=== PATIENT | female | born 1940 | race Caucasian/White ===

== ENCOUNTER → 2016-06-04 | Outpatient (CLI) | payer MEDICARE, BC ==
[2016-06-04 15:37] LABS: Basophils # (A) 0.1 k/uL (0-0.2); Basophils % (A) 1 %; CH 30.1; CHCM 33.5; Eosinophils # (A) 0.3 k/uL (0-0.7); Eosinophils % (A) 3 %; HDW 3.24; HGB 11.3 gm/dL (11.4-16.0); Luc # (Auto) 0.12; Luc % (Auto) 1; Lymphocytes # (A) 1.7 k/uL (1.0-4.8); Lymphocytes % (A) 18 %; MCH 29.1 pg (25.0-35.0); MCHC 32.3 g/dL (31.0-37.0); MCV 90.3 fL (80.0-100.0); Mean Platelet Volume 7.9; Monocytes # (A) 0.5 k/uL (0-1.0); Monocytes % (A) 5 %; Neutrophils % (A) 73 %; RBC 3.88 m/uL (3.80-5.40); RDW 15.6 % (11.5-15.5); WBC 9.6 k/uL (3.8-10.6); WBC (Perox) 10.18
[2016-06-04 15:57] LABS: Potassium 3.5 mmol/L (3.5-5.1)
[2016-06-04 16:07] LABS: Partial Thromboplastin Time 21.9 sec (22.0-30.0)
== END | disposition home or self-care (01) ==
LOC: LABPAT 14:54
PROVIDERS: ATTEND Orthopaedic Surgery
DX: Z01.812 Encounter for preprocedural laboratory examination (principal); M17.12 Unilateral primary osteoarthritis, left knee; Z51.81 Encounter for therapeutic drug level monitoring; Z79.01 Long term (current) use of anticoagulants
CPT/HCPCS: 80051; 85025; 85610; 85730; 87070

== ENCOUNTER 2016-06-10 08:38 | Inpatient (IN) | payer MEDICARE, BC ==
[2016-06-05 14:48] VITALS: BMI 23.3
--- NOTE | 2016-06-09 13:46 | HP ---
DATE OF ADMISSION: 06/10/2016 Lolita Blood is a 75-year-old patient seen with symptomatic left knee osteoarthritis, failing conservative treatment measures. After having options regarding treatment discussed, she elected to proceed with left total knee arthroplasty. Consent was obtained. Medical clearance was provided by Dr. Roman. Patient had been cardiac cleared by Dr. Gr. Past medical history is hypertension, hyperlipidemia, hypothyroidism, gastroesophageal reflux disease. Past surgical history is hysterectomy, bladder suspension surgery. DAILY MEDICATIONS: 1. Lisinopril. 2. Simvastatin. 3. Allopurinol. 4. Amlodipine. 5. Levothyroxine. 6. Shiloh. 7. Omeprazole. Allergies are IODINE, DARVOCET, DARVON, CODEINE. SOCIAL HISTORY: Patient denies tobacco use. Physical evaluation of the left knee: Range of motion is -3 to 115 degrees. There is a moderate to severe effusion present. Tenderness along the lateral joint line with a positive lateral Ambrosio's. There is crepitus along the lateral and patellofemoral compartments with range of motion, pain on patellofemoral compression. Ligaments stable. Hip rotation without pain. Distal neurovascular exam intact. Radiographs of the left knee revealed moderate to severe lateral compartment osteoarthritis and moderate patellofemoral compartment osteoarthritis. IMPRESSION: Left knee osteoarthritis. PLAN: Left total knee arthroplasty.
[~2016-06-10 08:38] MED LIST: ACETAMINOPHEN TAB 500 MG TAB PO ONE; LIDOCAINE 1% 20 ML VIAL (10MG/ML) FOR IV START INTRADERMA PRN; MELOXICAM 7.5 MG TAB PO ONE; TRANEXAMIC ACID 1,000 MG in SODIUM CHLORIDE 0.9% 100 ML IVPB ONE; ceFAZolin 2 GM in SODIUM CHLORIDE 0.9% 100 ML IVPB ONE
[2016-06-10] MEDS: LACTATED RINGERS 1,000 ML IV SCH ×2 (09:03→09:08)
[2016-06-10] MEDS ORDERED: DEXAMETHASONE SOD PHOSPHATE 10 MG/ML 1 ML VIAL IV ONE (09:12)
[2016-06-10] MEDS: ONDANSETRON 4 MG/2 ML VIAL IVP ONE ×2 (09:14→14:20)
[2016-06-10] MEDS ORDERED: fentaNYL (PF) 50 MCG/ML 2 ML AMP IV ONE (09:17)
[2016-06-10] MEDS: MIDAZOLAM 2 MG/2 ML VIAL IV PRN ×2 (09:17→14:33)
[2016-06-10 09:29] LABS: Potassium 3.2 mmol/L (3.5-5.1)
[2016-06-10] MEDS ORDERED: ROPIVACAINE 1,100 MG, SODIUM CHLORIDE 0.9% 330 ML MISCELLANE PRN ×2 (09:40)
--- NOTE | 2016-06-10 09:42 | P.ONQ ---
Anesthesiology Proc Note - PNB - Peripheral Nerve Block Performed Left Adductor Canal Infusion Time Out Performed: Yes Indication: Acute Post-Operative Pain, Analgesia Specifically requested for management of pain by DrSarah: Gaurav Alves Sedation Type: Sedate with meaningful contact maintained Preparation: Sterile Prep Position: Supine Catheter Depth at Skin (cm): 6 Catheter: Indwelling Needle Types: On-Q Needle Size: 100mm (4") Needle Gauge: 20 Technique: Ultrasound Injectate: 0.5% Ropivacaine (see comment for volume) (20 cc) Blood Aspirated: No Pain Paresthesia on Injection Noted: No Resistance on Injection: Normal Events: Uneventful and Well Tolerated
[2016-06-10] MEDS ORDERED: LIDOCAINE 1% INJ 10MG/ML (20 ML MDV) ONE (11:35)
[2016-06-10] MEDS ORDERED: SUCCINYLCHOLINE CHLORIDE 100 MG/5 ML SYR IV ONE (11:35)
[2016-06-10] MEDS ORDERED: GLYCOPYRROLATE 0.2 MG/ML 2 ML VIAL ONE (11:35)
[2016-06-10] MEDS ORDERED: PROPOFOL 10 MG/ML 20 ML VIAL IV ONE (11:35)
[2016-06-10] MEDS ORDERED: MIDAZOLAM 2 MG/2 ML VIAL ONE (11:35)
[2016-06-10] MEDS ORDERED: ROCURONIUM BROMIDE 10 MG/ML 10 ML VIAL IV ONE (11:35)
[2016-06-10] MEDS ORDERED: fentaNYL (PF) 50 MCG/ML 2 ML AMP ONE (11:35)
[2016-06-10] MEDS ORDERED: TRANEXAMIC ACID 1,000 MG/10 ML VIAL ONE (11:35)
[2016-06-10] MEDS ORDERED: NEOSTIGMINE 1 MG/ML 10 ML VIAL ONE (11:35)
[2016-06-10] MEDS ORDERED: SODIUM CHLORIDE 0.9% 100 ML BAG ONE (11:35)
[2016-06-10] MEDS ORDERED: PHENYLEPHRINE-0.9% NACL SYG 1 MG/10 ML SYRINGE ONE (11:35)
[2016-06-10] MEDS ORDERED: LACTATED RINGERS 1,000 ML IV ONE (12:10)
[2016-06-10] MEDS ORDERED: ceFAZolin 3,000 MG in SODIUM CHLORIDE 0.9% IRRIGATIO 3,000 ML IRRIGATION ONE (12:22)
[2016-06-10] MEDS: ROPIVACAINE 246.25 MG, EPINEPHrine 0.5 MG, KETOROLAC 30 MG, cloNIDine HCL/PF 80 MCG, WA... MISCELLANE ONE ×10 (12:24→12:57)
[2016-06-10] MEDS ORDERED: NALOXONE 0.4 MG/ML 1 ML VIAL IV PRN (13:37)
[2016-06-10] MEDS ORDERED: HYDROmorphone 1 MG/ML 1 ML SYRINGE IVP PRN ×2 (13:37)
--- NOTE | 2016-06-10 13:37 | P.OP ---
Date of Procedure: 06/10/16 Preoperative Diagnosis: Left knee osteoarthritis Postoperative Diagnosis: Left knee osteoarthritis Procedure(s) Performed: Left total knee arthroplasty Implants: 1. Jose Manuel persona size 5 left narrow cemented cruciate retaining femur 2. Jose Manuel persona size C left cemented tibial component 3. Jose Manuel persona 10 mm medial congruent polyethylene tibial insert 4. Jose Manuel persona 32 mm all polyethylene cemented patella 5 Anesthesia: GETA, regional (Adductor canal block) Surgeon: Gaurav Alves Retirement Specialist #1: Faisal Steele Estimated Blood Loss (ml): 75 Pathology: other (Bone) Condition: stable Disposition: PACU Indications for Procedure: 75-year-old patient seen with symptomatic left knee osteoarthritis. After treatment options were discussed, she elected to proceed with left total knee arthroplasty. Operative Findings: See description of procedure Description of Procedure: Patient was taken to the operative suite after having an adductor canal block performed by the department of anesthesia. Patient underwent a general anesthetic by the department of anesthesia. Patient was given preoperative IV intake antibiotics and TXA. A well-padded tourniquet was placed about the left lower extremity. The lower extremity was then prepped and draped in the normal sterile orthopedic fashion. A standard anterior incision was made sharply through skin. Dissection was taken down through the subcutaneous soft tissues down to the extensor mechanism. A medial arthrotomy was performed, patella was everted and knee was flexed. There was advanced osteoarthritis noted. A proximal tibial cutting guide was positioned. Proximal tibial cut was made. A distal intramedullary femoral cutting guide was positioned, distal femoral cut made. We placed the appropriate sizing guide and selected the appropriate size. A distal 4-in-1 femoral cutting block was positioned, distal femoral cuts were made. We now placed a trial femoral component into position, along with an appropriate size tibial tray and insert. We now took the knee through range of motion and had full extension good flexion and good overall soft tissue balance noted. The patella was everted and a flush cut made with patellar quad tendon. We templated the patella, appropriate drill holes were made. An appropriate trial patella was positioned, knee was taken through full range of motion with the patella tracking very nicely. The trial patella was removed. Drill holes were made through the femoral component. All trial components were removed after marking off the appropriate rotation of the tibia. Retractors were now positioned along the proximal tibia. An appropriate keel punch was made with the appropriate size tibial guide. At this point appropriate size implants were chosen and opened. The tourniquet was insufflated to 350. The joint was irrigated copiously with pulse lavage mechanical irrigation. We mixed antibiotic methylmethacrylate. The deep soft tissues were infiltrated local analgesic. Once the methyl methacrylate was ready, the tibial component was cemented into place removing any excess methylmethacrylate. The femoral component was cemented into place removing the removing any excess methylmethacrylate. We then inserted the appropriate size polyethylene tibial insert. We made sure that it was locked into position. We took the knee into full extension, and then back in a flexion making sure we had removed any excess methylmethacrylate. The patellar component was then cemented down and secured with clamp. Excess methylmethacrylate removed. We kept the knee in full extension, patellar clamp in position until methylmethacrylate had hardened. Once it had hardened the patellar clamp was removed. The knee was taken through full range of motion. The patella tracked nicely. There was good soft tissue balancing. The tourniquet was now released. Additional hemostasis was achieved via electrocautery. A second gram of TXA was given. The wound was irrigated with pulse lavage mechanical irrigation. The extensor mechanism was repaired with Vicryl. We checked the repair with range of motion and it was stable. The subcutaneous soft tissues were repaired with Vicryl in layers. The skin was approximated with pernio/ Dermabond. Sterile dressings were applied followed by loose web roll and Souleymane bandage. The patient was transferred to a bed, and taken to recovery in stable and satisfactory condition. Faisal BENITEZ assisted with the procedure.
[2016-06-10] MEDS: HYDROmorphone 1 MG/ML 1 ML SYRINGE IVP ONE ×2 (14:25→14:31)
--- NOTE | 2016-06-10 14:53 | XR ---
EXAMINATION TYPE: XR knee limited LT DATE OF EXAM: 06/10/2016 2:34 PM CLINICAL HISTORY: Postoperative evaluation Two views of the left knee are submitted. Identified are changes of total knee arthroplasty with fem oral and tibial components appearing well seated. Postsurgical soft tissue changes are noted. Align ment is anatomic.
[2016-06-10] MEDS ORDERED: Potassium Replacement Protocol 1 EACH MISC MISCELLANE PRN (15:48)
[2016-06-10] MEDS: POTASSIUM CHLORIDE ER 20 MEQ TAB.ER PO SCH ×2 (19:19→20:36)
[2016-06-10] MEDS: traMADol 50 MG TAB PO SCH ×2 (19:20→20:57)
[2016-06-10] MEDS: SODIUM CHLORIDE 0.9% 1,000 ML IV SCH (19:20)
[2016-06-10] MEDS: CALCIUM ACETATE 667 MG CAP PO SCH (20:35)
[2016-06-10] MEDS: ENOXAPARIN 30 MG/0.3 ML SYRINGE SQ SCH (20:36)
[2016-06-10] MEDS: ATORVASTATIN 20 MG TAB PO SCH (20:36)
[2016-06-10] MEDS: ceFAZolin 2 GM in SODIUM CHLORIDE 0.9% 100 ML IVPB SCH (20:39)
[2016-06-10] MEDS: SENNOSIDES-DOCUSATE SODIUM 1 EACH TAB PO SCH (20:40)
[2016-06-11] MEDS: HYDROcodone/APAP 7.5-325MG 1 EACH TAB PO PRN ×6 (00:25→23:29)
[2016-06-11] MEDS: traMADol 50 MG TAB PO SCH ×5 (01:37→20:22)
[2016-06-11] MEDS: LACTATED RINGERS 1,000 ML IV SCH (02:37)
[2016-06-11] MEDS: LEVOTHYROXINE 50 MCG TAB PO SCH (05:04)
[2016-06-11] MEDS: ceFAZolin 2 GM in SODIUM CHLORIDE 0.9% 100 ML IVPB SCH (05:04)
[2016-06-11] MEDS: hydrOXYzine PAMOATE 25 MG CAP PO PRN ×4 (05:27→23:29)
[2016-06-11] MEDS: PANTOPRAZOLE 40 MG TABLET PO SCH (07:28)
[2016-06-11] MEDS: CALCIUM ACETATE 667 MG CAP PO SCH ×2 (07:28→18:08)
[2016-06-11] MEDS: ENOXAPARIN 30 MG/0.3 ML SYRINGE SQ SCH ×2 (07:29→20:21)
[2016-06-11] MEDS: amLODIPine 10 MG TAB PO SCH (07:29)
[2016-06-11 08:59] LABS: Basophils % (A) 0 %; CH 30.3; CHCM 33.4; Eosinophils % (A) 0 %; HCT 27.3 % (34.0-46.0); HDW 3.14; Luc # (Auto) 0.07; Luc % (Auto) 1; Lymphocytes # (A) 1.2 k/uL (1.0-4.8); Lymphocytes % (A) 13 %; MCH 29.4 pg (25.0-35.0); MCHC 32.1 g/dL (31.0-37.0); MCV 91.5 fL (80.0-100.0); Monocytes # (A) 0.5 k/uL (0-1.0); Monocytes % (A) 5 %; Neutrophils # (A) 7.1 k/uL (1.3-7.7); Neutrophils % (A) 80 %; RBC 2.98 m/uL (3.80-5.40); RDW 15.6 % (11.5-15.5); WBC 8.9 k/uL (3.8-10.6); WBC (Perox) 9.32
[2016-06-11] MEDS ORDERED: FAMOTIDINE 20 MG TAB PO SCH (09:00)
[2016-06-11 09:02] LABS: HGB 8.8 gm/dL (11.4-16.0)
[2016-06-11 09:05] LABS: Calcium 9.1 mg/dL (8.4-10.2); Potassium 3.8 mmol/L (3.5-5.1)
[2016-06-11] MEDS: HYDROmorphone 1 MG/ML 1 ML SYRINGE IVP PRN ×3 (10:01→20:28)
--- NOTE | 2016-06-11 10:15 | P.PN ---
Progress Note - Text 0845. Anesthesia POD 1. Patient is status post left TKR under generall anesthesia with an adductor canal catheter placed on the left for postoperative pain relief. Catheter site is clean dry and intact. Patient reports a the a VAS of 3, 5 with 0.2% ropivacaine running at 10 mL per hour. Most of the discomfort she is having is in the posterior aspect of the operative knee.
[2016-06-11] MEDS: CHOLECALCIFEROL 1,000 UNIT TAB PO SCH (12:06)
[2016-06-11] MEDS: FERROUS SULFATE 325 MG TAB PO SCH (12:06)
[2016-06-11] MEDS: MULTIVITAMINS, THERA 1 EACH TAB PO SCH (12:06)
[2016-06-11] MEDS: SODIUM CHLORIDE 0.9% 1,000 ML IV SCH (12:26)
--- NOTE | 2016-06-11 12:54 | P.CONS ---
History of Present Illness - Reason for Consult Consult date: 06/10/16 Medical management Requesting physician: Gaurav Alves - Chief Complaint Left knee pain - History of Present Illness Patient is a 75-year-old female with past medical history detailed below significant for left knee osteoarthritis that did not respond to conservative treatment. Patient was admitted for elective total left knee arthroplasty. Patient tolerated procedure well. Patient is evaluated on the surgical floor where she is postop day #1. Patient is sitting up in the chair. Denies chills, fevers, nausea, vomiting, shortness of breath, chest pain, abdominal pain, numbness or tingling. Incisional pain controlled with current pain regimen. Patient is urinating without difficulty. Patient reports good appetite. Labs reviewed: Hemoglobin 8.8, creatinine 2. Afebrile. Hemodynamically stable. Past Medical History Past Medical History: Blood Disorder, GERD/Reflux, Hyperlipidemia, Hypertension , Renal Disease Additional Past Medical History / Comment(s): HX ANEMIA AND DIVERTICULOSIS. HAS LOW KIDNEY FUNCTION, 21% - HAD CLEARANCE FOR TRANSPLANT LIST. History of Any Multi-Drug Resistant Organisms: None Reported Past Surgical History: Bladder Surgery, Hysterectomy, Joint Replacement Additional Past Surgical History / Comment(s): TOTAL RT KNEE sinus surgery Past Anesthesia/Blood Transfusion Reactions: Postoperative Nausea & Vomiting ( PONV) Past Psychological History: No Psychological Hx Reported Smoking Status: Never smoker Past Alcohol Use History: Occasional Past Drug Use History: None Reported - Past Family History Mother Family Medical History: No Reported History Medications and Allergies Home Medications Medication Instructions Recorded Confirmed Type Calcium Acetate [Phoslo] 667 mg PO BID 01/19/16 06/10/16 History Cholecalciferol [Vitamin D3] 2,000 unit PO DAILY 01/19/16 06/10/16 History Ferrous Sulfate [Feosol] 325 mg PO DAILY 01/19/16 06/10/16 History HYDROcodone/APAP 5-325MG [[place] 2 tab PO Q8HR PRN 01/19/16 06/10/16 History 5-325] Levothyroxine Sodium [Synthroid] 50 mcg PO DAILY 01/19/16 06/10/16 History Ranulfo Red Krill Oil 1 tab PO DAILY 01/19/16 06/10/16 History Omeprazole 20 mg PO DAILY 01/19/16 06/10/16 History Simvastatin [Zocor] 40 mg PO HS 01/19/16 06/10/16 History amLODIPine [Norvasc] 10 mg PO DAILY 01/19/16 06/10/16 History diphenhydrAMINE [Benadryl] 25 mg PO HS PRN 01/19/16 06/10/16 History Allopurinol [Zyloprim] 100 mg PO DAILY 06/05/16 06/10/16 History Allergies Allergy/AdvReac Type Severity Reaction Status Date / Time iodine Allergy MAKES CUTS Verified 06/10/16 09:00 WORSE Sulfa (Sulfonamide Allergy Rash/Hives Verified 06/10/16 09:00 Antibiotics) codeine AdvReac CONSTIPATIO Verified 06/10/16 09:00 N NSAIDS (Non-Steroidal AdvReac Unknown Verified 06/10/16 11:17 Anti-Inflamma Physical Exam Vitals: Vital Signs Temp Pulse Pulse Resp BP Pulse Ox 06/11/16 07:00 98.4 F 84 16 113/66 94 L 06/11/16 00:15 98.3 F 89 16 113/67 92 L 06/10/16 19:30 97.7 F 84 16 123/66 95 06/10/16 17:45 117/66 06/10/16 17:30 110/59 06/10/16 17:15 109/80 06/10/16 17:00 113/64 06/10/16 16:30 108/63 06/10/16 16:15 106/62 06/10/16 16:00 97.3 F L 85 16 120/69 99 06/10/16 15:30 81 18 111/59 97 06/10/16 15:00 82 16 104/57 99 06/10/16 14:45 78 18 108/55 97 06/10/16 14:32 83 18 118/60 100 06/10/16 14:05 97.6 F 95 16 123/64 94 L Intake and Output 06/10/16 06/11/16 06/11/16 22:59 06:59 14:59 Intake Total 750 400 360 Output Total 450 700 Balance 300 400 -340 Intake: IV 750 400 Sodium Chloride 0.9% 1, 200 400 000 ml @ 50 mls/hr IV . Q20H [facility] Rx#:[id number] Oral 360 Output: Urine 450 700 Uretheral (Nguyen) 450 400 Other: Voiding Method Indwelling Catheter GENERAL: Pt awake and alert, well-appearing, well-nourished, and in no acute distress. HEAD: Atraumatic, normocephalic. EYES: Pupils equal and round. Sclera anicteric, conjunctiva are normal. ENT: Moist mucous membranes. NECK:Supple without lymphadenopathy or JVD. LUNGS: Breath sounds clear to auscultation bilaterally. No wheezes, rales, or rhonchi. HEART: Heart S1, S2, no S3 or S4. Regular rate and rhythm. No murmurs, rubs or gallops. ABDOMEN: Soft, nontender, nondistended, normoactive bowel sounds. EXTREMITIES: 2+ peripheral pulses. Mild bilateral peripheral edema. No calf tenderness. Dressing to left knee dressing intact. NEUROLOGICAL: Pt oriented x 3. No focal deficits. Strength and sensation grossly intact. PSYCH: Normal mood, normal affect. SKIN: Warm, dry, intact. Normal turgor. No rashes or lesions. Results CBC & Chem 7: 06/11/16 08:20 06/11/16 08:13 Labs: Abnormal Lab Results - Last 24 Hours (Table) 06/11/16 06/11/16 Range/Units 08:13 08:20 RBC 2.98 L (3.80-5.40) m/uL Hgb 8.8 L D (11.4-16.0) gm/dL Hct 27.3 L (34.0-46.0) % RDW 15.6 H (11.5-15.5) % BUN 28 H (7-17) mg/dL Creatinine 2.00 H (0.52-1.04) mg/dL Assessment and Plan Plan: Impression: 1. Left knee osteoarthritis status post left total knee arthroplasty on 2016. 2. Anemia, postop suspect secondary to acute blood loss and possible hemodilution. 3. Chronic kidney disease, stage IV. 4. GERD. 5. Hyperlipidemia. 6. Hypertension. 7. History of diverticulosis. Plan: Continue to monitor patient. Continue surgical management by orthopedic service. Home medications have been reviewed and resumed as appropriate. Continue GI and DVT prophylaxis. Continue supportive treatment and pain management. Repeat CBC and BMP in a.m. The above impression and plan have been discussed and directed by Dr. Roman. Velia CHAVIRA acting as scribe for Dr. Roman.
--- NOTE | 2016-06-11 13:53 | P.PN ---
Subjective Principal diagnosis: Status post left total knee arthroplasty Patient is seen today resting in her hospital bed, she appears to be in no acute distress. She has noticed some increase in pain when ambulating. She denies any headaches, lightheadedness, chest pain, shortness of breath. Objective - Vital Signs Vital signs: Vital Signs Temp 98.4 F 06/11/16 07:00 Pulse 84 06/11/16 07:00 Resp 16 06/11/16 07:00 BP 113/66 06/11/16 07:00 Pulse Ox 94 L 06/11/16 07:00 Intake & Output 06/10/16 06/11/16 06/11/16 18:59 06:59 18:59 Intake Total 5300 600 600 Output Total 325 450 700 Balance 4975 150 -100 Intake: IV 5300 600 Sodium Chloride 0.9% 1, 600 000 ml @ 50 mls/hr IV . Q20H [facility] Rx#:[id number] Oral 600 Output: Urine 250 450 700 Uretheral (Nguyen) 450 400 Estimated Blood Loss 75 Other: Voiding Method Indwelling Catheter Indwelling Catheter - Exam Left lower extremity: Incision is clean, dry, and intact. Minimal ecchymosis present on the medial and lateral aspects of the incision. Calf is soft, no tenderness with palpation. Plantar flexion, dorsiflexion, EHL, FHL are intact. Sensory exam light touch is intact, cap refills less than 2 seconds - Labs CBC & Chem 7: 06/11/16 08:20 06/11/16 08:13 Labs: Abnormal Lab Results - Last 24 Hours (Table) 06/11/16 06/11/16 Range/Units 08:13 08:20 RBC 2.98 L (3.80-5.40) m/uL Hgb 8.8 L D (11.4-16.0) gm/dL Hct 27.3 L (34.0-46.0) % RDW 15.6 H (11.5-15.5) % BUN 28 H (7-17) mg/dL Creatinine 2.00 H (0.52-1.04) mg/dL Assessment and Plan Plan: Assessment: 1. Postop day #1 status post left total knee arthroplasty Plan: 1. Pain control, continue supportive oral medications 2. Daily dressing changes/ice and elevate 3. Continue with therapy and CPM 4. Encourage incentive spirometer 5. GI and DVT prophylaxis, continue Lovenox 6. Medical recommendations 7. Discharge planning: Patient will be likely discharged home tomorrow Time with Patient: Less than 30
--- NOTE | 2016-06-11 13:54 | P.DS ---
Providers Date of admission: 06/10/16 08:38 Expected date of discharge: 06/13/16 Attending physician: Gaurav Alves Consults: 06/10/16 13:37 Consult Physician Routine Consulting Provider: Balbir Roman Reason/Comments: Medical management Do you want consulting provider notified?: Yes Primary care physician: Balbir Roman [place] Hospital Course: Date of admission: 06/10/2016 Date of discharge: 06/13/2016 Admission diagnosis: Status post left total knee arthroplasty Discharge diagnosis: Same Attending physician: Dr. Alves Surgical procedures: Left total knee arthroplasty Brief history: Patient is a 75-year-old female with a history of progressive primary left knee osteoarthritis. At this point patient has failed conservative treatment measures and has opted to proceed with a elective left total knee arthroplasty. Hospital course: Details of patient's surgery can be found in operative report. Patient tolerated the procedure well and was subsequently transported to orthopedic floor. Patient's orthopeidc and medical care was provided daily. Patient had daily laboratory tests performed for evaluation of overall blood counts. Patient had daily physical therapy to include strengthening range of motion as well as education with walker ambulation. Patient had daily CPM usage as part of their physical therapy program. Patient was treated with Lovenox for their postoperative DVT prophylaxis during their inpatient stay. Patient was noted to have a relatively uneventful postoperative course. Patient reported satisfactory pain control with oral pain medications by postoperative day 0. Patient showed satisfactory progress with physical therapy. Patient moved steadily through the program and had no difficulty meeting the goals by postoperative day 3. Given patient's otherwise satisfactory course and having met physical therapy goals, plan is to discharge patient home on postoperative day 3. Discharge condition/disposition: Patient will be discharged home in stable condition. Discharge medications: Instructions are given on resumption of patient's normal daily medications per primary care recommendation, in addition patient will be prescribed [place] 7.5 mg/325 mg, tramadol 50 mg, Colace 100 mg, Pepcid 20 mg, aspirin 25 mg. Discharge instructions: 1. Wound care and infection precautions, keep incision dry and covered while showering, no lotions, creams, moisturizers. No soaking, tubs, pools, hottubs. Do not scrub over the incision. 2. Weight-bear as tolerated with walker / cane until follow-up. 3. Ice and elevate when necessary. Do not exceed 20 minutes per hour with ice pack. 4. Utilize compression sleeve until seen at first follow up appointment. 5. Visiting nursing care. 6. Home physical therapy including home CPM. 7. Pain meds and anticoagulants per prescription. 8. Pain medication has potential to cause constipation. Increase oral fluid and fiber intake. Contact primary care provider if you have not had a bowel movement within 48 hours after discharge 9. No anti-inflammatory medication until discussed at first post operative visit, this including Motrin, Aleve, Mobic, Diclofenac. 10. Follow up in office at 2 weeks postop with Esteban Steele PA-C 11. Follow up with your primary care doctor 7-10 days after discharge. 12. Contact [facility] with any questions, . Procedures: Left total knee arthroplasty Patient Condition at Discharge: Good Plan - Discharge Summary New Discharge Prescriptions: Aspirin 325 mg PO DAILY #3 tab Docusate [Colace] 100 mg PO DAILY #30 capsule Enoxaparin Sodium [Lovenox] 30 mg SQ Q12HR #14 syringe Famotidine [Pepcid] 20 mg PO DAILY #30 tablet HYDROcodone/APAP 7.5-325MG [[place] 7.5] 1 - 2 each PO Q6HR PRN #60 tab PRN Reason: Pain Warfarin [Coumadin] 2.5 mg PO DAILY #40 tab traMADol HCl [Ultram] 50 mg PO Q6H PRN #40 tab PRN Reason: Pain Discharge Medication List Calcium Acetate [Phoslo] 667 mg PO BID 01/19/16 [History] Cholecalciferol [Vitamin D3] 2,000 unit PO DAILY 01/19/16 [History] Ferrous Sulfate [Feosol] 325 mg PO DAILY 01/19/16 [History] Levothyroxine Sodium [Synthroid] 50 mcg PO DAILY 01/19/16 [History] Ranulfo Red Krill Oil 1 tab PO DAILY 01/19/16 [History] Omeprazole 20 mg PO DAILY 01/19/16 [History] Simvastatin [Zocor] 40 mg PO HS 01/19/16 [History] amLODIPine [Norvasc] 10 mg PO DAILY 01/19/16 [History] diphenhydrAMINE [Benadryl] 25 mg PO HS PRN 01/19/16 [History] Allopurinol [Zyloprim] 100 mg PO DAILY 06/05/16 [History] Docusate [Colace] 100 mg PO DAILY #30 capsule 06/12/16 [Rx] Famotidine [Pepcid] 20 mg PO DAILY #30 tablet 06/12/16 [Rx] HYDROcodone/APAP 7.5-325MG [[place] 7.5] 1 - 2 each PO Q6HR PRN #60 tab 06/12/16 [ Rx] traMADol HCl [Ultram] 50 mg PO Q6H PRN #40 tab 06/12/16 [Rx] Aspirin 325 mg PO DAILY #3 tab 06/13/16 [Rx] Enoxaparin Sodium [Lovenox] 30 mg SQ Q12HR #14 syringe 06/13/16 [Rx] Warfarin [Coumadin] 2.5 mg PO DAILY #40 tab 06/13/16 [Rx] Follow up Appointment(s)/Referral(s): Balbir Roman DO [Primary Care Provider] - 06/19/16 11:20 am [facility], [NON-STAFF] - 1 Week Faisal Steele PAC [PHYSICIAN PROPERTY PRESERVATION SPECIALIST] - 06/28/16 1:50 pm Ambulatory/Diagnostic Orders: Prothrombin Time INR [LAB.AMB] Location: Determined By Patient Patient Instructions/Handouts: Knee Replacement (DC) Activity/Diet/Wound Care/Special Instructions: call [facility] when discharged to get your CPM delivered. Orthopedic Discharge Instructions: 1. Wound care and infection precautions, keep incision dry and covered while showering, no lotions, creams, moisturizers. No soaking, pools, hot tubs. Do not scrub over incision. 2. Weight-bear as tolerated with walker / cane until follow-up. 3. Ice and elevate when necessary. Do not exceed 20 minutes per hour with ice pack. 4. Utilize compression sleeve until seen at first follow up appointment. 5. Visiting nursing care. 6. Home physical therapy including home CPM. 7. Pain meds and anticoagulants per prescription. 8. Pain medication has potential to cause constipation. Increase oral fluid and fiber intake. Contact primary care provider if you have not had a bowel movement within 48 hours after discharge. 9. No anti-inflammatory medication until discussed at first post operative visit, this including Motrin, Aleve, Mobic, Diclofenac. 10. Follow up in office at 2 weeks postop with Esteban Steele PA-C 11. Follow up with your primary care doctor 7-10 days after discharge. 12. Contact [facility] with any questions, . Aspirin 325 mg oral for [address] Roman. Discharge Disposition: HOME WITH HOME HEALTH SERVICES
[2016-06-11] MEDS: ATORVASTATIN 20 MG TAB PO SCH (20:21)
[2016-06-11] MEDS: SENNOSIDES-DOCUSATE SODIUM 1 EACH TAB PO SCH (20:21)
[2016-06-12] MEDS: LEVOTHYROXINE 50 MCG TAB PO SCH (05:10)
[2016-06-12] MEDS: hydrOXYzine PAMOATE 25 MG CAP PO PRN ×2 (05:10→10:24)
[2016-06-12] MEDS: HYDROcodone/APAP 7.5-325MG 1 EACH TAB PO PRN ×3 (05:10→16:35)
[2016-06-12 07:59] LABS: Basophils % (A) 0 %; CH 29.8; CHCM 32.6; Eosinophils # (A) 0.1 k/uL (0-0.7); Eosinophils % (A) 1 %; HCT 27.3 % (34.0-46.0); HDW 3.07; HGB 8.9 gm/dL (11.4-16.0); Luc # (Auto) 0.12; Luc % (Auto) 2; Lymphocytes # (A) 1.3 k/uL (1.0-4.8); Lymphocytes % (A) 17 %; MCH 29.8 pg (25.0-35.0); MCHC 32.6 g/dL (31.0-37.0); MCV 91.6 fL (80.0-100.0); Mean Platelet Volume 7.1; Monocytes # (A) 0.5 k/uL (0-1.0); Monocytes % (A) 7 %; Neutrophils # (A) 5.5 k/uL (1.3-7.7); Neutrophils % (A) 73 %; RBC 2.98 m/uL (3.80-5.40); RDW 15.5 % (11.5-15.5); WBC 7.4 k/uL (3.8-10.6); WBC (Perox) 8.14
[2016-06-12 08:15] LABS: Calcium 9.3 mg/dL (8.4-10.2); Potassium 3.6 mmol/L (3.5-5.1)
[2016-06-12] MEDS ORDERED: Potassium Replacement Protocol 1 EACH MISC MISCELLANE PRN (08:29)
[2016-06-12] MEDS ORDERED: POTASSIUM CHLORIDE ER 20 MEQ TAB.ER PO SCH (09:00)
[2016-06-12] MEDS: CALCIUM ACETATE 667 MG CAP PO SCH ×2 (09:08→21:12)
[2016-06-12] MEDS: PANTOPRAZOLE 40 MG TABLET PO SCH (09:08)
[2016-06-12] MEDS: amLODIPine 10 MG TAB PO SCH (09:08)
[2016-06-12] MEDS: ENOXAPARIN 30 MG/0.3 ML SYRINGE SQ SCH ×2 (09:08→21:12)
[2016-06-12] MEDS: traMADol 50 MG TAB PO SCH ×4 (09:15→21:12)
--- NOTE | 2016-06-12 09:32 | P.PN ---
Subjective Principal diagnosis: Status post left total knee arthroplasty Patient is seen today resting in her hospital bed, she appears to be in no acute distress. Pain is better controlled today. She denies any headaches, lightheadedness, chest pain, shortness of breath. Objective - Vital Signs Vital signs: Vital Signs Temp 97.8 F 06/12/16 07:00 Pulse 90 06/12/16 07:00 Resp 16 06/12/16 07:00 BP 130/70 06/12/16 07:00 Pulse Ox 92 L 06/12/16 07:00 Intake & Output 06/11/16 06/12/16 06/12/16 18:59 06:59 18:59 Intake Total 650 120 Output Total 700 Balance -50 120 Intake: IV 50 Sodium Chloride 0.9% 1, 50 000 ml @ 50 mls/hr IV . Q20H [facility] Rx#:[id number] Oral 600 120 Output: Urine 700 Uretheral (Nguyen) 400 Other: Voiding Method Toilet # Voids 1 - Exam Left lower extremity: Incision is clean, dry, and intact. Minimal ecchymosis present on the medial and lateral aspects of the incision. Calf is soft, no tenderness with palpation. Plantar flexion, dorsiflexion, EHL, FHL are intact. Sensory exam light touch is intact, cap refills less than 2 seconds - Labs CBC & Chem 7: 06/12/16 07:26 06/12/16 07:26 Labs: Abnormal Lab Results - Last 24 Hours (Table) 06/12/16 06/12/16 Range/Units 07:26 07:26 RBC 2.98 L (3.80-5.40) m/uL Hgb 8.9 L (11.4-16.0) gm/dL Hct 27.3 L (34.0-46.0) % BUN 24 H (7-17) mg/dL Creatinine 2.03 H (0.52-1.04) mg/dL Assessment and Plan Plan: Assessment: 1. Postop day #2 status post left total knee arthroplasty Plan: 1. Pain control, continue use of oral medication we'll discharge home on [place] 2. Daily dressing changes/ice and elevate 3. Continue with therapy and CPM 4. Encourage incentive spirometer 5. GI and DVT prophylaxis, discharged on aspirin 325 mg twice a day 6. Medical recommendations 7. Discharge planning: Will likely be discharged home today Time with Patient: Less than 30
[2016-06-12] MEDS: CHOLECALCIFEROL 1,000 UNIT TAB PO SCH (11:51)
[2016-06-12] MEDS: MULTIVITAMINS, THERA 1 EACH TAB PO SCH (11:51)
[2016-06-12] MEDS: FERROUS SULFATE 325 MG TAB PO SCH (11:52)
[2016-06-12] MEDS ORDERED: POTASSIUM CHLORIDE ER 20 MEQ TAB.ER PO STA (12:18)
--- NOTE | 2016-06-12 16:32 | P.PN ---
Subjective Principal diagnosis: Left knee osteoarthritis Patient is a 75-year-old female with past medical history detailed below significant for left knee osteoarthritis that did not respond to conservative treatment. Patient was admitted for elective total left knee arthroplasty. Patient tolerated procedure well. Patient is evaluated on the surgical floor where she is postop day #2. Patient is doing well. Denies chills, fevers, nausea, vomiting, shortness of breath, chest pain, abdominal pain, numbness or tingling. Incisional pain controlled with current pain regimen. Patient is urinating without difficulty. Patient reports good appetite. Labs reviewed: Hemoglobin stable at 8.9, creatinine stable at 2.03. Potassium 3.6. Magnesium 1.9. Afebrile. Hemodynamically stable. Objective - Vital Signs Vital signs: Vital Signs Temp 97.7 F 06/12/16 15:00 Pulse 88 06/12/16 15:00 Resp 16 06/12/16 15:00 BP 126/67 06/12/16 15:00 Pulse Ox 94 L 06/12/16 15:00 Intake & Output 06/11/16 06/12/16 06/12/16 18:59 06:59 18:59 Intake Total 650 120 120 Output Total 700 300 Balance -50 120 -180 Weight 63.503 kg Intake: IV 50 Sodium Chloride 0.9% 1, 50 000 ml @ 50 mls/hr IV . Q20H [facility] Rx#:[id number] Oral 600 120 120 Output: Urine 700 300 Uretheral (Nguyen) 400 Other: Voiding Method Toilet Toilet # Voids 1 2 - Exam GENERAL: Pt awake and alert, well-appearing, well-nourished, and in no acute distress. HEAD: Atraumatic, normocephalic. EYES: Pupils equal and round. Sclera anicteric, conjunctiva are normal. ENT: Moist mucous membranes. NECK:Supple without lymphadenopathy or JVD. LUNGS: Breath sounds clear to auscultation bilaterally. No wheezes, rales, or rhonchi. HEART: Heart S1, S2, no S3 or S4. Regular rate and rhythm. No murmurs, rubs or gallops. ABDOMEN: Soft, nontender, nondistended, normoactive bowel sounds. EXTREMITIES: 2+ peripheral pulses. Mild bilateral peripheral edema. No calf tenderness. Dressing to left knee dressing intact. NEUROLOGICAL: Pt oriented x 3. No focal deficits. Strength and sensation grossly intact. PSYCH: Normal mood, normal affect. SKIN: Warm, dry, intact. Normal turgor. No rashes or lesions. - Labs CBC & Chem 7: 06/12/16 07:26 06/12/16 07:26 Labs: Abnormal Lab Results - Last 24 Hours (Table) 06/12/16 06/12/16 Range/Units 07:26 07:26 RBC 2.98 L (3.80-5.40) m/uL Hgb 8.9 L (11.4-16.0) gm/dL Hct 27.3 L (34.0-46.0) % BUN 24 H (7-17) mg/dL Creatinine 2.03 H (0.52-1.04) mg/dL Assessment and Plan Plan: Impression: 1. Left knee osteoarthritis status post left total knee arthroplasty on 2016. 2. Anemia, postop suspect secondary to acute blood loss and possible hemodilution. 3. Chronic kidney disease, stage IV. 4. GERD. 5. Hyperlipidemia. 6. Hypertension. 7. History of diverticulosis. Plan: Continue to monitor patient. Continue surgical management by orthopedic service. Home medications have been reviewed and resumed as appropriate. Continue GI and DVT prophylaxis. Continue supportive treatment and pain management. Repeat CBC and BMP in a.m. The above impression and plan have been discussed and directed by Dr. Roman. Velia VELASCO-C acting as scribe for Dr. Roman.
[2016-06-12] MEDS: SENNOSIDES-DOCUSATE SODIUM 1 EACH TAB PO SCH (21:11)
[2016-06-12] MEDS: ATORVASTATIN 20 MG TAB PO SCH (21:30)
[2016-06-13] MEDS: HYDROcodone/APAP 7.5-325MG 1 EACH TAB PO PRN ×2 (03:08→10:55)
[2016-06-13] MEDS: hydrOXYzine PAMOATE 25 MG CAP PO PRN (03:08)
[2016-06-13] MEDS: LEVOTHYROXINE 50 MCG TAB PO SCH (05:42)
[2016-06-13 07:25] VITALS: BP 144/79; RESP 16; TEMP 97.7
[2016-06-13] MEDS: traMADol 50 MG TAB PO SCH (08:04)
[2016-06-13] MEDS: PANTOPRAZOLE 40 MG TABLET PO SCH (08:04)
[2016-06-13] MEDS: amLODIPine 10 MG TAB PO SCH (08:04)
[2016-06-13] MEDS: ENOXAPARIN 30 MG/0.3 ML SYRINGE SQ SCH (08:05)
[2016-06-13] MEDS: CALCIUM ACETATE 667 MG CAP PO SCH (08:05)
[2016-06-13 08:27] LABS: Basophils % (A) 0 %; CH 29.7; CHCM 32.6; Eosinophils # (A) 0.2 k/uL (0-0.7); Eosinophils % (A) 2 %; HCT 29.9 % (34.0-46.0); HGB 9.6 gm/dL (11.4-16.0); Luc % (Auto) 2; Lymphocytes % (A) 20 %; MCH 29.4 pg (25.0-35.0); MCHC 32.1 g/dL (31.0-37.0); MCV 91.5 fL (80.0-100.0); Mean Platelet Volume 7.2; Monocytes # (A) 0.5 k/uL (0-1.0); Monocytes % (A) 5 %; Neutrophils # (A) 7.3 k/uL (1.3-7.7); Neutrophils % (A) 71 %; RBC 3.26 m/uL (3.80-5.40); RDW 15.6 % (11.5-15.5); WBC 10.3 k/uL (3.8-10.6); WBC (Perox) 11.27
--- NOTE | 2016-06-13 08:31 | P.PN ---
Subjective Principal diagnosis: Status post left total knee arthroplasty Patient is seen today resting in her hospital bed, she appears to be in no acute distress. Pain is better controlled today. She denies any headaches, lightheadedness, chest pain, shortness of breath. Objective - Vital Signs Vital signs: Vital Signs Temp 97.7 F 06/13/16 07:00 Pulse 88 06/13/16 07:00 Resp 16 06/13/16 07:00 BP 144/79 06/13/16 07:00 Pulse Ox 95 06/13/16 07:00 Intake & Output 06/12/16 06/13/16 06/13/16 18:59 06:59 18:59 Intake Total 240 180 Output Total 600 Balance -360 180 Weight 63.503 kg Intake: Oral 240 180 Output: Urine 600 Other: Voiding Method Toilet Toilet # Voids 2 2 - Exam Left lower extremity: Incision is clean, dry, and intact. Minimal ecchymosis present on the medial and lateral aspects of the incision. Calf is soft, no tenderness with palpation. Plantar flexion, dorsiflexion, EHL, FHL are intact. Sensory exam light touch is intact, cap refills less than 2 seconds - Labs CBC & Chem 7: 06/12/16 07:26 06/12/16 07:26 Assessment and Plan Plan: Assessment: 1. Postop day #3 status post left total knee arthroplasty Plan: 1. Pain control, continue use of oral medication we'll discharge home on [place] 2. Daily dressing changes/ice and elevate 3. Continue with therapy and CPM 4. Encourage incentive spirometer 5. GI and DVT prophylaxis, discharged on aspirin 325 mg twice a day 6. Medical recommendations 7. Discharge planning: Will be discharged home today Time with Patient: Less than 30
[2016-06-13 08:38] LABS: Calcium 9.3 mg/dL (8.4-10.2); Potassium 3.9 mmol/L (3.5-5.1)
[2016-06-13 09:48] VITALS: PULSE 93
[2016-06-13] MEDS: MULTIVITAMINS, THERA 1 EACH TAB PO SCH (10:58)
[2016-06-13] MEDS: FERROUS SULFATE 325 MG TAB PO SCH (10:58)
[2016-06-13] MEDS: CHOLECALCIFEROL 1,000 UNIT TAB PO SCH (10:58)
== END 2016-06-13 14:16 | disposition home health service (06) | DRG 470 ==
LOC: 2ORMAIN 08:38 → 3SUR 14:07
PROVIDERS: ADMIT Orthopaedic Surgery; ATTEND Orthopaedic Surgery
PROC: 0SRD0J9 Replacement of Left Knee Joint with Synthetic Substitute, Cemented, Open Approach (ICD-10-PCS; principal; 2016-06-10 10:00)
DX: M17.12 Unilateral primary osteoarthritis, left knee (principal); N18.4 Chronic kidney disease, stage 4 (severe); D62 Acute posthemorrhagic anemia; I12.9 Hypertensive chronic kidney disease with stage 1 through stage 4 chronic kidney disease, or unspecified chronic kidney disease; E03.9 Hypothyroidism, unspecified; E78.5 Hyperlipidemia, unspecified; K21.9 Gastro-esophageal reflux disease without esophagitis; Z79.899 Other long term (current) drug therapy; Z88.3 Allergy status to other anti-infective agents; Z88.5 Allergy status to narcotic agent; Z88.2 Allergy status to sulfonamides
CPT/HCPCS: 80048; 83735; 84132; 85025; 85610; 88300

== ENCOUNTER → 2017-07-10 | Outpatient (CLI) | payer MEDICARE, BC ==
--- NOTE | 2017-07-10 14:25 | US ---
EXAMINATION TYPE: US kidneys/renal and bladder DATE OF EXAM: 07/10/2017 COMPARISON: US CLINICAL HISTORY: N18.4 chronic kidney stage 4; bladder suspension 2010 per patient EXAM MEASUREMENTS: Right Kidney: 12.3 x 5.5 x 4.9 cm Left Kidney: 11.5 x 5.3 x 4.4 cm Post Void Residual Volume: 1.8 mL Right Kidney: poor corticomedullary differentiation; multiple simple renal cysts seen throughout with largest at superior pole = 2.6 x 2.5 x 2.3cm; lower pole cortical cyst appears clustered. Left Kidney: poor corticomedullary differentiation; multiple microcalcifications noted throughout; mu ltiple simple renal cysts also noted with largest at superolateral cortex = 2.5 x 2.3 x 1.7cm. Renal cortices are hyperechoic bilaterally. Bladder: wnl; thin, linear, hyperechoic focus is noted anteriorly on image #8 and may be related to b ladder suspension surgery Bilateral Jets seen: Yes Normal Post Void Residual: Yes Incidental finding of shadowing gallstone seen on image # 28, and tortuous distal aorta with wall omi cifications also noted while scanning left kidney IMPRESSION: Findings compatible with medical renal disease.
== END | disposition home or self-care (01) ==
LOC: RADUSWWP 12:48
PROVIDERS: ATTEND Nurse Practitioner Family
DX: N18.4 Chronic kidney disease, stage 4 (severe) (principal)
CPT/HCPCS: 76770

== ENCOUNTER → 2017-10-22 | Outpatient (CLI) | payer MEDICARE, BC ==
[2017-10-22 09:36] LABS: HCT 36.2 % (34.0-46.0); MCH 28.9 pg (25.0-35.0); MCHC 33.1 g/dL (31.0-37.0); MCV 87.4 fL (80.0-100.0); Mean Platelet Volume 7.4; Platelet Count 235 k/uL (150-450); RBC 4.15 m/uL (3.80-5.40); RDW 15.6 % (11.5-15.5); WBC 8.4 k/uL (3.8-10.6)
[2017-10-22 09:45] LABS: Appearance,Urine Clear (Clear); Bilirubin,Urine Negative (Negative); Blood,Urine Trace (Negative); Color,Urine Light Yellow; Glucose,Urine (UA) Negative (Negative); Ketones,Urine Negative (Negative); Leukocyte Esterase,Urine Small (Negative); Mucus,Urine Rare /hpf; Nitrite,Urine Negative (Negative); Protein,Urine 2+ (Negative); RBC,Urine 1 /hpf (0-5); Specific Gravity,Urine 1.012 (1.001-1.035); Squamous Epithelial Cell,Urine 2 /hpf (0-4); Urobilinogen,Urine <2.0 mg/dL (<2.0); WBC,Urine 3 /hpf (0-5)
[2017-10-22 09:50] LABS: Albumin 4.2 g/dL (3.5-5.0); Calcium 9.7 mg/dL (8.4-10.2); Magnesium 2.1 mg/dL (1.6-2.3); Phosphorus 4.4 mg/dL (2.5-4.5); Potassium 3.8 mmol/L (3.5-5.1); Total Bilirubin 0.6 mg/dL (0.2-1.3); Total Protein 6.9 g/dL (6.3-8.2); Uric Acid 5.6 mg/dL (3.7-7.4)
[2017-10-22 10:02] LABS: T4, Free (Free Thyroxine) 0.94 ng/dL (0.78-2.19)
[2017-10-22 10:39] LABS: Creatinine,Urine Random 72.2 mg/dL
[2017-10-22 16:43] LABS: Iron Saturation 26.45 (12.00-45.00)
[2017-10-22 17:39] LABS: Parathyroid Hormone Intact 69.1 pg/mL (14.0-72.0)
== END | disposition home or self-care (01) ==
LOC: LABWHC1 08:55
PROVIDERS: ATTEND Internal Medicine
DX: N18.4 Chronic kidney disease, stage 4 (severe) (principal); D63.1 Anemia in chronic kidney disease; N39.0 Urinary tract infection, site not specified; R80.9 Proteinuria, unspecified; E21.3 Hyperparathyroidism, unspecified; E55.9 Vitamin D deficiency, unspecified; M10.9 Gout, unspecified
CPT/HCPCS: 36415; 80053; 80061; 81001; 82570; 82652; 82728; 83540; 83550; 83735; 83883; 83970; 84100; 84156; 84439; 84443; 84550; 85027; 86334

== ENCOUNTER → 2018-02-12 | Outpatient (CLI) | payer MEDICARE, BC ==
[2018-02-12 10:19] LABS: HCT 35.2 % (34.0-46.0); HGB 11.2 gm/dL (11.4-16.0); MCH 28.4 pg (25.0-35.0); MCHC 31.9 g/dL (31.0-37.0); Mean Platelet Volume 7.5; Platelet Count 238 k/uL (150-450); RBC 3.95 m/uL (3.80-5.40); RDW 15.5 % (11.5-15.5); WBC 8.2 k/uL (3.8-10.6)
[2018-02-12 10:26] LABS: Appearance,Urine Cloudy (Clear); Bilirubin,Urine Negative (Negative); Blood,Urine Small (Negative); Color,Urine Light Yellow; Glucose,Urine (UA) Negative (Negative); Ketones,Urine Negative (Negative); Leukocyte Esterase,Urine Negative (Negative); Mucus,Urine Rare /hpf; Nitrite,Urine Negative (Negative); Protein,Urine 2+ (Negative); RBC,Urine 2 /hpf (0-5); Squamous Epithelial Cell,Urine 2 /hpf (0-4); Urobilinogen,Urine <2.0 mg/dL (<2.0); WBC,Urine 2 /hpf (0-5)
[2018-02-12 10:28] LABS: Albumin 4.2 g/dL (3.5-5.0); Calcium 9.9 mg/dL (8.4-10.2); Magnesium 1.9 mg/dL (1.6-2.3); Phosphorus 4.5 mg/dL (2.5-4.5); Potassium 3.6 mmol/L (3.5-5.1); Total Bilirubin 0.8 mg/dL (0.2-1.3); Total Protein 7.4 g/dL (6.3-8.2); Uric Acid 5.3 mg/dL (3.7-7.4)
[2018-02-12 10:42] LABS: T4, Free (Free Thyroxine) 0.97 ng/dL (0.78-2.19)
[2018-02-12 10:51] LABS: Creatinine,Urine Random 77.3 mg/dL
[2018-02-12 18:53] LABS: Parathyroid Hormone Intact 53.9 pg/mL (14.0-72.0)
== END ==
LOC: LABWHC1 09:32
PROVIDERS: ATTEND Internal Medicine
DX: E55.9 Vitamin D deficiency, unspecified (principal); M10.9 Gout, unspecified; N18.4 Chronic kidney disease, stage 4 (severe); D63.1 Anemia in chronic kidney disease; E78.5 Hyperlipidemia, unspecified
CPT/HCPCS: 36415; 80053; 80061; 81001; 82570; 82728; 83540; 83550; 83735; 83970; 84100; 84156; 84439; 84443; 84550; 85027; 86038

== ENCOUNTER → 2019-03-08 | Outpatient (CLI) | payer MEDICARE, BC ==
--- NOTE | 2019-03-08 18:19 | XR ---
EXAMINATION TYPE: XR chest 2V DATE OF EXAM: 03/08/2019 COMPARISON: 01/11/2016 TECHNIQUE: PA and lateral views submitted. HISTORY: Shortness of breath and fever FINDINGS: A large hiatal hernia noted with left lower lobe infiltrate and small effusion. Stimulator device ove rlying the vertebral column. Arthropathy shoulders. No overt failure or pneumothorax. Hypertrophic an d degenerative change of the spine. IMPRESSION: 1. Large left hiatal hernia with left lower lobe infiltrate and small effusion correlate clinically.
== END | disposition home or self-care (01) ==
LOC: RADXRMAIN 17:45
PROVIDERS: ATTEND Family Medicine
DX: J90 Pleural effusion, not elsewhere classified (principal); R91.8 Other nonspecific abnormal finding of lung field; K44.9 Diaphragmatic hernia without obstruction or gangrene
CPT/HCPCS: 71046

== ENCOUNTER 2019-04-03 14:15 | Emergency (ER) | payer MEDICARE, BC ==
[2019-04-03 14:22] VITALS: TEMP 97.6
[2019-04-03] MEDS ORDERED: SODIUM CHLORIDE 0.9% 1,000 ML IV STA (14:27)
[2019-04-03] MEDS ORDERED: MECLIZINE 12.5 MG TAB PO STA (14:27)
--- NOTE | 2019-04-03 14:37 | ED ---
Dizziness HPI - General Chief Complaint: Dizziness Stated Complaint: Dizziness Time Seen by Provider: 04/03/19 14:15 Source: patient, EMS, RN notes reviewed Mode of arrival: EMS Limitations: no limitations - History of Present Illness Initial Comments: This is a 78-year-old female with no prior history of CVA of vertigo heart disease or known lung disease who states she was at the [facility] today getting her hair washed when she started developing severe dizziness. She states her head was in a contact position for about 2 minutes when it started. She states she still feels little bit dizzy especially with head turning. She has no focal weakness no blurry vision difficulty with speech trouble with movement of her upper or lower extremities. No recent illnesses. No palpitations no other modifying factors MD Complaint: dizziness - Related Data Home Medications Medication Instructions Recorded Confirmed Calcium Acetate [Phoslo] 667 mg PO BID 01/19/16 06/10/16 Cholecalciferol [Vitamin D3] 2,000 unit PO DAILY 01/19/16 06/10/16 Ferrous Sulfate [Feosol] 325 mg PO DAILY 01/19/16 06/10/16 Levothyroxine Sodium [Synthroid] 50 mcg PO DAILY 01/19/16 06/10/16 Ranulfo Red Krill Oil 1 tab PO DAILY 01/19/16 06/10/16 Omeprazole 20 mg PO DAILY 01/19/16 06/10/16 Simvastatin [Zocor] 40 mg PO HS 01/19/16 06/10/16 amLODIPine [Norvasc] 10 mg PO DAILY 01/19/16 06/10/16 diphenhydrAMINE [Benadryl] 25 mg PO HS PRN 01/19/16 06/10/16 Allopurinol [Zyloprim] 100 mg PO DAILY 06/05/16 06/10/16 Previous Rx's Medication Instructions Recorded Docusate [Colace] 100 mg PO DAILY #30 capsule 06/12/16 Famotidine [Pepcid] 20 mg PO DAILY #30 tablet 06/12/16 HYDROcodone/APAP 7.5-325MG [[place] 1 - 2 each PO Q6HR PRN #60 tab 06/12/16 7.5] traMADol HCl [Ultram] 50 mg PO Q6H PRN #40 tab 06/12/16 Aspirin 325 mg PO DAILY #3 tab 06/13/16 Enoxaparin Sodium [Lovenox] 30 mg SQ Q12HR #14 syringe 06/13/16 Warfarin [Coumadin] 2.5 mg PO DAILY #40 tab 06/13/16 Meclizine [Antivert] 25 mg PO TID #20 tab 04/03/19 Allergies Allergy/AdvReac Type Severity Reaction Status Date / Time iodine Allergy MAKES CUTS Verified 06/10/16 09:00 WORSE Sulfa (Sulfonamide Allergy Rash/Hives Verified 06/10/16 09:00 Antibiotics) codeine AdvReac CONSTIPATIO Verified 06/10/16 09:00 N NSAIDS (Non-Steroidal AdvReac Unknown Verified 06/10/16 11:17 Anti-Inflamma Review of Systems ROS Statement: Those systems with pertinent positive or pertinent negative responses have been documented in the HPI. ROS Other: All systems not noted in ROS Statement are negative. Past Medical History Past Medical History: Blood Disorder, GERD/Reflux, Hyperlipidemia, Hypertension, Renal Disease Additional Past Medical History / Comment(s): HX ANEMIA AND DIVERTICULOSIS. HAS LOW KIDNEY FUNCTION, 21% - HAD CLEARANCE FOR TRANSPLANT LIST. History of Any Multi-Drug Resistant Organisms: None Reported Past Surgical History: Bladder Surgery, Hysterectomy, Joint Replacement Additional Past Surgical History / Comment(s): TOTAL RT KNEE sinus surgery Past Anesthesia/Blood Transfusion Reactions: Postoperative Nausea & Vomiting (PONV) Past Psychological History: No Psychological Hx Reported Smoking Status: Never smoker Past Alcohol Use History: Occasional Past Drug Use History: None Reported - Past Family History Mother Family Medical History: No Reported History General Exam - General Exam Comments Initial Comments: This is a well-developed well-nourished awake alert oriented 3 female Limitations: no limitations General appearance: alert, anxious Head exam: Present: atraumatic, normocephalic, normal inspection Eye exam: Present: normal appearance, PERRL, EOMI. Absent: scleral icterus, conjunctival injection, periorbital swelling ENT exam: Present: normal exam, mucous membranes moist Neck exam: Present: normal inspection, full ROM, other (No stridor JVD or bruits there is some mild tenderness palpation over left posterior lateral neck musculature and trapezius muscles no spinous process tenderness.). Absent: tenderness, meningismus, lymphadenopathy Respiratory exam: Present: normal lung sounds bilaterally. Absent: respiratory distress, wheezes, rales, rhonchi, stridor Cardiovascular Exam: Present: regular rate, normal rhythm, normal heart sounds. Absent: systolic murmur, diastolic murmur, rubs, gallop, clicks GI/Abdominal exam: Present: soft, normal bowel sounds. Absent: distended, tenderness, guarding, rebound, rigid Extremities exam: Present: normal inspection, full ROM, normal capillary refill. Absent: tenderness, pedal edema, joint swelling, calf tenderness Back exam: Present: normal inspection Neurological exam: Present: alert, oriented X3, CN II-XII intact Psychiatric exam: Present: normal affect, normal mood Skin exam: Present: warm, dry, intact, normal color. Absent: rash Course Vital Signs 04/03/19 04/03/19 04/03/19 14:18 14:22 15:30 Temperature 97.6 F Pulse Rate 80 79 Respiratory 18 23 Rate Blood Pressure 170/102 170/102 O2 Sat by Pulse 98 99 99 Oximetry 04/03/19 04/03/19 04/03/19 16:00 16:27 16:30 Temperature Pulse Rate 80 85 82 Respiratory 16 20 10 L Rate Blood Pressure 165/92 160/78 160/92 O2 Sat by Pulse 98 98 97 Oximetry 04/03/19 04/03/19 04/03/19 17:00 17:30 18:00 Temperature Pulse Rate 80 78 80 Respiratory 20 14 24 Rate Blood Pressure 155/93 160/92 155/90 O2 Sat by Pulse 97 Oximetry - Reevaluation(s) Reevaluation #1: 04/03/19 19:01 I did review the outpatient on multiple occasions she initially got some relief from the meclizine and later got complete relief she was able ambulate as she felt normally. The patient's daughter felt that she was not ambulated quite as normal. I did have multiple discussions with the patient family regarding the findings the patient's clinical evaluation and presentation is consistent with benign positional vertigo patient also has some reproducible tenderness palpation over the left trapezius at the posterior lateral aspect. No spinous process tenderness no tenderness over the scalp. After multiple discussions the patient does not want to stay in hospital she was offered admission but refuses at this time. There was potential for transfer also due to no neurology coverage this weekend. The family is aware this and the patient does not want to stay she is welcome back at any time she'll be discharged on appropriate medication he does have follow-up with orthopedics in 2 days. EKG Findings - EKG Results: EKG: interpreted by ERMD (Normal sinus rhythm a 76 appear interval 194 QRS duration 72 QT since QTC 414/[address]-T wave changes.) Medical Decision Making - Lab Data Result diagrams: 04/03/19 14:33 04/03/19 14:33 Lab Results 04/03/19 04/03/19 04/03/19 Range/Units 14:33 14:33 14:33 WBC 8.2 (3.8-10.6) k/uL RBC 3.62 L (3.80-5.40) m/uL Hgb 11.2 L (11.4-16.0) gm/dL Hct 34.0 (34.0-46.0) % MCV 94.1 (80.0-100.0) fL MCH 30.9 (25.0-35.0) pg MCHC 32.9 (31.0-37.0) g/dL RDW 16.4 H (11.5-15.5) % Plt Count 205 (150-450) k/uL Neutrophils % 76 % Lymphocytes % 16 % Monocytes % 4 % Eosinophils % 2 % Basophils % 1 % Neutrophils # 6.2 (1.3-7.7) k/uL Lymphocytes # 1.3 (1.0-4.8) k/uL Monocytes # 0.3 (0-1.0) k/uL Eosinophils # 0.2 (0-0.7) k/uL Basophils # 0.0 (0-0.2) k/uL Anisocytosis Slight PT 9.9 (9.0-12.0) sec INR 0.9 (<1.2) Sodium 140 (137-145) mmol/L Potassium 4.1 (3.5-5.1) mmol/L Chloride 105 (98-107) mmol/L Carbon Dioxide 23 (22-30) mmol/L Anion Gap 12 mmol/L BUN 38 H (7-17) mg/dL Creatinine 2.40 H (0.52-1.04) mg/dL Est GFR (CKD-EPI)AfAm 22 (>60 ml/min/1.73 sqM) Est GFR (CKD-EPI)NonAf 19 (>60 ml/min/1.73 sqM) Glucose 110 H (74-99) mg/dL Calcium 9.8 (8.4-10.2) mg/dL Total Bilirubin 0.7 (0.2-1.3) mg/dL AST 20 (14-36) U/L ALT 17 (9-52) U/L Alkaline Phosphatase 89 (38-126) U/L Troponin I (0.000-0.034) ng/mL Total Protein 7.3 (6.3-8.2) g/dL Albumin 4.3 (3.5-5.0) g/dL 04/03/19 Range/Units 14:33 WBC (3.8-10.6) k/uL RBC (3.80-5.40) m/uL Hgb (11.4-16.0) gm/dL Hct (34.0-46.0) % MCV (80.0-100.0) fL MCH (25.0-35.0) pg MCHC (31.0-37.0) g/dL RDW (11.5-15.5) % Plt Count (150-450) k/uL Neutrophils % % Lymphocytes % % Monocytes % % Eosinophils % % Basophils % % Neutrophils # (1.3-7.7) k/uL Lymphocytes # (1.0-4.8) k/uL Monocytes # (0-1.0) k/uL Eosinophils # (0-0.7) k/uL Basophils # (0-0.2) k/uL Anisocytosis PT (9.0-12.0) sec INR (<1.2) Sodium (137-145) mmol/L Potassium (3.5-5.1) mmol/L Chloride (98-107) mmol/L Carbon Dioxide (22-30) mmol/L Anion Gap mmol/L BUN (7-17) mg/dL Creatinine (0.52-1.04) mg/dL Est GFR (CKD-EPI)AfAm (>60 ml/min/1.73 sqM) Est GFR (CKD-EPI)NonAf (>60 ml/min/1.73 sqM) Glucose (74-99) mg/dL Calcium (8.4-10.2) mg/dL Total Bilirubin (0.2-1.3) mg/dL AST (14-36) U/L ALT (9-52) U/L Alkaline Phosphatase (38-126) U/L Troponin I <0.012 (0.000-0.034) ng/mL Total Protein (6.3-8.2) g/dL Albumin (3.5-5.0) g/dL Disposition Clinical Impression: Benign paroxysmal positional vertigo, Trapezius muscle spasm Disposition: HOME SELF-CARE Condition: Good Instructions (If sedation given, give patient instructions): Dizziness (ED), Benign Paroxysmal Positional Vertigo (ED), Muscle Spasm (ED) Prescriptions: Meclizine [Antivert] 25 mg PO TID #20 tab Is patient prescribed a controlled substance at d/c from ED?: No Referrals: Balbir Roman DO [Primary Care Provider] - 1-2 days
[2019-04-03 14:45] LABS: Anisocytosis Slight; Basophils % (A) 1 %; Eosinophils # (A) 0.2 k/uL (0-0.7); Eosinophils % (A) 2 %; HGB 11.2 gm/dL (11.4-16.0); Lymphocytes # (A) 1.3 k/uL (1.0-4.8); Lymphocytes % (A) 16 %; MCH 30.9 pg (25.0-35.0); MCHC 32.9 g/dL (31.0-37.0); MCV 94.1 fL (80.0-100.0); Mean Platelet Volume 6.6; Monocytes # (A) 0.3 k/uL (0-1.0); Monocytes % (A) 4 %; Neutrophils # (A) 6.2 k/uL (1.3-7.7); Neutrophils % (A) 76 %; Platelet Count 205 k/uL (150-450); RBC 3.62 m/uL (3.80-5.40); RDW 16.4 % (11.5-15.5); WBC 8.2 k/uL (3.8-10.6)
[2019-04-03 14:54] LABS: INR 0.9 (<1.2); Prothrombin Time 9.9 sec (9.0-12.0)
[2019-04-03 15:00] LABS: Albumin 4.3 g/dL (3.5-5.0); Calcium 9.8 mg/dL (8.4-10.2); Potassium 4.1 mmol/L (3.5-5.1); Total Bilirubin 0.7 mg/dL (0.2-1.3); Total Protein 7.3 g/dL (6.3-8.2)
--- NOTE | 2019-04-03 15:17 | CT ---
EXAMINATION TYPE: CT brain wo con DATE OF EXAM: 04/03/2019 HISTORY: Onset of dizziness. Pt c/o neck pain CT DLP: 1082.4 mGycm. Automated Exposure Control for Dose Reduction was Utilized. TECHNIQUE: CT scan of the head is performed without contrast. COMPARISON: None. FINDINGS: There is no acute intracranial hemorrhage or midline shift identified. There is diffuse v entricular and sulcal prominence consistent with diffuse age-related cerebral atrophy. There is low- attenuation in the periventricular white matter consistent with chronic small vessel ischemic change. The globes are intact and the visualized sinuses are clear. IMPRESSION: No acute intracranial hemorrhage or midline shift. There is mild diffuse age-related ce rebral atrophy and mild to moderate chronic small vessel ischemic change noted.
--- NOTE | 2019-04-03 15:24 | XR ---
EXAMINATION TYPE: XR chest 2V DATE OF EXAM: 04/03/2019 COMPARISON: Chest x-ray March 08, 2019 HISTORY: Dizziness today and weakness. TECHNIQUE: Frontal and lateral views of the chest are obtained. FINDINGS: Retrocardiac opacity consistent with large hiatal hernia or fixed intrathoracic stomach re demonstrated. There is chronic parenchymal change redemonstrated. Right lung remains clear. Difficul t to exclude some new left basilar acute atelectasis and/or infiltrate. The cardiac silhouette size i s mildly enlarged with atherosclerotic aorta. Thoracic spinal stimulator redemonstrated.. IMPRESSION: Chronic changes and mild cardiomegaly with large hiatal hernia or intrathoracic stomach redemonstrated. Difficult to exclude new adjacent left basilar acute atelectasis and/or infiltrate.
[2019-04-03] MEDS ORDERED: ACETAMINOPHEN TAB 325 MG TAB PO STA (16:22)
[2019-04-03] MEDS ORDERED: SODIUM CHLORIDE 0.9% 500 ML 500 ML IV STA (17:03)
[2019-04-03 19:26] VITALS: BP 148/88; PULSE 84; RESP 18
== END 2019-04-03 19:28 | disposition home or self-care (01) ==
LOC: EC 14:15
DX: H81.10 Benign paroxysmal vertigo, unspecified ear (principal); M62.838 Other muscle spasm; K21.9 Gastro-esophageal reflux disease without esophagitis; E78.5 Hyperlipidemia, unspecified; I10 Essential (primary) hypertension; D64.9 Anemia, unspecified; Z88.2 Allergy status to sulfonamides; Z88.5 Allergy status to narcotic agent; Z88.6 Allergy status to analgesic agent; Z91.048 Other nonmedicinal substance allergy status; Z79.890 Hormone replacement therapy; Z79.899 Other long term (current) drug therapy
CPT/HCPCS: 36415; 70450; 71046; 80053; 84484; 85025; 85610; 93005; 96360; 96361; 99285

== ENCOUNTER → 2019-04-13 | Outpatient (CLI) | payer MEDICARE, BC ==
--- NOTE | 2019-04-13 13:54 | CT ---
EXAMINATION TYPE: CT cervical spine wo con DATE OF EXAM: 04/13/2019 COMPARISON: NONE HISTORY: Neck pain CT DLP: 282.2 mGycm. Automated Exposure Control for Dose Reduction was Utilized. TECHNIQUE: CT scan of the cervical spine is obtained without contrast, axial images are obtained, sa gittal and coronal reformatted images are also reviewed. FINDINGS: There is grade 1 anterolisthesis of C7 on T1 likely due to hypertrophic facet change. Posterior disc osteophyte complexes are seen at T4, C4-C5, C5-C6 and C6-C7. Multilevel uncovertebral hypertrophy and facet arthropathy. No vertebral body height loss of the cervical spine. No malalignment. C2-C3: There is a possible small left paracentral disc herniation. No spinal canal stenosis or neural foraminal narrowing. C3-C4: Facet arthropathy and uncovertebral hypertrophy moderately narrow the right neural foramen. Pr obable small central disc herniation. No distinct spinal canal stenosis or left neural foraminal narr owing. C4-C5: Uncovertebral hypertrophy and facet arthropathy severely narrow the left neural foramen and mo derately narrow the right neural foramen as well as grade mild spinal canal stenosis and comminution with a posterior disc osteophyte complex. C5-C6: Severe bilateral neural foraminal narrowing, right greater than left, is created by uncoverteb ral hypertrophy and facet arthropathy. Posterior disc osteophyte complex creates mild spinal canal st enosis. C6-C7: Severe bilateral neural foraminal narrowing and mild spinal canal stenosis are created by unco vertebral hypertrophy, facet arthropathy and a posterior disc osteophyte complex. C7-T1: Grade 1 anterolisthesis with disc uncovering. No significant spinal canal stenosis or neurofor aminal narrowing are seen. Lung apices demonstrate scattered areas of atelectasis. IMPRESSION: 1. Severe multilevel degenerative disc disease of the cervical spine resulting in severe bilateral ne ural foraminal narrowing at C5-C6 and C6-C7 as well as mild spinal canal stenosis at C4-C7. 2. Possible left paracentral disc herniation at C2-C3 and central disc herniation at C3-C4 that would be better evaluated with MRI. 3. Grade 1 anterolisthesis of C7 on T1 is likely due to hypertrophic facet change.
== END | disposition home or self-care (01) ==
LOC: RADCTMAIN 13:18
PROVIDERS: ATTEND Physical Medicine & Rehabilitation
DX: M48.02 Spinal stenosis, cervical region (principal); M50.321 Other cervical disc degeneration at C4-C5 level; M43.12 Spondylolisthesis, cervical region
CPT/HCPCS: 72125

== ENCOUNTER → 2019-04-20 | Outpatient (CLI) | payer MEDICARE, BC ==
[2019-04-20 15:12] LABS: Anisocytosis Slight; HCT 33.2 % (34.0-46.0); Hypochromasia Slight; MCH 31.7 pg (25.0-35.0); MCHC 33.2 g/dL (31.0-37.0); MCV 95.6 fL (80.0-100.0); Mean Platelet Volume 9.2; Platelet Count 221 k/uL (150-450); RBC 3.48 m/uL (3.80-5.40); RDW 16.3 % (11.5-15.5); WBC 7.6 k/uL (3.8-10.6)
[2019-04-20 15:23] LABS: Appearance,Urine Clear (Clear); Bacteria,Urine Rare /hpf; Bilirubin,Urine Negative (Negative); Blood,Urine Negative (Negative); Color,Urine Yellow; Glucose,Urine (UA) Negative (Negative); Ketones,Urine Negative (Negative); Leukocyte Esterase,Urine Small (Negative); Mucus,Urine Rare /hpf; Nitrite,Urine Negative (Negative); PH, Urine 5.5 (5.0-8.0); Protein,Urine 1+ (Negative); Specific Gravity,Urine 1.016 (1.001-1.035); Squamous Epithelial Cell,Urine <1 /hpf (0-4); Urobilinogen,Urine <2.0 mg/dL (<2.0); WBC,Urine 5 /hpf (0-5)
[2019-04-20 19:04] LABS: % Iron Saturation 25.78 (12.00-45.00); African American GFR (CKD) 20.5 (60.0-200.0); Albumin 4.4 g/dL (3.80-4.90); Albumin/Globulin Ratio 2.32 (1.60-3.17); Anion Gap 8.5 mmol/L (4.00-12.00); Calcium 9.7 mg/dL (8.7-10.3); Carbon Dioxide 26.5 mmol/L (21.6-31.8); Globulin 1.9 g/dL (1.6-3.3); Non-African American GFR(CKD) 17.7 (60.0-200.0); Phosphorus 3.7 mg/dL (2.4-5.1); Potassium 4.3 mmol/L (3.5-5.5); Total Bilirubin 0.5 mg/dL (0.3-1.2); Total Protein 6.3 g/dL (6.2-8.2); Uric Acid 5.4 mg/dL (2.9-7.7)
[2019-04-20 19:14] LABS: Ferritin 125.2 ng/mL (10.0-291.0)
== END | disposition home or self-care (01) ==
LOC: LABWHC1 14:24
PROVIDERS: ATTEND Internal Medicine
DX: N18.4 Chronic kidney disease, stage 4 (severe) (principal); D63.1 Anemia in chronic kidney disease; N39.0 Urinary tract infection, site not specified; N25.81 Secondary hyperparathyroidism of renal origin; M10.9 Gout, unspecified; E55.9 Vitamin D deficiency, unspecified
CPT/HCPCS: 36415; 80053; 81001; 82306; 82728; 83540; 83550; 83735; 83970; 84100; 84550; 85027

== ENCOUNTER → 2019-11-17 | Outpatient (CLI) | payer MEDICARE, BC ==
--- NOTE | 2019-11-17 15:21 | CT ---
EXAMINATION TYPE: CT thoracic spine wo con DATE OF EXAM: 11/17/2019 COMPARISON: Chest x-ray 04/03/2019 HISTORY: Back pain, history of scoliosis CT DLP: 494.2 mGycm Automated exposure control for dose reduction was used. Helical imaging through the thoracic spine. C oronal and sagittal reconstructions. FINDINGS: There is a spinal curvature present. Thoracic cord stimulator leads are present within the most cepha lad extent at T7-8 is multilevel spondylosis present. Small posterior disc herniation noted at T5-6, some mild foraminal encroachment present at T10-11 on the left. There is a bony density present withi n the spinal canal at the T8 level measuring approximately 5 to 6 mm. Thoracic vertebral bodies show preserved height and bone mineralization. Vacuum phenomenon present at T9-10, T12-L1, L1 to, some los s of disc height present at intervertebral levels the midthoracic spine, degenerative disc change not ed in the lumbar spine and thoracic spine. There are interstitial changes within the lungs. Mild emphysematous change also present. There is a s izable diaphragmatic hernia containing bowel, stomach within the left hemithorax. Diverticular change s associated with the colon. Left kidney is malrotated. Cortical cysts are associated with the visual ized portions of the left kidney and right kidney, largest cyst on the left measures 3.3 cm and is no t simple cystic. At the level of the head of the pancreas there is dilation of the common bile duct. There is a focal hypodense area present which is incompletely evaluated. Possible duodenal diverticul um also present locally. Question some mild prominence of the pancreatic duct. Proximal descending ao rta measures 3 cm. Proximal ascending aorta 3.7 cm. IMPRESSION: DILATED COMMON BILE DUCT, HYPODENSE FOCUS WITHIN THE HEAD OF PANCREAS, DEDICATED PANCREATIC IMAGING R ECOMMENDED FOR POSSIBLE BILIARY OBSTRUCTION, PANCREATIC HEAD MASS. DEGENERATIVE DISC DISEASE AND IS I NDETERMINATE BONY DENSITY WITHIN THE SPINAL CANAL DESCRIBED WHICH MAY CAUSE SOME MASS EFFECT ON TH E THORACIC CORD. Additional findings above. Results relayed telephonically to the office of Dr. Lulu najera at the time of interpretation at exam.
== END | disposition home or self-care (01) ==
LOC: RADCTMAIN 13:31
PROVIDERS: ATTEND Physical Medicine & Rehabilitation
DX: M51.34 Other intervertebral disc degeneration, thoracic region (principal)
CPT/HCPCS: 72128

== ENCOUNTER → 2019-11-22 | Outpatient (CLI) | payer MEDICARE, BC ==
--- NOTE | 2019-11-22 18:24 | CT ---
EXAMINATION TYPE: CT abdomen pelvis wo con DATE OF EXAM: 11/22/2019 COMPARISON: Thoracic spine CT 11/17/2019 HISTORY: 78-year-old female K86.9, unspecified disease of pancreas. Abnormal CT per patient CT DLP: 436.9 mGycm. Automated exposure control for dose reduction was used. TECHNIQUE: Contiguous axial scanning of the abdomen and pelvis without IV contrast. Coronal and sagit aida reconstructions performed. FINDINGS: Heart is enlarged with trace basilar pericardial fluid. Volume loss at the left base secondary to a very large hiatal hernia. This contains the entire stomac h in an organoaxial position as well as the splenic flexure of the colon. No obstructive or inflammat ory changes are seen. Trace left pleural effusion is noted. Some reticular changes in the lower lungs could relate to chron ic fibrosis. 1.9 cm cyst at the inferior right liver lobe. No abnormal gallbladder distention. Gallstones measure up to 1.0 cm. In addition, there appears to be dilatation of the bile duct is 1.4 cm and a 1.2 cm round mildly hype r dense filling defect in the distal bile duct, refer to axial image 41 and coronal image 41. 3.4 cm diverticulum of the third portion of the duodenum projecting superiorly into the pancreatic he ad region. Adrenal glands, pancreas, and spleen show no gross abnormal body by noncontrast CT. There is renal cortical thinning suggesting chronic medical renal disease. No hydronephrosis. Bilateral indeterminate renal lesions showing variable low density to soft tissue attenuation, larges t on he decide measuring up to 3.2 cm. Further contrast-enhanced evaluation is recommended to exclude solid masses. No dilated small bowel, free fluid, or free air. No mesenteric or retroperitoneal lymphadenopathy. Moderate atherosclerotic calcifications of the infrarenal abdominal aorta and iliac arteries with tor tuosity. Generalized colonic diverticulosis, most extensive within the redundant sigmoid colon. No pericolonic inflammatory change seen. Bladder is urine distended. Uterus surgically absent. Neither ovary clearly visualized. Pelvic phlebo lith. Pelvic floor relaxation. No abnormal fluid collection in the pelvis or pelvic lymphadenopathy. Generator device along the posterior right buttock region. Degenerative changes of the hips. Degenera karen levoconvex scoliosis. IMPRESSION: 1. Dilated bile duct measuring up to 1.4 cm in caliber with a 1.2 cm round filling defect in the dis aida bile duct. Findings highly suggestive of choledocholithiasis. Correlate with alkaline phosphatase and bilirubin levels and ERCP as clinically indicated. 2. Incomplete biliary obstruction is suggested given lack of gallbladder hydrops. Additional gallsto jazmine are present measuring up to 1.0 cm. 3. Large hiatal hernia containing the entire stomach in an organoaxial position as well as the splen ic flexure of the colon. No obstructive or inflammatory changes. Associated volume loss at the left b ase and trace left effusion. 4. Contrast-enhanced renal mass protocol CT or MRI is recommended for further evaluation of the mult iple indeterminate renal lesions, solid masses versus complicated cysts measuring up to 3.2 cm. 5. Generalized colonic diverticulosis, most extensive in the sigmoid colon.
== END | disposition home or self-care (01) ==
LOC: RADCTMAIN 14:12
PROVIDERS: ATTEND Family Medicine
DX: K83.8 Other specified diseases of biliary tract (principal); K80.20 Calculus of gallbladder without cholecystitis without obstruction; K44.9 Diaphragmatic hernia without obstruction or gangrene; K57.30 Diverticulosis of large intestine without perforation or abscess without bleeding
CPT/HCPCS: 36415; 74176; 82565; 84520

== ENCOUNTER → 2020-01-11 | Day surgery (SDC) | payer MEDICARE, BC ==
[2020-01-07 09:57] VITALS: BMI 23.6
[~2020-01-11] MED LIST changes: -ACETAMINOPHEN TAB 500 MG TAB PO ONE; +AMPICILLIN-SULBACTAM 3 GM in SODIUM CHLORIDE 0.9% 100 ML IVPB STA; +GLYCOPYRROLATE 0.2 MG/ML 2 ML VIAL ONE; +IOPAMIDOL-300 50ML BTL MISCELLANE ONE; +LACTATED RINGERS 1,000 ML IV ONE; +LIDOCAINE 1% (10MG/ML) FOR IV START INTRADERMA PRN; -LIDOCAINE 1% 20 ML VIAL (10MG/ML) FOR IV START INTRADERMA PRN; +LIDOCAINE 1% INJ 10MG/ML (20 ML MDV) ONE; -MELOXICAM 7.5 MG TAB PO ONE; +NEOSTIGMINE 1 MG/ML 10 ML VIAL ONE; +ONDANSETRON 4 MG/2 ML VIAL ONE; +PHENYLEPHRINE-0.9% NACL SYG 1 MG/10 ML SYRINGE ONE; +PROPOFOL 10 MG/ML 20 ML VIAL IV ONE; +ROCURONIUM BROMIDE 10 MG/ML 5 ML VIAL IV ONE; +SUCCINYLCHOLINE CHLORIDE 100 MG/5 ML SYR IV ONE; -TRANEXAMIC ACID 1,000 MG in SODIUM CHLORIDE 0.9% 100 ML IVPB ONE; -ceFAZolin 2 GM in SODIUM CHLORIDE 0.9% 100 ML IVPB ONE; +diphenhydrAMINE 50 MG/ML 1 ML VIAL ONE; +fentaNYL (PF) 50 MCG/ML 2 ML AMP ONE
[2020-01-11] MEDS: LACTATED RINGERS 1,000 ML IV SCH ×2 (13:54→15:40)
[2020-01-11 17:20] VITALS: TEMP 96.9
--- NOTE | 2020-01-11 17:24 | P.PCN ---
Date of Procedure: 01/11/20 Description of Procedure: Brief history: Patient is a 79-year-old female presenting for outpatient ERCP for treatment of a calculus of the bile duct. The patient had been seen in the outpatient setting after computed tomography scan of the abdomen was performed in evaluation of the possibility of the pancreatic mass seen on computed tomography scan of the back. The repeat computed tomography scan of the abdomen did not show any pancreatic lesions or masses however the imaging study performed on 11/22/2019 was significant for a 1.4 cm dilated common bile duct with a 1.2 cm filling defect in the distal CBD consistent with choledocholithiasis as well as a large hiatal hernia and diverticulosis. Patient originally had been having some abdominal pain however reports that this is subsided. Laboratory evaluation not significant for obstruction. Procedure performed: ERCP with cholangiogram, sphincterotomy, balloon sweep of the bile duct and placement of a straight plastic stent Preoperative diagnoses: Choledocholithiasis IV sedation per anesthesia: Estimated blood loss: Minimal. Procedure: After informed consent was obtained from the patient and after the risks benefits and complications including bleeding perforation and pancreatitis explained in detail the patient was brought into the endoscopy unit. The patient was placed in prone position and IV conscious sedation was administered by anesthesia under continuous monitoring. The Olympus side-viewing duodenoscope was then inserted into the mouth and esophagus intubated without any difficulty. The scope was gradually advanced into the stomach and duodenum. The major papilla was identified without any difficulty.The ampulla was cannulated with a sphincterotome and a wire was passed into the common bile duct. Contrast dye was injected into the common bile duct and significant for a diffusely dilated CBD with evidence of a distal CBD filling defects consistent with choledocholithiasis. The intrahepatics were visualized. An 11 mm sphincterotomy was then performed using the sphincterotome which was then exchanged over the wire for a balloon extractor. Multiple attempts were made to sweep the bile duct with the balloon extractor dilated to 8.5 and 11.5 mm with no success. At this time the balloon extractor was exchanged over the wire for a double flanged straight 7-Senegalese by 7 cm plastic stent which was placed into the bile duct. Good bile flow was noted. The patient tolerated procedure well. The pancreatic duct was not injected or cannulated. Impression: Choledocholithiasis, unable to remove distal CBD stone from the bile duct. ERCP with cholangiogram significant for diffuse CBD dilation and CBD stone, sphincterotomy, and placement of a 7-Senegalese by 7 cm double flanged plastic stent. Recommendations: The findings of this examination were discussed with the patient as well as a family. Okay to resume diet. Okay to resume medications. Whatch for any signs or symptoms of pancreatitis. Patient will be seen in the clinic with plan for follow-up with advanced endoscopy for further treatment.
[2020-01-11 18:26] VITALS: RESP 18
[2020-01-11 18:47] VITALS: BP 157/77; PULSE 74
--- NOTE | 2020-01-12 07:59 | FL ---
EXAMINATION TYPE: FL ERCP DATE OF EXAM: 01/11/2020 FLUOROSCOPY Fluoroscopy time of 49 seconds was used during GI intervention for a CBD stone with ERCP. 2 image/s document/s the procedure.
== END ==
LOC: ORWHC2ENDO 13:26
PROVIDERS: ATTEND Internal Medicine
DX: K80.50 Calculus of bile duct without cholangitis or cholecystitis without obstruction (principal); K44.9 Diaphragmatic hernia without obstruction or gangrene; K57.90 Diverticulosis of intestine, part unspecified, without perforation or abscess without bleeding; I10 Essential (primary) hypertension; E78.5 Hyperlipidemia, unspecified; M10.9 Gout, unspecified; E07.9 Disorder of thyroid, unspecified; N28.9 Disorder of kidney and ureter, unspecified; K21.9 Gastro-esophageal reflux disease without esophagitis; Z91.048 Other nonmedicinal substance allergy status; Z88.2 Allergy status to sulfonamides; Z88.5 Allergy status to narcotic agent; Z88.6 Allergy status to analgesic agent; Z79.899 Other long term (current) drug therapy; Z79.890 Hormone replacement therapy; Z79.891 Long term (current) use of opiate analgesic; Z90.710 Acquired absence of both cervix and uterus; Z98.890 Other specified postprocedural states; Z96.643 Presence of artificial hip joint, bilateral; Z91.89 Other specified personal risk factors, not elsewhere classified
CPT/HCPCS: 74330; 43274; J1200; J2710; J2405; J2001; J3010; J0295; J2370; J0330; J2704; Q9967; C2625; 43262

== ENCOUNTER 2020-04-21 14:12 | Emergency (ER) | payer MEDICARE, BC ==
[2020-04-21 14:17] VITALS: TEMP 98.4
[2020-04-21] MEDS ORDERED: ALBUTEROL HFA INHALER INHALATION STA (14:36)
[2020-04-21] MEDS ORDERED: SODIUM CHLORIDE 0.9% 500 ML 500 ML IV STA (14:39)
[2020-04-21 14:57] LABS: Anisocytosis Slight; Basophils # (A) 0.1 k/uL (0-0.2); Basophils % (A) 1 %; Eosinophils # (A) 0.1 k/uL (0-0.7); Eosinophils % (A) 1 %; HCT 32.8 % (34.0-46.0); HGB 11.1 gm/dL (11.4-16.0); Lymphocytes # (A) 1.6 k/uL (1.0-4.8); Lymphocytes % (A) 15 %; MCH 30.2 pg (25.0-35.0); MCHC 33.7 g/dL (31.0-37.0); Mean Platelet Volume 7.6; Monocytes # (A) 0.5 k/uL (0-1.0); Monocytes % (A) 5 %; Neutrophils % (A) 77 %; Platelet Count 276 k/uL (150-450); RBC 3.66 m/uL (3.80-5.40); WBC 10.4 k/uL (3.8-10.6)
[2020-04-21 15:11] LABS: Albumin 3.6 g/dL (3.5-5.0); C Reactive Protein 29.3 mg/L (<10.0); Calcium 8.8 mg/dL (8.4-10.2); Magnesium 1.9 mg/dL (1.6-2.3); Potassium 3.7 mmol/L (3.5-5.1); Total Bilirubin 0.9 mg/dL (0.2-1.3); Total Protein 6.7 g/dL (6.3-8.2)
[2020-04-21 15:17] LABS: INR 0.9 (<1.2); MCV 89.6 fL (80.0-100.0); Partial Thromboplastin Time 23.6 sec (22.0-30.0); Prothrombin Time 9.6 sec (9.0-12.0)
[2020-04-21 15:20] LABS: D-Dimer 1.46 mg/L FEU (<0.60)
--- NOTE | 2020-04-21 15:26 | XR ---
EXAMINATION TYPE: XR chest 2V DATE OF EXAM: 04/21/2020 COMPARISON: 04/03/2019 INDICATION: Cough x2 weeks TECHNIQUE: Frontal and lateral views of the chest are obtained. FINDINGS: The heart size is enlarged. The pulmonary vasculature is normal. Mild scattered infiltrates are within the right lung. There is a left lower lobe consolidation.. IMPRESSION: 1. Left lower lobe infiltrate with mild scattered infiltrates within the right lung. Follow-up for pn eumonia.
--- NOTE | 2020-04-21 15:35 | ED ---
URI HPI - General Chief Complaint: Upper Respiratory Infection Stated Complaint: Cough Time Seen by Provider: 04/21/20 14:26 Source: patient Mode of arrival: wheelchair Limitations: no limitations - History of Present Illness Initial Comments: Patient is an 79-year-old female, history hypertension, kidney disease, presenting to the emergency department for a worsening cough. Patient states a week and a half ago she her symptoms started with sinus congestion, sinus pressure and a small cough. Patient states she did go see her PCP a week ago and was prescribed steroids as well as a Z-Arian. Patient has finished both these medications and does not feel any better. She states she feels like her shortness of breath is getting slightly worse. She denies any chest pains, no abdominal pain some mild nausea present no vomiting. She does admit to few episodes of diarrhea but nothing that has been constant. She states her appetite has been low but she's been trying to drink water. Patient denies history of asthma or COPD, a nonsmoker. Patient denies any fever, chills. She has no further complaints at this time. Upon arrival to the ER, patient was tachycardia at 109, 94% on room air, rest of vitals normal. - Related Data Home Medications Medication Instructions Recorded Confirmed Levothyroxine Sodium [Synthroid] 50 mcg PO DAILY 01/19/16 04/21/20 Omeprazole 20 mg PO DAILY 01/19/16 04/21/20 Simvastatin [Zocor] 40 mg PO HS 01/19/16 04/21/20 allopurinoL [Zyloprim] 100 mg PO DAILY 06/05/16 04/21/20 amLODIPine [Norvasc] 2.5 mg PO DAILY 01/07/20 04/21/20 Benzonatate [Tessalon Perles] 100 mg PO TID PRN 04/21/20 04/21/20 Cholecalciferol [Vitamin D3 (25 2,000 unit PO DAILY 04/21/20 04/21/20 Mcg = 1000 Iu)] Docusate [Colace] 100 mg PO DAILY PRN 04/21/20 04/21/20 HYDROcodone/APAP 7.5-325MG [Trent 1 tab PO Q8H PRN 04/21/20 04/21/20 7.5] calcitrioL [Rocaltrol] 0.25 mcg PO TU 04/21/20 04/21/20 guaiFENesin [Mucinex] 600 mg PO Q12H PRN 04/21/20 04/21/20 lisinopriL [Zestril] 5 mg PO DAILY 04/21/20 04/21/20 Previous Rx's Medication Instructions Recorded Albuterol Inhaler [Ventolin Hfa 1 puff INHALATION RT-QID PRN #1 04/21/20 Inhaler] puff Allergies Allergy/AdvReac Type Severity Reaction Status Date / Time iodine Allergy MAKES CUTS Verified 04/21/20 15:49 WORSE Sulfa (Sulfonamide Allergy Rash/Hives Verified 04/21/20 15:49 Antibiotics) codeine AdvReac CONSTIPATIO Verified 04/21/20 15:49 N NSAIDS (Non-Steroidal AdvReac Unknown Verified 04/21/20 15:49 Anti-Inflamma Review of Systems ROS Statement: Those systems with pertinent positive or pertinent negative responses have been documented in the HPI. ROS Other: All systems not noted in ROS Statement are negative. Past Medical History Past Medical History: Blood Disorder, Cancer, GERD/Reflux, Hyperlipidemia, Hypertension, Renal Disease Additional Past Medical History / Comment(s): HX ANEMIA AND DIVERTICULOSIS. HAS LOW KIDNEY FUNCTION, 21%. SKIN CANCER History of Any Multi-Drug Resistant Organisms: None Reported Past Surgical History: Bladder Surgery, Hysterectomy, Joint Replacement Additional Past Surgical History / Comment(s): sinus surgery. BILAT TKA. STIMULATOR IN BACK. BASAL CELL CARCINOMA REMOVED FROM LT EYELID Past Anesthesia/Blood Transfusion Reactions: Postoperative Nausea & Vomiting (PONV) Past Psychological History: No Psychological Hx Reported Smoking Status: Never smoker - Past Family History Mother Family Medical History: No Reported History General Exam - General Exam Comments Initial Comments: GENERAL: Patient is well-developed and well-nourished. Patient is nontoxic and in no acute distress. HEAD: Atraumatic, normocephalic. EYES: Pupils equal round and reactive to light, extraocular movements intact, sclera anicteric, conjunctiva are normal. Eyelids were unremarkable. ENT: TMs normal, nares patent, oropharynx clear without exudates. Moist mucous membranes. NECK: Normal range of motion, supple without lymphadenopathy or JVD. LUNGS: Unlabored respirations. Breath sounds clear to auscultation bilaterally and equal. No wheezes rales or rhonchi. HEART: Slightly tachy rate and rhythm without murmurs, rubs or gallops. ABDOMEN: Soft, nontender, normoactive bowel sounds. No guarding, no rebound. No masses appreciated. : Deferred MUSCULOSKELETAL: Normal extremities with adequate strength and normal range of motion, no pitting or edema. No clubbing or cyanosis. NEUROLOGICAL: Patient is alert and oriented x 3. Motor and sensory are also intact. Cranial nerves II through XII grossly intact. Symmetrical smile. Normal speech, normal gait. PSYCH: Normal mood, normal affect. SKIN: Warm, Dry, normal turgor, no rashes or lesions noted. Limitations: no limitations Course Vital Signs 04/21/20 04/21/20 04/21/20 14:14 15:12 16:34 Temperature 98.4 F Pulse Rate 109 H 91 Respiratory 20 22 16 Rate Blood Pressure 102/65 133/71 O2 Sat by Pulse 94 L 97 Oximetry Procedures - [facility] Protocol (Time Out) Nurse: Deepika Briscoe Medical Decision Making - Medical Decision Making Patient is an 79-year-old female here for a cough 2 weeks. She finished a course of Z-Arian and steroids with little improvement in her symptoms. I slightly tachycardia, 94% on room air. Her exam is unremarkable, except for notable dry cough. He is afebrile. Labs show a normal white count, stable hemoglobin, I did order a d-dimer for prognosis purposes, this is elevated at 1.46. She is kidney function is slightly elevated from her baseline with creatinine at 3.90, BUN is 56, lactic acid is normal 0.9, patient's CRP is at 29, LDH is normal at 550. Her rapid Covid did come back positive. Chest x-ray reveals a left lower lobe infiltrate with mild scattered infiltrates in the right lung. Her EKG revealed no acute process. I did give patient some fluids, inhaler as well as a dose of Decadron. Vital signs remained stable in the ER, she is satting at 97-98% on room air. Patient is adamant that she does not want to stay in the hospital. She states she has an appointment with her PCP, Dr. Roman on Friday. I did speak with Dr. Roman who is also in agreement with this plan of care. She is able to be discharged home. She will follow-up with Dr. Roman office on Jaspreet morning. Strict return parameters were dis cussed with the patient and she verbalized understanding. Case discussed with Dr. Myrick. - Lab Data Result diagrams: 04/21/20 14:52 04/21/20 14:52 Lab Results 04/21/20 04/21/20 04/21/20 Range/Units 14:52 14:52 14:52 WBC 10.4 (3.8-10.6) k/uL RBC 3.66 L (3.80-5.40) m/uL Hgb 11.1 L (11.4-16.0) gm/dL Hct 32.8 L (34.0-46.0) % MCV 89.6 D (80.0-100.0) fL MCH 30.2 (25.0-35.0) pg MCHC 33.7 (31.0-37.0) g/dL RDW 16.0 H (11.5-15.5) % Plt Count 276 (150-450) k/uL MPV 7.6 Neutrophils % 77 % Lymphocytes % 15 % Monocytes % 5 % Eosinophils % 1 % Basophils % 1 % Neutrophils # 8.0 H (1.3-7.7) k/uL Lymphocytes # 1.6 (1.0-4.8) k/uL Monocytes # 0.5 (0-1.0) k/uL Eosinophils # 0.1 (0-0.7) k/uL Basophils # 0.1 (0-0.2) k/uL Anisocytosis Slight PT 9.6 (9.0-12.0) sec INR 0.9 (<1.2) APTT 23.6 (22.0-30.0) sec D-Dimer 1.46 H (<0.60) mg/L FEU Sodium 134 L (137-145) mmol/L Potassium 3.7 (3.5-5.1) mmol/L Chloride 106 (98-107) mmol/L Carbon Dioxide 19 L (22-30) mmol/L Anion Gap 9 mmol/L BUN 56 H (7-17) mg/dL Creatinine 3.90 H (0.52-1.04) mg/dL Est GFR (CKD-EPI)AfAm 12 (>60 ml/min/1.73 sqM) Est GFR (CKD-EPI)NonAf 10 (>60 ml/min/1.73 sqM) Glucose 109 H (74-99) mg/dL Plasma Lactic Acid Josh (0.7-2.0) mmol/L Calcium 8.8 (8.4-10.2) mg/dL Magnesium 1.9 (1.6-2.3) mg/dL Total Bilirubin 0.9 (0.2-1.3) mg/dL AST 26 (14-36) U/L ALT 13 (4-34) U/L Alkaline Phosphatase 74 (38-126) U/L Lactate Dehydrogenase 590 (313-618) U/L C-Reactive Protein 29.3 H (<10.0) mg/L Total Protein 6.7 (6.3-8.2) g/dL Albumin 3.6 (3.5-5.0) g/dL Coronavirus (PCR) (Not Detectd) 04/21/20 04/21/20 Range/Units 14:52 14:52 WBC (3.8-10.6) k/uL RBC (3.80-5.40) m/uL Hgb (11.4-16.0) gm/dL Hct (34.0-46.0) % MCV (80.0-100.0) fL MCH (25.0-35.0) pg MCHC (31.0-37.0) g/dL RDW (11.5-15.5) % Plt Count (150-450) k/uL MPV Neutrophils % % Lymphocytes % % Monocytes % % Eosinophils % % Basophils % % Neutrophils # (1.3-7.7) k/uL Lymphocytes # (1.0-4.8) k/uL Monocytes # (0-1.0) k/uL Eosinophils # (0-0.7) k/uL Basophils # (0-0.2) k/uL Anisocytosis PT (9.0-12.0) sec INR (<1.2) APTT (22.0-30.0) sec D-Dimer (<0.60) mg/L FEU Sodium (137-145) mmol/L Potassium (3.5-5.1) mmol/L Chloride (98-107) mmol/L Carbon Dioxide (22-30) mmol/L Anion Gap mmol/L BUN (7-17) mg/dL Creatinine (0.52-1.04) mg/dL Est GFR (CKD-EPI)AfAm (>60 ml/min/1.73 sqM) Est GFR (CKD-EPI)NonAf (>60 ml/min/1.73 sqM) Glucose (74-99) mg/dL Plasma Lactic Acid Josh 0.9 (0.7-2.0) mmol/L Calcium (8.4-10.2) mg/dL Magnesium (1.6-2.3) mg/dL Total Bilirubin (0.2-1.3) mg/dL AST (14-36) U/L ALT (4-34) U/L Alkaline Phosphatase (38-126) U/L Lactate Dehydrogenase (313-618) U/L C-Reactive Protein (<10.0) mg/L Total Protein (6.3-8.2) g/dL Albumin (3.5-5.0) g/dL Coronavirus (PCR) Detected A (Not Detectd) - EKG Data EKG Comments: Normal sinus rhythm, normal ECG, no signs of acute process. Ventricular rate 91, TX interval 176, QT 356. Disposition Clinical Impression: COVID-19, Cough Disposition: HOME SELF-CARE Condition: Stable Instructions (If sedation given, give patient instructions): Upper Respiratory Infection (ED) Additional Instructions: Please return to the Emergency Department if symptoms worsen or any other concerns. Continue with inhaler as discussed. Follow-up with Dr. Roman on Friday morning as discussed. Prescriptions: Albuterol Inhaler [Ventolin Hfa Inhaler] 1 puff INHALATION RT-QID PRN #1 puff PRN Reason: Shortness Of Breath Is patient prescribed a controlled substance at d/c from ED?: No Referrals: Balbir Roman DO [Primary Care Provider] - 1-2 days
[2020-04-21 16:35] VITALS: BP 133/71; PULSE 91; RESP 16
[2020-04-21] MEDS ORDERED: DEXAMETHASONE SOD PHOSPHATE 10 MG/ML 1 ML VIAL IV STA (16:35)
[2020-04-21] MEDS ORDERED: dexAMETHasone 2 MG TAB PO STA (16:42)
[2020-04-22 01:01] LABS: Ferritin 449.5 ng/mL (10.0-291.0)
== END 2020-04-21 16:46 | disposition home or self-care (01) ==
LOC: EC 14:12
DX: U07.1 COVID-19 (principal); K21.9 Gastro-esophageal reflux disease without esophagitis; I10 Essential (primary) hypertension; Z79.899 Other long term (current) drug therapy; Z79.890 Hormone replacement therapy; Z88.2 Allergy status to sulfonamides; Z88.5 Allergy status to narcotic agent; Z88.6 Allergy status to analgesic agent; Z91.048 Other nonmedicinal substance allergy status; Z85.828 Personal history of other malignant neoplasm of skin
CPT/HCPCS: 36415; 94640; 93005; 85379; 80053; 82728; 83605; 83615; 83735; 85025; 85610; 85730; 86140; 84145; 87635; 71046; 99284; J8540

== ENCOUNTER → 2020-05-02 | Outpatient (CLI) | payer MEDICARE, BC ==
--- NOTE | 2020-05-02 16:48 | XR ---
EXAMINATION TYPE: XR chest 2V DATE OF EXAM: 05/02/2020 COMPARISON: 04/21/2020 INDICATION: Cough TECHNIQUE: Single frontal view of the chest is obtained. FINDINGS: The heart size is normal. The pulmonary vasculature is normal. There is a consolidation in left lower lobe. This is worsening over the interval. Mild nonspecific in filtrate may be at the right base slightly improved IMPRESSION: 1. Worsening left lower lobe infiltrate. Correlate for pneumonia. Consider atypical pneumonia
== END | disposition home or self-care (01) ==
LOC: RADXRMAIN 15:28
PROVIDERS: ATTEND Family Medicine
DX: R91.8 Other nonspecific abnormal finding of lung field (principal); U07.1 COVID-19
CPT/HCPCS: 71046

== ENCOUNTER → 2020-05-16 | Outpatient (CLI) | payer MEDICARE, BC ==
--- NOTE | 2020-05-16 16:12 | XR ---
EXAMINATION TYPE: XR chest 2V DATE OF EXAM: 05/16/2020 COMPARISON: Correlation CT abdomen 11/22/2019 and radiograph 05/02/2020 HISTORY: 79-year-old female COVID pneumonia TECHNIQUE: Frontal and lateral views FINDINGS: Right paratracheal soft tissue prominence. Possible [id number]-[id number] left effusion. Prominent left m id and lower lung opacity. Some soft tissue prominence along the right paratracheal/right suprahilar region. Large retrocardiac lucency compatible with known large hiatal hernia. IMPRESSION: 1. Known large hiatal hernia. 2. Residual patchy left mid and lower lung opacity could represent pneumonia. Stable to slightly impr shelli from 05/02/2020. 3. Some right suprahilar soft tissue prominence may be secondary to vascular ectasia. Contrast-enhanc ed CT of chest can exclude underlying mass or lymphadenopathy.
== END | disposition home or self-care (01) ==
LOC: RADXRMAIN 12:12
PROVIDERS: ATTEND Family Medicine
DX: K44.9 Diaphragmatic hernia without obstruction or gangrene (principal); J98.4 Other disorders of lung
CPT/HCPCS: 71046

== ENCOUNTER → 2020-06-02 | Outpatient (CLI) | payer MEDICARE, BC ==
--- NOTE | 2020-06-02 15:44 | CT ---
EXAMINATION TYPE: CT chest wo con DATE OF EXAM: 06/02/2020 COMPARISON: Chest x-ray May 16, 2020 and older studies through March 08, 2019 HISTORY: Pt diagnosed w/Covid 19 pneumonia beginning of April. Still has occasional SOB. CT DLP: 121.40 mGycm. Automated Exposure Control for Dose Reduction was Utilized. TECHNIQUE: CT scan of the thorax is performed without IV contrast. FINDINGS: LUNGS: Redemonstration of large left-sided diaphragmatic hernia containing large portion stomach sam g with portion of small and large bowel loops and mesenteric fat in the left mid to lower thorax. Lef t mid to lower lung shows reticulation and fibrotic change. There is additional peripheral reticulati on and fibrosis in the right lung. No pleural effusion or pneumothorax. Patent tracheobronchial tree. No suspicious focal consolidation. There is 3 mm calcified left upper lobe nodule or granuloma axial image 16. MEDIASTINUM: Lack of IV contrast is noted to limit evaluation for mediastinal and especially hilar ad enopathy. There are no definitive greater than 1 cm hilar or mediastinal lymph nodes. Mild Cardiomega ly. Tiny Pericardial effusion is seen. OTHER: Partial visualization of right kidney has cortical thinning. Suspected exophytic cyst from the left kidney upper pole level is partially imaged. IMPRESSION: Large diaphragmatic hernia on the left. There is [id number]-hp-rcezwunl pulmonary fibrotic hewitt ge bilaterally could reflect product of covid-19 infection. No acute pulmonary process currently.
== END | disposition home or self-care (01) ==
LOC: RADCTMAIN 14:27
PROVIDERS: ATTEND Family Medicine
DX: U07.1 COVID-19 (principal); K44.9 Diaphragmatic hernia without obstruction or gangrene; J12.82 Pneumonia due to coronavirus disease 2019; J84.10 Pulmonary fibrosis, unspecified; Z88.2 Allergy status to sulfonamides; Z88.5 Allergy status to narcotic agent; Z88.8 Allergy status to other drugs, medicaments and biological substances
CPT/HCPCS: 71250

== ENCOUNTER → 2020-10-12 | Outpatient (CLI) | payer MEDICARE, BC ==
[2020-10-12 11:17] LABS: Appearance,Urine Clear (Clear); Bilirubin,Urine Negative (Negative); Blood,Urine Negative (Negative); Color,Urine Light Yellow; Glucose,Urine (UA) Negative (Negative); Ketones,Urine Negative (Negative); Leukocyte Esterase,Urine Negative (Negative); Nitrite,Urine Negative (Negative); PH, Urine 5.5 (5.0-8.0); Protein,Urine Trace (Negative); Specific Gravity,Urine 1.011 (1.001-1.035); Urobilinogen,Urine <2.0 mg/dL (<2.0)
[2020-10-12 11:38] LABS: Creatinine,Urine Random 57.6 mg/dL; Protein/Creatinine Ratio,Urine 0.434
[2020-10-12 15:50] LABS: HCT 28.9 % (37.2-46.3); HGB 8.8 g/dL (12.0-15.0); MCH 29.7 pg (27.0-32.0); MCHC 30.4 g/dL (32.0-37.0); MCV 97.6 fL (80.0-97.0); Mean Platelet Volume 10.7 fL (9.5-12.2); Platelet Count 287 X 10*3/uL (140-440); RBC 2.96 X 10*6/uL (4.10-5.20); RDW 17.7 % (11.5-14.5); WBC 12.87 X 10*3/uL (4.50-10.00)
[2020-10-12 18:39] LABS: Ferritin 193.2 ng/mL (10.0-291.0)
[2020-10-12 18:52] LABS: % Iron Saturation 23.08 (12.00-45.00); African American GFR (CKD) 16.3 (60.0-200.0); Albumin 3.9 g/dL (3.80-4.90); Albumin/Globulin Ratio 1.56 (1.60-3.17); BUN/Creat Ratio 12.67 Ratio (12.00-20.00); Calcium 9.6 mg/dL (8.7-10.3); Globulin 2.5 g/dL (1.6-3.3); Magnesium 1.6 mg/dL (1.5-2.4); Non-African American GFR(CKD) 14.1 (60.0-200.0); Potassium 4.2 mmol/L (3.5-5.5); Total Bilirubin 0.5 mg/dL (0.2-1.2); Total Protein 6.4 g/dL (6.2-8.2); Uric Acid 5.6 mg/dL (2.9-7.7)
== END | disposition home or self-care (01) ==
LOC: LABWHC1 10:02
PROVIDERS: ATTEND Internal Medicine
DX: N18.4 Chronic kidney disease, stage 4 (severe) (principal); M10.9 Gout, unspecified; E55.9 Vitamin D deficiency, unspecified; N25.81 Secondary hyperparathyroidism of renal origin; N39.0 Urinary tract infection, site not specified; D64.9 Anemia, unspecified; R80.9 Proteinuria, unspecified
CPT/HCPCS: 36415; 80053; 81003; 82306; 82570; 82728; 83540; 83550; 83735; 83970; 84100; 84156; 84550; 85027

== ENCOUNTER → 2020-11-09 | Outpatient (CLI) | payer MEDICARE, BC | END | disposition home or self-care (01) | LOC: LABWHC1 09:24 | PROVIDERS: ATTEND Internal Medicine Gastroenterology | DX: K52.9 Noninfective gastroenteritis and colitis, unspecified (principal); R19.5 Other fecal abnormalities | CPT/HCPCS: 87045; 87046; 87324; 87329 ==

== ENCOUNTER → 2020-11-24 | Outpatient (CLI) | payer MEDICARE, BC ==
[2020-11-24 15:05] LABS: Appearance,Urine Clear (Clear); Bilirubin,Urine Negative (Negative); Blood,Urine Negative (Negative); Color,Urine Light Yellow; Glucose,Urine (UA) Negative (Negative); Ketones,Urine Negative (Negative); Leukocyte Esterase,Urine Small (Negative); Mucus,Urine Rare /hpf; Nitrite,Urine Negative (Negative); PH, Urine 5.5 (5.0-8.0); Protein,Urine Trace (Negative); RBC,Urine 1 /hpf (0-5); Specific Gravity,Urine 1.011 (1.001-1.035); Squamous Epithelial Cell,Urine <1 /hpf (0-4); Urobilinogen,Urine <2.0 mg/dL (<2.0); WBC,Urine 6 /hpf (0-5)
[2020-11-24 15:18] LABS: Creatinine,Urine Random 48.7 mg/dL; Protein/Creatinine Ratio,Urine 0.78
[2020-11-24 22:54] LABS: HCT 31.4 % (37.2-46.3); HGB 9.6 g/dL (12.0-15.0); MCH 30.2 pg (27.0-32.0); MCHC 30.6 g/dL (32.0-37.0); MCV 98.7 fL (80.0-97.0); Mean Platelet Volume 10.5 fL (9.5-12.2); Platelet Count 353 X 10*3/uL (140-440); RBC 3.18 X 10*6/uL (4.10-5.20); RDW 16.9 % (11.5-14.5); WBC 12.96 X 10*3/uL (4.50-10.00)
[2020-11-25 03:43] LABS: Ferritin 147.2 ng/mL (10.0-291.0)
[2020-11-25 03:51] LABS: % Iron Saturation 12.16 (12.00-45.00); ALT <8 U/L (8-44); AST 15 U/L (13-35); African American GFR (CKD) 19.4 (60.0-200.0); Albumin/Globulin Ratio 1.48 (1.60-3.17); Alkaline Phosphatase 96 U/L (41-126); BUN/Creat Ratio 15.38 Ratio (12.00-20.00); Calcium 8.9 mg/dL (8.7-10.3); Chloride 102 mmol/L (96-109); Globulin 2.7 g/dL (1.6-3.3); Glucose 102 mg/dL (70-110); Iron 31 ug/dL (50-170); Magnesium 1.6 mg/dL (1.5-2.4); Non-African American GFR(CKD) 16.7 (60.0-200.0); Phosphorus 4.3 mg/dL (2.4-5.1); Potassium 3.9 mmol/L (3.5-5.5); Sodium 139 mmol/L (135-145); Total Bilirubin 0.3 mg/dL (0.3-1.2); Total Iron Binding Capacity 255 ug/dL (228-460); Total Protein 6.7 g/dL (6.2-8.2); Uric Acid 5.1 mg/dL (2.9-7.7)
== END | disposition home or self-care (01) ==
LOC: LABWHC1 14:24
PROVIDERS: ATTEND Internal Medicine
DX: N18.4 Chronic kidney disease, stage 4 (severe) (principal); M10.9 Gout, unspecified; E55.9 Vitamin D deficiency, unspecified; N25.81 Secondary hyperparathyroidism of renal origin; N39.0 Urinary tract infection, site not specified; D64.9 Anemia, unspecified; R80.9 Proteinuria, unspecified
CPT/HCPCS: 36415; 80053; 81001; 82306; 82570; 82728; 83540; 83550; 83735; 83970; 84100; 84156; 84550; 85027

== ENCOUNTER → 2021-01-09 | Outpatient (CLI) | payer MEDICARE, BC ==
[2021-01-09 12:05] LABS: Creatinine,Urine Random 63.5 mg/dL; Protein/Creatinine Ratio,Urine 0.787
[2021-01-09 12:12] LABS: Appearance,Urine Clear (Clear); Bilirubin,Urine Negative (Negative); Blood,Urine Negative (Negative); Color,Urine Light Yellow; Glucose,Urine (UA) Negative (Negative); Ketones,Urine Negative (Negative); Leukocyte Esterase,Urine Trace (Negative); Mucus,Urine Rare /hpf; Nitrite,Urine Negative (Negative); Protein,Urine 1+ (Negative); RBC,Urine 1 /hpf (0-5); Specific Gravity,Urine 1.013 (1.001-1.035); Squamous Epithelial Cell,Urine <1 /hpf (0-4); Urobilinogen,Urine <2.0 mg/dL (<2.0); WBC,Urine 3 /hpf (0-5)
[2021-01-09 16:46] LABS: HCT 35.2 % (37.2-46.3); HGB 10.5 g/dL (12.0-15.0); MCH 29.2 pg (27.0-32.0); MCHC 29.8 g/dL (32.0-37.0); MCV 98.1 fL (80.0-97.0); Mean Platelet Volume 10.2 fL (9.5-12.2); Platelet Count 293 X 10*3/uL (140-440); RBC 3.59 X 10*6/uL (4.10-5.20); RDW 16.6 % (11.5-14.5); WBC 10.33 X 10*3/uL (4.50-10.00)
[2021-01-09 21:49] LABS: % Iron Saturation 19.09 (12.00-45.00); ALT <8 U/L (8-44); AST 16 U/L (13-35); African American GFR (CKD) 20.2 (60.0-200.0); Albumin/Globulin Ratio 1.46 (1.60-3.17); Alkaline Phosphatase 84 U/L (41-126); Calcium 8.9 mg/dL (8.7-10.3); Carbon Dioxide 23.7 mmol/L (21.6-31.8); Chloride 104 mmol/L (96-109); Ferritin 721.9 ng/mL (10.0-291.0); Globulin 2.6 g/dL (1.6-3.3); Glucose 94 mg/dL (70-110); Iron 42 ug/dL (50-170); Magnesium 1.7 mg/dL (1.5-2.4); Non-African American GFR(CKD) 17.4 (60.0-200.0); Potassium 4.1 mmol/L (3.5-5.5); Sodium 139 mmol/L (135-145); Total Bilirubin 0.3 mg/dL (0.2-1.2); Total Iron Binding Capacity 220 ug/dL (228-460); Total Protein 6.4 g/dL (6.2-8.2); Uric Acid 4.7 mg/dL (2.9-7.7)
== END | disposition home or self-care (01) ==
LOC: LABWHC1 10:34
PROVIDERS: ATTEND Nurse Practitioner Family
DX: N18.4 Chronic kidney disease, stage 4 (severe) (principal); M10.9 Gout, unspecified; E55.9 Vitamin D deficiency, unspecified; N25.81 Secondary hyperparathyroidism of renal origin; N39.0 Urinary tract infection, site not specified; D64.9 Anemia, unspecified; R80.9 Proteinuria, unspecified
CPT/HCPCS: 36415; 80053; 81001; 82306; 82570; 82728; 83540; 83550; 83735; 83970; 84100; 84156; 84550; 85027

== ENCOUNTER → 2021-04-03 | Outpatient (CLI) | payer MEDICARE, BC ==
--- NOTE | 2021-04-03 16:12 | XR ---
EXAMINATION TYPE: XR chest 2V DATE OF EXAM: 04/03/2021 COMPARISON: 05/16/2020 INDICATION: Cough TECHNIQUE: Frontal and lateral views of the chest are obtained. FINDINGS: The heart size is normal. The pulmonary vasculature is normal. Left lower lobe infiltrate appears to be present.. Large hiatal hernia is present. Note is made of stimulator leads within the spinal canal. IMPRESSION: 1. Left lower lobe infiltrate. Correlate for pneumonia. Follow-up is recommended. 2. Large hiatal hernia
== END | disposition home or self-care (01) ==
LOC: RADXRMAIN 12:47
PROVIDERS: ATTEND Family Medicine
DX: R91.8 Other nonspecific abnormal finding of lung field (principal); K44.9 Diaphragmatic hernia without obstruction or gangrene
CPT/HCPCS: 71046

== ENCOUNTER → 2021-04-17 | Outpatient (CLI) | payer MEDICARE, BC ==
--- NOTE | 2021-04-17 13:01 | XR ---
EXAMINATION TYPE: XR chest 2V DATE OF EXAM: 04/17/2021 COMPARISON: 04/03/2021 HISTORY: 80-year-old female J12.82 TECHNIQUE: Frontal and lateral views FINDINGS: Heart normal size. Large rounded retrocardiac lucency persists. There is continued patchy opacity at the left base. Spinal stimulator array centered along the mid to lower thoracic spinal canal. IMPRESSION: Left basilar opacity remains. This could represent underlying pneumonia or atelectasis. Known large hiatal hernia filling the retrocardiac region and left base.
== END | disposition home or self-care (01) ==
LOC: RADXRMAIN 12:12
PROVIDERS: ATTEND Family Medicine
DX: R91.8 Other nonspecific abnormal finding of lung field (principal); K44.9 Diaphragmatic hernia without obstruction or gangrene
CPT/HCPCS: 71046

== ENCOUNTER → 2021-05-07 | Outpatient (CLI) | payer MEDICARE, BC ==
--- NOTE | 2021-05-07 12:10 | CT ---
EXAMINATION TYPE: CT chest wo con DATE OF EXAM: 05/07/2021 COMPARISON: 06/02/2020. Also, radiograph 04/17/2021 HISTORY: 80-year-old female follow up covid pneumonia TECHNIQUE: Contiguous axial scanning of the chest without IV contrast. Coronal and sagittal reconstru ctions performed. CT DLP: 125.8 mGycm Automated exposure control for dose reduction was used. FINDINGS: Heart is mildly enlarged. Trace basilar right-sided pericardial fluid. Borderline ectatic ascending aorta 3.5 cm. Mild atherosclerotic arch calcifications within the chart. Branching anatomy. Scattered nonenlarged mediastinal lymph nodes. No thoracic lymphadenopathy identified by CT size crit eria allowing for noncontrast technique. Peripheral interstitial changes and mild emphysema. Subpleural microcystic changes at the periphery o f the lung bases. Overall appearance is unchanged from 06/02/2020. There is patchy opacity and volume loss at the left lower lobe suggesting atelectasis. No consolidation or pleural effusion otherwise se en. This is secondary to a large hiatal hernia involving the entire stomach which shows organoaxial posit ioning in the splenic flexure of the colon. Colonic diverticulosis. Cholecystectomy clips. Partially visualized cystic change left kidney. Bones spinal stimulator array centered along the mid to lower thoracic spinal canal. Slightly accentu ated midthoracic kyphosis. Degenerative grade 1 anterolisthesis C7-T1. IMPRESSION: 1. VERY LARGE HIATAL HERNIA INVOLVING THE ENTIRE STOMACH AND THE SPLENIC FLEXURE OF THE COLON. THIS R ESULTS IN VOLUME LOSS AND ATELECTASIS AT THE LEFT BASE. 2. COPD WITH MILD EMPHYSEMA AND SIMILAR SUBPLEURAL RETICULAR CHANGES SUGGESTING CHRONIC INTERSTITIAL SCARRING POSSIBLY A SEQUELA OF PREVIOUS COVID PNEUMONIA. GIVEN SOME SUBPLEURAL MICROCYSTIC CHANGE AT THE LUNG BASES, CONSIDER CONCURRENT FIBROTIC NSIP. 3. INCIDENTAL: COLONIC DIVERTICULOSIS.
== END | disposition home or self-care (01) ==
LOC: RADCTMAIN 10:45
PROVIDERS: ATTEND Family Medicine
DX: U07.1 COVID-19 (principal); J12.82 Pneumonia due to coronavirus disease 2019; K44.9 Diaphragmatic hernia without obstruction or gangrene
CPT/HCPCS: 71250

== ENCOUNTER → 2021-06-26 | Outpatient (CLI) | payer MEDICARE, BC ==
[2021-06-26 13:38] LABS: Anisocytosis Slight; Basophils % (A) 0 %; Eosinophils # (A) 0.2 k/uL (0-0.7); Eosinophils % (A) 2 %; Hypochromasia Moderate; Lymphocytes # (A) 2.1 k/uL (1.0-4.8); Lymphocytes % (A) 16 %; MCH 31.9 pg (25.0-35.0); MCV 99.8 fL (80.0-100.0); Macrocytosis Slight; Monocytes # (A) 0.5 k/uL (0-1.0); Monocytes % (A) 4 %; Neutrophils # (A) 10.5 k/uL (1.3-7.7); Neutrophils % (A) 77 %; Platelet Count 302 k/uL (150-450); RBC 2.51 m/uL (3.80-5.40); RDW 16.5 % (11.5-15.5); WBC 13.5 k/uL (3.8-10.6)
[2021-06-26 13:51] LABS: Appearance,Urine Clear (Clear); Bilirubin,Urine Negative (Negative); Blood,Urine Small (Negative); Color,Urine Light Yellow; Glucose,Urine (UA) Negative (Negative); Ketones,Urine Negative (Negative); Leukocyte Esterase,Urine Negative (Negative); Mucus,Urine Rare /hpf; Nitrite,Urine Negative (Negative); PH, Urine 5.5 (5.0-8.0); Protein,Urine 1+ (Negative); RBC,Urine 1 /hpf (0-5); Specific Gravity,Urine 1.015 (1.001-1.035); Urobilinogen,Urine <2.0 mg/dL (<2.0); WBC,Urine 1 /hpf (0-5)
[2021-06-26 21:33] LABS: % Iron Saturation 21.15 (12.00-45.00); African American GFR (CKD) 14.2 (60.0-200.0); Albumin 3.5 g/dL (3.8-4.9); Albumin/Globulin Ratio 1.22 (1.60-3.17); Anion Gap 17.5 mmol/L (10.00-18.00); BUN/Creat Ratio 17.94 Ratio (12.00-20.00); Blood Urea Nitrogen 60.1 mg/dL (9.0-27.0); Calcium 8.9 mg/dL (8.7-10.3); Carbon Dioxide 18.1 mmol/L (20.0-27.5); Globulin 2.9 g/dL (1.6-3.3); Magnesium 1.9 mg/dL (1.5-2.4); Non-African American GFR(CKD) 12.2 (60.0-200.0); Phosphorus 3.8 mg/dL (2.4-5.1); Potassium 4.2 mmol/L (3.5-5.5); Total Bilirubin 0.2 mg/dL (0.30-1.20); Total Protein 6.4 g/dL (6.2-8.2); Uric Acid 4.8 mg/dL (2.9-7.7)
== END | disposition home or self-care (01) ==
LOC: LABWHC1 13:00
PROVIDERS: ATTEND Internal Medicine
DX: E83.39 Other disorders of phosphorus metabolism (principal); D64.9 Anemia, unspecified; N39.0 Urinary tract infection, site not specified; M10.9 Gout, unspecified; N18.4 Chronic kidney disease, stage 4 (severe)
CPT/HCPCS: 36415; 80053; 81001; 82306; 82728; 83540; 83550; 83735; 83970; 84100; 84550; 85025

== ENCOUNTER 2021-06-28 14:43 | Inpatient (IN) | payer MEDICARE, BC ==
[2021-06-28] MEDS ORDERED: PANTOPRAZOLE 40 MG/10 ML VIAL IVP STA (15:31)
--- NOTE | 2021-06-28 15:33 | ED ---
General Adult HPI - General Chief complaint: Recheck/Abnormal Lab/Rx Stated complaint: Anemia Time Seen by Provider: 06/28/21 15:15 Source: patient, family, RN notes reviewed Mode of arrival: wheelchair Limitations: no limitations - History of Present Illness Initial comments: Patient is a pleasant 80-year-old female presenting to the emergency department with concerns with anemia. Patient has had hemoglobin dropped from 11 down to 8 over the past few weeks. Patient has been more fatigued recently. No chest pain or dyspnea. Patient does have dark stools however this is chronic as she does take iron supplements. No definitive areas of bleeding otherwise. No abdominal pain. - Related Data Home Medications Medication Instructions Recorded Confirmed Levothyroxine Sodium [Synthroid] 50 mcg PO DAILY 01/19/16 06/26/21 Omeprazole 20 mg PO DAILY 01/19/16 06/26/21 Simvastatin [Zocor] 40 mg PO HS 01/19/16 06/26/21 allopurinoL [Zyloprim] 100 mg PO DAILY 06/05/16 06/26/21 amLODIPine [Norvasc] 2.5 mg PO DAILY 01/07/20 06/26/21 Benzonatate [Tessalon Perles] 100 mg PO TID PRN 04/21/20 06/26/21 Cholecalciferol [Vitamin D3 (25 2,000 unit PO DAILY 04/21/20 06/26/21 Mcg = 1000 Iu)] Docusate [Colace] 100 mg PO DAILY PRN 04/21/20 06/26/21 HYDROcodone/APAP 7.5-325MG [[place] 1 tab PO Q8H PRN 04/21/20 06/26/21 7.5] calcitrioL [Rocaltrol] 0.25 mcg PO TU 04/21/20 06/26/21 guaiFENesin [Mucinex] 600 mg PO Q12H PRN 04/21/20 06/26/21 lisinopriL [Zestril] 5 mg PO DAILY 04/21/20 06/26/21 Sodium Bicarbonate Tab 650 mg PO BID 10/27/20 06/26/21 Previous Rx's Medication Instructions Recorded Albuterol Inhaler [Ventolin Hfa 1 puff INHALATION RT-QID PRN #1 04/21/20 Inhaler] puff Allergies Allergy/AdvReac Type Severity Reaction Status Date / Time iodine Allergy MAKES CUTS Verified 06/28/21 14:58 WORSE Sulfa (Sulfonamide Allergy Rash/Hives Verified 06/28/21 14:58 Antibiotics) codeine AdvReac CONSTIPATIO Verified 06/28/21 14:58 N NSAIDS (Non-Steroidal AdvReac Unknown Verified 06/28/21 14:58 Anti-Inflamma Review of Systems ROS Statement: Those systems with pertinent positive or pertinent negative responses have been documented in the HPI. ROS Other: All systems not noted in ROS Statement are negative. Constitutional: Denies: fever Eyes: Denies: eye pain ENT: Denies: ear pain Respiratory: Denies: cough Cardiovascular: Denies: chest pain Endocrine: Reports: fatigue Gastrointestinal: Reports: as per HPI. Denies: abdominal pain Genitourinary: Denies: dysuria Musculoskeletal: Denies: back pain Skin: Denies: rash Neurological: Denies: weakness Past Medical History Past Medical History: Blood Disorder, Cancer, GERD/Reflux, Hyperlipidemia, Hypertension, Renal Disease Additional Past Medical History / Comment(s): HX ANEMIA AND DIVERTICULOSIS. HAS LOW KIDNEY FUNCTION, 21%. SKIN CANCER History of Any Multi-Drug Resistant Organisms: None Reported Past Surgical History: Bladder Surgery, Hysterectomy, Joint Replacement Additional Past Surgical History / Comment(s): sinus surgery. BILAT TKA. STIMULATOR IN BACK. BASAL CELL CARCINOMA REMOVED FROM LT EYELID Past Anesthesia/Blood Transfusion Reactions: Postoperative Nausea & Vomiting (PONV) Past Psychological History: No Psychological Hx Reported Smoking Status: Never smoker - Past Family History Mother Family Medical History: No Reported History General Exam Limitations: no limitations General appearance: alert, in no apparent distress Head exam: Present: normocephalic Eye exam: Present: normal appearance Neck exam: Present: normal inspection Respiratory exam: Present: normal lung sounds bilaterally Cardiovascular Exam: Present: regular rate, normal rhythm GI/Abdominal exam: Present: soft. Absent: tenderness Extremities exam: Present: normal inspection Neurological exam: Present: alert Psychiatric exam: Present: normal affect, normal mood Skin exam: Present: normal color Course Vital Signs 06/28/21 14:55 Temperature 98.3 F Pulse Rate 97 Respiratory 18 Rate Blood Pressure 140/77 O2 Sat by Pulse 99 Oximetry Medical Decision Making - Medical Decision Making Patient reevaluated and resting comfortably in bed. Patient and family updated on results and plan. Case discussed with Dr. Roman, who will admit his patient. GI will be consulted. - Lab Data Result diagrams: 06/28/21 15:42 06/28/21 15:42 Lab Results 06/28/21 06/28/21 06/28/21 Range/Units 15:42 15:42 15:42 WBC 11.2 H (3.8-10.6) k/uL RBC 2.34 L (3.80-5.40) m/uL Hgb 7.3 L (11.4-16.0) gm/dL Hct 22.8 L (34.0-46.0) % MCV 97.5 (80.0-100.0) fL MCH 31.0 (25.0-35.0) pg MCHC 31.8 (31.0-37.0) g/dL RDW 17.3 H (11.5-15.5) % Plt Count 280 (150-450) k/uL MPV 7.9 Neutrophils % 81 % Lymphocytes % 13 % Monocytes % 3 % Eosinophils % 1 % Basophils % 0 % Neutrophils # 9.0 H (1.3-7.7) k/uL Lymphocytes # 1.5 (1.0-4.8) k/uL Monocytes # 0.4 (0-1.0) k/uL Eosinophils # 0.1 (0-0.7) k/uL Basophils # 0.0 (0-0.2) k/uL Hypochromasia Slight Anisocytosis Slight Macrocytosis Slight APTT 22.2 (22.0-30.0) sec Sodium 137 (137-145) mmol/L Potassium 3.8 (3.5-5.1) mmol/L Chloride 107 (98-107) mmol/L Carbon Dioxide 20 L (22-30) mmol/L Anion Gap 10 mmol/L BUN 68 H (7-17) mg/dL Creatinine 3.42 H (0.52-1.04) mg/dL Est GFR (CKD-EPI)AfAm 14 (>60 ml/min/1.73 sqM) Est GFR (CKD-EPI)NonAf 12 (>60 ml/min/1.73 sqM) Glucose 110 H (74-99) mg/dL Calcium 8.9 (8.4-10.2) mg/dL Total Bilirubin 0.6 (0.2-1.3) mg/dL AST 17 (14-36) U/L ALT 6 (4-34) U/L Alkaline Phosphatase 90 (38-126) U/L Troponin I (0.000-0.034) ng/mL Total Protein 6.3 (6.3-8.2) g/dL Albumin 3.4 L (3.5-5.0) g/dL 06/28/21 Range/Units 15:42 WBC (3.8-10.6) k/uL RBC (3.80-5.40) m/uL Hgb (11.4-16.0) gm/dL Hct (34.0-46.0) % MCV (80.0-100.0) fL MCH (25.0-35.0) pg MCHC (31.0-37.0) g/dL RDW (11.5-15.5) % Plt Count (150-450) k/uL MPV Neutrophils % % Lymphocytes % % Monocytes % % Eosinophils % % Basophils % % Neutrophils # (1.3-7.7) k/uL Lymphocytes # (1.0-4.8) k/uL Monocytes # (0-1.0) k/uL Eosinophils # (0-0.7) k/uL Basophils # (0-0.2) k/uL Hypochromasia Anisocytosis Macrocytosis APTT (22.0-30.0) sec Sodium (137-145) mmol/L Potassium (3.5-5.1) mmol/L Chloride (98-107) mmol/L Carbon Dioxide (22-30) mmol/L Anion Gap mmol/L BUN (7-17) mg/dL Creatinine (0.52-1.04) mg/dL Est GFR (CKD-EPI)AfAm (>60 ml/min/1.73 sqM) Est GFR (CKD-EPI)NonAf (>60 ml/min/1.73 sqM) Glucose (74-99) mg/dL Calcium (8.4-10.2) mg/dL Total Bilirubin (0.2-1.3) mg/dL AST (14-36) U/L ALT (4-34) U/L Alkaline Phosphatase (38-126) U/L Troponin I 0.017 (0.000-0.034) ng/mL Total Protein (6.3-8.2) g/dL Albumin (3.5-5.0) g/dL Disposition Clinical Impression: Anemia Disposition: ADMITTED IP TO THIS HOSP Is patient prescribed a controlled substance at d/c from ED?: No Referrals: Balbir Roman DO [Primary Care Provider] - 1-2 days Decision Time: 17:17
[2021-06-28 15:50] LABS: Anisocytosis Slight; Basophils % (A) 0 %; Eosinophils # (A) 0.1 k/uL (0-0.7); Eosinophils % (A) 1 %; HCT 22.8 % (34.0-46.0); HGB 7.3 gm/dL (11.4-16.0); Hypochromasia Slight; Lymphocytes # (A) 1.5 k/uL (1.0-4.8); Lymphocytes % (A) 13 %; MCHC 31.8 g/dL (31.0-37.0); MCV 97.5 fL (80.0-100.0); Macrocytosis Slight; Mean Platelet Volume 7.9; Monocytes # (A) 0.4 k/uL (0-1.0); Monocytes % (A) 3 %; Neutrophils % (A) 81 %; Platelet Count 280 k/uL (150-450); RBC 2.34 m/uL (3.80-5.40); RDW 17.3 % (11.5-15.5); WBC 11.2 k/uL (3.8-10.6)
[2021-06-28 15:59] LABS: Potassium 3.8 mmol/L (3.5-5.1)
[2021-06-28 16:00] LABS: Albumin 3.4 g/dL (3.5-5.0); Calcium 8.9 mg/dL (8.4-10.2); Total Bilirubin 0.6 mg/dL (0.2-1.3); Total Protein 6.3 g/dL (6.3-8.2)
[2021-06-28] MEDS ORDERED: NALOXONE 0.4 MG/ML 1 ML VIAL IV PRN (17:17)
[2021-06-28] MEDS: SODIUM CHLORIDE 0.9% 1,000 ML IV SCH (20:01)
[2021-06-29] MEDS: SODIUM CHLORIDE 0.9% 1,000 ML IV SCH ×3 (03:52→21:32)
[2021-06-29] MEDS: PANTOPRAZOLE 40 MG/10 ML VIAL IV SCH (09:39)
[2021-06-29 10:08] LABS: African American GFR (CKD) 15.8 (60.0-200.0); BUN/Creat Ratio 17.46 Ratio (12.00-20.00); Blood Urea Nitrogen 53.6 mg/dL (9.0-27.0); Calcium 8.4 mg/dL (8.7-10.3); Non-African American GFR(CKD) 13.6 (60.0-200.0); Potassium 3.7 mmol/L (3.5-5.5)
[2021-06-29] MEDS ORDERED: HYDROcodone/APAP 7.5-325MG 1 EACH TAB PO PRN (10:27)
[2021-06-29 10:57] LABS: HCT 20.9 % (37.2-46.3); HGB 6.1 g/dL (12.0-15.0); MCH 29.8 pg (27.0-32.0); MCHC 29.2 g/dL (32.0-37.0); Mean Platelet Volume 10.5 fL (9.5-12.2); NRBC Per 100 WBC 0 /100 WBCS (0.0-0.0); Platelet Count 247 X 10*3/uL (140-440); RBC 2.05 X 10*6/uL (4.10-5.20); RDW 16.9 % (11.5-14.5); WBC 7.28 X 10*3/uL (4.50-10.00)
[2021-06-29 11:12] LABS: Basophils # (A) 0.03 X 10*3/uL (0.00-0.10); Basophils % (A) 0.4 %; Eosinophils % (A) 2.7 %; Immature Grans, Automated 0.7 %; Lymphocytes # (A) 1.23 X 10*3/uL (0.90-5.00); Lymphocytes % (A) 16.9 %; Monocytes # (A) 0.62 X 10*3/uL (0.20-1.00); Monocytes % (A) 8.5 %; Neutrophils # (A) 5.15 X 10*3/uL (1.80-7.70); Neutrophils % (A) 70.8 %
[2021-06-29 11:13] LABS: Rouleaux PRESENT
[2021-06-29] MEDS ORDERED: FUROSEMIDE 10 MG/ML 2 ML VIAL IV ONE (12:00)
[2021-06-29] MEDS ORDERED: LEVOTHYROXINE 50 MCG TAB PO SCH (12:00)
[2021-06-29 12:35] LABS: Reticulocyte % 5.3 % (0.5-2.0)
[2021-06-29] MEDS: SODIUM BICARBONATE TAB 650 MG TAB PO SCH ×2 (12:46→21:31)
--- NOTE | 2021-06-29 13:51 | P.CONS ---
History of Present Illness - Reason for Consult Consult date: 06/29/21 Anemia, possible GI bleed Requesting physician: Balbir Roman - Chief Complaint Low hemoglobin, fatigue - History of Present Illness This 80-year-old female who presented to emergency department per recommendation from her supervisor [employer] workers. Patient has outpatient weekly labs due to chronic kidney failure and had been noticing a trend in her hemoglobin decreasing. Approximate ly 2-3 weeks ago she was in the 10-11 range and yesterday she was 7.3 today's hemoglobin came back at 6.1 hematocrit 20 platelet count 247,000 liver enzymes are unremarkable. She states she does have black stools however she is on iron. She denies any bright red blood in her stool, denies any abdominal pain, nausea or vomiting. She does state that she has some acid reflux and takes omeprazole. She denies any anticoagulation or NSAID use. She does have a history of previous ERCP done in January [address] Melgar for choledocholithiasis with stent placement. In 2015 she underwent a colonoscopy with Dr. Cantu with findings of severe diverticulosis and a tortuous bowel and colonoscopy could not be completed. Patient also states she's had a couple colonoscopies with Dr. Shetty approximately 2 years ago which she states he was unable to complete due to her tortuous colon. He said she has a history of Giardia last year and she has had abdominal issues since then. Does have some loose stools at times. Review of Systems REVIEW OF SYSTEMS: CARDIOPULMONARY: No chest pain, increased shortness of breath. Gastrointestinal: No abdominal pain. No nausea or vomiting. No hematemesis, coffee-ground emesis. No rectal bleeding, black stool. GENITOURINARY: No dysuria or hematuria. MUSCULOSKELETAL: Reports normal range of motion., Joint pain. SKIN: No rashes. No jaundice. ENDOCRINE: No chills, fevers. No excessive weight gain or loss. No polydipsia or polyuria. PSYCHIATRIC: Unremarkable. NEUROLOGY: No change in mental status. Denies dizziness, headache. ENT: Vision unremarkable. CONSTITUTIONAL: No recent weight loss. No fever, chills, night sweats. Increased fatigue Past Medical History Past Medical History: Blood Disorder, Cancer, GERD/Reflux, Hyperlipidemia, Hypertension, Renal Disease Additional Past Medical History / Comment(s): HX ANEMIA AND DIVERTICULOSIS. HAS LOW KIDNEY FUNCTION, 21%. SKIN CANCER History of Any Multi-Drug Resistant Organisms: None Reported Past Surgical History: Bladder Surgery, Hysterectomy, Joint Replacement Additional Past Surgical History / Comment(s): sinus surgery. BILAT TKA. STIMULATOR IN BACK. BASAL CELL CARCINOMA REMOVED FROM LT EYELID Past Anesthesia/Blood Transfusion Reactions: Postoperative Nausea & Vomiting (PONV) Past Psychological History: No Psychological Hx Reported Smoking Status: Never smoker Past Alcohol Use History: Occasional Past Drug Use History: None Reported - Past Family History Mother Family Medical History: No Reported History Medications and Allergies Home Medications Medication Instructions Recorded Confirmed Type Levothyroxine Sodium [Synthroid] 50 mcg PO DAILY@1200 01/19/16 06/28/21 History Omeprazole 20 mg PO DAILY 01/19/16 06/28/21 History Simvastatin [Zocor] 40 mg PO HS 01/19/16 06/28/21 History allopurinoL [Zyloprim] 100 mg PO DAILY 06/05/16 06/28/21 History amLODIPine [Norvasc] 2.5 mg PO DAILY 01/07/20 06/28/21 History Cholecalciferol [Vitamin D3 (25 50 unit PO DAILY 04/21/20 06/28/21 History Mcg = 1000 Iu)] HYDROcodone/APAP 7.5-325MG [[place] 1 tab PO BID PRN 04/21/20 06/28/21 History 7.5] calcitrioL [Rocaltrol] 0.25 mcg PO DAILY 04/21/20 06/28/21 History Sodium Bicarbonate Tab 650 mg PO BID 10/27/20 06/28/21 History Ferrous Sulfate [Feosol] 325 mg PO DAILY 06/28/21 06/28/21 History Allergies Allergy/AdvReac Type Severity Reaction Status Date / Time iodine Allergy MAKES CUTS Verified 06/28/21 18:23 WORSE Sulfa (Sulfonamide Allergy Rash/Hives Verified 06/28/21 18:23 Antibiotics) codeine AdvReac CONSTIPATIO Verified 06/28/21 18:23 N NSAIDS (Non-Steroidal AdvReac Kidney Verified 06/28/21 18:23 Anti-Inflamma Function Physical Exam Vitals: Vital Signs Temp Pulse Pulse Resp BP BP Pulse Ox 06/29/21 08:50 91 16 06/29/21 07:53 98.6 F 91 16 126/73 97 06/29/21 04:14 97.6 F 101 H 16 154/77 96 06/28/21 21:14 98.2 F 90 16 134/77 99 06/28/21 19:00 97 16 122/71 99 06/28/21 14:55 98.3 F 97 18 140/77 99 Intake and Output 06/28/21 06/29/21 06/29/21 22:59 06:59 14:59 Intake Total 1200 Balance 1200 Intake: Intake, IV Titration 1200 Amount Sodium Chloride 0.9% 1, 1200 000 ml @ 110 mls/hr IV . Q9H6M [facility] Rx#:[id number] Oral 0 Other: # Voids 2 # Bowel Movements 0 Weight 58.06 kg General appearance: The patient is alert, oriented, appears in no acute distres s. HET: Head is normocephalic and atraumatic. Conjunctiva pink. Sclera anicteric. Neck: Supple without lymphadenopathy. Trachea midline. Heart: S1 S2. Regular rate and rhythm. Lungs: Clear to auscultation. Abdomen: Soft, nontender, nondistended with bowel sounds. No guarding or rigidity. Skin: No rashes. No jaundice. Extremities: Normal skin color and turgor. No pedal edema. Neurological: No focal deficits. Alert and oriented x3. Results CBC & Chem 7: 06/29/21 06:13 06/29/21 06:13 Labs: Abnormal Lab Results - Last 24 Hours (Table) 06/28/21 06/28/21 06/29/21 Range/Units 15:42 15:42 06:13 WBC 11.2 H (3.8-10.6) k/uL RBC 2.34 L 2.05 L (3.80-5.40) m/uL Hgb 7.3 L 6.1 L* (11.4-16.0) gm/dL Hct 22.8 L 20.9 L (34.0-46.0) % MCV 102.0 H (80.0-97.0) fL MCHC 29.2 L (32.0-37.0) g/dL RDW 17.3 H 16.9 H (11.5-15.5) % Neutrophils # 9.0 H (1.3-7.7) k/uL Chloride (96-109) mmol/L Carbon Dioxide 20 L (22-30) mmol/L BUN 68 H (7-17) mg/dL Creatinine 3.42 H (0.52-1.04) mg/dL Est GFR (CKD-EPI)AfAm (60.0-200.0) Est GFR (CKD-EPI)NonAf (60.0-200.0) Glucose 110 H (74-99) mg/dL Calcium (8.7-10.3) mg/dL Albumin 3.4 L (3.5-5.0) g/dL 06/29/21 Range/Units 06:13 WBC (3.8-10.6) k/uL RBC (3.80-5.40) m/uL Hgb (11.4-16.0) gm/dL Hct (34.0-46.0) % MCV (80.0-97.0) fL MCHC (32.0-37.0) g/dL RDW (11.5-15.5) % Neutrophils # (1.3-7.7) k/uL Chloride 110 H (96-109) mmol/L Carbon Dioxide 19.0 L (22-30) mmol/L BUN 53.6 H (7-17) mg/dL Creatinine 3.1 H (0.52-1.04) mg/dL Est GFR (CKD-EPI)AfAm 15.8 L (60.0-200.0) Est GFR (CKD-EPI)NonAf 13.6 L (60.0-200.0) Glucose (74-99) mg/dL Calcium 8.4 L (8.7-10.3) mg/dL Albumin (3.5-5.0) g/dL Assessment and Plan (1) Anemia Narrative/Plan: 80-year-old female who was sent in by her supervisor [employer] workers for low hemoglobin. Patient gets weekly labs done for her renal disease and had been noticing a trend of her hemoglobin progressively getting lower. She does state that she has also had increased fatigue and some shortness of breath. She states that she has black stool and has had it for several months but also states that she is on iron. She has not noticed any blood in her stool. She denies any abdominal pain nausea or vomiting. She does have a history of acid reflux and takes omeprazole. She's had no previous EGDs but has had several colonoscopies in the past for which have not been completed due to a tortuous colon. On admission she had a hemoglobin of 8.3 which dropped to 6.1 today. 1 unit of PRBC transfusion ordered. Anemia panel ordered. Current Visit: Yes Status: Acute Code(s): D64.9 - ANEMIA, UNSPECIFIED SNOMED Code(s): 661504408 (2) Chronic renal disease Current Visit: Yes Status: Acute Code(s): N18.9 - CHRONIC KIDNEY DISEASE, UNSPECIFIED SNOMED Code(s): 929404028 Plan: 1. Continue symptomatic and supportive care 2. Protonix 40 mg daily 3. Patient may have regular diet, nothing by mouth after midnight 4. EGD scheduled tomorrow morning 5. Anemia panel ordered 6. 1 unit of PRBC transfusion 7. Daily CBC, transfuse per protocol Thank you for allowing us to participate in the care of the patient, the GI service will sign off, gastroenterology will not be available at the hospital this weekend.. If further evaluation by gastroenterology is required the patient will need transfer as per the primary team's discretion. Dr. Rigo Carty I agree with the dictator's note, documented as a scribe by Jazz Rangel.
[2021-06-29 14:04] LABS: % Iron Saturation 15.08 (12.00-45.00); Iron 29 ug/dL (50-170); Total Iron Binding Capacity 189 ug/dL (228-460)
[2021-06-29 15:52] LABS: Folate, Serum >20.00 ng/mL (4.40-31.00)
--- NOTE | 2021-06-29 16:39 | P.HPIM ---
History of Present Illness H&P Date: 06/29/21 Chief Complaint: Low hemoglobin, increased weakness, shortness of breath This is an 80-year-old female with history of gastroesophageal reflux disease, hyperlipidemia, hypertension, chronic kidney disease stage V with chronic anemia, prior ERCP in 2019 for choledocholithiasis with stent placement, diverticulosis, torturous bowel, Giardia last year, cholecystectomy last year and multiple other medical issues presented to the ER with significantly decreased hemoglobin-symptomatic with increased fatigue and shortness of breath. Hemoglobin 11, 3 weeks ago, receives Aranesp and is on iron. Friday while at her her nephrology visit with Dr. Goldstein,hemoglobin level further decreased to 7.3. Reported black diarrhea -the patient is on iron, and Dr. Goldstein recommended she proceed to the ER. Reports two loosely formed stools last night and one this morning-black in color. Denies nausea vomiting or diarrhea. Denies abdominal pain. Denies chest pain, palpitations. On admission, afebrile, WBC 11.2, hemoglobin 7.3, platelets 280, sodium 137, potassium 3.8, carb 20, BUN 60, creatinine 3.42, LFTs unremarkable, gomez virus PCR not detected. Review of Systems ROS Statement: Those systems with pertinent positive or pertinent negative responses have been documented in the HPI. ROS Other: All systems not noted in ROS Statement are negative. Past Medical History Past Medical History: Blood Disorder, Cancer, GERD/Reflux, Hyperlipidemia, Hypertension, Renal Disease Additional Past Medical History / Comment(s): HX ANEMIA AND DIVERTICULOSIS. HAS LOW KIDNEY FUNCTION, 21%. SKIN CANCER History of Any Multi-Drug Resistant Organisms: None Reported Past Surgical History: Bladder Surgery, Hysterectomy, Joint Replacement Additional Past Surgical History / Comment(s): sinus surgery. BILAT TKA. STIMULATOR IN BACK. BASAL CELL CARCINOMA REMOVED FROM LT EYELID Past Anesthesia/Blood Transfusion Reactions: Postoperative Nausea & Vomiting (PONV) Past Psychological History: No Psychological Hx Reported Smoking Status: Never smoker Past Alcohol Use History: Occasional Past Drug Use History: None Reported - Past Family History Mother Family Medical History: No Reported History Medications and Allergies Home Medications Medication Instructions Recorded Confirmed Type Levothyroxine Sodium [Synthroid] 50 mcg PO DAILY@1200 01/19/16 06/28/21 History Omeprazole 20 mg PO DAILY 01/19/16 06/28/21 History Simvastatin [Zocor] 40 mg PO HS 01/19/16 06/28/21 History allopurinoL [Zyloprim] 100 mg PO DAILY 06/05/16 06/28/21 History amLODIPine [Norvasc] 2.5 mg PO DAILY 01/07/20 06/28/21 History Cholecalciferol [Vitamin D3 (25 50 unit PO DAILY 04/21/20 06/28/21 History Mcg = 1000 Iu)] HYDROcodone/APAP 7.5-325MG [[place] 1 tab PO BID PRN 04/21/20 06/28/21 History 7.5] calcitrioL [Rocaltrol] 0.25 mcg PO DAILY 04/21/20 06/28/21 History Sodium Bicarbonate Tab 650 mg PO BID 10/27/20 06/28/21 History Ferrous Sulfate [Feosol] 325 mg PO DAILY 06/28/21 06/28/21 History Allergies Allergy/AdvReac Type Severity Reaction Status Date / Time iodine Allergy MAKES CUTS Verified 06/28/21 18:23 WORSE Sulfa (Sulfonamide Allergy Rash/Hives Verified 06/28/21 18:23 Antibiotics) codeine AdvReac CONSTIPATIO Verified 06/28/21 18:23 N NSAIDS (Non-Steroidal AdvReac Kidney Verified 06/28/21 18:23 Anti-Inflamma Function Physical Exam Vitals: Vital Signs Temp Pulse Pulse Resp BP BP Pulse Ox 06/29/21 14:59 97.8 F 98 128/75 99 06/29/21 14:29 97.5 F L 91 133/74 99 06/29/21 14:19 98.6 F 95 130/74 99 06/29/21 12:15 98.3 F 84 17 147/71 99 06/29/21 08:50 91 16 06/29/21 07:53 98.6 F 91 16 126/73 97 06/29/21 04:14 97.6 F 101 H 16 154/77 96 06/28/21 21:14 98.2 F 90 16 134/77 99 06/28/21 19:00 97 16 122/71 99 Intake and Output 06/29/21 06/29/21 06/29/21 06:59 14:59 22:59 Intake Total 1200 0 Balance 1200 0 Intake: Intake, IV Titration 1200 Amount Sodium Chloride 0.9% 1, 1200 000 ml @ 110 mls/hr IV . Q9H6M [facility] Rx#:[id number] Oral 0 Blood Product 0 Rc As-1 Unit 0 [id number] Other: # Voids 2 # Bowel Movements 0 PHYSICAL EXAM: VITAL SIGNS: [As above] GENERAL: Sitting up in bed, no acute distress, conversing without dyspnea HEENT: Conjunctivae normal. eyes normal. Oral mucosa NECK: No JVD. No thyroid enlargement. No LNs CARDIOVASCULAR: S1, S2 regular.. No murmur RESPIRATION: Breath sounds diminished in the bases. No rhonchi or crackles. No bronchial breathing. ABDOMEN: Soft, nontender . No guarding. no masses palpable. No ascites, No hepatosplenomegaly.Bowel sounds heard. LEGS: No edema. no swelling PSYCHIATRY: Alert and oriented X3, mood and affect normal. NERVOUS SYSTEM: Cranial N 2-12 grossly normal. Moves all 4 limbs. No focal deficits. Strength and sensation grossly intact.. Skin: Warm and dry, no rash Results CBC & Chem 7: 06/29/21 06:13 06/29/21 06:13 Labs: Abnormal Lab Results - Last 24 Hours (Table) 06/28/21 06/29/21 06/29/21 Range/Units 15:42 06:13 06:13 RBC 2.05 L (4.10-5.20) X 10*6/uL Hgb 6.1 L* (12.0-15.0) g/dL Hct 20.9 L (37.2-46.3) % MCV 102.0 H (80.0-97.0) fL MCHC 29.2 L (32.0-37.0) g/dL RDW 16.9 H (11.5-14.5) % Immature Gran # 0.05 H (0.00-0.04) X 10*3/uL Retic Count (0.5-2.0) % Chloride 110 H (96-109) mmol/L Carbon Dioxide 20 L 19.0 L (22-30) mmol/L BUN 68 H 53.6 H (7-17) mg/dL Creatinine 3.42 H 3.1 H (0.52-1.04) mg/dL Est GFR (CKD-EPI)AfAm 15.8 L (60.0-200.0) Est GFR (CKD-EPI)NonAf 13.6 L (60.0-200.0) Glucose 110 H (74-99) mg/dL Calcium 8.4 L (8.7-10.3) mg/dL Iron (50-170) ug/dL TIBC (228-460) ug/dL Transferrin (204.0-354.0) mg/dL Ferritin (10.0-291.0) ng/mL Albumin 3.4 L (3.5-5.0) g/dL Crossmatch 06/29/21 06/29/21 06/29/21 Range/Units 06:13 11:44 11:44 RBC (4.10-5.20) X 10*6/uL Hgb (12.0-15.0) g/dL Hct (37.2-46.3) % MCV (80.0-97.0) fL MCHC (32.0-37.0) g/dL RDW (11.5-14.5) % Immature Gran # (0.00-0.04) X 10*3/uL Retic Count 5.3 H (0.5-2.0) % Chloride (96-109) mmol/L Carbon Dioxide (22-30) mmol/L BUN (7-17) mg/dL Creatinine (0.52-1.04) mg/dL Est GFR (CKD-EPI)AfAm (60.0-200.0) Est GFR (CKD-EPI)NonAf (60.0-200.0) Glucose (74-99) mg/dL Calcium (8.7-10.3) mg/dL Iron 29 L (50-170) ug/dL TIBC 189 L (228-460) ug/dL Transferrin 135.0 L (204.0-354.0) mg/dL Ferritin 335.0 H (10.0-291.0) ng/mL Albumin (3.5-5.0) g/dL Crossmatch See Detail Thrombosis Risk Factor Assmnt - Choose All That Apply Each Risk Factor Represents 3 Points: Age 75 years or older Thrombosis Risk Factor Assessment Total Risk Factor Score: 3 Thrombosis Risk Factor Assessment Level: Moderate Risk Assessment and Plan Assessment: Acute on chronic anemia, symptomatic-reports black stools but is on iron. 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 Plan: Continue current medication regime ,monitoring and symptomatic treatment. Maintain IV fluid hydration PPI, labs pending- hemoglobin recently returned at 6.1, packed RBC transfusion ordered. Evaluated by GI, scheduled for EGD tomorrow morning. Close monitoring of coags, renal function with repeat labs ordered for a.m. The impression and plan of care has been dictated as directed. : I performed a history and examination of this patient, discussed the same with the dictator. I agree with the dictator's note ,documented as a scribe. Any additional findings or plans will be noted.
[2021-06-30] MEDS: SODIUM CHLORIDE 0.9% 1,000 ML IV SCH ×2 (07:16→08:16)
[2021-06-30] MEDS ORDERED: PROPOFOL 10 MG/ML 20 ML VIAL IV ONE (07:20)
[2021-06-30] MEDS ORDERED: IV FLUID CONTINUATION 1,000 ML IV ONE (07:24)
--- NOTE | 2021-06-30 07:36 | P.PCN ---
Date of Procedure: 06/30/21 Procedure(s) Performed: BRIEF HISTORY: Patient is a 80 year-old, pleasant, white female admitted hospital with symptomatic anemia and hemoglobin of 6.5 g/dL and intermittent black stools for the last few weeks duration. No prior history of peptic ulcer disease or recent NSAID use. Her last colonoscopy by Dr. Shetty was 3 years ago and wasn't complete because of sigmoid angulation. PROCEDURE PERFORMED: Esophagogastroduodenoscopy with biopsy . PREOPERATIVE DIAGNOSIS: Symptomatic anemia and black tarry stools IV sedation per anesthesia. PROCEDURE: After informed consent was obtained, the patient was brought into the endoscopy unit. IV sedation was administered by Anesthesia under continuous monitoring. Initially the Olympus GIF-140 video endoscope was inserted into the mouth. Esophagus intubated without any difficulty. It was gradually advanced into the stomach and duodenum and carefully examined. The bulb and the second part of the duodenum appeared normal. biopsies were done from the duodenum to rule out celiac disease. The scope at this time was withdrawn to the stomach, adequately insufflated with air, and upon careful examination, mucosa of the antrum, appeared normal. There was diffuse gastritis involving the body, cardia and the fundand biopsies were done from this area. Moderate size hiatal hernia noted. The scope was then withdrawn into the esophagus. The GE junction was located at 34 cm from the incisors. The esophagus appeared normal. There were no erosions or ulcerations seen and the patient tolerated the procedure well. IMPRESSION: 1. Moderate size hiatal hernia 2. Diffuse moderate to severe gastritis with mucosal erythema noted in the proximal body cardia and fundus of the stomach and biopsies were done from this area 3. No evidence of peptic ulcer disease. RECOMMENDATIONS: The findings of this examination were discussed with the patient. At this time she'll be continued on Protonix 40 mg daily. Await biopsy results. Diet will be advanced as tolerated. His hemoglobin is stable she can be discharged to
[2021-06-30] MEDS: SODIUM BICARBONATE TAB 650 MG TAB PO SCH (08:10)
[2021-06-30] MEDS: PANTOPRAZOLE 40 MG/10 ML VIAL IV SCH (08:11)
[2021-06-30 12:02] VITALS: BP 157/83; PULSE 85; RESP 18; TEMP 98.3
[2021-06-30 12:18] LABS: Anisocytosis Slight; Basophils % (A) 0 %; Eosinophils # (A) 0.2 k/uL (0-0.7); Eosinophils % (A) 2 %; HCT 25.7 % (34.0-46.0); HGB 8.4 gm/dL (11.4-16.0); Hypochromasia Slight; Lymphocytes # (A) 1.2 k/uL (1.0-4.8); Lymphocytes % (A) 15 %; MCH 31.7 pg (25.0-35.0); MCHC 32.6 g/dL (31.0-37.0); MCV 97.3 fL (80.0-100.0); Macrocytosis Slight; Mean Platelet Volume 7.9; Monocytes # (A) 0.4 k/uL (0-1.0); Monocytes % (A) 5 %; Neutrophils % (A) 76 %; Platelet Count 284 k/uL (150-450); Poikilocytosis Slight; RBC 2.64 m/uL (3.80-5.40); RDW 17.5 % (11.5-15.5); WBC 7.9 k/uL (3.8-10.6)
[2021-06-30 12:30] LABS: African American GFR (CKD) 18 (>60 ml/min/1.73 sqM); Anion Gap 4 mmol/L; Blood Urea Nitrogen 43 mg/dL (7-17); Carbon Dioxide 23 mmol/L (22-30); Chloride 110 mmol/L (98-107); Glucose 103 mg/dL (74-99); Non-African American GFR(CKD) 16 (>60 ml/min/1.73 sqM); Potassium 3.3 mmol/L (3.5-5.1); Sodium 137 mmol/L (137-145)
[2021-06-30] MEDS ORDERED: POTASSIUM CHLORIDE ER 20 MEQ TAB.ER PO STA (13:00)
[2021-06-30] MEDS ORDERED: LEVOTHYROXINE 50 MCG TAB PO SCH (21:00)
--- NOTE | 2021-07-01 15:32 | P.DS ---
Providers Date of admission: 06/28/21 17:17 Attending physician: Balbir Roman Consults: 06/28/21 17:18 Consult Physician Urgent Consulting Provider: Caitlin Carty Consult Reason/Comments: Anemia, presumptive GI bleed, probable scope Do you want consulting provider notified?: Yes Primary care physician: Balbir Roman Hospital Course: Final Diagnosis Acute on chronic anemia symptomatic Moderate size hiatal hernia Moderate to severe gastritis with mucosal erythema Chronic kidney disease stage 4 to 5 Gastroesophageal reflux disease Hypertension Hyperlipidemia History of UTI which Giardia History of COVID-2019 History of tortuous colon diagnosed with attempt at colonoscopy by Dr. Shetty Discharge disposition Patient stable for discharge from a GI standpoint as well as medical. She received 1 unit of PRBCs as admission with a hemoglobin of 8.4 on June 30. There are no signs of current bleeding patient states no further evidence of dark stools. Hospital course This is a pleasant 80-year-old female presents at that with complaints of anemia as well as dark stools that are chronic as she does take iron supplements. Otherwise no other areas of bleeding, no nausea no vomiting. Hemoglobin had dropped from 11 down to 80 over the past few weeks and she is felt more fatigued. On admission labs show white count 11.2, hemoglobin 7.3, sodium 137, potassium 3.8, BUN 68, creatinine 3.42, glucose 110, troponin negative. Liver enzymes are negative vitamin B12 436, folate greater than 20 and Covid is not detected. Patient has a past medical history significant for skin cancer, GERD, hypertension, hyperlipidemia, stage 4-5 kidney disease, bilateral total knee amputation, also Dr. Roman in the office. She was admitted to the hospital with consults placed to GI services and certain IV fluids and IV Protonix. Patient's hemoglobin did drop to 6.1 and she received 1 unit of PRBCs with a subsequent hemoglobin of 8.4. Patient underwent EGD with Dr. Carty which showed a moderate-sized hiatal hernia as well as moderate to severe gastritis with mucosal erythema. Patient was taking omeprazole home and Dr. Carty recommended for patient to switch to Protonix. Patient wanted a two-week prescription sent for Protonix as she does mail order medications which are cheaper and she can follow up in the office with PCP and GI if she is to continue Protonix beyond on 2 weeks. 06/30/2021 Patient evaluated today status post EGD. Overall no acute complaints no acute events overnight. She denies any episodes of acute bleeding. There is no abdominal pain, no nausea or vomiting. She denies any chest pain, chest pressure, cough or shortness of breath. She is tolerating diet. Labs are stable today, hemoglobin 8.4, white count 7.9, potassium is 3.3, she did receive 40 meqs of potassium and has a prescription for 3 more days of 20 meqs potassium with a repeat check in 2-3 days. 43, creatinine 2.71 which is baseline from previous labs. Vital stable she is afebrile blood pressure 157/83. Resume all home medications on discharge in addition to changes described. Lungs are clear to auscultation, S1-S2 auscultated, positive bowel sounds. Abdomen is soft nontender. Focal neurological exam is negative. Please see medication reconciliation for list of current medications. Thank you for allowing us to participate in the care of this patient. Patient Condition at Discharge: Stable Plan - Discharge Summary New Discharge Prescriptions: New Pantoprazole [Protonix] 40 mg PO DAILY 14 Days #14 tab Potassium Chloride [Klor-Con 20] 20 meq PO DAILY 3 Days #3 tab Continue Simvastatin [Zocor] 40 mg PO HS Levothyroxine Sodium [Synthroid] 50 mcg PO DAILY@1200 allopurinoL [Zyloprim] 100 mg PO DAILY amLODIPine [Norvasc] 2.5 mg PO DAILY calcitrioL [Rocaltrol] 0.25 mcg PO DAILY HYDROcodone/APAP 7.5-325MG [[place] 7.5-325] 1 tab PO BID PRN PRN Reason: Pain Cholecalciferol [Vitamin D3 (25 Mcg = 1000 Iu)] 50 unit PO DAILY Sodium Bicarbonate Tab 650 mg PO BID Ferrous Sulfate [Iron (65 MG Elemental)] 325 mg PO DAILY Discontinued Omeprazole 20 mg PO DAILY Discharge Medication List Levothyroxine Sodium [Synthroid] 50 mcg PO DAILY@1200 01/19/16 [History] Simvastatin [Zocor] 40 mg PO HS 01/19/16 [History] allopurinoL [Zyloprim] 100 mg PO DAILY 06/05/16 [History] amLODIPine [Norvasc] 2.5 mg PO DAILY 01/07/20 [History] Cholecalciferol [Vitamin D3 (25 Mcg = 1000 Iu)] 50 unit PO DAILY 04/21/20 [Histo ry] HYDROcodone/APAP 7.5-325MG [[place] 7.5-325] 1 tab PO BID PRN 04/21/20 [History] calcitrioL [Rocaltrol] 0.25 mcg PO DAILY 04/21/20 [History] Sodium Bicarbonate Tab 650 mg PO BID 10/27/20 [History] Ferrous Sulfate [Iron (65 MG Elemental)] 325 mg PO DAILY 06/28/21 [History] Pantoprazole [Protonix] 40 mg PO DAILY 14 Days #14 tab 06/30/21 [Rx] Potassium Chloride [Klor-Con 20] 20 meq PO DAILY 3 Days #3 tab 06/30/21 [Rx] Follow up Appointment(s)/Referral(s): Balbir Roman DO [Primary Care Provider] - 1-2 days (Patient to make own follow-up appt. Office closed at time of discharge. ) Caitlin Carty MD [STAFF PHYSICIAN] - 2 Weeks (Patient to make own follow-up appt. Office closed at time of discharge. ) Uche Goldstein DO [STAFF PHYSICIAN] - 6 Weeks (Patient to make own follow-up appt. Office closed at time of discharge.) Ambulatory/Diagnostic Orders: Basic Metabolic Panel [LAB.AMB] Time Frame: 2 Days, Location: None Selected Complete Blood Count w/diff [LAB.AMB] Time Frame: 2 Days, Location: None Selected Patient Instructions/Handouts: Pantoprazole (By mouth), Gastritis (DC), Diet for Stomach Ulcers and Gastritis (GEN) Activity/Diet/Wound Care/Special Instructions: Soft, bland diet. Activity as tolerated. Discharge Disposition: HOME SELF-CARE
== END 2021-06-30 14:20 | disposition home or self-care (01) | DRG 683 ==
LOC: EC 14:43 → 5NMEDONC 17:17
PROVIDERS: ADMIT Family Medicine; ATTEND Family Medicine
PROC: 30233N1 Transfusion of Nonautologous Red Blood Cells into Peripheral Vein, Percutaneous Approach (ICD-10-PCS; principal; 2021-06-29)
PROC: 0DB98ZX Excision of Duodenum, Via Natural or Artificial Opening Endoscopic, Diagnostic (ICD-10-PCS; 2021-06-30)
PROC: 0DB78ZX Excision of Stomach, Pylorus, Via Natural or Artificial Opening Endoscopic, Diagnostic (ICD-10-PCS; 2021-06-30)
DX: I12.0 Hypertensive chronic kidney disease with stage 5 chronic kidney disease or end stage renal disease (principal); N18.5 Chronic kidney disease, stage 5; D63.1 Anemia in chronic kidney disease; E78.5 Hyperlipidemia, unspecified; Z20.822 Contact with and (suspected) exposure to COVID-19; K29.70 Gastritis, unspecified, without bleeding; R19.5 Other fecal abnormalities; K21.9 Gastro-esophageal reflux disease without esophagitis; K44.9 Diaphragmatic hernia without obstruction or gangrene; K57.90 Diverticulosis of intestine, part unspecified, without perforation or abscess without bleeding; Z79.890 Hormone replacement therapy; Z79.899 Other long term (current) drug therapy; Z96.653 Presence of artificial knee joint, bilateral; Z85.828 Personal history of other malignant neoplasm of skin; Z96.82 Presence of neurostimulator; Z90.710 Acquired absence of both cervix and uterus; Z87.448 Personal history of other diseases of urinary system; Z87.42 Personal history of other diseases of the female genital tract; Z87.19 Personal history of other diseases of the digestive system; Z86.16 Personal history of COVID-19; Z87.440 Personal history of urinary (tract) infections; Z98.890 Other specified postprocedural states; Z88.6 Allergy status to analgesic agent; Z88.5 Allergy status to narcotic agent; Z88.2 Allergy status to sulfonamides; Z88.8 Allergy status to other drugs, medicaments and biological substances
CPT/HCPCS: 36415; 43239; 80048; 80053; 81001; 82306; 82607; 82728; 82746; 83540; 83550; 83735; 83970; 84100; 84484; 84550; 85025; 85045; 85730; 86850; 86900; 86901; 86920; 87635; 88305; 96374; 99284

== ENCOUNTER → 2022-10-24 | Outpatient (CLI) | payer MEDICARE ==
--- NOTE | 2022-10-24 16:22 | US ---
EXAMINATION TYPE: US abdomen complete DATE OF EXAM: 10/24/2022 COMPARISON: CT 11/22/2019 CLINICAL INDICATION: Female, 81 years old with history of R10.9 UNSPECIFIED ABDOMINAL PAIN; abdominal pain. History of parasite August 2022, treated with antibiotics. Cholecystectomy TECHNIQUE: Multiple sonographic images of the abdomen are obtained. FINDINGS: EXAM MEASUREMENTS: Liver Length: 16.7 cm Gallbladder: Surgically absent CBD: 1.5 cm Spleen: 9.1 cm Right Kidney: 9.3 x 4.4 x 4.2 cm Left Kidney: 7.7 x 3.8 x 3.4 cm MANAGER SIX SIGMA NOTES: Technical limitations due to large amount of overlying bowel content Pancreas: Obscured by bowel gas Liver: A cyst along the inferior liver lobe measuring = 2.6 x 3.0 x 2.4cm. Thin internal septation i s noted. This measured up to 1.9 cm back on 11/22/2019. Gallbladder: Surgically absent Evidence for sonographic Colon's sign: no CBD: only short segment visualized, dilated Spleen: wnl Right Kidney: echogenic cortex. Multiple cystic areas noted, largest = 2.2 x 2.1 x 2.0cm Left Kidney: atrophic, echogenic cortex. Multiple cystic areas noted, largest = 3.1 x 2.9 x 2.6cm No hydronephrosis on either side. Upper IVC: wnl Abd Aorta: calcifications noted, proximal obscured IMPRESSION: 1. A cyst within the inferior right liver lobe measures 3.0 cm versus 1.9 cm back on 11/22/2019. Consi geri a 6-12 month follow-up ultrasound surveillance given the mild internal complexity. 2. Dilated bile duct at 1.5 cm. Correlate with alkaline phosphatase and bilirubin levels to exclude b iliary obstruction. Findings may be chronic for the patient. 3. Bilateral chronic medical renal disease.
== END | disposition home or self-care (01) ==
LOC: RADUSWWP 10:24
PROVIDERS: ATTEND Internal Medicine Gastroenterology
DX: K76.89 Other specified diseases of liver (principal); K83.8 Other specified diseases of biliary tract; N28.89 Other specified disorders of kidney and ureter
CPT/HCPCS: 76700

== ENCOUNTER 2022-11-12 06:52 | Day surgery (SDC) | payer MEDICARE ==
[2022-11-07 11:56] VITALS: BMI 19.1
[~2022-11-12 06:52] MED LIST changes: -AMPICILLIN-SULBACTAM 3 GM in SODIUM CHLORIDE 0.9% 100 ML IVPB STA; -GLYCOPYRROLATE 0.2 MG/ML 2 ML VIAL ONE; -IOPAMIDOL-300 50ML BTL MISCELLANE ONE; -LACTATED RINGERS 1,000 ML IV ONE; -LIDOCAINE 1% INJ 10MG/ML (20 ML MDV) ONE; -NEOSTIGMINE 1 MG/ML 10 ML VIAL ONE; -ONDANSETRON 4 MG/2 ML VIAL ONE; -PHENYLEPHRINE-0.9% NACL SYG 1 MG/10 ML SYRINGE ONE; -PROPOFOL 10 MG/ML 20 ML VIAL IV ONE; -ROCURONIUM BROMIDE 10 MG/ML 5 ML VIAL IV ONE; -SUCCINYLCHOLINE CHLORIDE 100 MG/5 ML SYR IV ONE; -diphenhydrAMINE 50 MG/ML 1 ML VIAL ONE; -fentaNYL (PF) 50 MCG/ML 2 ML AMP ONE
[2022-11-12 07:28] VITALS: TEMP 98
[2022-11-12] MEDS: LACTATED RINGERS 1,000 ML IV SCH ×2 (07:46→07:47)
[2022-11-12] MEDS ORDERED: PHENYLEPHRINE-0.9% NACL SYG 1,000 MCG/10 ML SYRINGE ONE (07:50)
[2022-11-12] MEDS ORDERED: PROPOFOL 10 MG/ML 20 ML VIAL IV ONE (07:50)
[2022-11-12] MEDS ORDERED: ONDANSETRON 4 MG/2 ML VIAL ONE (07:50)
[2022-11-12] MEDS ORDERED: LIDOCAINE 2% INJ 20 MG/ML (2 ML VIAL) ONE (07:50)
--- NOTE | 2022-11-12 08:28 | P.PCN ---
Date of Procedure: 11/12/22 Procedure(s) Performed: Brief history: Patient is a pleasant 79-year-old pleasant white female scheduled for an elective upper endoscopy as well as colonoscopy as a part of evaluation of chronic abdominal pain and diarrhea since August of this year. She is been having 4-5 loose watery bowel movements daily. No blood or mucus in the stool. Stool studies revealed cryptosporidiosis which was treated and despite which remains symptomatic. She had an attempted colonoscopy in 5 years ago and wasn't successful. Because of the persistent symptoms she is scheduled for EGD and colonoscopy to evaluate further Procedure performed: Esophagogastroduodenoscopy with biopsy Colonoscopy random biopsies Preoperative diagnosis: Abdominal pain/GERD Chronic diarrhea Anesthesia: MAC Procedure: After informed consent was obtained from the patient was brought into the endoscopy unit and IV sedation was administered by anesthesia under continuous monitoring. Initially upper endoscopy was done. The Olympus GF 160 video endoscope was inserted inserted into the mouth and esophagus intubated without any difficulty and was gradually advanced into the stomach and duodenum and carefully examined. The bulb and second part of the duodenum appeared normal. Abscesses were done from the duodenum to rule out celiac disease. The scope was then withdrawn into the stomach adequately insufflated with air and upon careful examination the antrum and body, cardia and fundus appeared normal. Under direct size hiatal hernia noted. The scope was then withdrawn into the esophagus. The GE junction was located at 33 cm to the incisors. It appeared regular with no erythema erosions or ulcerations. Rest of the esophagus appeared normal. Patient tolerated the procedure well. At this time the patient continued to remain sedation. Initial digital rectal examination was normal. Olympus CF 160 video colonoscope was then inserted into the rectum and gradually advanced into the sigmoid colon and could not advance any further because of some narrowing in this area. The scope was removed and a portion endoscopy was used and with gentle medication is able to advance the scope gradually into the hepatic flexure. Further advancement was not possible because of some redundant colon.. Careful examination was performed as the scope was gradually being withdrawn. The prep was fair. Mucosa of the transverse colon, descending colon, appeared normal. There was mild patchy areas of erythema noted in the sigmoid colon multiple biopsies were done from this area. There was narrowing of the sigmoid colon noted possibly diverticular in nature. Mucosa of the rectum appeared normal. diffuse diverticula cyst more prominent in the left colon. Retroflexion was performed in the rectum and no lesions were noted. Patient tolerated the procedure well. Impression: 1. Upper endoscopy revealed moderate to large hiatal hernia and mild antral gastritis 2. Colonoscopy revealed sigmoid diverticula stricture and diffuse diverticulosis as scope was advanced up to the hepatic flexure Recommendations: Findings of this examination were discussed with the patient as well her family. She was advised to follow with the biopsy results. She'll be seen in office next week.
[2022-11-12 08:37] VITALS: PULSE 79; RESP 16
[2022-11-12 10:05] VITALS: BP 139/64
[2022-11-12] MEDS ORDERED: KETOROLAC 15 MG/ML 1 ML VIAL ONE (10:37)
[2022-11-12] MEDS ORDERED: KETOROLAC 15 MG/ML 1 ML VIAL IVP ONE (10:40)
== END 2022-11-12 11:40 | disposition home or self-care (01) ==
LOC: ORWHC2ENDO 06:52
PROVIDERS: ATTEND Internal Medicine Gastroenterology
DX: K29.50 Unspecified chronic gastritis without bleeding (principal); K52.9 Noninfective gastroenteritis and colitis, unspecified; K21.9 Gastro-esophageal reflux disease without esophagitis; I10 Essential (primary) hypertension; E78.5 Hyperlipidemia, unspecified; E03.9 Hypothyroidism, unspecified; K44.9 Diaphragmatic hernia without obstruction or gangrene; K57.30 Diverticulosis of large intestine without perforation or abscess without bleeding; Z79.899 Other long term (current) drug therapy; Z88.2 Allergy status to sulfonamides; Z88.5 Allergy status to narcotic agent; Z79.890 Hormone replacement therapy
CPT/HCPCS: 88305; 45380; 43239; J2405; J1885; J2370; J2704; J2001

== ENCOUNTER 2022-11-14 17:04 | Inpatient (IN) | payer MEDICARE ==
[2022-11-14] MEDS ORDERED: ONDANSETRON 4 MG/2 ML VIAL IVP STA (18:46)
[2022-11-14] MEDS ORDERED: SODIUM CHLORIDE 0.9% 1,000 ML IV STA ×2 (18:46)
[2022-11-14 19:32] LABS: Anisocytosis Slight; Basophils % (A) 0 %; Eosinophils # (A) 0.1 k/uL (0-0.7); Eosinophils % (A) 1 %; HCT 36.3 % (34.0-46.0); HGB 11.2 gm/dL (11.4-16.0); Hypochromasia Slight; Lymphocytes % (A) 7 %; MCH 31.4 pg (25.0-35.0); MCHC 30.9 g/dL (31.0-37.0); MCV 101.6 fL (80.0-100.0); Macrocytosis Slight; Mean Platelet Volume 7.8; Monocytes # (A) 0.5 k/uL (0-1.0); Monocytes % (A) 4 %; Neutrophils # (A) 12.5 k/uL (1.3-7.7); Neutrophils % (A) 88 %; Platelet Count 317 k/uL (150-450); RBC 3.57 m/uL (3.80-5.40); RDW 16.5 % (11.5-15.5); WBC 14.2 k/uL (3.8-10.6)
[2022-11-14 20:01] LABS: ALT 15 U/L (4-34); AST 20 U/L (14-36); African American GFR (CKD) 11 (>60 ml/min/1.73 sqM); Alkaline Phosphatase 152 U/L (38-126); Anion Gap 7 mmol/L; Blood Urea Nitrogen 48 mg/dL (7-17); Calcium 7.1 mg/dL (8.4-10.2); Carbon Dioxide 23 mmol/L (22-30); Chloride 104 mmol/L (98-107); Glucose 89 mg/dL (74-99); Lipase 14 U/L (23-300); Non-African American GFR(CKD) 10 (>60 ml/min/1.73 sqM); Potassium 3.6 mmol/L (3.5-5.1); Sodium 134 mmol/L (137-145); Total Bilirubin 0.9 mg/dL (0.2-1.3); Total Protein 4.7 g/dL (6.3-8.2)
--- NOTE | 2022-11-14 21:11 | ED ---
General Adult HPI - General Chief complaint: Abdominal Pain Stated complaint: vomiting, abd pain Time Seen by Provider: 11/14/22 18:34 Source: patient Mode of arrival: ambulatory Limitations: no limitations - History of Present Illness Initial comments: This 81-year-old female presents with daughter with a complaint of nausea, vomiting, and diarrhea. She apparently has had this for approximately 6 months. It seems worse recently. She came complains of some abdominal cramping diffusely. She states that as soon as she eats something then she gets nauseated and will have diarrhea about 1 hour afterwards. This is her third time in the emergency department in the last week. She was seen here initially and then was in [facility] 3 days ago and then saw her reactor service operator 2 days ago and had an EGD as well as a colonoscopy. The EGD showed gastritis as well as a hiatal hernia. The colonoscopy showed diverticulosis but no diverticulitis. She apparently had a CT at the other hospital 3 days ago which was purportedly negative. She denies any fevers or chills. She states that she feels dehydrated. She is unsure the cause of her symptomatology. No other complaints or modifying factors. - Related Data Home Medications Medication Instructions Recorded Confirmed Levothyroxine Sodium [Synthroid] 50 mcg PO DAILY@1200 01/19/16 11/12/22 Simvastatin [Zocor] 40 mg PO HS 01/19/16 11/12/22 allopurinoL [Zyloprim] 100 mg PO DAILY 06/05/16 11/12/22 Cholecalciferol [Vitamin D3 (25 50 unit PO DAILY 04/21/20 11/12/22 Mcg = 1000 Iu)] calcitrioL [Rocaltrol] 0.25 mcg PO TUFR 04/21/20 11/12/22 Sodium Bicarbonate Tab 650 mg PO TID 10/27/20 11/12/22 Ferrous Sulfate [Iron (65 MG 325 mg PO DAILY 06/28/21 11/12/22 Elemental)] Diphenox-Atrop 2.5-0.025 mg 1 tab PO 5XD PRN 10/29/22 11/12/22 [Lomotil] HYDROcodone/APAP 10-325MG [[place] 1 tab PO Q6HR PRN 10/29/22 11/12/22 10-325] Lansoprazole [Prevacid] 30 mg PO DAILY 10/29/22 11/12/22 Allergies Allergy/AdvReac Type Severity Reaction Status Date / Time iodine Allergy MAKES CUTS Verified 11/14/22 17:33 WORSE Sulfa (Sulfonamide Allergy Rash/Hives Verified 11/14/22 17:33 Antibiotics) codeine AdvReac CONSTIPATIO Verified 11/14/22 17:33 N NSAIDS (Non-Steroidal AdvReac Kidney Verified 11/14/22 17:33 Anti-Inflamma Function Review of Systems ROS Statement: Those systems with pertinent positive or pertinent negative responses have been documented in the HPI. ROS Other: All systems not noted in ROS Statement are negative. Past Medical History Past Medical History: Blood Disorder, Cancer, GERD/Reflux, Hyperlipidemia, Hypertension, Renal Disease, Thyroid Disorder Additional Past Medical History / Comment(s): HX ANEMIA AND DIVERTICULOSIS. HAS LOW KIDNEY FUNCTION, 21%. SKIN CANCER, can't eat much, feels full quickly, has lost 10 lbs since August, gas, bloating, loose stools History of Any Multi-Drug Resistant Organisms: None Reported Past Surgical History: Bladder Surgery, Cholecystectomy, Hysterectomy, Joint Replacement Additional Past Surgical History / Comment(s): sinus surgery. BILAT TKA. PAIN STIMULATOR IN BACK. BASAL CELL CARCINOMA REMOVED FROM LT EYELID Past Anesthesia/Blood Transfusion Reactions: Postoperative Nausea & Vomiting (PONV) Additional Past Anesthesia/Blood Transfusion Reaction / Comment(s): severe PONV Past Psychological History: No Psychological Hx Reported Smoking Status: Never smoker Past Alcohol Use History: Rare Past Drug Use History: None Reported - Past Family History Mother Family Medical History: No Reported History General Exam - General Exam Comments Initial Comments: GENERAL: The patient is well nourished and dehydrated. VITAL SIGNS: Heart rate, blood pressure, respiratory rate reviewed as recorded in nurse's notes. EYES: Pupils are round and reactive. Extraocular movements are intact. No conjunctival / lid redness or swelling. ENT: No external evidence of injury, swelling, or ecchymosis. Airway is patent. Throat is clear. Dry mucous membranes. NECK: Nontender. No swelling or evidence of injury. No subcutaneous emphysema. Trachea is midline. No thyroid mass. HEART: Regular rate and rhythm. Good peripheral pulses. LUNGS/CHEST: Breath sounds clear and equal bilaterally. No rales, rhonchi, or wheezes. No ecchymosis, subcutaneous emphysema, or tenderness. ABDOMEN: Abdomen soft with minimal diffuse tenderness. No palpable masses or organomegaly. No peritoneal signs. No abdominal wall swelling or ecchymosis. EXTREMITIES: No extremity tenderness. Normal muscle tone and function. No thoracolumbar tenderness. NEUROLOGIC: Sensation is grossly intact. Cranial nerve exam reveals face is symmetrical, tongue is midline, speech is clear. SKIN: No abrasions or ecchymosis is noted. No induration or masses noted. PSYCHIATRIC: Alert and oriented. Appropriate behavior and judgment. Limitations: no limitations Course Vital Signs 11/14/22 11/14/22 17:30 19:33 Temperature 99 F Pulse Rate 105 H 98 Respiratory 18 16 Rate Blood Pressure 121/78 118/70 O2 Sat by Pulse 98 98 Oximetry Medical Decision Making - Medical Decision Making The patient was seen and examined. All diagnostics are reviewed. The IV is established patient is hydrated. The creatinine is elevated at 4 but she states that she was just 4.23 days ago. The white blood cell count is slightly elevated. Urinalysis is pending. She is mildly anemic as well. The exact cause of her symptomatology is not definitively determined. She does see a reactor service operator and has had extensive workup thus far. The patient has been to the ER 3 times this week and it is felt as though she would require admission to the hospital for further evaluation, treatment, and hydration. The case is discussed with internal medicine physician psych assistant and they're agreeable with admission. Carafate also is added to her current regimen. She normally takes Prevacid and this is changed to IV Protonix while in the hospital. Was pt. sent in by a medical professional or institution (, PA, IRONWORKER MACHINE OPERATOR, urgent care, hospital, or custodial...) When possible be specific @ -[No] Did you speak to anyone other than the patient for history (EMS, parent, family, police, friend...)? What history was obtained from this source @ -Daughter is present and also gives much of history. Did you review nursing and triage notes (agree or disagree)? Why? @ -[I reviewed and agree with nursing and triage notes] Were old charts reviewed (outside hosp., previous admission, EMS record, old EKG, old radiological studies, urgent care reports/EKG's, custodial records)? Report findings @ -Old charts are reviewed in detail. The EKG and colonoscopy results are reviewed. Differential Diagnosis (chest pain, altered mental status, abdominal pain women, abdominal pain men, vaginal bleeding, weakness, fever, dyspnea, syncope, headache, dizziness, GI bleed, back pain, seizure, CVA, palpatations, mental health, musculoskeletal)? @ -Diarrhea, abdominal pain, nausea and vomiting, dehydration, colitis, gastritis, hiatal hernia EKG interpreted by me (3pts min.). @ -EKG is completed X-rays interpreted by me (1pt min.). @ -[None done] CT interpreted by me (1pt min.). @ -[None done] U/S interpreted by me (1pt. min.). @ -[None done] What testing was considered but not performed or refused? (CT, X-rays, U/S, labs)? Why? @ -[None] What meds were considered but not given or refused? Why? @ -[None] Did you discuss the management of the patient with other professionals (ike dodson i.e. , PA, IRONWORKER MACHINE OPERATOR, lab, RT, psych nurse, drug abuse social worker, director corporate compliance, teacher, transportation security officer, rifle case repairer)? Give summary @ -Case is discussed with admitting physician psych assistant. Was smoking cessation discussed for >3mins.? @ -[No] Was critical care preformed (if so, how long)? @ -[No] Were there social determinants of health that impacted care today? How? (Homelessness, low income, unemployed, alcoholism, drug addiction, transportation, low edu. Level, literacy, decrease access to med. care, long term, rehab)? @ -[No] Was there de-escalation of care discussed even if they declined (Discuss DNR or withdrawal of care, Hospice)? DNR status @ -[No] What co-morbidities impacted this encounter? (DM, HTN, Smoking, COPD, CAD, Cancer, CVA, ARF, Chemo, Hep., AIDS, mental health diagnosis, sleep apnea, morbid obesity)? @ -Chronic renal disease Was patient admitted / discharged? Hospital course, mention meds given and route, prescriptions, significant lab abnormalities, going to OR and other pertinent info. @ -Admitted, please see above Undiagnosed new problem with uncertain prognosis? @ -[No] Drug Therapy requiring intensive monitoring for toxicity (Heparin, Nitro, Insulin, Cardizem)? @ -[No] Were any procedures done? @ -[No] Diagnosis/symptom? @ -Diarrhea, constipation, abdominal pain, dehydration Acute, or Chronic, or Acute on Chronic? @ -Acute and chronic Uncomplicated (without systemic symptoms) or Complicated (systemic symptoms)? @ -Uncomplicated Side effects of treatment? @ -[No] Exacerbation, Progression, or Severe Exacerbation? @ -Exacerbation Poses a threat to life or bodily function? How? (Chest pain, [place], CA, pneumonia, PE, COPD, DKA, ARF, appy, cholecystitis, CVA, Diverticulitis, Homicidal, Suicidal, threat to staff... and all critical care pts) @ -[No] - Lab Data Result diagrams: 11/14/22 19:12 11/14/22 19:12 Lab Results 11/14/22 11/14/22 Range/Units 19:12 19:12 WBC 14.2 H (3.8-10.6) k/uL RBC 3.57 L (3.80-5.40) m/uL Hgb 11.2 L (11.4-16.0) gm/dL Hct 36.3 (34.0-46.0) % MCV 101.6 H (80.0-100.0) fL MCH 31.4 (25.0-35.0) pg MCHC 30.9 L (31.0-37.0) g/dL RDW 16.5 H (11.5-15.5) % Plt Count 317 (150-450) k/uL MPV 7.8 Neutrophils % 88 % Lymphocytes % 7 % Monocytes % 4 % Eosinophils % 1 % Basophils % 0 % Neutrophils # 12.5 H (1.3-7.7) k/uL Lymphocytes # 1.0 (1.0-4.8) k/uL Monocytes # 0.5 (0-1.0) k/uL Eosinophils # 0.1 (0-0.7) k/uL Basophils # 0.0 (0-0.2) k/uL Hypochromasia Slight Anisocytosis Slight Macrocytosis Slight Sodium 134 L (137-145) mmol/L Potassium 3.6 (3.5-5.1) mmol/L Chloride 104 (98-107) mmol/L Carbon Dioxide 23 (22-30) mmol/L Anion Gap 7 mmol/L BUN 48 H (7-17) mg/dL Creatinine 4.04 H (0.52-1.04) mg/dL Est GFR (CKD-EPI)AfAm 11 (>60 ml/min/1.73 sqM) Est GFR (CKD-EPI)NonAf 10 (>60 ml/min/1.73 sqM) Glucose 89 (74-99) mg/dL Calcium 7.1 L (8.4-10.2) mg/dL Total Bilirubin 0.9 (0.2-1.3) mg/dL AST 20 (14-36) U/L ALT 15 (4-34) U/L Alkaline Phosphatase 152 H (38-126) U/L Total Protein 4.7 L (6.3-8.2) g/dL Albumin 2.0 L (3.5-5.0) g/dL Lipase 14 L (23-300) U/L Disposition Clinical Impression: Dehydration, Nausea and vomiting, Diarrhea, Abdominal pain, Chronic kidney disease, Gastritis, Hiatal hernia, Anemia, Leukocytosis Disposition: ADMITTED IP TO THIS [facility] Condition: Fair Is patient prescribed a controlled substance at d/c from ED?: No Time of Disposition: 21:10 Decision Date: 11/14/22 Decision Time: 21:10
[2022-11-14] MEDS ORDERED: ACETAMINOPHEN TAB 325 MG TAB PO PRN ×2 (21:22→22:21)
[2022-11-14] MEDS ORDERED: NALOXONE 0.4 MG/ML 1 ML VIAL IV PRN (21:22)
[2022-11-14] MEDS: PANTOPRAZOLE 40 MG/10 ML VIAL IV SCH (22:01)
[2022-11-14] MEDS: SUCRALFATE 1 GM TAB PO SCH (22:03)
[2022-11-15] MEDS: LEVOTHYROXINE 50 MCG TAB PO SCH (05:35)
[2022-11-15 06:21] LABS: Appearance,Urine Clear (Clear); Bilirubin,Urine Negative (Negative); Blood,Urine Negative (Negative); Color,Urine Yellow; Glucose,Urine (UA) Negative (Negative); Ketones,Urine Negative (Negative); Leukocyte Esterase,Urine Large (Negative); Mucus,Urine Rare /hpf; Nitrite,Urine Negative (Negative); PH, Urine 5.5 (5.0-8.0); Protein,Urine Trace (Negative); RBC,Urine 2 /hpf (0-5); Squamous Epithelial Cell,Urine <1 /hpf (0-4); Urobilinogen,Urine <2.0 mg/dL (<2.0); WBC,Urine 13 /hpf (0-5)
[2022-11-15 07:32] LABS: African American GFR (CKD) 12 (>60 ml/min/1.73 sqM); Anion Gap 5 mmol/L; Blood Urea Nitrogen 45 mg/dL (7-17); Calcium 6.7 mg/dL (8.4-10.2); Carbon Dioxide 22 mmol/L (22-30); Chloride 109 mmol/L (98-107); Glucose 76 mg/dL (74-99); Magnesium 1.4 mg/dL (1.6-2.3); Non-African American GFR(CKD) 11 (>60 ml/min/1.73 sqM); Potassium 3.4 mmol/L (3.5-5.1); Sodium 136 mmol/L (137-145)
[2022-11-15 08:29] LABS: Anisocytosis Slight; Basophils % (A) 0 %; Eosinophils # (A) 0.1 k/uL (0-0.7); Eosinophils % (A) 1 %; HCT 32.8 % (34.0-46.0); HGB 9.8 gm/dL (11.4-16.0); Hypochromasia Marked; Lymphocytes # (A) 1.2 k/uL (1.0-4.8); Lymphocytes % (A) 13 %; MCH 31.5 pg (25.0-35.0); MCHC 29.9 g/dL (31.0-37.0); MCV 105.5 fL (80.0-100.0); Macrocytosis Moderate; Mean Platelet Volume 7.9; Monocytes # (A) 0.5 k/uL (0-1.0); Monocytes % (A) 6 %; Neutrophils # (A) 7.5 k/uL (1.3-7.7); Neutrophils % (A) 79 %; Platelet Count 252 k/uL (150-450); RBC 3.11 m/uL (3.80-5.40); RDW 16.5 % (11.5-15.5); WBC 9.5 k/uL (3.8-10.6)
[2022-11-15] MEDS: PANTOPRAZOLE 40 MG/10 ML VIAL IV SCH (09:27)
[2022-11-15] MEDS: SODIUM BICARBONATE TAB 650 MG TAB PO SCH ×3 (09:27→21:04)
[2022-11-15] MEDS: allopurinoL 100 MG TAB PO SCH (09:28)
[2022-11-15] MEDS: CHOLECALCIFEROL 25 MCG (1000 IU) TABLET PO SCH (09:28)
[2022-11-15] MEDS: SUCRALFATE 1 GM TAB PO SCH ×4 (09:28→21:04)
[2022-11-15] MEDS: FERROUS SULFATE 325 MG TAB PO SCH (09:28)
[2022-11-15] MEDS ORDERED: Potassium Replacement Protocol 1 EACH MISC MISCELLANE PRN (09:32)
[2022-11-15] MEDS ORDERED: Magnesium Replacement Protocol 1 EACH MISC MISCELLANE PRN (09:32)
[2022-11-15] MEDS: POTASSIUM CHLORIDE ER 20 MEQ TAB.ER PO SCH ×3 (09:59→12:24)
[2022-11-15] MEDS: MAGNESIUM SULFATE-D5W PMX 1 GM in DEXTROSE/WATER 1 100ML.BAG IVPB SCH ×2 (09:59→11:04)
[2022-11-15] MEDS: ENOXAPARIN 30 MG/0.3 ML SYRINGE SQ SCH (09:59)
--- NOTE | 2022-11-15 12:58 | P.NPCON ---
History of Present Illness - Reason for Consult chronic renal failure - History of Present Illness Reason for consultation: Acute kidney injury on chronic kidney disease History of present illness: Patient is a 81-year-old female seen in renal consultation for acute kidney injury on chronic kidney disease. Patient has chronic kidney disease stage V secondary to nephrosclerosis and chronic interstitial nephritis from nonsteroidal use. Patient's baseline creatinine has been in the range of 3-3.7. Patient has been very hesitant to do hemodialysis and refused AV fistula creation. Since August patient has been struggling with diarrhea. She was diagnosed with Cryptosporidium and was treated by GI. Patient also states that she recently had EGD and colonoscopy and multiple biopsies were taken. Patient came to the hospital due to generalized weakness and continuous diarrhea. Patient states she is having diarrhea every 2 hours even if she is not eating. She also admits to vomiting the last couple of days. Creatinine was 4.04 on admission and is 3.73 today. She denies chest pain or shortness of breath. Urine output was low but now improved with IV fluids. She does admit to edema in her lower extremities. Denies recent use of nonsteroidals. Vital signs are stable. General: No acute distress. HEENT: Head exam is unremarkable. LUNGS: No audible rhonchi or wheezes. HEART: Rate and Rhythm are regular. ABDOMEN: Nontender. EXTREMITITES: 1+ edema. Past Medical History Past Medical History: Blood Disorder, Cancer, GERD/Reflux, Hyperlipidemia, Hyp ertension, Renal Disease, Thyroid Disorder Additional Past Medical History / Comment(s): HX ANEMIA AND DIVERTICULOSIS. HAS LOW KIDNEY FUNCTION, 21%. SKIN CANCER, can't eat much, feels full quickly, has lost 10 lbs since August, gas, bloating, loose stools History of Any Multi-Drug Resistant Organisms: None Reported Past Surgical History: Bladder Surgery, Cholecystectomy, Hysterectomy, Joint Replacement Additional Past Surgical History / Comment(s): sinus surgery. BILAT TKA. PAIN STIMULATOR IN BACK. BASAL CELL CARCINOMA REMOVED FROM LT EYELID Past Anesthesia/Blood Transfusion Reactions: Postoperative Nausea & Vomiting (PONV) Additional Past Anesthesia/Blood Transfusion Reaction / Comment(s): severe PONV Past Psychological History: No Psychological Hx Reported Smoking Status: Never smoker Past Alcohol Use History: Rare Past Drug Use History: None Reported - Past Family History Mother Family Medical History: No Reported History Medications and Allergies Home Medications Medication Instructions Recorded Confirmed Type Levothyroxine Sodium [Synthroid] 50 mcg PO DAILY 01/19/16 11/14/22 History allopurinoL [Zyloprim] 100 mg PO DAILY 06/05/16 11/14/22 History Sodium Bicarbonate Tab 650 mg PO TID 10/27/20 11/14/22 History Ferrous Sulfate [Iron (65 MG 325 mg PO DAILY 06/28/21 11/14/22 History Elemental)] Diphenox-Atrop 2.5-0.025 mg 2 tab PO TID PRN 10/29/22 11/14/22 History [Lomotil] HYDROcodone/APAP 10-325MG [[place] 1 tab PO Q6HR PRN 10/29/22 11/14/22 History 10-325] Lansoprazole [Prevacid] 30 mg PO DAILY 10/29/22 11/14/22 History Acetaminophen [Tylenol Arthritis] 650 mg PO Q6H PRN 11/14/22 11/14/22 History Cholecalciferol [Vitamin D3 (25 50 mcg PO DAILY 11/14/22 11/14/22 History Mcg = 1000 Iu)] Ondansetron Odt [Zofran Odt] 4 mg PO Q8HR PRN 11/14/22 11/14/22 History Rosuvastatin [Crestor] 10 mg PO HS 11/14/22 11/14/22 History diphenhydrAMINE HCL [Benadryl] 25 mg PO HS 11/14/22 11/14/22 History Allergies Allergy/AdvReac Type Severity Reaction Status Date / Time iodine Allergy MAKES CUTS Verified 11/14/22 21:29 WORSE Sulfa (Sulfonamide Allergy Rash/Hives Verified 11/14/22 21:29 Antibiotics) codeine AdvReac CONSTIPATIO Verified 11/14/22 21:29 N NSAIDS (Non-Steroidal AdvReac Kidney Verified 11/14/22 21:29 Anti-Inflamma Function Physical Exam Vitals: Vital Signs Temp Pulse Pulse Resp BP BP Pulse Ox 11/15/22 07:00 98.0 F 98 18 151/91 96 11/15/22 02:34 97.8 F 75 15 139/79 94 L 11/14/22 23:14 97.6 F 83 16 157/81 95 11/14/22 22:00 97 18 138/97 96 11/14/22 19:33 98 16 118/70 98 11/14/22 17:30 99 F 105 H 18 121/78 98 Intake and Output 11/14/22 11/15/22 11/15/22 22:59 06:59 14:59 Output Total 200 Balance -200 Output: Urine 200 Other: # Voids 2 Weight 53.524 kg Results - Lab Results Most recent lab results Calcium 6.7 mg/dL (8.4-10.2) L 11/15/22 06:58 Magnesium 1.4 mg/dL (1.6-2.3) L 11/15/22 06:58 11/15/22 06:58 11/15/22 06:58 Assessment and Plan Plan: Assessment: 1. Acute kidney injury mostly prerenal secondary to hypovolemia from vomiting and diarrhea. Creatinine 4.04 on admission and is 3.73 today. 2. Chronic kidney disease stage V secondary to nephrosclerosis and chronic interstitial nephritis from NSAID use. Recent creatinine 3-3.7. 3. Hypomagnesemia from GI losses. 4. Hypokalemia from poor intake. 5. Anemia of chronic kidney disease. Rule out deficiency. 6. Intractable nausea vomiting and diarrhea. Patient had cryptosporidium infection in August 2022 and was treated by GI. Also had EGD and colonoscopy done 11/12/2022 which showed large hiatal hernia, mild antral gastritis, sigmoid diverticular stricture and diverticulosis. Abdominal ultrasound in October 2022 showed dilated bile duct at 1.5 cm. 7. Hypertension with chronic kidney disease. Stable. 8. Lower extremity edema with albumin of 2.0 concerning for third spacing. Plan: Maintain IV fluids. 25 g IV albumin 2 doses today. Replace potassium and magnesium. Check iron studies. Avoid nephrotoxins. Continue to monitor renal function and urine output. Check stool culture and C. diff. Thank you for the consultation. I will continue to follow patient with you during her hospital stay.
[2022-11-15] MEDS ORDERED: BARIUM SULFATE 450 ML ORAL.SUSP BOTTLE PO PRN (13:21)
[2022-11-15] MEDS: ALBUMIN HUMAN 25% 50 ML in EMPTY BAG 1 BAG IVPB SCH ×2 (13:46→21:02)
[2022-11-15] MEDS ORDERED: FAMOTIDINE 20 MG TAB PO SCH ×3 (16:31→21:00)
[2022-11-15] MEDS: FAMOTIDINE 20 MG TAB PO SCH (16:59)
[2022-11-15 20:14] LABS: % Iron Saturation 64.71 (12.00-45.00)
[2022-11-15] MEDS: diphenhydrAMINE 25 MG CAP PO SCH (21:04)
[2022-11-15] MEDS: ATORVASTATIN 20 MG TAB PO SCH (21:04)
--- NOTE | 2022-11-15 21:54 | HP ---
HISTORY AND PHYSICAL CHIEF COMPLAINT: Vomiting, diarrhea and as well as renal failure. HISTORY OF PRESENT ILLNESS: This is an 81-year-old woman with a past medical history of multiple medical problems, who is complaining of diarrhea and some abdomen distention for the last 6 months. The diarrhea is getting worse. The patient apparently had EGD and colonoscopy recently showed some gastritis, hiatal hernia, and diverticulosis. The patient came to [facility]. The creatinine was found to be 4.04. The baseline was around 3.5 to 4. The creatinine is slightly gradually worsening. The patient was admitted for further evaluation. There is no history of any fever, rigor, or chills. PAST MEDICAL HISTORY: Reviewed including hypertension and hyperlipidemia. Rest of the history and rest of the chart are also reviewed. HOME MEDICATIONS: Reviewed include Benadryl. Doses and rest of the medications are reviewed. ALLERGIES: Iodine. Rest of the allergies are noted. FAMILY HISTORY: No history of heart disease or strokes in the family. SOCIAL HISTORY: No history of smoking or alcohol. REVIEW OF SYSTEMS: Fourteen-point review is negative except as mentioned earlier. PHYSICAL EXAMINATION: VITAL SIGNS: Pulse is 83, blood pressure 157/81, respirations 16. HEENT: Conjunctivae are normal. Mucosa is dry. NECK: No jugular venous distention. CARDIOVASCULAR: S1 and S2 muffled. RESPIRATORY: Breath sounds diminished at the bases. ABDOMEN: Soft and nontender. No masses palpable. LEGS: No edema. NERVOUS SYSTEM: Nonfocal. SKIN: No ulcers or rashes. JOINTS: No active deforming arthropathy. LABORATORY DATA: Reviewed. ASSESSMENT: 1. [id number]-[id number] kidney failure with prerenal acute renal failure with acute tubular necrosis. 2. Incessant diarrhea for the last 6 months. Eycac-dl-bdjwmxo diarrhea of undetermined etiology. Rule out Clostridium difficile colitis. 3. Hyponatremia. 4. Hypokalemia. 5. Rule out urinary tract infection. 6. Hypothyroidism. 7. History of anxiety. 8. Multiple medical issues. RECOMMENDATIONS AND DISCUSSION: In this 81-year-old woman presented with multiple complex medical issues, we will monitor the patient closely, cautious hydration, Nephrology consultation. The patient as mentioned earlier has recent EGD and colonoscopy. I recommend CT scan of the abdomen and pelvis with p.o. contrast if not done recently. Avoid nephrotoxic medications. Symptomatic treatment provided. I would also recommend stool ova and parasite evaluation. We will try to obtain the colonoscopy reports and biopsy reports from the other hospital. Further recommendations to follow. Prognosis is guarded. See orders for the details. The patient will require more than 2 nights hospital stay for evaluation and treatment of above-mentioned multiple complex life-threatening issues. ERMA / APRILN: [id number] /
[2022-11-16] MEDS: DIPHENOX-ATROP 2.5-0.025 MG 1 EACH TAB PO PRN ×3 (04:49→18:00)
[2022-11-16] MEDS: ONDANSETRON 4 MG/2 ML VIAL IVP PRN (05:54)
[2022-11-16] MEDS: LEVOTHYROXINE 50 MCG TAB PO SCH (06:31)
[2022-11-16 06:44] LABS: African American GFR (CKD) 13 (>60 ml/min/1.73 sqM); Anion Gap 8 mmol/L; Blood Urea Nitrogen 41 mg/dL (7-17); Calcium 7.4 mg/dL (8.4-10.2); Carbon Dioxide 21 mmol/L (22-30); Chloride 109 mmol/L (98-107); Glucose 62 mg/dL (74-99); Non-African American GFR(CKD) 12 (>60 ml/min/1.73 sqM); Potassium 3.9 mmol/L (3.5-5.1); Sodium 138 mmol/L (137-145)
[2022-11-16] MEDS: FERROUS SULFATE 325 MG TAB PO SCH (09:38)
[2022-11-16] MEDS: SUCRALFATE 1 GM TAB PO SCH ×4 (09:38→20:44)
[2022-11-16] MEDS: allopurinoL 100 MG TAB PO SCH (09:39)
[2022-11-16] MEDS: ENOXAPARIN 30 MG/0.3 ML SYRINGE SQ SCH (09:39)
[2022-11-16] MEDS: PANTOPRAZOLE 40 MG/10 ML VIAL IV SCH (09:39)
[2022-11-16] MEDS: CHOLECALCIFEROL 25 MCG (1000 IU) TABLET PO SCH (09:39)
[2022-11-16] MEDS: SODIUM BICARBONATE TAB 650 MG TAB PO SCH ×4 (09:40→20:45)
[2022-11-16] MEDS: ALBUMIN HUMAN 25% 50 ML in EMPTY BAG 1 BAG IVPB SCH (10:26)
[2022-11-16] MEDS ORDERED: FUROSEMIDE 10 MG/ML 10 ML VIAL IV STA (10:40)
--- NOTE | 2022-11-16 10:42 | P.PN ---
Subjective Patient is seen in follow-up for acute kidney injury on chronic kidney disease. Renal function stable. Had diarrhea up until last night. Currently trying to eat Jell-O. Status post IV albumin this admission. Vital signs are stable. General: No acute distress. HEENT: Head exam is unremarkable. LUNGS: No audible rhonchi or wheezes. HEART: Rate and Rhythm are regular. ABDOMEN: Mild generalized tenderness. EXTREMITITES: 1+ edema. Objective - Vital Signs Vital signs: Vital Signs Temp 97.8 F 11/16/22 07:00 Pulse 88 11/16/22 07:00 Resp 14 11/16/22 07:00 BP 155/88 11/16/22 07:00 Pulse Ox 99 11/16/22 07:00 FiO2 Intake & Output 11/15/22 11/16/22 11/16/22 18:59 06:59 18:59 Intake Total 103 Output Total 275 895 50 Balance -275 -895 53 Intake: Oral 103 Output: Urine 275 895 50 Other: Voiding Method Bedside Commode Diaper # Voids 1 1 # Bowel Movements 1 1 - Labs CBC & Chem 7: 11/15/22 06:58 11/16/22 06:02 Labs: Abnormal Lab Results - Last 24 Hours (Table) 11/15/22 11/16/22 Range/Units 06:58 06:02 Chloride 109 H (98-107) mmol/L Carbon Dioxide 21 L (22-30) mmol/L BUN 41 H (7-17) mg/dL Creatinine 3.51 H (0.52-1.04) mg/dL Glucose 62 L (74-99) mg/dL Calcium 7.4 L (8.4-10.2) mg/dL Iron 33 L (50-170) UG/DL TIBC 51 L (228-460) UG/DL % Saturation 64.71 H (12.00-45.00) Transferrin 36.2 L (204.0-354.0) mg/dL Ferritin 992.0 H (10.0-291.0) ng/mL Assessment and Plan Plan: Assessment: 1. Acute kidney injury mostly prerenal secondary to hypovolemia from vomiting and diarrhea. Creatinine 4.04 on admission and is 3.51 today. 2. Chronic kidney disease stage V secondary to nephrosclerosis and chronic interstitial nephritis from NSAID use. Recent creatinine 3-3.7. 3. Hypomagnesemia from GI losses. Replaced. Improved. 4. Hypokalemia from poor intake. Replaced. Better. 5. Anemia of chronic kidney disease. Iron replete. 6. Intractable nausea vomiting and diarrhea. Patient had cryptosporidium infection in August 2022 and was treated by GI. Also had EGD and colonoscopy done 11/12/2022 which showed large hiatal hernia, mild antral gastritis, sigmoid diverticular stricture and diverticulosis. Abdominal ultrasound in October 2022 showed dilated bile duct at 1.5 cm. 7. Hypertension with chronic kidney disease. Stable. 8. Lower extremity edema with albumin of 2.0 concerning for third spacing. Status post IV albumin this admission. Plan: Hep-Lock IV fluids. Lasix 80 mg IV once today. Add Aranesp. Avoid nephrotoxins. Continue to monitor renal function and urine output. Follow-up cultures. No urgent need for renal replacement therapy at this time. Patient states she i s not ready to start at this time.
--- NOTE | 2022-11-16 15:12 | P.GSCN ---
History of Present Illness Consult date: 11/16/22 History of present illness: CHIEF COMPLAINT: Hiatal hernia HISTORY OF PRESENT ILLNESS: The patient is a 81-year-old female who recently underwent EGD with gastritis and hiatal hernia. Patient reports known history of her hiatal hernia over several years but chose not to do anything about it. Now she reports increased short of breath, early satiety, decreased appetite, epigastric pain. She reports increased gas bloat. General surgery is consulted for hiatal hernia PAST MEDICAL HISTORY: Please see list. PAST SURGICAL HISTORY: Please see list. MEDICATIONS: Please see list. ALLERGIES: Please see list. SOCIAL HISTORY: No illicit drug use FAMILY HISTORY: No reports of Crohn disease or ulcerative colitis. REVIEW OF ORGAN SYSTEMS: CONSTITUTIONAL: No reports of fevers or chills. PHYSICAL EXAM: VITAL SIGNS: Stable GENERAL: Well-developed pleasant and in no acute distress. HEENT: No scleral icterus. Extraocular movements grossly intact. Moist buccal mucosa. NECK: Supple without lymphadenopathy. CHEST: Unlabored respirations. Equal bilateral excursions. CARDIOVASCULAR: Regular rate and rhythm. Distal 2+ pulses. ABDOMEN: No peritonitis. MUSCULOSKELETAL: No clubbing, cyanosis, or edema. STUDIES: CT of the chest reviewed from May 2021 demonstrates large intrathoracic hiatal hernia, grade IV with involvement of the transverse colon. This is my independent interpretation. EGD REPORT: Reviewed COLON REPORT: Reviewed. PATHOLOGY: Reviewed. Colitis due to diverticulitis. ASSESSMENT: 1. Large intra-thoracic hiatal hernia, grade IV 2. Dyspnea PLAN: 1. Recommend no straws or carbonated beverages for her symptomatic hiatal lynette ia. 2. Due to the size of her hiatal hernia, thoracic surgery consultation advised for repair. 3. Outpatient management of her hiatal hernia may be performed with the exception of gastric volvulus which would warrant urgent repair and transfer to tertiary care facility. 4. Adjust diet to dyshagia chopped 5. Recommend esophagram and CT chest for assessment of gastric volvulus/hiatal hernia 6. Additional stool studies for Cryptosporidium, occult blood ordered. Past Medical History Past Medical History: Blood Disorder, Cancer, GERD/Reflux, Hyperlipidemia, Hypertension, Renal Disease, Thyroid Disorder Additional Past Medical History / Comment(s): HX ANEMIA AND DIVERTICULOSIS. HAS LOW KIDNEY FUNCTION, 21%. SKIN CANCER, can't eat much, feels full quickly, has lost 10 lbs since [place], gas, bloating, loose stools History of Any Multi-Drug Resistant Organisms: None Reported Past Surgical History: Bladder Surgery, Cholecystectomy, Hysterectomy, Joint Replacement Additional Past Surgical History / Comment(s): sinus surgery. BILAT TKA. PAIN STIMULATOR IN BACK. BASAL CELL CARCINOMA REMOVED FROM LT EYELID Past Anesthesia/Blood Transfusion Reactions: Postoperative Nausea & Vomiting (PONV) Additional Past Anesthesia/Blood Transfusion Reaction / Comm: severe PONV Past Psychological History: No Psychological Hx Reported Smoking Status: Never smoker Past Alcohol Use History: Rare Past Drug Use History: None Reported - Past Family History Mother Family Medical History: No Reported History Medications and Allergies Home Medications Medication Instructions Recorded Confirmed Type Levothyroxine Sodium [Synthroid] 50 mcg PO DAILY 01/19/16 11/14/22 History allopurinoL [Zyloprim] 100 mg PO DAILY 06/05/16 11/14/22 History Sodium Bicarbonate Tab 650 mg PO TID 10/27/20 11/14/22 History Ferrous Sulfate [Iron (65 MG 325 mg PO DAILY 06/28/21 11/14/22 History Elemental)] Diphenox-Atrop 2.5-0.025 mg 2 tab PO TID PRN 10/29/22 11/14/22 History [Lomotil] HYDROcodone/APAP 10-325MG [[place] 1 tab PO Q6HR PRN 10/29/22 11/14/22 History 10-325] Lansoprazole [Prevacid] 30 mg PO DAILY 10/29/22 11/14/22 History Acetaminophen [Tylenol Arthritis] 650 mg PO Q6H PRN 11/14/22 11/14/22 History Cholecalciferol [Vitamin D3 (25 50 mcg PO DAILY 11/14/22 11/14/22 History Mcg = 1000 Iu)] Ondansetron Odt [Zofran Odt] 4 mg PO Q8HR PRN 11/14/22 11/14/22 History Rosuvastatin [Crestor] 10 mg PO HS 11/14/22 11/14/22 History diphenhydrAMINE HCL [Benadryl] 25 mg PO HS 11/14/22 11/14/22 History Allergies Allergy/AdvReac Type Severity Reaction Status Date / Time iodine Allergy MAKES CUTS Verified 11/14/22 21:29 WORSE Sulfa (Sulfonamide Allergy Rash/Hives Verified 11/14/22 21:29 Antibiotics) codeine AdvReac CONSTIPATIO Verified 11/14/22 21:29 N NSAIDS (Non-Steroidal AdvReac Kidney Verified 11/14/22 21:29 Anti-Inflamma Function Surgical - Exam Vital Signs Temp Pulse Resp BP Pulse Ox 99 F 105 H 18 121/78 98 11/14/22 17:30 11/14/22 17:30 11/14/22 17:30 11/14/22 17:30 11/14/22 17:30 Results - Labs 11/15/22 06:58 11/16/22 06:02 Abnormal Lab Results - Last 24 Hours (Table) 11/15/22 11/15/22 11/16/22 Range/Units 06:58 18:08 06:02 Chloride 109 H (98-107) mmol/L Carbon Dioxide 21 L (22-30) mmol/L BUN 41 H (7-17) mg/dL Creatinine 3.51 H (0.52-1.04) mg/dL Glucose 62 L (74-99) mg/dL Calcium 7.4 L (8.4-10.2) mg/dL Iron 33 L (50-170) UG/DL TIBC 51 L (228-460) UG/DL % Saturation 64.71 H (12.00-45.00) Transferrin 36.2 L (204.0-354.0) mg/dL Ferritin 992.0 H (10.0-291.0) ng/mL Stool Lactoferrin Positive A (Negative) Diabetes panel 11/16/22 Range/Units 06:02 Sodium 138 (137-145) mmol/L Potassium 3.9 (3.5-5.1) mmol/L Chloride 109 H (98-107) mmol/L Carbon Dioxide 21 L (22-30) mmol/L BUN 41 H (7-17) mg/dL Creatinine 3.51 H (0.52-1.04) mg/dL Glucose 62 L (74-99) mg/dL Calcium 7.4 L (8.4-10.2) mg/dL Calcium panel 11/16/22 Range/Units 06:02 Calcium 7.4 L (8.4-10.2) mg/dL Pituitary panel 11/16/22 Range/Units 06:02 Sodium 138 (137-145) mmol/L Potassium 3.9 (3.5-5.1) mmol/L Chloride 109 H (98-107) mmol/L Carbon Dioxide 21 L (22-30) mmol/L BUN 41 H (7-17) mg/dL Creatinine 3.51 H (0.52-1.04) mg/dL Glucose 62 L (74-99) mg/dL Calcium 7.4 L (8.4-10.2) mg/dL Adrenal panel 11/16/22 Range/Units 06:02 Sodium 138 (137-145) mmol/L Potassium 3.9 (3.5-5.1) mmol/L Chloride 109 H (98-107) mmol/L Carbon Dioxide 21 L (22-30) mmol/L BUN 41 H (7-17) mg/dL Creatinine 3.51 H (0.52-1.04) mg/dL Glucose 62 L (74-99) mg/dL Calcium 7.4 L (8.4-10.2) mg/dL
[2022-11-16] MEDS: ATORVASTATIN 20 MG TAB PO SCH (20:45)
[2022-11-16] MEDS: diphenhydrAMINE 25 MG CAP PO SCH (20:45)
[2022-11-16] MEDS: FAMOTIDINE 20 MG TAB PO SCH (20:45)
--- NOTE | 2022-11-16 22:50 | PN ---
PROGRESS NOTE DATE OF SERVICE: 11/16/2022 SUBJECTIVE: This is an 81-year-old woman, who was admitted with acute on chronic kidney failure with prerenal failure, also had incessant diarrhea for the last several months. The patient had a CT scan of the stomach, which showed multiple abnormalities. The patient also had recent scope also. The patient has had continued diarrhea. Multiple consultants are following the patient closely. Today the creatinine was found to be 3.51, showing a slight improvement. PAST MEDICAL HISTORY: Reviewed. REVIEW OF SYSTEMS: A 14-point review is negative except as mentioned earlier. C difficile is negative CURRENT MEDICATIONS: Reviewed include zyloprim. Doses and rest of medications reviewed. PHYSICAL EXAMINATION: VITAL SIGNS: Pulse is 117, blood pressure 153/90, respirations 16. HEENT: Conjunctivae normal. NECK: No JVD. CARDIOVASCULAR: S1, S2. RESPIRATIONS: Breath sounds diminished at the bases. ABDOMEN: Soft, nontender. LEGS: No edema. LABORATORY DATA: Reviewed. ASSESSMENT: 1. Acute on chronic kidney failure with prerenal acute tubular necrosis. 2. Incessant diarrhea for the last 6 months. Acute on chronic diet. Undetermined etiology. C difficile ruled out. 3. Hyponatremia. 4. Hypokalemia. 5. Rule out urinary tract infection. 6. Hypothyroidism. 7. History of anxiety. 8. Multiple medical issues. RECOMMENDATIONS: Recommend to continue current medications, continue symptomatic treatment. Continue with empiric antibiotics. Otherwise, closely follow. I would recommend Imodium p.r.n. See orders for further details. Further recommendations to follow. MMODL / IJN: [id number] /
[2022-11-17] MEDS: LEVOTHYROXINE 50 MCG TAB PO SCH (05:25)
[2022-11-17] MEDS: SUCRALFATE 1 GM TAB PO SCH ×4 (09:17→21:28)
[2022-11-17] MEDS: PANTOPRAZOLE 40 MG/10 ML VIAL IV SCH (09:17)
[2022-11-17] MEDS: CHOLECALCIFEROL 25 MCG (1000 IU) TABLET PO SCH (09:17)
[2022-11-17] MEDS: allopurinoL 100 MG TAB PO SCH (09:17)
[2022-11-17] MEDS: FERROUS SULFATE 325 MG TAB PO SCH (09:17)
[2022-11-17] MEDS: ENOXAPARIN 30 MG/0.3 ML SYRINGE SQ SCH (09:18)
[2022-11-17] MEDS: SODIUM BICARBONATE TAB 650 MG TAB PO SCH ×3 (09:18→21:28)
[2022-11-17 09:55] LABS: Basophils # (A) 0.02 X 10*3/uL (0.00-0.10); Basophils % (A) 0.2 %; Eosinophils # (A) 0.16 X 10*3/uL (0.04-0.35); HCT 31.3 % (37.2-46.3); HGB 9.6 d/dL (12.0-15.0); Lymphocytes % (A) 14.9 %; MCH 31.1 pg (27.0-32.0); MCHC 30.7 d/dL (32.0-37.0); MCV 101.3 FL (80.0-97.0); Mean Platelet Volume 10.3 FL (9.5-12.2); Monocytes # (A) 0.96 X 10*3/uL (0.20-1.00); Monocytes % (A) 11.9 %; NRBC Per 100 WBC 0.02 X 10*3/uL (0.00-0.01); Neutrophils # (A) 5.68 X 10*3/uL (1.80-7.70); Neutrophils % (A) 70.4 %; Platelet Count 254 X 10*3/uL (140-440); RBC 3.09 X 10*6/uL (4.10-5.20); RDW 17.2 % (11.5-14.5); WBC 8.07 X 10*3/uL (4.50-10.00)
[2022-11-17 10:29] LABS: Calcium 7.9 mg/dL (8.7-10.3); Carbon Dioxide 22.4 mmol/L (21.6-31.8); Chloride 106 mmol/L (96-109); Glucose 82 mg/dL (70-110); Magnesium 1.9 mg/dL (1.5-2.4); Potassium 3.6 mmol/L (3.5-5.5); Sodium 140 mmol/L (135-145)
[2022-11-17] MEDS ORDERED: POTASSIUM CHLORIDE ER 20 MEQ TAB.ER PO STA (11:59)
--- NOTE | 2022-11-17 11:59 | P.PN ---
Subjective Patient is seen in follow-up for acute kidney injury on chronic kidney disease. Renal function a little worse. Creatinine 4.0. Continues to have diarrhea. Oral intake here. Status post IV albumin this admission. Also received IV Lasix yesterday. Vital signs are stable. General: No acute distress. HEENT: Head exam is unremarkable. LUNGS: No audible rhonchi or wheezes. HEART: Rate and Rhythm are regular. ABDOMEN: Mild generalized tenderness. EXTREMITITES: 1+ edema. Objective - Vital Signs Vital signs: Vital Signs Temp 98.3 F 11/17/22 07:00 Pulse 87 11/17/22 07:00 Resp 14 11/17/22 07:00 BP 146/93 11/17/22 07:00 Pulse Ox 97 11/17/22 07:00 FiO2 Intake & Output 11/16/22 11/17/22 11/17/22 18:59 06:59 18:59 Intake Total 103 118 Output Total 50 Balance 53 118 Intake: Oral 103 118 Output: Urine 50 Other: Voiding Method Bedside Commode Diaper # Voids 1 - Labs CBC & Chem 7: 11/17/22 05:42 11/17/22 05:42 Labs: Abnormal Lab Results - Last 24 Hours (Table) 11/16/22 11/17/22 11/17/22 Range/Units 17:08 05:42 05:42 RBC 3.09 L (4.10-5.20) X 10*6/uL Hgb 9.6 L (12.0-15.0) d/dL Hct 31.3 L (37.2-46.3) % MCV 101.3 H (80.0-97.0) FL MCHC 30.7 L (32.0-37.0) d/dL RDW 17.2 H (11.5-14.5) % NRBC/100 WBC Diff 0.02 H (0.00-0.01) X 10*3/uL BUN 40.0 H (9.0-27.0) mg/dL Creatinine 4.0 H (0.6-1.5) mg/dL Est GFR (CKD-EPI) 11 L (>=60) BUN/Creatinine Ratio 10.00 L (12.00-20.00) Ratio Calcium 7.9 L (8.7-10.3) mg/dL Stool Occult Blood Positive H (Negative) Microbiology - Last 24 Hours (Table) 11/15/22 14:03 Blood Culture - Preliminary Blood Assessment and Plan Plan: Assessment: 1. Acute kidney injury mostly prerenal secondary to hypovolemia from vomiting and diarrhea. Creatinine 4.04 on admission and is stable at 4 today. 2. Chronic kidney disease stage V secondary to nephrosclerosis and chronic interstitial nephritis from NSAID use. Recent creatinine 3-3.7. 3. Hypomagnesemia from GI losses. Replaced. Improved. Magnesium 1.9 today. 4. Hypokalemia from poor intake and diuretic. Potassium 3.6 today. 5. Anemia of chronic kidney disease. Iron replete. On Aranesp. 6. Intractable nausea vomiting and diarrhea. Patient had cryptosporidium infection in August 2022 and was treated by GI. Also had EGD and colonoscopy done 11/12/2022 which showed large hiatal hernia, mild antral gastritis, sigmoid diverticular stricture and diverticulosis. Abdominal ultrasound in October 2022 showed dilated bile duct at 1.5 cm. 7. Hypertension with chronic kidney disease. Stable. 8. Lower extremity edema with albumin of 2.0 concerning for third spacing. Status post IV albumin and Lasix this admission. Plan: Encourage oral intake. Replace potassium. Avoid nephrotoxins. Continue to monitor renal function and urine output. Follow-up cultures. No urgent need for renal replacement therapy at this time. Patient states she is not ready to start at this time.
[2022-11-17 13:54] LABS: Cryptosporidium Antigen Negative (Negative)
--- NOTE | 2022-11-17 16:40 | P.PN ---
Subjective Progress Note Date: 11/17/22 CHIEF COMPLAINT: Hiatal hernia HISTORY OF PRESENT ILLNESS: The patient is a 81-year-old female who recently underwent EGD with gastritis and hiatal hernia. Her son is at bedside. Her main complaint includes diarrhea. She is requesting lomotil. She reports recent CT chest at outside institution. REVIEW OF ORGAN SYSTEMS: CONSTITUTIONAL: No reports of fevers or chills. PHYSICAL EXAM: VITAL SIGNS: Stable GENERAL: Well-developed pleasant and in no acute distress. HEENT: No scleral icterus. Extraocular movements grossly intact. Moist buccal mucosa. NECK: Supple without lymphadenopathy. CHEST: Unlabored respirations. Equal bilateral excursions. CARDIOVASCULAR: Regular rate and rhythm. Distal 2+ pulses. ABDOMEN: No peritonitis. MUSCULOSKELETAL: No clubbing, cyanosis, or edema. LABS: Stool antigen negative for cryptosporidium ASSESSMENT: 1. Large intra-thoracic hiatal hernia, grade IV 2. Dyspnea 3. Diarrhea PLAN: 1. Consultation to GI for chronic diarrhea and recent colonoscopy 2. Consultation thoracic for intra-thoracic hiatal hernia 3. Consultation to pulmonary for dyspnea. Objective - Vital Signs Vital signs: Vital Signs Temp 97.5 F L 11/17/22 14:46 Pulse 98 11/17/22 14:46 Resp 15 11/17/22 14:46 BP 119/64 11/17/22 14:46 Pulse Ox 100 11/17/22 14:46 FiO2 Intake & Output 11/16/22 11/17/22 11/17/22 18:59 06:59 18:59 Intake Total 103 118 Output Total 50 Balance 53 118 Intake: Oral 103 118 Output: Urine 50 Other: Voiding Method Bedside Commode Diaper # Voids 1 - Labs CBC & Chem 7: 11/17/22 05:42 11/17/22 05:42 Labs: Abnormal Lab Results - Last 24 Hours (Table) 11/16/22 11/17/22 11/17/22 Range/Units 17:08 05:42 05:42 RBC 3.09 L (4.10-5.20) X 10*6/uL Hgb 9.6 L (12.0-15.0) d/dL Hct 31.3 L (37.2-46.3) % MCV 101.3 H (80.0-97.0) FL MCHC 30.7 L (32.0-37.0) d/dL RDW 17.2 H (11.5-14.5) % NRBC/100 WBC Diff 0.02 H (0.00-0.01) X 10*3/uL BUN 40.0 H (9.0-27.0) mg/dL Creatinine 4.0 H (0.6-1.5) mg/dL Est GFR (CKD-EPI) 11 L (>=60) BUN/Creatinine Ratio 10.00 L (12.00-20.00) Ratio Calcium 7.9 L (8.7-10.3) mg/dL Stool Occult Blood Positive H (Negative) Microbiology - Last 24 Hours (Table) 11/15/22 05:30 Urine Culture - Preliminary Urine,Voided Gram Neg Bacilli 11/15/22 14:03 Blood Culture - Preliminary Blood
[2022-11-17] MEDS: ATORVASTATIN 20 MG TAB PO SCH (21:28)
[2022-11-17] MEDS: diphenhydrAMINE 25 MG CAP PO SCH (21:28)
[2022-11-17] MEDS: FAMOTIDINE 20 MG TAB PO SCH (21:28)
--- NOTE | 2022-11-17 22:48 | PN ---
PROGRESS NOTE DATE OF SERVICE: 11/17/2022 SUBJECTIVE: This is an 81-year-old woman, who was admitted with acute on chronic kidney injury, also had gastroenteritis symptoms. The patient continues to have diarrhea and is better. OBJECTIVE: VITAL SIGNS: Pulse is 87, blood pressure 143/90, respirations 14. CHEST: Clear to auscultation. CARDIOVASCULAR: S1, S2 normal. ABDOMEN: Soft, nontender. LABORATORY DATA: Reviewed. Creatinine is 4 today, slightly worsening. ASSESSMENT: 1. Acute on chronic kidney failure with prerenal acute tubular necrosis. 2. Increased diarrhea for the last 6 months. Acute on chronic diarrhea of undetermined etiology. C difficile ruled out. 3. Hyponatremia. 4. Hypokalemia. 5. Hypothyroidism. 6. History of anxiety. 7. Rule out urinary tract infection. 8. Multiple medical issues. RECOMMENDATIONS: Recommend to continue current management. Continue symptomatic treatment. Repeat labs in the morning. Closely follow with Nephrology and the patient did have colonic biopsies recently. MMODL / IJN: [id number] /
--- NOTE | 2022-11-18 01:56 | XR ---
EXAM: XR Chest, 1 View CLINICAL HISTORY: ITS.REASON XR Reason: exertional dyspnea TECHNIQUE: Frontal view of the chest. COMPARISON: 05/07/2021 IMPRESSION: Cardiomegaly. Mild vascular congestion. Elevated left hemidiaphragm. Large hiatal hernia. Bibasal atelectasis.
--- NOTE | 2022-11-18 04:33 | P.CNPUL ---
History of Present Illness Consult date: 11/18/22 Requesting physician: Trudy Gerardo Reason for consult: dyspnea Chief complaint: Chronic abdominal pain, nausea and vomiting, and dyspnea History of present illness: I am seeing this patient in new consultation today 11/18/2022 for chronic dyspnea, likely related to the patient's large hiatal hernia. Patient is an 81-year-old white female with past medical history significant for a large hiatal hernia, GERD, hyperlipidemia, hypertension, chronic kidney disease, anemia, hypothyroidism, and is a never smoker. Patient denies any history of lung disease including COPD or asthma. Her primary care provider is Dr. Balbir Roman. Patient recently had an EGD and colonoscopy with Dr. Carty to investigate her chronic abdominal pain, nausea and vomiting, and diarrhea that started back in August of this year. She was found to have a moderate to large size hiatal hernia with mild antral gastritis. There was also diffuse diverticulosis within the sigmoid colon without diverticulitis. Patient did present to the emergency room for similar complaints of persistent nausea, vomiting, and diarrhea on November 14. Patient's symptoms have reportedly worsened. There is associated nausea and diarrhea about one hour after eating. We were consulted for chronic ongoing dyspnea that started over one year ago. Patient states that her shortness of breath is mostly on exertion and specific positions. This is likely related to the patient's hiatal hernia. COPD is felt to be less likely. She denies any fever, chills, cough, hemoptysis, chest pain. Patient is currently lying in bed, on room air, in no acute distress. Chest x- ray from earlier this morning shows some mild pulmonary vascular congestion. There is an elevated left hemidiaphragm with a large hiatal hernia and bibasilar atelectasis. A surgical consultation with CT services has been ordered. Patient also has a positive urine culture for gram-negative bacilli. Currently receiving coverage with Rocephin. There is a component of acute on chronic kidney disease. Most recent BMP from yesterday shows sodium 140, potassium 3.6, chloride 106, serum bicarb 22, BUN 40, creatinine 4, glucose 82. Most recent CBC shows a WBC count of 8, hemoglobin 9.6, hematocrit 31.3, platelets 254. Patient does have anemia of chronic disease, however, her fecal occult was positive. Patient has had ongoing diarrhea, no obvious acute blood loss or melena reported. C. diff was negative. Stool lactoferrin was positive. Vital signs are stable. Review of Systems REVIEW OF SYSTEMS: CONSTITUTIONAL: Denies any recent significant weight loss or weight gain. EYES: Denies change in vision. EARS, NOSE, MOUTH, THROAT: Denies headaches, denies sore throat. CARDIOVASCULAR: Denies chest pain, palpitations or syncopal episodes. RESPIRATORY: See HPI GASTROINTESTINAL: See HPI. Does report some mild generalized abdominal pain on palpation GENITOURINARY: Denies hematuria or dysuria MUSKULOSKELETAL: Denies pain, denies swelling. INTEGUMENTARY: Denies rash, denies eczema. NEUROLOGICAL: Denies recent memory loss, no recent seizure activity. PSYCHIATRIC: Denies anxiety, denies depression. HEMATOLOGIC/LYMPHATIC: Admits chronic anemia, denies enlarged lymph node Past Medical History Past Medical History: Blood Disorder, Cancer, GERD/Reflux, Hyperlipidemia, Hypertension, Renal Disease, Thyroid Disorder Additional Past Medical History / Comment(s): HX ANEMIA AND DIVERTICULOSIS. HAS LOW KIDNEY FUNCTION, 21%. SKIN CANCER, can't eat much, feels full quickly, has lost 10 lbs since August, gas, bloating, loose stools History of Any Multi-Drug Resistant Organisms: None Reported Past Surgical History: Bladder Surgery, Cholecystectomy, Hysterectomy, Joint Replacement Additional Past Surgical History / Comment(s): sinus surgery. BILAT TKA. PAIN STIMULATOR IN BACK. BASAL CELL CARCINOMA REMOVED FROM LT EYELID Past Anesthesia/Blood Transfusion Reactions: Postoperative Nausea & Vomiting (PONV) Additional Past Anesthesia/Blood Transfusion Reaction / Comment(s): severe PONV Past Psychological History: No Psychological Hx Reported Smoking Status: Never smoker Past Alcohol Use History: Rare Past Drug Use History: None Reported - Past Family History Mother Family Medical History: No Reported History Medications and Allergies Home Medications Medication Instructions Recorded Confirmed Type Levothyroxine Sodium [Synthroid] 50 mcg PO DAILY 01/19/16 11/14/22 History allopurinoL [Zyloprim] 100 mg PO DAILY 06/05/16 11/14/22 History Sodium Bicarbonate Tab 650 mg PO TID 10/27/20 11/14/22 History Ferrous Sulfate [Iron (65 MG 325 mg PO DAILY 06/28/21 11/14/22 History Elemental)] Diphenox-Atrop 2.5-0.025 mg 2 tab PO TID PRN 10/29/22 11/14/22 History [Lomotil] HYDROcodone/APAP 10-325MG [[place] 1 tab PO Q6HR PRN 10/29/22 11/14/22 History 10-325] Lansoprazole [Prevacid] 30 mg PO DAILY 10/29/22 11/14/22 History Acetaminophen [Tylenol Arthritis] 650 mg PO Q6H PRN 11/14/22 11/14/22 History Cholecalciferol [Vitamin D3 (25 50 mcg PO DAILY 11/14/22 11/14/22 History Mcg = 1000 Iu)] Ondansetron Odt [Zofran Odt] 4 mg PO Q8HR PRN 11/14/22 11/14/22 History Rosuvastatin [Crestor] 10 mg PO HS 11/14/22 11/14/22 History diphenhydrAMINE HCL [Benadryl] 25 mg PO HS 11/14/22 11/14/22 History Allergies Allergy/AdvReac Type Severity Reaction Status Date / Time iodine Allergy MAKES CUTS Verified 11/14/22 21:29 WORSE Sulfa (Sulfonamide Allergy Rash/Hives Verified 11/14/22 21:29 Antibiotics) codeine AdvReac CONSTIPATIO Verified 11/14/22 21:29 N NSAIDS (Non-Steroidal AdvReac Kidney Verified 11/14/22 21:29 Anti-Inflamma Function Physical Exam Vitals: Vital Signs Temp Pulse Resp BP Pulse Ox 11/18/22 02:24 98.3 F 97 18 125/79 94 L 11/17/22 20:00 98 11/17/22 19:42 98.1 F 100 16 120/77 100 11/17/22 14:46 97.5 F L 98 15 119/64 100 11/17/22 07:00 98.3 F 87 14 146/93 97 Intake and Output 11/17/22 11/17/22 11/18/22 14:59 22:59 06:59 Intake Total 118 118 Balance 118 118 Intake: Oral 118 118 Other: Voiding Method Bedside Commode Diaper GENERAL EXAM: Alert, 81-year-old white female appearing stated age, comfortable in no apparent distress. HEAD: Normocephalic and atraumatic EYES: Normal reaction of pupils, equal size. NOSE: Clear with pink turbinates. THROAT: No erythema or exudates. NECK: No masses, no JVD. CHEST: No chest wall deformity. LUNGS: Equal air entry with no crackles, wheeze, rhonchi or dullness. On room air. No conversational dyspnea or accessory muscle use.. CVS: S1 and S2 normal with no audible murmur, regular rhythm. No extra heart sounds ABDOMEN: No hepatosplenomegaly, active bowel sounds, no guarding or rigidity. SPINE: No scoliosis or deformity SKIN: No rashes CENTRAL NERVOUS SYSTEM: No focal deficits, tone is normal in all 4 extremities. EXTREMITIES: There is no peripheral edema, clubbing, or cyanosis. Peripheral pulses are intact. Results - Laboratory Findings CBC and BMP: 11/17/22 05:42 11/17/22 05:42 Abnormal lab findings: Abnormal Labs 11/14/22 11/14/22 11/15/22 19:12 19:12 05:38 WBC 14.2 H RBC 3.57 L Hgb 11.2 L Hct MCV 101.6 H MCHC 30.9 L RDW 16.5 H Neutrophils # 12.5 H NRBC/100 WBC Diff Sodium 134 L Potassium Chloride Carbon Dioxide BUN 48 H Creatinine 4.04 H Est GFR (CKD-EPI) BUN/Creatinine Ratio Glucose Calcium 7.1 L Magnesium Iron TIBC % Saturation Transferrin Ferritin Alkaline Phosphatase 152 H Total Protein 4.7 L Albumin 2.0 L Lipase 14 L Urine Protein Trace H Ur Leukocyte Esterase Large H Urine WBC 13 H Urine Mucus Rare H Stool Occult Blood Stool Lactoferrin 11/15/22 11/15/22 11/15/22 06:58 06:58 06:58 WBC RBC 3.11 L Hgb 9.8 L Hct 32.8 L MCV 105.5 H MCHC 29.9 L RDW 16.5 H Neutrophils # NRBC/100 WBC Diff Sodium 136 L Potassium 3.4 L Chloride 109 H Carbon Dioxide BUN 45 H Creatinine 3.73 H Est GFR (CKD-EPI) BUN/Creatinine Ratio Glucose Calcium 6.7 L Magnesium 1.4 L Iron 33 L TIBC 51 L % Saturation 64.71 H Transferrin 36.2 L Ferritin 992.0 H Alkaline Phosphatase Total Protein Albumin Lipase Urine Protein Ur Leukocyte Esterase Urine WBC Urine Mucus Stool Occult Blood Stool Lactoferrin 11/15/22 11/16/22 11/16/22 18:08 06:02 17:08 WBC RBC Hgb Hct MCV MCHC RDW Neutrophils # NRBC/100 WBC Diff Sodium Potassium Chloride 109 H Carbon Dioxide 21 L BUN 41 H Creatinine 3.51 H Est GFR (CKD-EPI) BUN/Creatinine Ratio Glucose 62 L Calcium 7.4 L Magnesium Iron TIBC % Saturation Transferrin Ferritin Alkaline Phosphatase Total Protein Albumin Lipase Urine Protein Ur Leukocyte Esterase Urine WBC Urine Mucus Stool Occult Blood Positive H Stool Lactoferrin Positive A 11/17/22 11/17/22 05:42 05:42 WBC RBC 3.09 L Hgb 9.6 L Hct 31.3 L MCV 101.3 H MCHC 30.7 L RDW 17.2 H Neutrophils # NRBC/100 WBC Diff 0.02 H Sodium Potassium Chloride Carbon Dioxide BUN 40.0 H Creatinine 4.0 H Est GFR (CKD-EPI) 11 L BUN/Creatinine Ratio 10.00 L Glucose Calcium 7.9 L Magnesium Iron TIBC % Saturation Transferrin Ferritin Alkaline Phosphatase Total Protein Albumin Lipase Urine Protein Ur Leukocyte Esterase Urine WBC Urine Mucus Stool Occult Blood Stool Lactoferrin - Diagnostic Findings Chest x-ray: image reviewed Assessment and Plan Assessment: Chronic dyspnea, likely related to large hiatal hernia. Chest x-ray from earlier this morning shows an elevated left hemidiaphragm with a large hiatal hernia and bibasilar atelectasis. There is also some mild pulmonary vascular congestion. History of large hiatal hernia GERD without esophagitis Gastritis Diverticulosis without diverticulitis Chronic diarrhea, under investigation Acute on chronic kidney disease Suspected urinary tract infection Benign essential hypertension Hyperlipidemia Anemia of chronic disease Positive fecal occult; no reports of overt acute blood loss. Hypothyroidism Never smoker Plan: Patient's medications, labs, chest x-ray reviewed On room air CT services were consulted for large hiatal hernia Encourage incentive spirometer Continue combination of Protonix and Carafate Continue Rocephin We will continue to follow I have personally seen and examined the patient, performed the documentation and the assessment and plan as written. Number of minutes spent on the visit:20 Time with Patient: Greater than 30
[2022-11-18] MEDS: LEVOTHYROXINE 50 MCG TAB PO SCH (05:54)
--- NOTE | 2022-11-18 09:33 | P.GSCN ---
History of Present Illness Consult date: 11/18/22 Reason for Consult: Intra-thoracic hiatal hernia Requesting physician: Trudy Gerardo History of present illness: This is an 81 year old female who follows outpatient with Dr. Roman for primary care. She has a previous medical history of intra-thoracic hiatal hernia noted on CT as far back as May 2021, chronic dyspnea, chronic kidney disease, GERD without esophagitis, gastritis, diverticulosis, hypertension, hyperlipidemia, anemia, hypothyroidism, skin cancer, and never smoker. She presented to [facility] with complaints of nausea, vomiting, and diarrhea which has been ongoing for about 6 months but has been getting progressively worse recently. She describes symptoms of gas and bloating and early satiety. States she tolerates liquids okay and that cold foods are better than warm. Notes diarrhea approximately 1 hour after eating. She describes abdominal soreness in her lower abdomen when going to the bathroom although not while eating. States she has lost 10-14 pounds since August. She also describes shortness of breath with any activity as well as lower extremity edema for the last couple of weeks. She has undergone recent EGD/colonoscopy and CT scan (at an outside hospital), both of which confirmed hiatal hernia. She was admitted with consultation placed to general surgery who has seen the patient and recommended thoracic surgery consult for surgical repair of intra-thoracic hiatal hernia. Review of Systems Review of systems was completed and was negative except as noted. - Constitutional Reports weight loss - Gastrointestinal Reports bloating, Reports diarrhea, Reports early satiety, Reports nausea, Reports vomiting Past Medical History Past Medical History: Blood Disorder, Cancer, GERD/Reflux, Hyperlipidemia, Hypertension, Renal Disease, Thyroid Disorder Additional Past Medical History / Comment(s): HX ANEMIA AND DIVERTICULOSIS. HAS LOW KIDNEY FUNCTION, 21%. SKIN CANCER, can't eat much, feels full quickly, has lost 10 lbs since August, gas, bloating, loose stools;hiatal hernia, diverticulosis History of Any Multi-Drug Resistant Organisms: None Reported Past Surgical History: Bladder Surgery, Cholecystectomy, Hysterectomy, Joint Replacement Additional Past Surgical History / Comment(s): sinus surgery. BILAT TKA. PAIN STIMULATOR IN BACK. BASAL CELL CARCINOMA REMOVED FROM LT EYELID. EGD/colonoscopy 11/12/22 Past Anesthesia/Blood Transfusion Reactions: Postoperative Nausea & Vomiting (PONV) Additional Past Anesthesia/Blood Transfusion Reaction / Comm: severe PONV Past Psychological History: No Psychological Hx Reported Smoking Status: Never smoker Past Alcohol Use History: Rare Past Drug Use History: None Reported - Past Family History Mother Family Medical History: No Reported History Additional Family Medical History / Comment(s): of old age at 89 years old Father Family Medical History: Unable to Obtain Additional Family Medical History / Comment(s): Unable to obtain history as far left when she was a young child Medications and Allergies Home Medications Medication Instructions Recorded Confirmed Type Levothyroxine Sodium [Synthroid] 50 mcg PO DAILY 01/19/16 11/14/22 History allopurinoL [Zyloprim] 100 mg PO DAILY 06/05/16 11/14/22 History Sodium Bicarbonate Tab 650 mg PO TID 10/27/20 11/14/22 History Ferrous Sulfate [Iron (65 MG 325 mg PO DAILY 06/28/21 11/14/22 History Elemental)] Diphenox-Atrop 2.5-0.025 mg 2 tab PO TID PRN 10/29/22 11/14/22 History [Lomotil] HYDROcodone/APAP 10-325MG [[place] 1 tab PO Q6HR PRN 10/29/22 11/14/22 History 10-325] Lansoprazole [Prevacid] 30 mg PO DAILY 10/29/22 11/14/22 History Acetaminophen [Tylenol Arthritis] 650 mg PO Q6H PRN 11/14/22 11/14/22 History Cholecalciferol [Vitamin D3 (25 50 mcg PO DAILY 11/14/22 11/14/22 History Mcg = 1000 Iu)] Ondansetron Odt [Zofran Odt] 4 mg PO Q8HR PRN 11/14/22 11/14/22 History Rosuvastatin [Crestor] 10 mg PO HS 11/14/22 11/14/22 History diphenhydrAMINE HCL [Benadryl] 25 mg PO HS 11/14/22 11/14/22 History Allergies Allergy/AdvReac Type Severity Reaction Status Date / Time iodine Allergy MAKES CUTS Verified 11/14/22 21:29 WORSE Sulfa (Sulfonamide Allergy Rash/Hives Verified 11/14/22 21:29 Antibiotics) codeine AdvReac CONSTIPATIO Verified 11/14/22 21:29 N NSAIDS (Non-Steroidal AdvReac Kidney Verified 11/14/22 21:29 Anti-Inflamma Function Surgical - Exam Vital Signs Temp Pulse Resp BP Pulse Ox 99 F 105 H 18 121/78 98 11/14/22 17:30 11/14/22 17:30 11/14/22 17:30 11/14/22 17:30 11/14/22 17:30 CONSTITUTIONAL: Awake and alert, appears comfortable, cooperative, no acute distress EYES: Pupils equal, round, reactive to light, normal ocular movement ENT: Moist mucous membranes without oral lesions present NECK: No masses, no bruits, trachea midline RESPIRATORY: Lungs sounds clear to auscultation bilaterally. Respirations even, nonlabored. Currently on room air with oxygen saturation 98% CARDIOVASCULAR: S1, S2 present. Regular rate and rhythm. Palpable peripheral pulses bilaterally. Bilateral lower extremity edema present. No calf pain or tenderness noted GASTROINTESTINAL: Abdomen soft, tender to palpation, nondistended without masses or organomegaly noted. There is no rebound or guarding present. Active bowel sounds present 4 quadrants. GENITOURINARY: Deferred INTEGUMENTARY: Skin is warm and dry NEUROLOGIC: Cranial nerves II through XII intact, normal coordination, no obvious motor or sensory deficits, speech is normal MUSKULOSKELETAL: Able to move all extremities, strength equal bilaterally, normal posture PSYCHIATRIC: Alert and oriented to person place and time, appropriate affect, intact judgment and insight Results - Labs 11/17/22 05:42 11/17/22 05:42 Abnormal Lab Results - Last 24 Hours (Table) 11/17/22 11/17/22 Range/Units 05:42 05:42 RBC 3.09 L (4.10-5.20) X 10*6/uL Hgb 9.6 L (12.0-15.0) d/dL Hct 31.3 L (37.2-46.3) % MCV 101.3 H (80.0-97.0) FL MCHC 30.7 L (32.0-37.0) d/dL RDW 17.2 H (11.5-14.5) % NRBC/100 WBC Diff 0.02 H (0.00-0.01) X 10*3/uL BUN 40.0 H (9.0-27.0) mg/dL Creatinine 4.0 H (0.6-1.5) mg/dL Est GFR (CKD-EPI) 11 L (>=60) BUN/Creatinine Ratio 10.00 L (12.00-20.00) Ratio Calcium 7.9 L (8.7-10.3) mg/dL Microbiology - Last 24 Hours (Table) 11/15/22 14:03 Blood Culture - Preliminary Blood 11/15/22 05:30 Urine Culture - Preliminary Urine,Voided Gram Neg Bacilli Diabetes panel 11/17/22 Range/Units 05:42 Sodium 140 (135-145) mmol/L Potassium 3.6 (3.5-5.5) mmol/L Chloride 106 (96-109) mmol/L Carbon Dioxide 22.4 (21.6-31.8) mmol/L BUN 40.0 H (9.0-27.0) mg/dL Creatinine 4.0 H (0.6-1.5) mg/dL Glucose 82 (70-110) mg/dL Calcium 7.9 L (8.7-10.3) mg/dL Calcium panel 11/17/22 Range/Units 05:42 Calcium 7.9 L (8.7-10.3) mg/dL Pituitary panel 11/17/22 Range/Units 05:42 Sodium 140 (135-145) mmol/L Potassium 3.6 (3.5-5.5) mmol/L Chloride 106 (96-109) mmol/L Carbon Dioxide 22.4 (21.6-31.8) mmol/L BUN 40.0 H (9.0-27.0) mg/dL Creatinine 4.0 H (0.6-1.5) mg/dL Glucose 82 (70-110) mg/dL Calcium 7.9 L (8.7-10.3) mg/dL Adrenal panel 11/17/22 Range/Units 05:42 Sodium 140 (135-145) mmol/L Potassium 3.6 (3.5-5.5) mmol/L Chloride 106 (96-109) mmol/L Carbon Dioxide 22.4 (21.6-31.8) mmol/L BUN 40.0 H (9.0-27.0) mg/dL Creatinine 4.0 H (0.6-1.5) mg/dL Glucose 82 (70-110) mg/dL Calcium 7.9 L (8.7-10.3) mg/dL - Imaging Chest x-ray: report reviewed, image reviewed CT scan - chest: report reviewed, image reviewed Assessment and Plan Assessment: Large intra-thoracic hiatal hernia, grade IV Chronic dyspnea, likely related to large hiatal hernia Acute on chronic kidney disease Abdominal discomfort Nausea, vomiting, diarrhea 10-14 pound weight loss since August History of GERD without esophagitis Gastritis Diverticulosis without diverticulitis History of hypertension History of hyperlipidemia Anemia of chronic disease Hypothyroidism Never smoker Plan: The patient was seen and examined sitting up in bed in no acute distress. Chart/diagnostics reviewed. The case was discussed with Dr. Belcher. Will discuss the case tomorrow with Dr. Rivers when he is here. The patient relates she has known about her hiatal hernia for quite a while, states she keeps being told that she's just being watched and has not been referred to a surgeon for intervention in the past. Currently becoming more symptomatic with shortness of breath, early satiety leading to weight loss, abdominal pain with nausea/vomiting/diarrhea. Surgical management to be determined. In the meantime continue medical management per internal medicine, GI, pulmonology, nephrology. Increase activity as tolerated. Encourage oral consumption as t olerated, patient should sit straight up for at least 1 hour after eating. More recommendations to follow. I have personally seen and examined the patient, performed the documentation and the assessment and plan as written. Number of minutes spent on the visit: 30. Joanna Tejeda, KRISTA-C
[2022-11-18 09:51] LABS: Basophils # (A) 0.02 X 10*3/uL (0.00-0.10); Basophils % (A) 0.3 %; Eosinophils # (A) 0.18 X 10*3/uL (0.04-0.35); Eosinophils % (A) 2.4 %; HCT 29.6 % (37.2-46.3); HGB 8.8 d/dL (12.0-15.0); Lymphocytes # (A) 1.45 X 10*3/uL (0.90-5.00); Lymphocytes % (A) 19.5 %; MCH 30.3 pg (27.0-32.0); MCHC 29.7 d/dL (32.0-37.0); MCV 102.1 FL (80.0-97.0); Mean Platelet Volume 10.7 FL (9.5-12.2); Monocytes % (A) 12.1 %; NRBC Per 100 WBC 0 X 10*3/uL (0.00-0.01); Neutrophils # (A) 4.86 X 10*3/uL (1.80-7.70); Neutrophils % (A) 65.2 %; Platelet Count 219 X 10*3/uL (140-440); RDW 17.1 % (11.5-14.5); WBC 7.45 X 10*3/uL (4.50-10.00)
[2022-11-18] MEDS: SODIUM BICARBONATE TAB 650 MG TAB PO SCH ×3 (10:00→20:22)
[2022-11-18] MEDS: allopurinoL 100 MG TAB PO SCH (10:00)
[2022-11-18] MEDS: SUCRALFATE 1 GM TAB PO SCH ×4 (10:00→20:22)
[2022-11-18] MEDS: CHOLECALCIFEROL 25 MCG (1000 IU) TABLET PO SCH (10:00)
[2022-11-18] MEDS: PANTOPRAZOLE 40 MG/10 ML VIAL IV SCH (10:01)
[2022-11-18] MEDS: FERROUS SULFATE 325 MG TAB PO SCH (10:01)
[2022-11-18 10:03] LABS: BUN/Creat Ratio 9.85 Ratio (12.00-20.00); Blood Urea Nitrogen 40.4 mg/dL (9.0-27.0); Calcium 7.6 mg/dL (8.7-10.3); Carbon Dioxide 21.2 mmol/L (21.6-31.8); Chloride 107 mmol/L (96-109); Glucose 82 mg/dL (70-110); Potassium 3.8 mmol/L (3.5-5.5); Sodium 140 mmol/L (135-145)
--- NOTE | 2022-11-18 11:43 | P.PN ---
Subjective Progress Note Date: 11/18/22 CHIEF COMPLAINT: Large hiatal hernia HISTORY OF PRESENT ILLNESS: Patient sitting at the edge of her bed eating breakfast. She reports early satiety. Currently no nausea or vomiting. Some mild abdominal discomfort epigastric area. She has been seen by cardiothoracic service regarding the large hilar hernia and awaiting their further recommendations regarding surgery. Also evaluated by pulmonary service and cleared to proceed with surgical intervention but would be considered high risk. Patient also complains of chronic diarrhea and is scheduled to be evaluated by GI service today. Afebrile. WBC is 7.45 Hgb 8.8 platelets 219 PHYSICAL EXAM: VITAL SIGNS: Reviewed GENERAL: Well-developed in no acute distress. HEENT: No sclera icterus. Extraocular movements grossly intact. Moist buccal m ucosa. Head is atraumatic, normocephalic. Hears conversational speech. No nasal drainage. NECK: Supple without lymphadenopathy. CHEST: Non-labored respirations and equal bilateral excursions. CARDIOVASCULAR: Palpable 2+ radial pulses. ABDOMEN: Soft. Nondistended. Nontender. MUSCULOSKELETAL: No clubbing or cyanosis. NEUROLOGIC: No focal or lateralizing signs. Cranial nerves II through XII grossly intact. PSYCH: Appropriate affect. Alert and oriented to person, place and time. SKIN: Well perfused. Good skin turgor. ASSESSMENT: 1. Large intra-thoracic hiatal hernia, grade IV 2. Dyspnea 3. Diarrhea PLAN: -Awaiting further recommendations from cardiothoracic service regarding repair of large hiatal hernia -Patient to be seen by GI service regarding chronic diarrhea and recent colonoscopy -Continue supportive care -Continue chopped diet with no straws or carbonated beverages -Encouraged patient to remain sitting upright after eating for about 30 minutes to 1 hour Physician Paddle Dyeing Machine Operator note has been reviewed by physician. Signing provider agrees with the documented findings, assessment, and plan of care. Objective - Vital Signs Vital signs: Vital Signs Temp 97.7 F 11/18/22 07:00 Pulse 82 11/18/22 07:00 Resp 16 11/18/22 07:00 BP 130/80 11/18/22 07:00 Pulse Ox 98 11/18/22 07:00 FiO2 Intake & Output 11/17/22 11/18/22 11/18/22 18:59 06:59 18:59 Intake Total 236 Balance 236 Intake: Oral 236 Other: Voiding Method Bedside Commode Diaper # Voids 1 # Bowel Movements 1 - Labs CBC & Chem 7: 11/18/22 05:44 11/18/22 05:44 Labs: Abnormal Lab Results - Last 24 Hours (Table) 11/18/22 11/18/22 Range/Units 05:44 05:44 RBC 2.90 L (4.10-5.20) X 10*6/uL Hgb 8.8 L (12.0-15.0) d/dL Hct 29.6 L (37.2-46.3) % MCV 102.1 H (80.0-97.0) FL MCHC 29.7 L (32.0-37.0) d/dL RDW 17.1 H (11.5-14.5) % Carbon Dioxide 21.2 L (21.6-31.8) mmol/L BUN 40.4 H (9.0-27.0) mg/dL Creatinine 4.1 H (0.6-1.5) mg/dL Est GFR (CKD-EPI) 10 L (>=60) BUN/Creatinine Ratio 9.85 L (12.00-20.00) Ratio Calcium 7.6 L (8.7-10.3) mg/dL Microbiology - Last 24 Hours (Table) 11/15/22 14:03 Blood Culture - Preliminary Blood 11/15/22 05:30 Urine Culture - Preliminary Urine,Voided Gram Neg Bacilli
--- NOTE | 2022-11-18 13:25 | P.PN ---
Subjective Patient is seen for follow-up for acute kidney injury and top of chronic kidney disease. Renal function is stable with serum creatinine staying at about 4.0 mg/dL. Baseline creatinine around 3 No significant complaints today. Objective - Vital Signs Vital signs: Vital Signs Temp 97.7 F 11/18/22 07:00 Pulse 82 11/18/22 07:00 Resp 16 11/18/22 07:00 BP 130/80 11/18/22 07:00 Pulse Ox 98 11/18/22 07:00 FiO2 Intake & Output 11/17/22 11/18/22 11/18/22 18:59 06:59 18:59 Intake Total 236 Balance 236 Intake: Oral 236 Other: Voiding Method Bedside Commode Diaper # Voids 1 # Bowel Movements 1 - Exam Awake, comfortable, no acute distress Examination of the heart S1 and S2 Examination of the lungs bilateral breath sounds are heard Abdomen is soft nontender Examination of lower extremities shows edema 1+ PAPER SUPERVISOR exam grossly intact - Labs CBC & Chem 7: 11/18/22 05:44 11/18/22 05:44 Labs: Abnormal Lab Results - Last 24 Hours (Table) 11/18/22 11/18/22 Range/Units 05:44 05:44 RBC 2.90 L (4.10-5.20) X 10*6/uL Hgb 8.8 L (12.0-15.0) d/dL Hct 29.6 L (37.2-46.3) % MCV 102.1 H (80.0-97.0) FL MCHC 29.7 L (32.0-37.0) d/dL RDW 17.1 H (11.5-14.5) % Carbon Dioxide 21.2 L (21.6-31.8) mmol/L BUN 40.4 H (9.0-27.0) mg/dL Creatinine 4.1 H (0.6-1.5) mg/dL Est GFR (CKD-EPI) 10 L (>=60) BUN/Creatinine Ratio 9.85 L (12.00-20.00) Ratio Calcium 7.6 L (8.7-10.3) mg/dL Microbiology - Last 24 Hours (Table) 11/15/22 05:30 Urine Culture - Preliminary Urine,Voided Gram Neg Bacilli 11/15/22 14:03 Blood Culture - Preliminary Blood Assessment and Plan Assessment: 1. Acute kidney injury mostly prerenal secondary to hypovolemia from vomiting and diarrhea. Creatinine 4.04 on admission and is stable at 4 today. 2. Chronic kidney disease stage V secondary to nephrosclerosis and chronic interstitial nephritis from NSAID use. Recent creatinine 3-3.7. 3. Hypomagnesemia from GI losses. Replaced. Improved. Magnesium 1.9 today. 4. Hypokalemia from poor intake and diuretic. Potassium 3.6 today. 5. Anemia of chronic kidney disease. Iron replete. On Aranesp. 6. Intractable nausea vomiting and diarrhea. Patient had cryptosporidium in fection in August 2022 and was treated by GI. Also had EGD and colonoscopy done 11/12/2022 which showed large hiatal hernia, mild antral gastritis, sigmoid diverticular stricture and diverticulosis. Abdominal ultrasound in October 2022 showed dilated bile duct at 1.5 cm. 7. Hypertension with chronic kidney disease. Stable. 8. Lower extremity edema with albumin of 2.0 concerning for third spacing. Status post IV albumin and Lasix this admission. Plan: Encouraged increased oral intake No urgent need for renal replacement therapy at this time Need to monitor renal function closely as outpatient. Continue with oral sodium bicarb.
[2022-11-18] MEDS: FAMOTIDINE 20 MG TAB PO SCH (20:22)
[2022-11-18] MEDS: diphenhydrAMINE 25 MG CAP PO SCH (20:22)
[2022-11-18] MEDS: ATORVASTATIN 20 MG TAB PO SCH (20:22)
[2022-11-19] MEDS: LEVOTHYROXINE 50 MCG TAB PO SCH (05:57)
[2022-11-19 08:54] LABS: Basophils # (A) 0.02 X 10*3/uL (0.00-0.10); Basophils % (A) 0.2 %; Eosinophils # (A) 0.19 X 10*3/uL (0.04-0.35); Eosinophils % (A) 2.4 %; HCT 30.9 % (37.2-46.3); HGB 9.3 d/dL (12.0-15.0); Lymphocytes # (A) 1.95 X 10*3/uL (0.90-5.00); Lymphocytes % (A) 24.2 %; MCHC 30.1 d/dL (32.0-37.0); Mean Platelet Volume 11.2 FL (9.5-12.2); Monocytes # (A) 0.97 X 10*3/uL (0.20-1.00); NRBC Per 100 WBC 0 X 10*3/uL (0.00-0.01); Neutrophils % (A) 60.8 %; Platelet Count 211 X 10*3/uL (140-440); WBC 8.06 X 10*3/uL (4.50-10.00)
[2022-11-19] MEDS: PANTOPRAZOLE 40 MG/10 ML VIAL IV SCH (08:57)
[2022-11-19 09:36] LABS: BUN/Creat Ratio 9.76 Ratio (12.00-20.00); Calcium 7.5 mg/dL (8.7-10.3); Carbon Dioxide 19.2 mmol/L (21.6-31.8); Chloride 103 mmol/L (96-109); Glucose 81 mg/dL (70-110); Potassium 3.6 mmol/L (3.5-5.5); Sodium 135 mmol/L (135-145)
--- NOTE | 2022-11-19 09:41 | P.PN ---
Subjective Progress Note Date: 11/19/22 Principal diagnosis: Large intra-thoracic hiatal hernia, acute on chronic kidney disease, abdominal discomfort, nausea, vomiting, diarrhea. History of chronic dyspnea, 10-14 pound weight loss since August, GERD without esophagitis, gastritis, diverticulosis without diverticulitis, hypertension, hyperlipidemia, anemia of chronic disease, hypothyroidism, never smoker The patient was seen and examined sitting up in bed on the medical surgical unit in no acute distress. Continues to have minimal oral intake, shortness of breath with exertion and diarrhea. Denies pain although abdomen is tender to palpation. No other new concerns. Objective - Vital Signs Vital signs: Vital Signs Temp 98.0 F 11/19/22 07:40 Pulse 69 11/19/22 07:40 Resp 18 11/19/22 07:40 BP 133/84 11/19/22 07:40 Pulse Ox 93 L 11/19/22 07:40 FiO2 Intake & Output 11/18/22 11/19/22 11/19/22 18:59 06:59 18:59 Intake Total 240 Balance 240 Intake: Oral 240 Other: Voiding Method Bedside Commode Bedside Commode Diaper Diaper # Voids 1 # Bowel Movements 1 1 - Exam CONSTITUTIONAL: Appears comfortable, cooperative, no acute distress RESPIRATORY: Lungs sounds clear bilaterally. Respirations even, nonlabored. Currently on room air with oxygen saturation 93%. Able to achieve 1000 mL on incentive spirometry CARDIOVASCULAR: S1, S2 present. Regular rate and rhythm. Palpable peripheral pulses bilaterally. Bilateral lower extremity edema present. No calf pain or tenderness noted GASTROINTESTINAL: Abdomen soft, tender to palpation, nondistended. Active bowel sounds present 4 quadrants. Tolerating minimal diet GENITOURINARY: Continues to void INTEGUMENTARY: Skin is warm and dry NEUROLOGIC: Cranial nerves II through XII intact MUSKULOSKELETAL: Able to move all extremities, strength equal bilaterally PSYCHIATRIC: Alert and oriented to person place and time, appropriate affect, intact judgment and insight - Allied health notes Allied health notes reviewed: nursing - Labs CBC & Chem 7: 11/19/22 06:02 11/19/22 06:02 Labs: Abnormal Lab Results - Last 24 Hours (Table) 11/18/22 11/18/22 Range/Units 05:44 05:44 RBC 2.90 L (4.10-5.20) X 10*6/uL Hgb 8.8 L (12.0-15.0) d/dL Hct 29.6 L (37.2-46.3) % MCV 102.1 H (80.0-97.0) FL MCHC 29.7 L (32.0-37.0) d/dL RDW 17.1 H (11.5-14.5) % Carbon Dioxide 21.2 L (21.6-31.8) mmol/L BUN 40.4 H (9.0-27.0) mg/dL Creatinine 4.1 H (0.6-1.5) mg/dL Est GFR (CKD-EPI) 10 L (>=60) BUN/Creatinine Ratio 9.85 L (12.00-20.00) Ratio Calcium 7.6 L (8.7-10.3) mg/dL Microbiology - Last 24 Hours (Table) 11/17/22 00:00 Stool Culture - Preliminary Stool 11/15/22 14:03 Blood Culture - Preliminary Blood 11/15/22 05:30 Urine Culture - Preliminary Urine,Voided Gram Neg Bacilli Assessment and Plan Assessment: Large intra-thoracic hiatal hernia, grade IV Chronic dyspnea, likely related to large hiatal hernia Acute on chronic kidney disease Abdominal discomfort Nausea, vomiting, diarrhea 10-14 pound weight loss since August History of GERD without esophagitis Gastritis Diverticulosis without diverticulitis History of hypertension History of hyperlipidemia Anemia of chronic disease Hypothyroidism Never smoker Plan: Surgical management to be determined, Dr. Rivers to see patient today Continue medical management per internal medicine, GI, pulmonology, nephrology Increase activity as tolerated Encourage oral consumption as tolerated, patient should sit straight up for at least 1 hour after eating. More recommendations to follow
--- NOTE | 2022-11-19 10:33 | P.PN ---
Subjective Progress Note Date: 11/19/22 CHIEF COMPLAINT: Large hiatal hernia HISTORY OF PRESENT ILLNESS: Patient lying in bed comfortably. She denies any abdominal pain. She reports early satiety. Her shortness of breath is better when she is not ambulating. She denies any nausea or vomiting. Currently denies any heartburn or indigestion. She has been seen by cardiothoracic service regarding the large hilar hernia and awaiting their further recommendations regarding surgery. Also evaluated by pulmonary service and cleared to proceed with surgical intervention but would be considered high risk. Patient also complains of chronic diarrhea and is scheduled to be evaluated by GI service today. Afebrile. WBC 8.0 6HB9.3 platelets 211 sounds 135 potassium 3.6 creatinine 4.2 PHYSICAL EXAM: VITAL SIGNS: Reviewed GENERAL: Well-developed in no acute distress. HEENT: No sclera icterus. Extraocular movements grossly intact. Moist buccal mucosa. Head is atraumatic, normocephalic. Hears conversational speech. No nasal drainage. NECK: Supple without lymphadenopathy. CHEST: Non-labored respirations and equal bilateral excursions. CARDIOVASCULAR: Palpable 2+ radial pulses. ABDOMEN: Soft. Nondistended. Nontender. MUSCULOSKELETAL: No clubbing or cyanosis. NEUROLOGIC: No focal or lateralizing signs. Cranial nerves II through XII grossly intact. PSYCH: Appropriate affect. Alert and oriented to person, place and time. SKIN: Well perfused. Good skin turgor. ASSESSMENT: 1. Large intra-thoracic hiatal hernia, grade IV 2. Dyspnea 3. Diarrhea PLAN: -Awaiting further recommendations from cardiothoracic service regarding repair of large hiatal hernia -Patient to be seen by GI service regarding chronic diarrhea and recent colonoscopy -Continue supportive care -Continue chopped diet with no straws or carbonated beverages Physician Pamphlet Distributor note has been reviewed by physician. Signing provider agrees with the documented findings, assessment, and plan of care. Objective - Vital Signs Vital signs: Vital Signs Temp 98.0 F 11/19/22 07:40 Pulse 69 11/19/22 07:40 Resp 18 11/19/22 07:40 BP 133/84 11/19/22 07:40 Pulse Ox 93 L 11/19/22 07:40 FiO2 Intake & Output 11/18/22 11/19/22 11/19/22 18:59 06:59 18:59 Intake Total 240 Balance 240 Intake: Oral 240 Other: Voiding Method Bedside Commode Bedside Commode Diaper Diaper # Voids 1 # Bowel Movements 1 1 - Labs CBC & Chem 7: 11/19/22 06:02 11/19/22 06:02 Labs: Abnormal Lab Results - Last 24 Hours (Table) 11/19/22 11/19/22 Range/Units 06:02 06:02 RBC 3.00 L (4.10-5.20) X 10*6/uL Hgb 9.3 L (12.0-15.0) d/dL Hct 30.9 L (37.2-46.3) % MCV 103.0 H (80.0-97.0) FL MCHC 30.1 L (32.0-37.0) d/dL RDW 17.0 H (11.5-14.5) % Carbon Dioxide 19.2 L (21.6-31.8) mmol/L Anion Gap 12.80 H (4.00-12.00) mmol/L BUN 41.0 H (9.0-27.0) mg/dL Creatinine 4.2 H (0.6-1.5) mg/dL Est GFR (CKD-EPI) 10 L (>=60) BUN/Creatinine Ratio 9.76 L (12.00-20.00) Ratio Calcium 7.5 L (8.7-10.3) mg/dL Microbiology - Last 24 Hours (Table) 11/17/22 00:00 Stool Culture - Preliminary Stool 11/15/22 14:03 Blood Culture - Preliminary Blood 11/15/22 05:30 Urine Culture - Preliminary Urine,Voided Gram Neg Bacilli
--- NOTE | 2022-11-19 11:23 | P.PN ---
Subjective Progress Note Date: 11/19/22 I am seeing this patient in new consultation today 11/18/2022 for chronic dyspnea, likely related to the patient's large hiatal hernia. Patient is an 81-year-old white female with past medical history significant for a large hiatal hernia, GERD, hyperlipidemia, hypertension, chronic kidney disease, anemi a, hypothyroidism, and is a never smoker. Patient denies any history of lung disease including COPD or asthma. Her primary care provider is Dr. Balbir Roman. Patient recently had an EGD and colonoscopy with Dr. Carty to investigate her chronic abdominal pain, nausea and vomiting, and diarrhea that started back in August of this year. She was found to have a moderate to large size hiatal hernia with mild antral gastritis. There was also diffuse diverticulosis within the sigmoid colon without diverticulitis. Patient did present to the emergency room for similar complaints of persistent nausea, vomiting, and diarrhea on November 14. Patient's symptoms have reportedly worsened. There is associated nausea and diarrhea about one hour after eating. We were consulted for chronic ongoing dyspnea that started over one year ago. Patient states that her shortness of breath is mostly on exertion and specific positions. This is likely related to the patient's hiatal hernia. COPD is felt to be less likely. She denies any fever, chills, cough, hemoptysis, chest pain. Patient is currently lying in bed, on room air, in no acute distress. Chest x-ray from earlier this morning shows some mild pulmonary vascular congestion. There is an elevated left hemidiaphragm with a large hiatal hernia and bibasilar atelectasis. A surgical consultation with CT services has been ordered. Patient also has a positive urine culture for gram-negative bacilli. Currently receiving coverage with Rocephin. There is a component of acute on chronic kidney disease. Most recent BMP from yesterday shows sodium 140, potassium 3.6, chloride 106, serum bicarb 22, BUN 40, creatinine 4, glucose 82. Most recent CBC shows a WBC count of 8, hemoglobin 9.6, hematocrit 31.3, platelets 254. Patient does have anemia of chronic disease, however, her fecal occult was positive. Patient has had ongoing diarrhea, no obvious acute blood loss or melena reported. C. diff was negative. Stool lactoferrin was positive. Vital signs are stable. The patient is seen today 11/19/2022 in follow-up on the regular medical floor. She is currently resting comfortably in bed. Awake and alert in no acute distress. Maintaining good O2 saturations in the 90s on room air. Afebrile. Hemodynamically stable. She did have 2 bowel movements with some blood noted. Hemoglobin 9.3. White count 8.0. Platelets 211. Sodium 135. Potassium 3.6. Bicarb 19. BUN 41. Creatinine 4.2. Urine culture positive for gram-negative bacilli. Currently on ceftriaxone. She is continued on Protonix and Carafate. Surgical recommendations pending. Objective - Vital Signs Vital signs: Vital Signs Temp 98.0 F 11/19/22 07:40 Pulse 69 11/19/22 07:40 Resp 18 11/19/22 07:40 BP 133/84 11/19/22 07:40 Pulse Ox 93 L 11/19/22 07:40 FiO2 Intake & Output 11/18/22 11/19/22 11/19/22 18:59 06:59 18:59 Intake Total 240 Balance 240 Intake: Oral 240 Other: Voiding Method Bedside Commode Bedside Commode Diaper Diaper # Voids 1 # Bowel Movements 1 1 - Exam GENERAL EXAM: Alert, very pleasant 81-year-old female, on room air, comfortable in no apparent distress. HEAD: Normocephalic and atraumatic EYES: Normal reaction of pupils, equal size. NOSE: Clear with pink turbinates. THROAT: No erythema or exudates. NECK: No masses, no JVD. CHEST: No chest wall deformity. LUNGS: Equal air entry with no crackles, wheeze, rhonchi or dullness. CVS: S1 and S2 normal with no audible murmur, regular rhythm. No extra heart sounds ABDOMEN: No hepatosplenomegaly, active bowel sounds, no guarding or rigidity. SPINE: No scoliosis or deformity SKIN: No rashes CENTRAL NERVOUS SYSTEM: No focal deficits, tone is normal in all 4 extremities. EXTREMITIES: There is no peripheral edema, clubbing, or cyanosis. Peripheral pulses are intact. - Labs CBC & Chem 7: 11/19/22 06:02 11/19/22 06:02 Labs: Abnormal Lab Results - Last 24 Hours (Table) 11/19/22 11/19/22 Range/Units 06:02 06:02 RBC 3.00 L (4.10-5.20) X 10*6/uL Hgb 9.3 L (12.0-15.0) d/dL Hct 30.9 L (37.2-46.3) % MCV 103.0 H (80.0-97.0) FL MCHC 30.1 L (32.0-37.0) d/dL RDW 17.0 H (11.5-14.5) % Carbon Dioxide 19.2 L (21.6-31.8) mmol/L Anion Gap 12.80 H (4.00-12.00) mmol/L BUN 41.0 H (9.0-27.0) mg/dL Creatinine 4.2 H (0.6-1.5) mg/dL Est GFR (CKD-EPI) 10 L (>=60) BUN/Creatinine Ratio 9.76 L (12.00-20.00) Ratio Calcium 7.5 L (8.7-10.3) mg/dL Microbiology - Last 24 Hours (Table) 11/17/22 00:00 Stool Culture - Preliminary Stool 11/15/22 14:03 Blood Culture - Preliminary Blood 11/15/22 05:30 Urine Culture - Preliminary Urine,Voided Gram Neg Bacilli Assessment and Plan Assessment: Chronic dyspnea, likely related to large hiatal hernia. Chest x-ray from earlier this morning shows an elevated left hemidiaphragm with a large hiatal hernia and bibasilar atelectasis. There is also some mild pulmonary vascular congestion. History of large hiatal hernia Acute on chronic kidney disease Acute urinary tract infection secondary to gram-negative bacilli, on ceftriaxone GERD without esophagitis Gastritis Diverticulosis without diverticulitis Chronic diarrhea, under investigation Benign essential hypertension Hyperlipidemia Anemia of chronic disease Positive fecal occult; no reports of overt acute blood loss. Hypothyroidism Never smoker Plan: The patient was seen and evaluated Labs and medications reviewed Surgical recommendations pending Currently stable and on room air Continue Protonix and Carafate We will continue to follow I have personally seen and examined the patient, performed the documentation and the assessment and plan as written. Number of minutes spent on the visit: 10.
--- NOTE | 2022-11-19 12:31 | CDI ---
Documentation Clarification Form Date: 11/19/2022 11:53:05 AM From: Anitra Chisholm RN, CCDS Admit Date: 11/15/2022 11:30:00 AM Patient Name: Lolita Blood Visit Number: [id number] Discharge Date: ATTENTION: The Clinical Documentation Specialists (CDI) and [facility] Coding Staff appreciate your assistance in clarifying documentation. Please respond to the clarification below the line at the bottom and electronically sign. The CDI & [facility] Coding staff will review the response and follow-up if needed. Please note: Queries are made part of the Legal Health Record. If you have any questions, please contact the author of this message via ITS. Dr. Noelle Beckham Your patient has gastroenteritis symptoms documented in the progress note on 11/17/2022. Based on this information and the findings below, is there an additional diagnosis that is clinically appropriate for this patient? Patient history/risk factors: Hyperlipidemia, Hypertension Renal disease, Thyroid disorder, Diverticulosis, Gastritis Clinical Indicators: 81-year-old female present with complaint with complaint of nausea, vomiting and diarrhea for appproximately6 months. She has abdominal cramping diffusely. She had EGD that showed gastritis as well as a hiatal hernia. 11/14 Labs: WBC 14.2 HGB 11.2 BUN 48 Cr 4.04, Alkaline Phosphatase 152, UA: Ur Leukocyte Esterase Large WBC 13, Stool Lactoferrin -Positive, C. difficile- Negative 11/16 Surgical consult: recent underwent EGD with gastritis and hiatal hernia, grade IV 11/15 Nephrology consult and progress note: Jaime, CKD stage V Mild antral gastritis, sigmoid diverticular stricture and diverticulosis. Treatment: Adjust diet to dysphagia chopped Maintain IV fluids, Avoid nephrotoxins Monitor renal function and urine output Is there an additional diagnosis that is clinically appropriate for this patient? [ ] Acute Gastritis [ ] Unable to determine [ ] Other, please specify (Template Last Reviewed: June 2022) Acute gastritis as noted on EGD Dictated By: Matias Peter MD Signed By: <Electronically signed by Matias Peter MD> 11/22/22 1346 MTDD
--- NOTE | 2022-11-19 12:40 | P.PN ---
Subjective Patient is seen for follow-up for acute kidney injury and top of chronic kidney disease. Renal function is stable with serum creatinine staying at about 4.0 -4.2 mg/dL. Baseline creatinine around 3 No significant complaints today. Currently not on IV fluids or diuretics. Objective - Vital Signs Vital signs: Vital Signs Temp 98.0 F 11/19/22 07:40 Pulse 69 11/19/22 08:00 Resp 18 11/19/22 08:00 BP 133/84 11/19/22 07:40 Pulse Ox 93 L 11/19/22 07:40 FiO2 Intake & Output 11/18/22 11/19/22 11/19/22 18:59 06:59 18:59 Intake Total 240 Balance 240 Intake: Oral 240 Other: Voiding Method Bedside Commode Bedside Commode Bedside Commode Diaper Diaper Diaper # Voids 1 # Bowel Movements 1 1 - Exam Awake, comfortable, no acute distress Examination of the heart S1 and S2 Examination of the lungs bilateral breath sounds are heard Abdomen is soft nontender Examination of lower extremities shows edema 1+ SUPERVISOR SMALL APPLIANCE ASSEMBLY exam grossly intact - Labs CBC & Chem 7: 11/19/22 06:02 11/19/22 06:02 Labs: Abnormal Lab Results - Last 24 Hours (Table) 11/19/22 11/19/22 Range/Units 06:02 06:02 RBC 3.00 L (4.10-5.20) X 10*6/uL Hgb 9.3 L (12.0-15.0) d/dL Hct 30.9 L (37.2-46.3) % MCV 103.0 H (80.0-97.0) FL MCHC 30.1 L (32.0-37.0) d/dL RDW 17.0 H (11.5-14.5) % Carbon Dioxide 19.2 L (21.6-31.8) mmol/L Anion Gap 12.80 H (4.00-12.00) mmol/L BUN 41.0 H (9.0-27.0) mg/dL Creatinine 4.2 H (0.6-1.5) mg/dL Est GFR (CKD-EPI) 10 L (>=60) BUN/Creatinine Ratio 9.76 L (12.00-20.00) Ratio Calcium 7.5 L (8.7-10.3) mg/dL Microbiology - Last 24 Hours (Table) 11/17/22 00:00 Stool Culture - Preliminary Stool 11/15/22 14:03 Blood Culture - Preliminary Blood 11/15/22 05:30 Urine Culture - Preliminary Urine,Voided Gram Neg Bacilli Assessment and Plan Assessment: 1. Acute kidney injury mostly prerenal secondary to hypovolemia from vomiting and diarrhea. Creatinine 4.04 on admission and is stable at 4 today. No hydronephrosis noted on ultrasound on 10/24/2022 2. Chronic kidney disease stage V secondary to nephrosclerosis and chronic interstitial nephritis from NSAID use. Recent creatinine 3-3.7. 3. Hypomagnesemia from GI losses. Replaced. Improved. Magnesium 1.9 today. 4. Hypokalemia from poor intake and diuretic. Potassium 3.6 today. 5. Anemia of chronic kidney disease. Iron replete. On Aranesp. 6. Intractable nausea vomiting and diarrhea. Patient had cryptosporidium infection in August 2022 and was treated by GI. Also had EGD and colonoscopy done 11/12/2022 which showed large hiatal hernia, mild antral gastritis, sigmoid diverticular stricture and diverticulosis. Abdominal ultrasound in October 2022 showed dilated bile duct at 1.5 cm. 7. Hypertension with chronic kidney disease. Stable. 8. Lower extremity edema with albumin of 2.0 concerning for third spacing. Status post IV albumin and Lasix this admission. Plan: Encouraged increased oral intake No urgent need for renal replacement therapy at this time Need to monitor renal function closely as outpatient. Continue with oral sodium bicarb. Check bladder scan rule out urine retention.
[2022-11-19] MEDS: CHOLECALCIFEROL 25 MCG (1000 IU) TABLET PO SCH (12:51)
[2022-11-19] MEDS: SUCRALFATE 1 GM TAB PO SCH ×4 (12:52→20:05)
[2022-11-19] MEDS: FERROUS SULFATE 325 MG TAB PO SCH (12:52)
[2022-11-19] MEDS: allopurinoL 100 MG TAB PO SCH (12:52)
[2022-11-19] MEDS: SODIUM BICARBONATE TAB 650 MG TAB PO SCH ×3 (12:52→20:05)
[2022-11-19] MEDS: DARBEPOETIN ALFA 60 MCG/0.3 ML SYRINGE SQ SCH (13:56)
[2022-11-19] MEDS ORDERED: BARIUM SULFATE 450 ML ORAL.SUSP BOTTLE PO ONE (15:00)
--- NOTE | 2022-11-19 17:09 | P.CONS ---
History of Present Illness - Reason for Consult Consult date: 11/19/22 (Patient was seen approximately 10:30 AM) Diarrhea Requesting physician: Trudy Gerardo - Chief Complaint Nausea, vomiting, diarrhea - History of Present Illness This is a pleasant 81-year-old female who had presented to the hospital 5 days ago with complaints of nausea vomiting and diarrhea. This is been an ongoing symptom for the last 6 months however had recently been getting worse. She's been having some lower abdominal cramping. States that she eats something she gets some nausea and then she follows with diarrhea about one hour after she eats she states that she has anywhere between 3-5 bowel movements daily. She reports them as nonbloody. However the patient states he over the last couple days she did have a little bit of blood with her bowel movement. However was told that she may have some bleeding due to her biopsies and chronic diarrhea. She was started on Lomotil at home. She had an upper and lower endoscopy done with Dr. Carty on 11/12/2022 for abdominal pain/GERD and chronic diarrhea. Upper endoscopy revealed moderate to large hiatal hernia and mild antral gastritis. Colonoscopy revealed sigmoid diverticula stricture and diffuse diverticulosis has scope was advanced up to the hepatic flexure. Biopsy results reported gastric antrum biopsy with mild chronic gastritis with focal intestinal metaplasia, H pylori not identified. Ascending colon biopsy benign, descending colon biopsy mild nonspecific active colitis and the sigmoid colon with focal mild nonspecific active colitis. Review of Systems REVIEW OF SYSTEMS: CARDIOPULMONARY: No chest pain or shortness of breath. Gastrointestinal: Complains of abdominal bloating, GERD. Nausea with eating sometimes vomiting. No hematemesis, coffee-ground emesis. Chronic diarrhea, 3- 5 times daily. No rectal bleeding, or melena. GENITOURINARY: No dysuria or hematuria. MUSCULOSKELETAL: Reports normal range of motion. SKIN: No rashes. No jaundice. ENDOCRINE: No chills, fevers. No excessive weight gain or loss. No polydipsia or polyuria. PSYCHIATRIC: Unremarkable. NEUROLOGY: No change in mental status. Denies dizziness, headache. ENT: Vision unremarkable. CONSTITUTIONAL: No recent weight loss. No fever, chills, night sweats. Past Medical History Past Medical History: Blood Disorder, Cancer, GERD/Reflux, Hyperlipidemia, Hypertension, Renal Disease, Thyroid Disorder Additional Past Medical History / Comment(s): HX ANEMIA AND DIVERTICULOSIS. HAS LOW KIDNEY FUNCTION, 21%. SKIN CANCER, can't eat much, feels full quickly, has lost 10 lbs since August, gas, bloating, loose stools;hiatal hernia, diverticulosis History of Any Multi-Drug Resistant Organisms: None Reported Past Surgical History: Bladder Surgery, Cholecystectomy, Hysterectomy, Joint Replacement Additional Past Surgical History / Comment(s): sinus surgery. BILAT TKA. PAIN STIMULATOR IN BACK. BASAL CELL CARCINOMA REMOVED FROM LT EYELID. EGD/colonoscopy 11/12/22 Past Anesthesia/Blood Transfusion Reactions: Postoperative Nausea & Vomiting (PONV) Additional Past Anesthesia/Blood Transfusion Reaction / Comm: severe PONV Past Psychological History: No Psychological Hx Reported Smoking Status: Never smoker Past Alcohol Use History: Rare Past Drug Use History: None Reported - Past Family History Mother Family Medical History: No Reported History Additional Family Medical History / Comment(s): of old age at 89 years old Father Family Medical History: Unable to Obtain Additional Family Medical History / Comment(s): Unable to obtain history as far left when she was a young child Medications and Allergies Home Medications Medication Instructions Recorded Confirmed Type Levothyroxine Sodium [Synthroid] 50 mcg PO DAILY 01/19/16 11/14/22 History allopurinoL [Zyloprim] 100 mg PO DAILY 06/05/16 11/14/22 History Sodium Bicarbonate Tab 650 mg PO TID 10/27/20 11/14/22 History Ferrous Sulfate [Iron (65 MG 325 mg PO DAILY 06/28/21 11/14/22 History Elemental)] Diphenox-Atrop 2.5-0.025 mg 2 tab PO TID PRN 10/29/22 11/14/22 History [Lomotil] HYDROcodone/APAP 10-325MG [Weott 1 tab PO Q6HR PRN 10/29/22 11/14/22 History 10-325] Lansoprazole [Prevacid] 30 mg PO DAILY 10/29/22 11/14/22 History Acetaminophen [Tylenol Arthritis] 650 mg PO Q6H PRN 11/14/22 11/14/22 History Cholecalciferol [Vitamin D3 (25 50 mcg PO DAILY 11/14/22 11/14/22 History Mcg = 1000 Iu)] Ondansetron Odt [Zofran Odt] 4 mg PO Q8HR PRN 11/14/22 11/14/22 History Rosuvastatin [Crestor] 10 mg PO HS 11/14/22 11/14/22 History diphenhydrAMINE HCL [Benadryl] 25 mg PO HS 11/14/22 11/14/22 History Allergies Allergy/AdvReac Type Severity Reaction Status Date / Time iodine Allergy MAKES CUTS Verified 11/14/22 21:29 WORSE Sulfa (Sulfonamide Allergy Rash/Hives Verified 11/14/22 21:29 Antibiotics) codeine AdvReac CONSTIPATIO Verified 11/14/22 21:29 N NSAIDS (Non-Steroidal AdvReac Kidney Verified 11/14/22 21:29 Anti-Inflamma Function Physical Exam Vitals: Vital Signs Temp Pulse Resp BP Pulse Ox 11/19/22 14:00 87 18 11/19/22 13:47 98.3 F 87 18 137/82 100 11/19/22 08:00 69 18 11/19/22 07:40 98.0 F 69 18 133/84 93 L 11/19/22 02:36 97.3 F L 77 16 144/80 96 11/18/22 20:00 16 11/18/22 19:45 98.3 F 94 15 124/79 99 Intake and Output 11/19/22 11/19/22 11/19/22 06:59 14:59 22:59 Intake Total 350 Balance 350 Intake: Oral 350 Other: Voiding Method Bedside Commode Diaper # Bowel Movements 1 General appearance: The patient is alert, oriented, appears in no acute distress. HET: Head is normocephalic and atraumatic. Conjunctiva pink. Sclera anicteric. Neck: Supple without lymphadenopathy. Trachea midline. Heart: S1 S2. Regular rate and rhythm. Lungs: Clear to auscultation. Abdomen: Soft, nontender, nondistended with bowel sounds. No guarding or rigidity. Skin: No rashes. No jaundice. Extremities: Normal skin color and turgor. No pedal edema. Neurological: No focal deficits. Alert and oriented x3. Results CBC & Chem 7: 11/19/22 06:02 11/19/22 06:02 Labs: Abnormal Lab Results - Last 24 Hours (Table) 11/19/22 11/19/22 11/19/22 Range/Units 06:02 06:02 06:02 RBC 3.00 L (4.10-5.20) X 10*6/uL Hgb 9.3 L (12.0-15.0) d/dL Hct 30.9 L (37.2-46.3) % MCV 103.0 H (80.0-97.0) FL MCHC 30.1 L (32.0-37.0) d/dL RDW 17.0 H (11.5-14.5) % Carbon Dioxide 19.2 L (21.6-31.8) mmol/L Anion Gap 12.80 H (4.00-12.00) mmol/L BUN 41.0 H (9.0-27.0) mg/dL Creatinine 4.2 H (0.6-1.5) mg/dL Est GFR (CKD-EPI) 10 L (>=60) BUN/Creatinine Ratio 9.76 L (12.00-20.00) Ratio Calcium 7.5 L (8.7-10.3) mg/dL Prealbumin <6.0 L (18.0-42.0) mg/dL Microbiology - Last 24 Hours (Table) 11/15/22 05:30 Urine Culture - Final Urine,Voided Klebsiella pneumoniae Citrobacter species 11/17/22 00:00 Stool Culture - Preliminary Stool 11/15/22 14:03 Blood Culture - Preliminary Blood Assessment and Plan (1) Colitis Narrative/Plan: 81-year-old female with chronic, diarrhea who underwent upper and lower endoscopy last week with Dr. Carty. Patient presented back to the emergency department with complaints of abdominal bloating, cramping and discomfort with continued diarrhea and, nausea and vomiting. Upper endoscopy had revealed large hiatal hernia. Gen. surgery is following patient and recommended thoracic surgery to evaluate further for the hiatal hernia. Patient's colonoscopy biopsy results states nonspecific active colitis in the descending colon and focal mild nonspecific active in the sigmoid colon. Likely infectious, will start patient on Flagyl. Will also add dicyclomine for abdominal cramping. Current Visit: Yes Status: Acute Code(s): K52.9 - NONINFECTIVE GASTROEN TERITIS AND COLITIS, UNSPECIFIED SNOMED Code(s): 01836454 (2) Diarrhea Current Visit: Yes Status: Acute Code(s): R19.7 - DIARRHEA, UNSPECIFIED SNOMED Code(s): 18654414 (3) Hiatal hernia Current Visit: Yes Status: Acute Code(s): K44.9 - DIAPHRAGMATIC HERNIA WITHOUT OBSTRUCTION OR GANGRENE SNOMED Code(s): 66654783 (4) Nausea and vomiting Current Visit: Yes Status: Acute Code(s): R11.2 - NAUSEA WITH VOMITING, UNSPECIFIED SNOMED Code(s): 71077007 Plan: 1. Continue symptomatic and supportive care 2. Start Flagyl 500 mg 3 times a day 3. Add dicyclomine 10 mg 3 times a day as needed for abdominal cramping 4. Discontinue Lomotil 5. Diet as tolerated 6. No plans on further endoscopic evaluation Thank you for this consultation, we will continue to follow. Dr. Rigo Carty I agree with the dictator's note, documented as a scribe by Jazz Rangel.
[2022-11-19] MEDS: metroNIDAZOLE 500 MG TAB PO SCH ×2 (17:36→20:05)
[2022-11-19] MEDS: DICYCLOMINE 10 MG/ML 2 ML AMP IM SCH (17:37)
--- NOTE | 2022-11-19 18:50 | XR ---
EXAMINATION TYPE: XR chest 1V DATE OF EXAM: 11/19/2022 2:42 PM COMPARISON: Chest radiographs from 11/21/2022 TECHNIQUE: XR chest 1V Frontal view of the chest. CLINICAL INDICATION:Female, 81 years old with history of chf; FINDINGS: Lungs/Pleura: No evidence of focal consolidation or pneumothorax. Blunting of the costophrenic angles is present. Pulmonary vascularity: Pulmonary vascular congestion. Heart/mediastinum: Cardiomediastinal silhouette is enlarged and stable. Large hiatal hernia remains p resent as seen on CT same day. Musculoskeletal: No acute osseous pathology. IMPRESSION: Cardiomegaly and bilateral pleural effusions with large hiatal hernia.
[2022-11-19] MEDS: ATORVASTATIN 20 MG TAB PO SCH (20:05)
[2022-11-19] MEDS: FAMOTIDINE 20 MG TAB PO SCH (20:05)
[2022-11-19] MEDS: diphenhydrAMINE 25 MG CAP PO SCH (20:05)
--- NOTE | 2022-11-19 20:32 | CT ---
EXAMINATION TYPE: CT chest wo con DATE OF EXAM: 11/19/2022 COMPARISON: Chest x-ray 11/19/2022, CT abdomen pelvis 11/11/2022 HISTORY: intra thoracic hiatal hernia. ORAL CONTRAST PER ORDERING DR TO EVALUATE HERNIA. CT DLP: 272.80 mGycm. Automated Exposure Control for Dose Reduction was Utilized. TECHNIQUE: CT scan of the thorax is performed without IV contrast. FINDINGS: LUNGS: Small bilateral pleural effusions with associated atelectasis. Atelectatic changes of the lung base secondary to left diaphragmatic hernia. Left upper lobe granulomas. Multifocal subsegmental ate lectasis. No pneumothorax. MEDIASTINUM: Lack of IV contrast is noted to limit evaluation for mediastinal and especially hilar ad enopathy. There are no definitive greater than 1 cm hilar or mediastinal lymph nodes. Mild cardiomega ly. Small pericardial effusion. OTHER: Large hiatal hernia containing the stomach and portions of the colonic bowel, similar to prior CT examination from 11/11/2022. No findings to suggest obstruction. Fluid debris opacifies the thorac ic esophagus. Bilateral renal cysts. This includes right lower pole hyperdense 3.5 cm renal cyst which is similar t o prior. Right hepatic cyst also similar to prior. IMPRESSION: 1. Bilateral small pleural effusions with associated atelectasis. 2. Cardiomegaly with small pericardial effusion. 3. Large hiatal hernia containing stomach and portions of the colonic bowel, similar to prior.
[2022-11-20] MEDS: DICYCLOMINE 10 MG/ML 2 ML AMP IM SCH ×6 (00:20→23:54)
[2022-11-20] MEDS: LEVOTHYROXINE 50 MCG TAB PO SCH (05:26)
[2022-11-20] MEDS: PANTOPRAZOLE 40 MG/10 ML VIAL IV SCH (08:24)
[2022-11-20] MEDS: metroNIDAZOLE 500 MG TAB PO SCH ×3 (08:24→20:35)
[2022-11-20] MEDS: SODIUM BICARBONATE TAB 650 MG TAB PO SCH ×3 (08:24→20:35)
[2022-11-20] MEDS: allopurinoL 100 MG TAB PO SCH (08:24)
[2022-11-20] MEDS: SUCRALFATE 1 GM TAB PO SCH ×4 (08:24→20:35)
[2022-11-20] MEDS: CHOLECALCIFEROL 25 MCG (1000 IU) TABLET PO SCH (08:24)
[2022-11-20] MEDS: FERROUS SULFATE 325 MG TAB PO SCH (08:24)
--- NOTE | 2022-11-20 10:31 | P.PN ---
Subjective Progress Note Date: 11/20/22 CHIEF COMPLAINT: Large hiatal hernia HISTORY OF PRESENT ILLNESS: Patient denies any abdominal pain. GI services added Flagyl for possible colitis. Patient evaluated by cardiothoracic service for her large hiatal hernia. The report states possible surgical intervention on Friday. Patient tolerating full liquids. Afebrile. WBC 8.06 Hgb 9.3 platelets 211 Na 135 potassium 3.6 creatinine 4.2 PHYSICAL EXAM: VITAL SIGNS: Reviewed GENERAL: Well-developed in no acute distress. HEENT: No sclera icterus. Extraocular movements grossly intact. Moist buccal mucosa. Head is atraumatic, normocephalic. Hears conversational speech. No nasal drainage. NECK: Supple without lymphadenopathy. CHEST: Non-labored respirations and equal bilateral excursions. CARDIOVASCULAR: Palpable 2+ radial pulses. ABDOMEN: Soft. Nondistended. Nontender. MUSCULOSKELETAL: No clubbing or cyanosis. NEUROLOGIC: No focal or lateralizing signs. Cranial nerves II through XII grossly intact. PSYCH: Appropriate affect. Alert and oriented to person, place and time. SKIN: Well perfused. Good skin turgor. ASSESSMENT: 1. Large intra-thoracic hiatal hernia, grade IV 2. Dyspnea 3. Colitis contributing to patient's diarrhea managed by GI service PLAN: -Repair of large intrathoracic hiatal hernia per cardiac thoracic service -Continue supportive care -Continue full liquid diet with no straws or carbonated beverages -Surgical service will sign off. Please call with any questions or concerns. Physician Coke Production Heater note has been reviewed by physician. Signing provider agrees with the documented findings, assessment, and plan of care. Objective - Vital Signs Vital signs: Vital Signs Temp 98.3 F 11/20/22 07:37 Pulse 73 11/20/22 07:37 Resp 16 11/20/22 07:37 BP 142/82 11/20/22 07:37 Pulse Ox 96 11/20/22 07:37 FiO2 Intake & Output 11/19/22 11/20/22 11/20/22 18:59 06:59 18:59 Intake Total 440 Balance 440 Intake: Oral 440 Other: Voiding Method Bedside Commode Bedside Commode Diaper Diaper # Voids 1 # Bowel Movements 1 - Labs CBC & Chem 7: 11/19/22 06:02 11/19/22 06:02 Labs: Abnormal Lab Results - Last 24 Hours (Table) 11/16/22 11/19/22 Range/Units 18:35 06:02 Prealbumin <6.0 L (18.0-42.0) mg/dL Stool Calprotectin 2,604.8 H (<50) mcg/g Microbiology - Last 24 Hours (Table) 11/17/22 00:00 Stool Culture - Final Stool 11/15/22 05:30 Urine Culture - Final Urine,Voided Klebsiella pneumoniae Citrobacter species
--- NOTE | 2022-11-20 11:56 | P.PN ---
Subjective Progress Note Date: 11/20/22 I am seeing this patient in new consultation today 11/18/2022 for chronic dyspnea, likely related to the patient's large hiatal hernia. Patient is an 81-year-old white female with past medical history significant for a large hiatal hernia, GERD, hyperlipidemia, hypertension, chronic kidney disease, anemi a, hypothyroidism, and is a never smoker. Patient denies any history of lung disease including COPD or asthma. Her primary care provider is Dr. Balbir Roman. Patient recently had an EGD and colonoscopy with Dr. Carty to investigate her chronic abdominal pain, nausea and vomiting, and diarrhea that started back in August of this year. She was found to have a moderate to large size hiatal hernia with mild antral gastritis. There was also diffuse diverticulosis within the sigmoid colon without diverticulitis. Patient did present to the emergency room for similar complaints of persistent nausea, vomiting, and diarrhea on November 14. Patient's symptoms have reportedly worsened. There is associated nausea and diarrhea about one hour after eating. We were consulted for chronic ongoing dyspnea that started over one year ago. Patient states that her shortness of breath is mostly on exertion and specific positions. This is likely related to the patient's hiatal hernia. COPD is felt to be less likely. She denies any fever, chills, cough, hemoptysis, chest pain. Patient is currently lying in bed, on room air, in no acute distress. Chest x-ray from earlier this morning shows some mild pulmonary vascular congestion. There is an elevated left hemidiaphragm with a large hiatal hernia and bibasilar atelectasis. A surgical consultation with CT services has been ordered. Patient also has a positive urine culture for gram-negative bacilli. Currently receiving coverage with Rocephin. There is a component of acute on chronic kidney disease. Most recent BMP from yesterday shows sodium 140, potassium 3.6, chloride 106, serum bicarb 22, BUN 40, creatinine 4, glucose 82. Most recent CBC shows a WBC count of 8, hemoglobin 9.6, hematocrit 31.3, platelets 254. Patient does have anemia of chronic disease, however, her fecal occult was positive. Patient has had ongoing diarrhea, no obvious acute blood loss or melena reported. C. diff was negative. Stool lactoferrin was positive. Vital signs are stable. The patient is seen today 11/19/2022 in follow-up on the regular medical floor. She is currently resting comfortably in bed. Awake and alert in no acute distress. Maintaining good O2 saturations in the 90s on room air. Afebrile. Hemodynamically stable. She did have 2 bowel movements with some blood noted. Hemoglobin 9.3. White count 8.0. Platelets 211. Sodium 135. Potassium 3.6. Bicarb 19. BUN 41. Creatinine 4.2. Urine culture positive for gram-negative bacilli. Currently on ceftriaxone. She is continued on Protonix and Carafate. Surgical recommendations pending. The patient is seen today 11/20/2022 in follow-up on the regular medical floor. She is awake and alert in no acute distress. Resting fairly comfortably in bed. Maintaining good O2 saturations in the mid 90s on room air. She's been afebrile. CT scan of the chest revealed bilateral small effusions with associated atelectasis. Cardiomegaly with a small pericardial effusion. Large hiatal hernia containing stomach and portions of the colonic bowel, similar to previous. Cardiothoracic surgery is planning intervention on 11/25/2022. Urine culture was positive for Klebsiella pneumoniae, Citrobacter species. She is currently on ceftriaxone. Blood cultures revealed no growth. Stool culture revealed no growth. Her diet is being supplemented with ensure Magic cups 3 times a day she remains on a full liquid diet with a soft/chopped diet as tolerated Objective - Vital Signs Vital signs: Vital Signs Temp 98.3 F 11/20/22 07:37 Pulse 73 11/20/22 07:37 Resp 16 11/20/22 07:37 BP 142/82 11/20/22 07:37 Pulse Ox 96 11/20/22 07:37 FiO2 Intake & Output 11/19/22 11/20/22 11/20/22 18:59 06:59 18:59 Intake Total 440 Balance 440 Weight 53.524 kg Intake: Oral 440 Other: Voiding Method Bedside Commode Bedside Commode Diaper Diaper # Voids 1 # Bowel Movements 1 - Exam GENERAL EXAM: Alert, weak, frail 81-year-old female, on room air, comfortable in no apparent distress. HEAD: Normocephalic and atraumatic EYES: Normal reaction of pupils, equal size. NOSE: Clear with pink turbinates. THROAT: No erythema or exudates. NECK: No masses, no JVD. CHEST: No chest wall deformity. LUNGS: Equal air entry with no crackles, wheeze, rhonchi or dullness. CVS: S1 and S2 normal with no audible murmur, regular rhythm. No extra heart sounds ABDOMEN: No hepatosplenomegaly, active bowel sounds, no guarding or rigidity. SPINE: No scoliosis or deformity SKIN: No rashes CENTRAL NERVOUS SYSTEM: No focal deficits, tone is normal in all 4 extremities. EXTREMITIES: There is no peripheral edema, clubbing, or cyanosis. Peripheral pulses are intact. - Labs CBC & Chem 7: 11/19/22 06:02 11/19/22 06:02 Labs: Abnormal Lab Results - Last 24 Hours (Table) 11/16/22 11/19/22 Range/Units 18:35 06:02 Prealbumin <6.0 L (18.0-42.0) mg/dL Stool Calprotectin 2,604.8 H (<50) mcg/g Microbiology - Last 24 Hours (Table) 11/17/22 00:00 Stool Culture - Final Stool 11/15/22 05:30 Urine Culture - Final Urine,Voided Klebsiella pneumoniae Citrobacter species Assessment and Plan Assessment: Chronic dyspnea, likely related to large hiatal hernia. Chest x-ray shows an elevated left hemidiaphragm with a large hiatal hernia and bibasilar atelectasis. There is also some mild pulmonary vascular congestion. History of large hiatal hernia Acute on chronic kidney disease Acute urinary tract infection secondary to gram-negative bacilli, on ceftriaxone GERD without esophagitis Gastritis Diverticulosis without diverticulitis Chronic diarrhea, under investigation Benign essential hypertension Hyperlipidemia Anemia of chronic disease Positive fecal occult; no reports of overt acute blood loss Hypothyroidism Never smoker Plan: The patient was seen and evaluated Chest x-ray, CT chest, labs and medications reviewed Plan is for repair of the hiatal hernia early next week Continue Protonix and Carafate Continue dietary supplements as tolerated Increase her activity as tolerated We will continue to follow I have personally seen and examined the patient, performed the documentation and the assessment and plan as written. Number of minutes spent on the visit: 10.
--- NOTE | 2022-11-20 13:05 | P.PN ---
Subjective Patient is seen for follow-up for acute kidney injury and top of chronic kidney disease. Renal function is stable with serum creatinine staying at about 4.0 -4.2 mg/dL. Baseline creatinine around 3 No significant complaints today. Currently not on IV fluids or diuretics. There is plan for repair of the large hiatal hernia by cardiothoracic surgery. Objective - Vital Signs Vital signs: Vital Signs Temp 98.3 F 11/20/22 07:37 Pulse 73 11/20/22 07:37 Resp 16 11/20/22 07:37 BP 142/82 11/20/22 07:37 Pulse Ox 96 11/20/22 07:37 FiO2 Intake & Output 11/19/22 11/20/22 11/20/22 18:59 06:59 18:59 Intake Total 440 Balance 440 Weight 53.524 kg Intake: Oral 440 Other: Voiding Method Bedside Commode Bedside Commode Diaper Diaper # Voids 1 # Bowel Movements 1 - Exam Awake, comfortable, no acute distress Examination of the heart S1 and S2 Examination of the lungs bilateral breath sounds are heard Abdomen is soft nontender Examination of lower extremities shows edema 1+ MOTORCYCLE SERVICE TECHNICIAN exam grossly intact - Labs CBC & Chem 7: 11/19/22 06:02 11/19/22 06:02 Labs: Abnormal Lab Results - Last 24 Hours (Table) 11/16/22 11/19/22 Range/Units 18:35 06:02 Prealbumin <6.0 L (18.0-42.0) mg/dL Stool Calprotectin 2,604.8 H (<50) mcg/g Microbiology - Last 24 Hours (Table) 11/17/22 00:00 Stool Culture - Final Stool 11/15/22 05:30 Urine Culture - Final Urine,Voided Klebsiella pneumoniae Citrobacter species Assessment and Plan Assessment: 1. Acute kidney injury mostly prerenal secondary to hypovolemia from vomiting and diarrhea. Creatinine 4.04 on admission and staying at 4.2 on 11/19/2022. No hydronephrosis noted on ultrasound on 10/24/2022 2. Chronic kidney disease stage V secondary to nephrosclerosis and chronic interstitial nephritis from NSAID use. Recent creatinine 3-3.7. 3. Hypomagnesemia from GI losses. Replaced. Improved. . 4. Hypokalemia from poor intake and diuretic. Potassium 3.6 today. 5. Anemia of chronic kidney disease. Iron replete. On Aranesp. 6. Intractable nausea vomiting and diarrhea. Patient had cryptosporidium infection in August 2022 and was treated by GI. Also had EGD and colonoscopy done 11/12/2022 which showed large hiatal hernia, mild antral gastritis, sigmoid diverticular stricture and diverticulosis. Abdominal ultrasound in October 2022 showed dilated bile duct at 1.5 cm. 7. Hypertension with chronic kidney disease. Stable. 8. Lower extremity edema with albumin of 2.0 concerning for third spacing. Status post IV albumin and Lasix this admission. Plan: Encouraged increased oral intake No urgent need for renal replacement therapy at this time Repeat labs in a.m. Continue with oral sodium bicarb.
--- NOTE | 2022-11-20 13:36 | P.PN ---
Subjective Progress Note Date: 11/20/22 Principal diagnosis: Large intra-thoracic hiatal hernia, acute on chronic kidney disease, abdominal discomfort, nausea, vomiting, diarrhea. History of chronic dyspnea, 10-14 pound weight loss since August, GERD without esophagitis, gastritis, diverticulosis without diverticulitis, hypertension, hyperlipidemia, anemia of chronic disease, hypothyroidism, never smoker The patient was seen and examined laying in bed on the medical surgical unit in no acute distress. Continues to have minimal oral intake, shortness of breath with exertion and diarrhea. Denies pain although abdomen is tender to palpation. No other new concerns. Dr. Rivers discussed the need for increased oral intake and increased protein prior to and after surgey in order to heal. RD was consulted. Objective - Vital Signs Vital signs: Vital Signs Temp 98.3 F 11/20/22 07:37 Pulse 73 11/20/22 07:37 Resp 16 11/20/22 07:37 BP 142/82 11/20/22 07:37 Pulse Ox 96 11/20/22 07:37 FiO2 Intake & Output 11/19/22 11/20/22 11/20/22 18:59 06:59 18:59 Intake Total 440 Balance 440 Weight 53.524 kg Intake: Oral 440 Other: Voiding Method Bedside Commode Bedside Commode Diaper Diaper # Voids 1 # Bowel Movements 1 - Exam CONSTITUTIONAL: Appears comfortable, cooperative, no acute distress RESPIRATORY: Lungs sounds clear bilaterally. Respirations even, nonlabored. Currently on room air with oxygen saturation 96%. Able to achieve 1000 mL on incentive spirometry CARDIOVASCULAR: S1, S2 present. Regular rate and rhythm. Palpable peripheral pulses bilaterally. Bilateral lower extremity edema present. No calf pain or tenderness noted GASTROINTESTINAL: Abdomen soft, tender to palpation, nondistended. Active bowel sounds present 4 quadrants. Tolerating minimal diet GENITOURINARY: Continues to void INTEGUMENTARY: Skin is warm and dry NEUROLOGIC: Cranial nerves II through XII intact MUSKULOSKELETAL: Able to move all extremities, strength equal bilaterally PSYCHIATRIC: Alert and oriented to person place and time, appropriate affect, intact judgment and insight - Allied health notes Allied health notes reviewed: nursing - Labs CBC & Chem 7: 11/19/22 06:02 11/19/22 06:02 Labs: Abnormal Lab Results - Last 24 Hours (Table) 11/16/22 11/19/22 Range/Units 18:35 06:02 Prealbumin <6.0 L (18.0-42.0) mg/dL Stool Calprotectin 2,604.8 H (<50) mcg/g Microbiology - Last 24 Hours (Table) 11/17/22 00:00 Stool Culture - Final Stool 11/15/22 05:30 Urine Culture - Final Urine,Voided Klebsiella pneumoniae Citrobacter species Assessment and Plan Assessment: Large intra-thoracic hiatal hernia, grade IV Chronic dyspnea, likely related to large hiatal hernia Acute on chronic kidney disease Abdominal discomfort Nausea, vomiting, diarrhea 10-14 pound weight loss since August History of GERD without esophagitis Gastritis Diverticulosis without diverticulitis History of hypertension History of hyperlipidemia Anemia of chronic disease Hypothyroidism Never smoker Plan: Plan is for repair of intrathoracic hiatal hernia repair Friday by Dr. Rivers Continue medical management per internal medicine, GI, pulmonology, nephrology Increase activity as tolerated Encourage oral consumption as tolerated, patient should sit straight up for at least [address] ordered, patient was counseled regarding need for increased nutrition and protein intake in order to heal Calorie count to be started, discussed with RN More recommendations to follow
--- NOTE | 2022-11-20 15:12 | P.PN ---
Subjective Progress Note Date: 11/20/22 Principal diagnosis: Diarrhea This is a pleasant 81-year-old female who had presented to the hospital 5 days ago with complaints of nausea vomiting and diarrhea. This is been an ongoing symptom for the last 6 months however had recently been getting worse. She's been having some lower abdominal cramping. States that she eats something she gets some nausea and then she follows with diarrhea about one hour after she eats she states that she has anywhere between 3-5 bowel movements daily. She reports them as nonbloody. However the patient states he over the last couple d ays she did have a little bit of blood with her bowel movement. However was told that she may have some bleeding due to her biopsies and chronic diarrhea. She was started on Lomotil at home. She had an upper and lower endoscopy done with Dr. Carty on 11/12/2022 for abdominal pain/GERD and chronic diarrhea. Upper endoscopy revealed moderate to large hiatal hernia and mild antral gastritis. Colonoscopy revealed sigmoid diverticula stricture and diffuse diverticulosis has scope was advanced up to the hepatic flexure. Biopsy results reported gastric antrum biopsy with mild chronic gastritis with focal intestinal metaplasia, H pylori not identified. Ascending colon biopsy benign, descending colon biopsy mild nonspecific active colitis and the sigmoid colon with focal mild nonspecific active colitis. 11/20/2022 Patient seen and examined as a follow-up. States diarrhea about the same. Denies any abdominal pain, nausea or vomiting at this time. Patient did undergo chest CT reporting bilateral small pleural effusions with associated atelectasis. Cardiomegaly with small pericardial effusion. Large hiatal hernia containing stomach and portions of the colonic bowel, similar to prior. Apparently patient is scheduled to undergo intrathoracic hiatal hernia repair Friday by Dr. Rivers. Patient remains afebrile. Stool calprotectin 2,604, stool cryptosporidium antigen negative, Giardia still pending. Objective - Vital Signs Vital signs: Vital Signs Temp 98.3 F 11/20/22 07:37 Pulse 73 11/20/22 07:37 Resp 16 11/20/22 07:37 BP 142/82 11/20/22 07:37 Pulse Ox 96 11/20/22 07:37 FiO2 Intake & Output 11/19/22 11/20/22 11/20/22 18:59 06:59 18:59 Intake Total 440 Balance 440 Intake: Oral 440 Other: Voiding Method Bedside Commode Bedside Commode Diaper Diaper # Voids 1 # Bowel Movements 1 - Exam General appearance: The patient is alert, oriented, appears in no acute distress. HET: Head is normocephalic and atraumatic. Conjunctiva pink. Sclera anicteric. Neck: Supple without lymphadenopathy. Abdomen: Soft, nontender, nondistended with bowel sounds. No guarding or rigidity. Extremities: Normal skin color and turgor. No pedal edema Skin: No rashes, no jaundice Neurological: No focal deficits. Alert and oriented. - Labs CBC & Chem 7: 11/19/22 06:02 11/19/22 06:02 Labs: Abnormal Lab Results - Last 24 Hours (Table) 11/19/22 11/19/22 11/19/22 Range/Units 06:02 06:02 06:02 RBC 3.00 L (4.10-5.20) X 10*6/uL Hgb 9.3 L (12.0-15.0) d/dL Hct 30.9 L (37.2-46.3) % MCV 103.0 H (80.0-97.0) FL MCHC 30.1 L (32.0-37.0) d/dL RDW 17.0 H (11.5-14.5) % Carbon Dioxide 19.2 L (21.6-31.8) mmol/L Anion Gap 12.80 H (4.00-12.00) mmol/L BUN 41.0 H (9.0-27.0) mg/dL Creatinine 4.2 H (0.6-1.5) mg/dL Est GFR (CKD-EPI) 10 L (>=60) BUN/Creatinine Ratio 9.76 L (12.00-20.00) Ratio Calcium 7.5 L (8.7-10.3) mg/dL Prealbumin <6.0 L (18.0-42.0) mg/dL Microbiology - Last 24 Hours (Table) 11/17/22 00:00 Stool Culture - Final Stool 11/15/22 05:30 Urine Culture - Final Urine,Voided Klebsiella pneumoniae Citrobacter species Assessment and Plan (1) Colitis Narrative/Plan: 81-year-old female with chronic, diarrhea who underwent upper and lower endoscopy last week with Dr. Carty. Patient presented back to the emergency department with complaints of abdominal bloating, cramping and discomfort with continued diarrhea and, nausea and vomiting. Upper endoscopy had revealed large hiatal hernia. Gen. surgery is following patient and recommended thoracic surgery to evaluate further for the hiatal hernia. Patient's colonoscopy biopsy results states nonspecific active colitis in the descending colon and focal mild nonspecific active in the sigmoid colon. Likely infectious, will start patient on Flagyl. Will also add dicyclomine for abdominal cramping. Current Visit: Yes Status: Acute Code(s): K52.9 - NONINFECTIVE GASTROENTERITIS AND COLITIS, UNSPECIFIED SNOMED Code(s): 00003304 (2) Diarrhea Current Visit: Yes Status: Acute Code(s): R19.7 - DIARRHEA, UNSPECIFIED SNOMED Code(s): 30156460 (3) Hiatal hernia Current Visit: Yes Status: Acute Code(s): K44.9 - DIAPHRAGMATIC HERNIA WITHOUT OBSTRUCTION OR GANGRENE SNOMED Code(s): 36210808 (4) Nausea and vomiting Current Visit: Yes Status: Acute Code(s): R11.2 - NAUSEA WITH VOMITING, UNSPECIFIED SNOMED Code(s): 73284863 Plan: 1. Continue symptomatic and supportive care 2. Start Flagyl 500 mg 3 times a day 3. Continue dicyclomine 10 mg 3 times a day as needed for abdominal cramping 4. Discontinue Lomotil 5. Diet as tolerated 6. No plans on further endoscopic evaluation 7. Follow up outpatient in 1-2 weeks Thank you for this consultation, we will continue to follow. Dr. Rigo Carty I agree with the dictator's note, documented as a scribe by Jazz Rangel.
[2022-11-20] MEDS: FAMOTIDINE 20 MG TAB PO SCH (20:35)
[2022-11-20] MEDS: ATORVASTATIN 20 MG TAB PO SCH (20:35)
[2022-11-20] MEDS: diphenhydrAMINE 25 MG CAP PO SCH (20:35)
[2022-11-21] MEDS: LEVOTHYROXINE 50 MCG TAB PO SCH (05:28)
[2022-11-21] MEDS: DICYCLOMINE 10 MG/ML 2 ML AMP IM SCH (05:29)
[2022-11-21] MEDS: CHOLECALCIFEROL 25 MCG (1000 IU) TABLET PO SCH (08:21)
[2022-11-21] MEDS: PANTOPRAZOLE 40 MG/10 ML VIAL IV SCH (08:21)
[2022-11-21] MEDS: metroNIDAZOLE 500 MG TAB PO SCH ×3 (08:21→21:48)
[2022-11-21] MEDS: SODIUM BICARBONATE TAB 650 MG TAB PO SCH ×3 (08:21→21:48)
[2022-11-21] MEDS: FERROUS SULFATE 325 MG TAB PO SCH (08:21)
[2022-11-21] MEDS: SUCRALFATE 1 GM TAB PO SCH ×4 (08:22→21:48)
[2022-11-21] MEDS: allopurinoL 100 MG TAB PO SCH (08:22)
[2022-11-21 09:04] LABS: BUN/Creat Ratio 9.78 Ratio (12.00-20.00); Basophils # (A) 0.02 X 10*3/uL (0.00-0.10); Basophils % (A) 0.3 %; Blood Urea Nitrogen 40.1 mg/dL (9.0-27.0); Calcium 7.4 mg/dL (8.7-10.3); Carbon Dioxide 22.3 mmol/L (21.6-31.8); Chloride 103 mmol/L (96-109); Eosinophils # (A) 0.01 X 10*3/uL (0.04-0.35); Eosinophils % (A) 0.2 %; Glucose 89 mg/dL (70-110); HCT 29.6 % (37.2-46.3); HGB 9.1 d/dL (12.0-15.0); Lymphocytes # (A) 1.01 X 10*3/uL (0.90-5.00); Lymphocytes % (A) 16.9 %; MCH 30.8 pg (27.0-32.0); MCHC 30.7 d/dL (32.0-37.0); MCV 100.3 FL (80.0-97.0); Mean Platelet Volume 11.1 FL (9.5-12.2); Monocytes # (A) 0.76 X 10*3/uL (0.20-1.00); Monocytes % (A) 12.7 %; NRBC Per 100 WBC 0 X 10*3/uL (0.00-0.01); Neutrophils # (A) 4.13 X 10*3/uL (1.80-7.70); Neutrophils % (A) 69.1 %; Platelet Count 208 X 10*3/uL (140-440); Potassium 3.3 mmol/L (3.5-5.5); RBC 2.95 X 10*6/uL (4.10-5.20); RDW 16.7 % (11.5-14.5); Sodium 136 mmol/L (135-145); WBC 5.98 X 10*3/uL (4.50-10.00)
--- NOTE | 2022-11-21 10:02 | P.PN ---
Subjective Progress Note Date: 11/21/22 Principal diagnosis: Large intra-thoracic hiatal hernia, acute on chronic kidney disease, abdominal discomfort, nausea, vomiting, diarrhea. History of chronic dyspnea, 10-14 pound weight loss since August, GERD without esophagitis, gastritis, diverticulosis without diverticulitis, hypertension, hyperlipidemia, anemia of chronic disease, hypothyroidism, never smoker The patient was seen and examined laying in bed on the medical surgical unit in no acute distress. Continues to have minimal oral intake, shortness of breath with exertion and diarrhea. Denies pain. Dr. Rivers discussed the need for increased oral intake and increased protein prior to and after surgey in order to heal as well as the need to get out of bed and increase activity. Objective - Vital Signs Vital signs: Vital Signs Temp 98.0 F 11/21/22 07:37 Pulse 93 11/21/22 07:37 Resp 14 11/21/22 07:37 BP 135/80 11/21/22 07:37 Pulse Ox 93 L 11/21/22 07:37 FiO2 Intake & Output 11/20/22 11/21/22 11/21/22 18:59 06:59 18:59 Intake Total 50 325 Balance 50 325 Weight 53.524 kg Intake: Intake, IV Titration 50 Amount cefTRIAXone 1 gm In 50 Sodium Chloride 0.9% 50 ml @ 100 mls/hr IVPB Q24HR [facility] Rx#:[id number] Oral 325 Other: Voiding Method Bedside Commode Diaper # Voids 1 1 # Bowel Movements 1 1 - Exam CONSTITUTIONAL: Appears comfortable, cooperative, no acute distress RESPIRATORY: Lungs sounds clear bilaterally. Respirations even, nonlabored. Currently on room air with oxygen saturation 93%. Able to achieve 1000 mL on incentive spirometry CARDIOVASCULAR: S1, S2 present. Regular rate and rhythm. Palpable peripheral pulses bilaterally. Bilateral lower extremity edema present. No calf pain or tenderness noted GASTROINTESTINAL: Abdomen soft, tender to palpation, nondistended. Active bowel sounds present 4 quadrants. Tolerating minimal diet GENITOURINARY: Continues to void INTEGUMENTARY: Skin is warm and dry NEUROLOGIC: Cranial nerves II through XII intact MUSKULOSKELETAL: Able to move all extremities, strength equal bilaterally PSYCHIATRIC: Alert and oriented to person place and time, appropriate affect, intact judgment and insight - Allied health notes Allied health notes reviewed: nursing - Labs CBC & Chem 7: 11/21/22 05:51 11/21/22 05:51 Labs: Abnormal Lab Results - Last 24 Hours (Table) 11/16/22 11/21/22 11/21/22 Range/Units 18:35 05:51 05:51 RBC 2.95 L (4.10-5.20) X 10*6/uL Hgb 9.1 L (12.0-15.0) d/dL Hct 29.6 L (37.2-46.3) % MCV 100.3 H (80.0-97.0) FL MCHC 30.7 L (32.0-37.0) d/dL RDW 16.7 H (11.5-14.5) % Eosinophils # 0.01 L (0.04-0.35) X 10*3/uL Potassium 3.3 L (3.5-5.5) mmol/L BUN 40.1 H (9.0-27.0) mg/dL Creatinine 4.1 H (0.6-1.5) mg/dL Est GFR (CKD-EPI) 10 L (>=60) BUN/Creatinine Ratio 9.78 L (12.00-20.00) Ratio Calcium 7.4 L (8.7-10.3) mg/dL Stool Calprotectin 2,604.8 H (<50) mcg/g Microbiology - Last 24 Hours (Table) 11/15/22 14:03 Blood Culture - Final Blood 11/17/22 00:00 Stool Culture - Final Stool Assessment and Plan Assessment: Large intra-thoracic hiatal hernia, grade IV Chronic dyspnea, likely related to large hiatal hernia Acute on chronic kidney disease Abdominal discomfort Nausea, vomiting, diarrhea Severe protein calorie malnutrition 10-14 pound weight loss since August History of GERD without esophagitis Gastritis Diverticulosis without diverticulitis History of hypertension History of hyperlipidemia Anemia of chronic disease Hypothyroidism Never smoker Plan: Plan is for repair of intrathoracic hiatal hernia repair Friday by Dr. Rivers Continue medical management per internal medicine, GI, pulmonology, nephrology Increase activity as tolerated. Patient to be out of bed the majority of the day, absolutely needs to be out of bed for all meals, discussed with nursing as well as the patient Encourage oral consumption as tolerated, patient should sit straight up for at least [address] ordered, patient was counseled regarding need for increased nutrition and protein intake in order to heal Calorie count ordered, discussed with RN More recommendations to follow
[2022-11-21] MEDS: DICYCLOMINE 10 MG CAP PO PRN (12:08)
[2022-11-21] MEDS: HYDROcodone/APAP 10-325MG 1 EACH TAB PO PRN (12:08)
--- NOTE | 2022-11-21 12:09 | P.PN ---
Subjective Progress Note Date: 11/21/22 I am seeing this patient in new consultation today 11/18/2022 for chronic dyspnea, likely related to the patient's large hiatal hernia. Patient is an 81-year-old white female with past medical history significant for a large hiatal hernia, GERD, hyperlipidemia, hypertension, chronic kidney disease, anemi a, hypothyroidism, and is a never smoker. Patient denies any history of lung disease including COPD or asthma. Her primary care provider is Dr. Balbir Roman. Patient recently had an EGD and colonoscopy with Dr. Carty to investigate her chronic abdominal pain, nausea and vomiting, and diarrhea that started back in August of this year. She was found to have a moderate to large size hiatal hernia with mild antral gastritis. There was also diffuse diverticulosis within the sigmoid colon without diverticulitis. Patient did present to the emergency room for similar complaints of persistent nausea, vomiting, and diarrhea on November 14. Patient's symptoms have reportedly worsened. There is associated nausea and diarrhea about one hour after eating. We were consulted for chronic ongoing dyspnea that started over one year ago. Patient states that her shortness of breath is mostly on exertion and specific positions. This is likely related to the patient's hiatal hernia. COPD is felt to be less likely. She denies any fever, chills, cough, hemoptysis, chest pain. Patient is currently lying in bed, on room air, in no acute distress. Chest x-ray from earlier this morning shows some mild pulmonary vascular congestion. There is an elevated left hemidiaphragm with a large hiatal hernia and bibasilar atelectasis. A surgical consultation with CT services has been ordered. Patient also has a positive urine culture for gram-negative bacilli. Currently receiving coverage with Rocephin. There is a component of acute on chronic kidney disease. Most recent BMP from yesterday shows sodium 140, potassium 3.6, chloride 106, serum bicarb 22, BUN 40, creatinine 4, glucose 82. Most recent CBC shows a WBC count of 8, hemoglobin 9.6, hematocrit 31.3, platelets 254. Patient does have anemia of chronic disease, however, her fecal occult was positive. Patient has had ongoing diarrhea, no obvious acute blood loss or melena reported. C. diff was negative. Stool lactoferrin was positive. Vital signs are stable. The patient is seen today 11/19/2022 in follow-up on the regular medical floor. She is currently resting comfortably in bed. Awake and alert in no acute distress. Maintaining good O2 saturations in the 90s on room air. Afebrile. Hemodynamically stable. She did have 2 bowel movements with some blood noted. Hemoglobin 9.3. White count 8.0. Platelets 211. Sodium 135. Potassium 3.6. Bicarb 19. BUN 41. Creatinine 4.2. Urine culture positive for gram-negative bacilli. Currently on ceftriaxone. She is continued on Protonix and Carafate. Surgical recommendations pending. The patient is seen today 11/20/2022 in follow-up on the regular medical floor. She is awake and alert in no acute distress. Resting fairly comfortably in bed. Maintaining good O2 saturations in the mid 90s on room air. She's been afebrile. CT scan of the chest revealed bilateral small effusions with associated atelectasis. Cardiomegaly with a small pericardial effusion. Large hiatal hernia containing stomach and portions of the colonic bowel, similar to previous. Cardiothoracic surgery is planning intervention on 11/25/2022. Urine culture was positive for Klebsiella pneumoniae, Citrobacter species. She is currently on ceftriaxone. Blood cultures revealed no growth. Stool culture revealed no growth. Her diet is being supplemented with ensure Magic cups 3 times a day she remains on a full liquid diet with a soft/chopped diet as tolerated. The patient is seen today 11/21/2022 in follow-up on the regular medical floor. She is sitting up in a chair at the bedside. Awake and alert in no acute distress. Maintaining good O2 saturations in the 90s on room air. She's been afebrile. Hemodynamically stable. Urine culture was positive for Klebsiella pneumoniae. Blood cultures reveal no growth. Stool culture revealed no growth. Stool for Calprotectin was elevated at 2604. Stool occult blood was positive. White count 5.9. Hemoglobin 9.1. Platelets 208. Sodium 136. Potassium 3.3. Bicarb 22. BUN 40. Creatinine 4.1. GFR 10. Glucose 89. She remains on ceftriaxone. And Flagyl. Continued on Protonix, Carafate. Objective - Vital Signs Vital signs: Vital Signs Temp 98.0 F 11/21/22 07:37 Pulse 93 11/21/22 07:37 Resp 14 11/21/22 07:37 BP 135/80 11/21/22 07:37 Pulse Ox 93 L 11/21/22 07:37 FiO2 Intake & Output 11/20/22 11/21/22 11/21/22 18:59 06:59 18:59 Intake Total 50 325 Balance 50 325 Weight 53.524 kg Intake: Intake, IV Titration 50 Amount cefTRIAXone 1 gm In 50 Sodium Chloride 0.9% 50 ml @ 100 mls/hr IVPB Q24HR [facility] Rx#:[id number] Oral 325 Other: Voiding Method Bedside Commode Bedside Commode Diaper # Voids 1 1 # Bowel Movements 1 1 - Exam GENERAL EXAM: Alert, 81-year-old female, in a chair, on room air, comfortable in no apparent distress. HEAD: Normocephalic and atraumatic EYES: Normal reaction of pupils, equal size. NOSE: Clear with pink turbinates. THROAT: No erythema or exudates. NECK: No masses, no JVD. CHEST: No chest wall deformity. LUNGS: Equal air entry with no crackles, wheeze, rhonchi or dullness. CVS: S1 and S2 normal with no audible murmur, regular rhythm. No extra heart sounds ABDOMEN: No hepatosplenomegaly, active bowel sounds, no guarding or rigidity. SPINE: No scoliosis or deformity SKIN: No rashes CENTRAL NERVOUS SYSTEM: No focal deficits, tone is normal in all 4 extremities. EXTREMITIES: There is no peripheral edema, clubbing, or cyanosis. Peripheral pulses are intact. - Labs CBC & Chem 7: 11/21/22 05:51 11/21/22 05:51 Labs: Abnormal Lab Results - Last 24 Hours (Table) 11/21/22 11/21/22 Range/Units 05:51 05:51 RBC 2.95 L (4.10-5.20) X 10*6/uL Hgb 9.1 L (12.0-15.0) d/dL Hct 29.6 L (37.2-46.3) % MCV 100.3 H (80.0-97.0) FL MCHC 30.7 L (32.0-37.0) d/dL RDW 16.7 H (11.5-14.5) % Eosinophils # 0.01 L (0.04-0.35) X 10*3/uL Potassium 3.3 L (3.5-5.5) mmol/L BUN 40.1 H (9.0-27.0) mg/dL Creatinine 4.1 H (0.6-1.5) mg/dL Est GFR (CKD-EPI) 10 L (>=60) BUN/Creatinine Ratio 9.78 L (12.00-20.00) Ratio Calcium 7.4 L (8.7-10.3) mg/dL Microbiology - Last 24 Hours (Table) 11/15/22 14:03 Blood Culture - Final Blood Assessment and Plan Assessment: Chronic dyspnea, likely related to large hiatal hernia. Chest x-ray shows an elevated left hemidiaphragm with a large hiatal hernia and bibasilar atelectasis. There is also some mild pulmonary vascular congestion. History of large hiatal hernia Acute on chronic kidney disease Acute urinary tract infection secondary to Klebsiella pneumoniae, Citrobacter species, on ceftriaxone GERD without esophagitis Gastritis Diverticulosis without diverticulitis Chronic diarrhea, under investigation, Calprotectin level elevated Benign essential hypertension Hyperlipidemia Anemia of chronic disease Positive fecal occult; no reports of overt acute blood loss Hypothyroidism Never smoker Plan: The patient was seen and evaluated Labs and medications reviewed Plan is for repair of hiatal hernia 11/25/2022 Continue Protonix and Carafate Continue ceftriaxone and Flagyl Continue dietary supplements as tolerated Increase her activity as tolerated We will continue to follow I have personally seen and examined the patient, performed the documentation and the assessment and plan as written. Number of minutes spent on the visit: 10.
--- NOTE | 2022-11-21 13:24 | P.PN ---
Subjective Patient is seen for follow-up for acute kidney injury and top of chronic kidney disease. Renal function is stable with serum creatinine staying at about 4.0 -4.2 mg/dL. Baseline creatinine around 3 No significant complaints today. Currently not on IV fluids or diuretics. There is plan for repair of the large hiatal hernia by cardiothoracic surgery on Friday next week. Objective - Vital Signs Vital signs: Vital Signs Temp 97.2 F L 11/21/22 12:30 Pulse 95 11/21/22 12:30 Resp 14 11/21/22 12:30 BP 138/84 11/21/22 12:30 Pulse Ox 97 11/21/22 12:30 FiO2 Intake & Output 11/20/22 11/21/22 11/21/22 18:59 06:59 18:59 Intake Total 50 325 Balance 50 325 Weight 53.524 kg 53.524 kg Intake: Intake, IV Titration 50 Amount cefTRIAXone 1 gm In 50 Sodium Chloride 0.9% 50 ml @ 100 mls/hr IVPB Q24HR [facility] Rx#:[id number] Oral 325 Other: Voiding Method Bedside Commode Bedside Commode Diaper # Voids 1 1 # Bowel Movements 1 1 - Exam Awake, comfortable, no acute distress Examination of the heart S1 and S2 Examination of the lungs bilateral breath sounds are heard Abdomen is soft nontender Examination of lower extremities shows edema 1+, 2+ edema noted in the right upper extremity APPLIANCE ADJUSTER exam grossly intact - Labs CBC & Chem 7: 11/21/22 05:51 11/21/22 05:51 Labs: Abnormal Lab Results - Last 24 Hours (Table) 11/21/22 11/21/22 Range/Units 05:51 05:51 RBC 2.95 L (4.10-5.20) X 10*6/uL Hgb 9.1 L (12.0-15.0) d/dL Hct 29.6 L (37.2-46.3) % MCV 100.3 H (80.0-97.0) FL MCHC 30.7 L (32.0-37.0) d/dL RDW 16.7 H (11.5-14.5) % Eosinophils # 0.01 L (0.04-0.35) X 10*3/uL Potassium 3.3 L (3.5-5.5) mmol/L BUN 40.1 H (9.0-27.0) mg/dL Creatinine 4.1 H (0.6-1.5) mg/dL Est GFR (CKD-EPI) 10 L (>=60) BUN/Creatinine Ratio 9.78 L (12.00-20.00) Ratio Calcium 7.4 L (8.7-10.3) mg/dL Microbiology - Last 24 Hours (Table) 11/15/22 14:03 Blood Culture - Final Blood Assessment and Plan Assessment: 1. Acute kidney injury mostly prerenal secondary to hypovolemia from vomiting and diarrhea. Creatinine 4.04 on admission and staying at 4.2-4.4 on 11/19/2022. No hydronephrosis noted on ultrasound on 10/24/2022 2. Chronic kidney disease stage V secondary to nephrosclerosis and chronic interstitial nephritis from NSAID use. Recent creatinine 3-3.7. 3. Hypomagnesemia from GI losses. Replaced. Improved. . 4. Hypokalemia from poor intake and diuretic. Potassium 3.6 today. 5. Anemia of chronic kidney disease. Iron replete. On Aranesp. 6. Intractable nausea vomiting and diarrhea. Patient had cryptosporidium infection in August 2022 and was treated by GI. Also had EGD and colonoscopy done 11/12/2022 which showed large hiatal hernia, mild antral gastritis, sigmoid diverticular stricture and diverticulosis. Abdominal ultrasound in October 2022 showed dilated bile duct at 1.5 cm. 7. Hypertension with chronic kidney disease. Stable. 8. Lower extremity edema with albumin of 2.0 concerning for third spacing. Status post IV albumin and Lasix this admission. Plan: Encouraged increased oral intake No urgent need for renal replacement therapy at this time Repeat labs in a.m. Continue with oral sodium bicarb. IV Lasix 1
[2022-11-21] MEDS ORDERED: FUROSEMIDE 10 MG/ML 4 ML VIAL IV STA (13:25)
[2022-11-21] MEDS: ONDANSETRON 4 MG/2 ML VIAL IVP PRN (14:08)
[2022-11-21] MEDS: POTASSIUM CHLORIDE ER 20 MEQ TAB.ER PO SCH (14:09)
--- NOTE | 2022-11-21 14:41 | P.PN ---
Subjective Progress Note Date: 11/21/22 Principal diagnosis: Diarrhea This is a pleasant 81-year-old female who had presented to the hospital 5 days ago with complaints of nausea vomiting and diarrhea. This is been an ongoing symptom for the last 6 months however had recently been getting worse. She's been having some lower abdominal cramping. States that she eats something she gets some nausea and then she follows with diarrhea about one hour after she eats she states that she has anywhere between 3-5 bowel movements daily. She reports them as nonbloody. However the patient states he over the last couple d ays she did have a little bit of blood with her bowel movement. However was told that she may have some bleeding due to her biopsies and chronic diarrhea. She was started on Lomotil at home. She had an upper and lower endoscopy done with Dr. Carty on 11/12/2022 for abdominal pain/GERD and chronic diarrhea. Upper endoscopy revealed moderate to large hiatal hernia and mild antral gastritis. Colonoscopy revealed sigmoid diverticula stricture and diffuse diverticulosis has scope was advanced up to the hepatic flexure. Biopsy results reported gastric antrum biopsy with mild chronic gastritis with focal intestinal metaplasia, H pylori not identified. Ascending colon biopsy benign, descending colon biopsy mild nonspecific active colitis and the sigmoid colon with focal mild nonspecific active colitis. 11/20/2022 Patient seen and examined as a follow-up. States diarrhea about the same. Denies any abdominal pain, nausea or vomiting at this time. Patient did undergo chest CT reporting bilateral small pleural effusions with associated atelectasis. Cardiomegaly with small pericardial effusion. Large hiatal hernia containing stomach and portions of the colonic bowel, similar to prior. Apparently patient is scheduled to undergo intrathoracic hiatal hernia repair Friday by Dr. Rivers. Patient remains afebrile. Stool calprotectin 2,604, stool cryptosporidium antigen negative, Giardia still pending. 11/21/2022 Patient seen and examined as a follow-up. States she still having diarrhea with 4 loose episodes today. Reports them as nonbloody. No significant abdominal pain. Plan is for hiatal hernia repair Friday. She remains on antibiotics. Objective - Vital Signs Vital signs: Vital Signs Temp 97.2 F L 11/21/22 12:30 Pulse 95 11/21/22 12:30 Resp 14 11/21/22 12:30 BP 138/84 11/21/22 12:30 Pulse Ox 97 11/21/22 12:30 FiO2 Intake & Output 11/20/22 11/21/22 11/21/22 18:59 06:59 18:59 Intake Total 50 325 Balance 50 325 Weight 53.524 kg 53.524 kg Intake: Intake, IV Titration 50 Amount cefTRIAXone 1 gm In 50 Sodium Chloride 0.9% 50 ml @ 100 mls/hr IVPB Q24HR [facility] Rx#:[id number] Oral 325 Other: Voiding Method Bedside Commode Bedside Commode Diaper # Voids 1 1 # Bowel Movements 1 1 - Exam General appearance: The patient is alert, oriented, appears in no acute distress. HET: Head is normocephalic and atraumatic. Conjunctiva pink. Sclera anicteric. Neck: Supple without lymphadenopathy. Abdomen: Soft, nontender, nondistended with bowel sounds. No guarding or rigidity. Extremities: Normal skin color and turgor. No pedal edema Skin: No rashes, no jaundice Neurological: No focal deficits. Alert and oriented. - Labs CBC & Chem 7: 11/21/22 05:51 11/21/22 05:51 Labs: Abnormal Lab Results - Last 24 Hours (Table) 11/21/22 11/21/22 Range/Units 05:51 05:51 RBC 2.95 L (4.10-5.20) X 10*6/uL Hgb 9.1 L (12.0-15.0) d/dL Hct 29.6 L (37.2-46.3) % MCV 100.3 H (80.0-97.0) FL MCHC 30.7 L (32.0-37.0) d/dL RDW 16.7 H (11.5-14.5) % Eosinophils # 0.01 L (0.04-0.35) X 10*3/uL Potassium 3.3 L (3.5-5.5) mmol/L BUN 40.1 H (9.0-27.0) mg/dL Creatinine 4.1 H (0.6-1.5) mg/dL Est GFR (CKD-EPI) 10 L (>=60) BUN/Creatinine Ratio 9.78 L (12.00-20.00) Ratio Calcium 7.4 L (8.7-10.3) mg/dL Microbiology - Last 24 Hours (Table) 11/15/22 14:03 Blood Culture - Final Blood Assessment and Plan (1) Colitis Narrative/Plan: 81-year-old female with chronic, diarrhea who underwent upper and lower endoscopy last week with Dr. Carty. Patient presented back to the emergency department with complaints of abdominal bloating, cramping and discomfort with continued diarrhea and, nausea and vomiting. Upper endoscopy had revealed large hiatal hernia. Gen. surgery is following patient and recommended thoracic bowen rgery to evaluate further for the hiatal hernia. Patient's colonoscopy biopsy results states nonspecific active colitis in the descending colon and focal mild nonspecific active in the sigmoid colon. Likely infectious, will start patient on Flagyl. Will also add dicyclomine for abdominal cramping. Continue with Flagyl for another 5 days until 11/25/2022 Current Visit: Yes Status: Acute Code(s): K52.9 - NONINFECTIVE GASTROENTERITIS AND COLITIS, UNSPECIFIED SNOMED Code(s): 00275995 (2) Diarrhea Current Visit: Yes Status: Acute Code(s): R19.7 - DIARRHEA, UNSPECIFIED SNOMED Code(s): 48511383 (3) Hiatal hernia Current Visit: Yes Status: Acute Code(s): K44.9 - DIAPHRAGMATIC HERNIA WITHOUT OBSTRUCTION OR GANGRENE SNOMED Code(s): 58256246 (4) Nausea and vomiting Current Visit: Yes Status: Acute Code(s): R11.2 - NAUSEA WITH VOMITING, UNSPECIFIED SNOMED Code(s): 51628625 Plan: 1. Continue symptomatic and supportive care 2. Continue Flagyl 500 mg 3 times a day for Friday then may discontinue 3. Continue dicyclomine 10 mg 3 times a day as needed for abdominal cramping 4. Discontinue Lomotil 5. Diet as tolerated 6. No plans on further endoscopic evaluation 7. Follow up outpatient in 1-2 weeks Thank you for this consultation, we will continue to follow. Dr. Rigo Carty I agree with the dictator's note, documented as a scribe by Jazz Rangel.
--- NOTE | 2022-11-21 21:45 | P.PN ---
Subjective Progress Note Date: 11/21/22 This is an 81-year-old female patient of Dr. Roman was recently admitted with acute on chronic kidney injury along with abdominal pain and gastroenteritis symptoms including diarrhea. Patient was recently at [facility] and had abdominal imaging there and is being monitored with multiple medical consulta tions here including GI and cardiothoracic surgery. Patient did undergo EGD which showed hiatal hernia as well as gastritis. Biopsies were obtained. Patient being evaluated for large intrathoracic hiatal hernia repair with cardiothoracic surgery on Friday. Patient is currently afebrile tolerating current diet with no reports of worsening abdominal pain. She is not eating very much at all and needs encouragement with meals. Patient denies chest pain, continues with shortness of breath. Review of systems: Constitutional: No reports of fatigue, fever, or chills Cardiovascular: No reports of chest pain or palpitations Respiratory: reports of shortness of breath GI: reports of occasional nausea, no reports of vomiting, reports diarrhea and no appetite : No reports of dysuria or retention Neurovascular: reports of generalized weakness All medications have been reviewed PHYSICAL EXAMINATION: GENERAL: The patient is alert and oriented x3, thin built, elderly appearing HEENT: Pupils are round and equally reacting to light. EOMI. no scleral icterus. No conjunctival pallor. Normocephalic, atraumatic. No pharyngeal erythema. No thyromegaly. CARDIOVASCULAR: S1 and S2 muffled PULMONARY: diminished breath sounds bilaterally with no wheezing or rhonchi noted. ABDOMEN: soft. tender on exam. non-distended, normoactive bowel sounds. No palpable organomegaly. MUSCULOSKELETAL: No joint swelling or deformity. EXTREMITIES: No cyanosis, clubbing, or pedal edema. NEUROLOGICAL: Gross neurological examination did not reveal any focal deficits. Diffuse weakness SKIN: No rashes. Assessment: Acute on chronic kidney failure with prerenal acute tubular necrosis Large intrathoracic hiatal hernia, for repair on Friday Increased diarrhea for the last 6 months acute on chronic diarrhea of undetermined etiology, C. diff ruled out Hyponatremia likely secondary to diarrhea and poor oral intake, improving Hypokalemia History of hypothyroidism Severe protein calorie malnutrition with BMI of 19.6 Acute gastritis as noted on EGD History of anxiety Possible urinary tract infection, present on admission, although suspicion is low GI prophylaxis DVT prophylaxis Full code Plan: Recommend to continue with current medications and management with multiple medical consultations following. Cardiothoracic surgery following as well with plans for large intrathoracic hiatal hernia repair this coming Friday. Recommend closely monitoring kidney functions and follow-up labs Patient tolerating diet although continues with minimal intake and will continue to encourage oral intake . Patient will be nothing by mouth on Friday Encouraged to increase activity as tolerated. Patient is mostly laying in bed this entire admission. Patient to be up in the chair throughout most of the day. Recommend physical therapy daily Due to multiple complex medical issues, prognosis is guarded The impression and plan of care has been dictated by Pennie Reece, nurse practitioner as directed. Dr. Osbaldo MD I have performed a history and examination and MDM of this patient, discussed the same with the dictator, and agree with the dictator's assessment and plan as written ,documented as a scribe. Based on total visit time, I have performed more than 50% of the visit. Any additional findings or plans will be noted. Objective - Vital Signs Vital signs: Vital Signs Temp 97.2 F L 11/21/22 12:30 Pulse 95 11/21/22 12:30 Resp 14 11/21/22 12:30 BP 138/84 11/21/22 12:30 Pulse Ox 97 11/21/22 12:30 FiO2 Intake & Output 11/21/22 11/21/22 11/22/22 06:59 18:59 06:59 Intake Total 325 Balance 325 Weight 53.524 kg Intake: Oral 325 Other: Voiding Method Bedside Commode Bedside Commode Diaper # Voids 1 2 # Bowel Movements 1 1 - Labs CBC & Chem 7: 11/21/22 05:51 11/21/22 05:51 Labs: Abnormal Lab Results - Last 24 Hours (Table) 11/21/22 11/21/22 Range/Units 05:51 05:51 RBC 2.95 L (4.10-5.20) X 10*6/uL Hgb 9.1 L (12.0-15.0) d/dL Hct 29.6 L (37.2-46.3) % MCV 100.3 H (80.0-97.0) FL MCHC 30.7 L (32.0-37.0) d/dL RDW 16.7 H (11.5-14.5) % Eosinophils # 0.01 L (0.04-0.35) X 10*3/uL Potassium 3.3 L (3.5-5.5) mmol/L BUN 40.1 H (9.0-27.0) mg/dL Creatinine 4.1 H (0.6-1.5) mg/dL Est GFR (CKD-EPI) 10 L (>=60) BUN/Creatinine Ratio 9.78 L (12.00-20.00) Ratio Calcium 7.4 L (8.7-10.3) mg/dL Microbiology - Last 24 Hours (Table) 11/15/22 14:03 Blood Culture - Final Blood
[2022-11-21] MEDS: FAMOTIDINE 20 MG TAB PO SCH (21:48)
[2022-11-21] MEDS: diphenhydrAMINE 25 MG CAP PO SCH (21:48)
[2022-11-21] MEDS: ATORVASTATIN 20 MG TAB PO SCH (21:48)
--- NOTE | 2022-11-22 02:50 | P.PN ---
Subjective Progress Note Date: 11/18/22 Patient is a 81-year-old female admitted to hospital due to acute on chronic kidney injury and also has nausea vomiting and poor oral intake. 11/18/2022 Patient is currently sitting in the bed. Awake alert and oriented. No complaints of chest pain or shortness of breath. Patient still nauseous. Very poor oral intake. Otherwise remains on room air. Patient did have 2 bowel meds with some blood noted. Urine culture showed gram-negative bacilli. Patient has been current antibiotics involve ceftriaxone. Laboratory data showed WBC 7.4 hemoglobin 8.8 and platelets 219 BUN 40.4 and creatinine 4.1 and calcium 7.6. Pulmonary and nephrology and surgery is on board. Current medications reviewed. Objective - Vital Signs Vital signs: Vital Signs Temp 98.0 F 11/18/22 14:28 Pulse 99 11/18/22 14:28 Resp 16 11/18/22 20:00 BP 120/83 11/18/22 14:28 Pulse Ox 99 11/18/22 14:28 FiO2 Intake & Output 11/18/22 11/18/22 11/19/22 06:59 18:59 06:59 Intake Total 240 Balance 240 Intake: Oral 240 Other: Voiding Method Bedside Commode Bedside Commode Bedside Commode Diaper Diaper Diaper # Voids 1 # Bowel Movements 1 - Exam PHYSICAL EXAMINATION: Patient is lying in the bed comfortably, no acute distress, awake alert and oriented.. HEENT: Normocephalic. Neck is supple. Pupils reactive. Nostrils clear. Oral cavity is moist. Neck reveals no JVD, carotid bruits, or thyromegaly. CHEST EXAMINATION: Trachea is central. Symmetrical expansion. Lung baumann clear to auscultation and percussion. CARDIAC: Normal S1, S2 with no gallops. No murmurs ABDOMEN: Soft. Bowel sounds present. Nontender. No organomegaly. No abdominal bruits. Extremities: reveal no edema. No clubbing or cyanosis Neurologically awake, alert, oriented x3 with well-coordinated movements. No focal deficits noted Skin: No rash or skin lesions. Psychiatric: Coperative. Nonsuicidal, Musculoskeletal: No joint swelling or deformity. Normal range of motion. - Labs CBC & Chem 7: 11/21/22 05:51 11/21/22 05:51 Labs: Abnormal Lab Results - Last 24 Hours (Table) 11/18/22 11/18/22 Range/Units 05:44 05:44 RBC 2.90 L (4.10-5.20) X 10*6/uL Hgb 8.8 L (12.0-15.0) d/dL Hct 29.6 L (37.2-46.3) % MCV 102.1 H (80.0-97.0) FL MCHC 29.7 L (32.0-37.0) d/dL RDW 17.1 H (11.5-14.5) % Carbon Dioxide 21.2 L (21.6-31.8) mmol/L BUN 40.4 H (9.0-27.0) mg/dL Creatinine 4.1 H (0.6-1.5) mg/dL Est GFR (CKD-EPI) 10 L (>=60) BUN/Creatinine Ratio 9.85 L (12.00-20.00) Ratio Calcium 7.6 L (8.7-10.3) mg/dL Microbiology - Last 24 Hours (Table) 11/15/22 05:30 Urine Culture - Preliminary Urine,Voided Gram Neg Bacilli 11/15/22 14:03 Blood Culture - Preliminary Blood Assessment and Plan Assessment: Intact vomiting and diarrhea. Patient is s/p colonoscopy on 11/12/2022 showed large hiatal hernia and mild antral gastritis and sigmoid diverticular stricture and diverticulosis. Acute colitis Large hiatal hernia Chronic dyspnea likely related to large hiatal hernia Acute urinary tract infection with gram-negative bacilli Acute on chronic disease stage V baseline creatinine 3-3.7. Anemia of chronic disease Hypertension Bilateral lower extremity edema/hypoalbuminemia. Hypothyroidism GERD Hyperlipidemia DVT prophylaxis Plan: Patient will be continued on IV hydration. General surgery recommends CT surgery evaluation for hiatal hernia repair. Continue with Protonix and continue with ceftriaxone follow-up urine final culture report. Creased oral intake. Continue to follow closely. Time with Patient: Greater than 30
--- NOTE | 2022-11-22 02:51 | P.PN ---
Subjective Progress Note Date: 11/19/22 Patient is a 81-year-old female admitted to hospital due to acute on chronic kidney injury and also has nausea vomiting and poor oral intake. 11/18/2022 Patient is currently sitting in the bed. Awake alert and oriented. No complaints of chest pain or shortness of breath. Patient still nauseous. Very poor oral intake. Otherwise remains on room air. Patient did have 2 bowel meds with some blood noted. Urine culture showed gram-negative bacilli. Patient has been current antibiotics involve ceftriaxone. Laboratory data showed WBC 7.4 hemoglobin 8.8 and platelets 219 BUN 40.4 and creatinine 4.1 and calcium 7.6. Pulmonary and nephrology and surgery is on board. 11/19/2022 Patient is currently sitting in the bed. Awake alert and oriented. No distress. Currently on room air. No complaints of chest pain. Shortness of breath at baseline. Otherwise patient feels nauseous and very poor oral intake. Currently on Protonix and Carafate. Patient is also on antibiotics for ceftriaxone and also Flagyl was added due to colitis. Laboratory data showed WBC 8.0 hemoglobin 9.3 and platelets 211 BUN 41.0 and creatinine 4.2. Current medications reviewed. Objective - Vital Signs Vital signs: Vital Signs Temp 96.9 F L 11/19/22 20:00 Pulse 94 11/19/22 20:00 Resp 16 11/19/22 20:00 BP 139/88 11/19/22 20:00 Pulse Ox 99 11/19/22 20:00 FiO2 Intake & Output 11/19/22 11/19/22 11/20/22 06:59 18:59 06:59 Intake Total 440 Balance 440 Intake: Oral 440 Other: Voiding Method Bedside Commode Bedside Commode Diaper Diaper # Bowel Movements 1 - Exam PHYSICAL EXAMINATION: Patient is lying in the bed comfortably, no acute distress, awake alert and oriented.. HEENT: Normocephalic. Neck is supple. Pupils reactive. Nostrils clear. Oral cavity is moist. Neck reveals no JVD, carotid bruits, or thyromegaly. CHEST EXAMINATION: Trachea is central. Symmetrical expansion. Lung baumann clear to auscultation and percussion. CARDIAC: Normal S1, S2 with no gallops. No murmurs ABDOMEN: Soft. Bowel sounds present. Nontender. No organomegaly. No abdominal bruits. Extremities: reveal no edema. No clubbing or cyanosis Neurologically awake, alert, oriented x3 with well-coordinated movements. No focal deficits noted Skin: No rash or skin lesions. Psychiatric: Coperative. Nonsuicidal, Musculoskeletal: No joint swelling or deformity. Normal range of motion. - Labs CBC & Chem 7: 11/21/22 05:51 11/21/22 05:51 Labs: Abnormal Lab Results - Last 24 Hours (Table) 11/19/22 11/19/22 11/19/22 Range/Units 06:02 06:02 06:02 RBC 3.00 L (4.10-5.20) X 10*6/uL Hgb 9.3 L (12.0-15.0) d/dL Hct 30.9 L (37.2-46.3) % MCV 103.0 H (80.0-97.0) FL MCHC 30.1 L (32.0-37.0) d/dL RDW 17.0 H (11.5-14.5) % Carbon Dioxide 19.2 L (21.6-31.8) mmol/L Anion Gap 12.80 H (4.00-12.00) mmol/L BUN 41.0 H (9.0-27.0) mg/dL Creatinine 4.2 H (0.6-1.5) mg/dL Est GFR (CKD-EPI) 10 L (>=60) BUN/Creatinine Ratio 9.76 L (12.00-20.00) Ratio Calcium 7.5 L (8.7-10.3) mg/dL Prealbumin <6.0 L (18.0-42.0) mg/dL Microbiology - Last 24 Hours (Table) 11/15/22 05:30 Urine Culture - Final Urine,Voided Klebsiella pneumoniae Citrobacter species 11/17/22 00:00 Stool Culture - Preliminary Stool 11/15/22 14:03 Blood Culture - Preliminary Blood Assessment and Plan Assessment: Intact vomiting and diarrhea. Patient is s/p colonoscopy on 11/12/2022 showed large hiatal hernia and mild antral gastritis and sigmoid diverticular stricture and diverticulosis. Acute colitis Large hiatal hernia Chronic dyspnea likely related to large hiatal hernia Acute urinary tract infection with gram-negative bacilli Acute on chronic disease stage V baseline creatinine 3-3.7. Anemia of chronic disease Hypertension Bilateral lower extremity edema/hypoalbuminemia. Hypothyroidism GERD Hyperlipidemia DVT prophylaxis Plan: Patient will be continued on IV hydration. General surgery recommends CT surgery evaluation for hiatal hernia repair. Continue with Protonix and continue with ceftriaxone follow-up urine final culture report. Creased oral intake. Continue to follow closely. Time with Patient: Greater than 30
--- NOTE | 2022-11-22 02:53 | P.PN ---
Subjective Progress Note Date: 11/20/22 Patient is a 81-year-old female admitted to hospital due to acute on chronic kidney injury and also has nausea vomiting and poor oral intake. 11/18/2022 Patient is currently sitting in the bed. Awake alert and oriented. No complaints of chest pain or shortness of breath. Patient still nauseous. Very poor oral intake. Otherwise remains on room air. Patient did have 2 bowel meds with some blood noted. Urine culture showed gram-negative bacilli. Patient has been current antibiotics involve ceftriaxone. Laboratory data showed WBC 7.4 hemoglobin 8.8 and platelets 219 BUN 40.4 and creatinine 4.1 and calcium 7.6. Pulmonary and nephrology and surgery is on board. 11/19/2022 Patient is currently sitting in the bed. Awake alert and oriented. No distress. Currently on room air. No complaints of chest pain. Shortness of breath at baseline. Otherwise patient feels nauseous and very poor oral intake. Currently on Protonix and Carafate. Patient is also on antibiotics for ceftriaxone and also Flagyl was added due to colitis. Laboratory data showed WBC 8.0 hemoglobin 9.3 and platelets 211 BUN 41.0 and creatinine 4.2. 11/20/2022 Patient is currently sitting in bed. Awake alert and oriented. On room air. No complaints of chest pain. Still having nausea and poor oral intake. CT chest was done yesterday showed bilateral small pleural effusions with associated atelectasis. Cardiomegaly with small pericardial effusion. Large hiatal hernia containing stomach and portions of the colonic bowel. Similar to prior. Patient was seen by CT surgery and is planned for the OR for repair of large intrathoracic hiatal hernia. Patient with vaginal liquid diet. Laboratory data reviewed. Current medications reviewed. Objective - Vital Signs Vital signs: Vital Signs Temp 98.1 F 11/20/22 19:12 Pulse 108 H 11/20/22 19:12 Resp 16 11/20/22 19:38 BP 150/84 11/20/22 19:12 Pulse Ox 96 11/20/22 19:12 FiO2 Intake & Output 11/20/22 11/20/22 11/21/22 06:59 18:59 06:59 Intake Total 50 Balance 50 Weight 53.524 kg Intake: Intake, IV Titration 50 Amount cefTRIAXone 1 gm In 50 Sodium Chloride 0.9% 50 ml @ 100 mls/hr IVPB Q24HR [facility] Rx#:[id number] Other: Voiding Method Bedside Commode Bedside Commode Diaper Diaper # Voids 1 1 # Bowel Movements 1 1 - Exam PHYSICAL EXAMINATION: Patient is lying in the bed comfortably, no acute distress, awake alert and oriented.. HEENT: Normocephalic. Neck is supple. Pupils reactive. Nostrils clear. Oral cavity is moist. Neck reveals no JVD, carotid bruits, or thyromegaly. CHEST EXAMINATION: Trachea is central. Symmetrical expansion. Lung baumann clear to auscultation and percussion. CARDIAC: Normal S1, S2 with no gallops. No murmurs ABDOMEN: Soft. Bowel sounds present. Nontender. No organomegaly. No abdominal bruits. Extremities: reveal no edema. No clubbing or cyanosis Neurologically awake, alert, oriented x3 with well-coordinated movements. No focal deficits noted Skin: No rash or skin lesions. Psychiatric: Coperative. Nonsuicidal, Musculoskeletal: No joint swelling or deformity. Normal range of motion. - Labs CBC & Chem 7: 11/21/22 05:51 11/21/22 05:51 Labs: Abnormal Lab Results - Last 24 Hours (Table) 11/16/22 Range/Units 18:35 Stool Calprotectin 2,604.8 H (<50) mcg/g Microbiology - Last 24 Hours (Table) 11/17/22 00:00 Stool Culture - Final Stool Assessment and Plan Assessment: Intact vomiting and diarrhea. Patient is s/p colonoscopy on 11/12/2022 showed large hiatal hernia and mild antral gastritis and sigmoid diverticular stricture and diverticulosis. Acute colitis Large hiatal hernia Chronic dyspnea likely related to large hiatal hernia Acute urinary tract infection with gram-negative bacilli Acute on chronic disease stage V baseline creatinine 3-3.7. Anemia of chronic disease Hypertension Bilateral lower extremity edema/hypoalbuminemia. Hypothyroidism GERD Hyperlipidemia DVT prophylaxis Plan: Patient will be continued on liquis diet. IVF on hold. General surgery recommends CT surgery evaluation for hiatal hernia repair. Continue with Protonix and continue with ceftriaxone follow-up urine final culture report. Creased oral intake. Continue to follow closely. Time with Patient: Greater than 30
--- NOTE | 2022-11-22 02:56 | P.PN ---
Subjective Progress Note Date: 11/21/22 Patient is a 81-year-old female admitted to hospital due to acute on chronic kidney injury and also has nausea vomiting and poor oral intake. 11/18/2022 Patient is currently sitting in the bed. Awake alert and oriented. No complaints of chest pain or shortness of breath. Patient still nauseous. Very poor oral intake. Otherwise remains on room air. Patient did have 2 bowel meds with some blood noted. Urine culture showed gram-negative bacilli. Patient has been current antibiotics involve ceftriaxone. Laboratory data showed WBC 7.4 hemoglobin 8.8 and platelets 219 BUN 40.4 and creatinine 4.1 and calcium 7.6. Pulmonary and nephrology and surgery is on board. 11/19/2022 Patient is currently sitting in the bed. Awake alert and oriented. No distress. Currently on room air. No complaints of chest pain. Shortness of breath at baseline. Otherwise patient feels nauseous and very poor oral intake. Currently on Protonix and Carafate. Patient is also on antibiotics for ceftriaxone and also Flagyl was added due to colitis. Laboratory data showed WBC 8.0 hemoglobin 9.3 and platelets 211 BUN 41.0 and creatinine 4.2. 11/20/2022 Patient is currently sitting in bed. Awake alert and oriented. On room air. No complaints of chest pain. Still having nausea and poor oral intake. CT chest was done yesterday showed bilateral small pleural effusions with associated atelectasis. Cardiomegaly with small pericardial effusion. Large hiatal hernia containing stomach and portions of the colonic bowel. Similar to prior. Patient was seen by CT surgery and is planned for the OR for repair of large intrathoracic hiatal hernia. Patient with vaginal liquid diet. Laboratory data reviewed. 11/21/2022 Patient is currently in the medical floor. Awake alert and oriented. No acute distress. Afebrile. Currently on room air. Urine culture showed Klebsiella pneumonia. And also Citrobacter species. We will continue ceftriaxone at this time. No no complaints of chest pain. Mild nausea. No source of vomiting. Currently on liquid diet. CT surgery is planning for repair of large intrathoracic hiatal hernia likely early next week. Other laboratory data showed WBC 5.9 hemoglobin 9.1 and platelets 208 BUN 40.1 and creatinine 4.1. Calcium 7.4. Pulmonary, CT surgery and nephrology is on board. Current medications reviewed. Objective - Vital Signs Vital signs: Vital Signs Temp 97.3 F L 11/21/22 19:32 Pulse 100 11/21/22 19:32 Resp 20 11/21/22 19:32 BP 111/75 11/21/22 19:32 Pulse Ox 97 11/21/22 19:32 FiO2 Intake & Output 11/21/22 11/21/22 11/22/22 06:59 18:59 06:59 Intake Total 325 Balance 325 Weight 53.524 kg Intake: Oral 325 Other: Voiding Method Bedside Commode Bedside Commode Diaper # Voids 1 2 1 # Bowel Movements 1 1 1 - Exam PHYSICAL EXAMINATION: Patient is lying in the bed comfortably, no acute distress, awake alert and oriented.. HEENT: Normocephalic. Neck is supple. Pupils reactive. Nostrils clear. Oral cavity is moist. Neck reveals no JVD, carotid bruits, or thyromegaly. CHEST EXAMINATION: Trachea is central. Symmetrical expansion. Lung baumann clear to auscultation and percussion. CARDIAC: Normal S1, S2 with no gallops. No murmurs ABDOMEN: Soft. Bowel sounds present. Nontender. No organomegaly. No abdominal bruits. Extremities: reveal no edema. No clubbing or cyanosis Neurologically awake, alert, oriented x3 with well-coordinated movements. No focal deficits noted Skin: No rash or skin lesions. Psychiatric: Coperative. Nonsuicidal, Musculoskeletal: No joint swelling or deformity. Normal range of motion. - Labs CBC & Chem 7: 11/21/22 05:51 11/21/22 05:51 Labs: Abnormal Lab Results - Last 24 Hours (Table) 11/21/22 11/21/22 Range/Units 05:51 05:51 RBC 2.95 L (4.10-5.20) X 10*6/uL Hgb 9.1 L (12.0-15.0) d/dL Hct 29.6 L (37.2-46.3) % MCV 100.3 H (80.0-97.0) FL MCHC 30.7 L (32.0-37.0) d/dL RDW 16.7 H (11.5-14.5) % Eosinophils # 0.01 L (0.04-0.35) X 10*3/uL Potassium 3.3 L (3.5-5.5) mmol/L BUN 40.1 H (9.0-27.0) mg/dL Creatinine 4.1 H (0.6-1.5) mg/dL Est GFR (CKD-EPI) 10 L (>=60) BUN/Creatinine Ratio 9.78 L (12.00-20.00) Ratio Calcium 7.4 L (8.7-10.3) mg/dL Microbiology - Last 24 Hours (Table) 11/15/22 14:03 Blood Culture - Final Blood Assessment and Plan Assessment: Intact vomiting and diarrhea. Patient is s/p colonoscopy on 11/12/2022 showed large hiatal hernia and mild antral gastritis and sigmoid diverticular stricture and diverticulosis. improved. Acute colitis Large hiatal hernia Chronic dyspnea likely related to large hiatal hernia Acute urinary tract infection with gram-negative bacilli Acute on chronic disease stage V baseline creatinine 3-3.7. Anemia of chronic disease Hypertension Bilateral lower extremity edema/hypoalbuminemia. Hypothyroidism GERD Hyperlipidemia DVT prophylaxis Plan: Patient will be continued on liquis diet. IVF on hold. General surgery recommends CT surgery evaluation for hiatal hernia repair. Continue with Protonix and continue with ceftriaxone follow-up urine final culture report. Flagyl was added due to colitis. CT surgery is planning for tomorrow early next week. encourage oral intake. Continue to follow closely. Time with Patient: Greater than 30
[2022-11-22] MEDS: LEVOTHYROXINE 50 MCG TAB PO SCH (06:31)
--- NOTE | 2022-11-22 08:25 | P.PN ---
Subjective Progress Note Date: 11/22/22 Principal diagnosis: Diarrhea This is a pleasant 81-year-old female who had presented to the hospital 5 days ago with complaints of nausea vomiting and diarrhea. This is been an ongoing symptom for the last 6 months however had recently been getting worse. She's been having some lower abdominal cramping. States that she eats something she gets some nausea and then she follows with diarrhea about one hour after she eats she states that she has anywhere between 3-5 bowel movements daily. She reports them as nonbloody. However the patient states he over the last couple d ays she did have a little bit of blood with her bowel movement. However was told that she may have some bleeding due to her biopsies and chronic diarrhea. She was started on Lomotil at home. She had an upper and lower endoscopy done with Dr. Carty on 11/12/2022 for abdominal pain/GERD and chronic diarrhea. Upper endoscopy revealed moderate to large hiatal hernia and mild antral gastritis. Colonoscopy revealed sigmoid diverticula stricture and diffuse diverticulosis has scope was advanced up to the hepatic flexure. Biopsy results reported gastric antrum biopsy with mild chronic gastritis with focal intestinal metaplasia, H pylori not identified. Ascending colon biopsy benign, descending colon biopsy mild nonspecific active colitis and the sigmoid colon with focal mild nonspecific active colitis. 11/20/2022 Patient seen and examined as a follow-up. States diarrhea about the same. Denies any abdominal pain, nausea or vomiting at this time. Patient did undergo chest CT reporting bilateral small pleural effusions with associated atelectasis. Cardiomegaly with small pericardial effusion. Large hiatal hernia containing stomach and portions of the colonic bowel, similar to prior. Apparently patient is scheduled to undergo intrathoracic hiatal hernia repair Friday by Dr. Rivers. Patient remains afebrile. Stool calprotectin 2,604, stool cryptosporidium antigen negative, Giardia still pending. 11/21/2022 Patient seen and examined as a follow-up. States she still having diarrhea with 4 loose episodes today. Reports them as nonbloody. No significant abdominal pain. Plan is for hiatal hernia repair Friday. She remains on antibiotics. 11/22/2022 Patient seen and examined as a follow-up. GI was notified that patient had 3 large maroon colored bowel movements with clots. She is denying any abdominal pain, no nausea or vomiting. Objective - Vital Signs Vital signs: Vital Signs Temp 97.6 F 11/22/22 01:19 Pulse 86 11/22/22 01:19 Resp 18 11/22/22 01:19 BP 127/84 11/22/22 01:19 Pulse Ox 92 L 11/22/22 01:19 FiO2 Intake & Output 11/21/22 11/21/22 11/22/22 06:59 18:59 06:59 Intake Total 325 200 Balance 325 200 Weight 53.524 kg Intake: Oral 325 200 Other: Voiding Method Bedside Commode Bedside Commode Bedside Commode Diaper # Voids 1 2 1 # Bowel Movements 1 1 3 - Exam General appearance: The patient is alert, oriented, appears in no acute distress. HET: Head is normocephalic and atraumatic. Conjunctiva pink. Sclera anicteric. Neck: Supple without lymphadenopathy. Abdomen: Soft, nontender, nondistended with bowel sounds. No guarding or rigidity. Extremities: Normal skin color and turgor. No pedal edema Skin: No rashes, no jaundice Neurological: No focal deficits. Alert and oriented. - Labs CBC & Chem 7: 11/21/22 05:51 11/21/22 05:51 Labs: Abnormal Lab Results - Last 24 Hours (Table) 11/21/22 11/21/22 Range/Units 05:51 05:51 RBC 2.95 L (4.10-5.20) X 10*6/uL Hgb 9.1 L (12.0-15.0) d/dL Hct 29.6 L (37.2-46.3) % MCV 100.3 H (80.0-97.0) FL MCHC 30.7 L (32.0-37.0) d/dL RDW 16.7 H (11.5-14.5) % Eosinophils # 0.01 L (0.04-0.35) X 10*3/uL Potassium 3.3 L (3.5-5.5) mmol/L BUN 40.1 H (9.0-27.0) mg/dL Creatinine 4.1 H (0.6-1.5) mg/dL Est GFR (CKD-EPI) 10 L (>=60) BUN/Creatinine Ratio 9.78 L (12.00-20.00) Ratio Calcium 7.4 L (8.7-10.3) mg/dL Assessment and Plan (1) Colitis Narrative/Plan: 81-year-old female with chronic, diarrhea who underwent upper and lower endoscopy last week with Dr. Carty. Patient presented back to the emergency department with complaints of abdominal bloating, cramping and discomfort with continued diarrhea and, nausea and vomiting. Upper endoscopy had revealed large hiatal hernia. Gen. surgery is following patient and recommended thoracic surgery to evaluate further for the hiatal hernia. Patient's colonoscopy biopsy results states nonspecific active colitis in the descending colon and focal mild nonspecific active in the sigmoid colon. Likely infectious, will start patient on Flagyl. Will also add dicyclomine for abdominal cramping. Continue with Flagyl for another 5 days until 11/25/2022 Current Visit: Yes Status: Acute Code(s): K52.9 - NONINFECTIVE GASTROENTERITIS AND COLITIS, UNSPECIFIED SNOMED Code(s): 96430223 (2) GI bleed Narrative/Plan: Notify patient having large maroon colored stool with clots this morning. Unclear etiology, possibly related to colitis. There will be no further GI coverage today. Tagged RBC ordered and general surgery consulted. Current Visit: Yes Status: Acute Code(s): K92.2 - GASTROINTESTINAL HEMORRHAGE, UNSPECIFIED SNOMED Code(s): 46819655 (3) Diarrhea Current Visit: Yes Status: Acute Code(s): R19.7 - DIARRHEA, UNSPECIFIED SNOMED Code(s): 38981686 (4) Hiatal hernia Current Visit: Yes Status: Acute Code(s): K44.9 - DIAPHRAGMATIC HERNIA WITHOUT OBSTRUCTION OR GANGRENE SNOMED Code(s): 59670252 (5) Nausea and vomiting Current Visit: Yes Status: Acute Code(s): R11.2 - NAUSEA WITH VOMITING, UNSPECIFIED SNOMED Code(s): 57159634 Plan: 1. Continue symptomatic and supportive care 2. Continue Flagyl 500 mg 3 times a day for Friday then may discontinue 3. Continue dicyclomine 10 mg 3 times a day as needed for abdominal cramping 4. Make nothing by mouth 5. Tagged RBC ordered 6. Gen. surgery consulted, continue with their recommendations 7. Follow up outpatient in 1-2 weeks Thank you for allowing us to participate in the care of the patient, the GI service will sign off, gastroenterology will not be available at the hospital this weekend and through next week. If further evaluation by gastroenterology is required the patient will need transfer as per the primary team's discretion. Dr. Rigo Carty I agree with the dictator's note, documented as a scribe by Jazz CHAVIRA .
[2022-11-22] MEDS: allopurinoL 100 MG TAB PO SCH (08:58)
[2022-11-22] MEDS: CHOLECALCIFEROL 25 MCG (1000 IU) TABLET PO SCH (08:58)
[2022-11-22] MEDS: FERROUS SULFATE 325 MG TAB PO SCH (08:59)
[2022-11-22] MEDS: metroNIDAZOLE 500 MG TAB PO SCH ×3 (08:59→21:20)
[2022-11-22] MEDS: SUCRALFATE 1 GM TAB PO SCH ×4 (09:00→21:20)
[2022-11-22] MEDS: SODIUM BICARBONATE TAB 650 MG TAB PO SCH ×3 (09:00→21:20)
[2022-11-22] MEDS: DICYCLOMINE 10 MG CAP PO PRN ×2 (09:00→15:36)
[2022-11-22] MEDS: PANTOPRAZOLE 40 MG/10 ML VIAL IV SCH (09:39)
--- NOTE | 2022-11-22 10:31 | P.PN ---
Subjective Progress Note Date: 11/22/22 I am seeing this patient in new consultation today 11/18/2022 for chronic dyspnea, likely related to the patient's large hiatal hernia. Patient is an 81-year-old white female with past medical history significant for a large hiatal hernia, GERD, hyperlipidemia, hypertension, chronic kidney disease, anemi a, hypothyroidism, and is a never smoker. Patient denies any history of lung disease including COPD or asthma. Her primary care provider is Dr. Balbir Roman. Patient recently had an EGD and colonoscopy with Dr. Carty to investigate her chronic abdominal pain, nausea and vomiting, and diarrhea that started back in August of this year. She was found to have a moderate to large size hiatal hernia with mild antral gastritis. There was also diffuse diverticulosis within the sigmoid colon without diverticulitis. Patient did present to the emergency room for similar complaints of persistent nausea, vomiting, and diarrhea on November 14. Patient's symptoms have reportedly worsened. There is associated nausea and diarrhea about one hour after eating. We were consulted for chronic ongoing dyspnea that started over one year ago. Patient states that her shortness of breath is mostly on exertion and specific positions. This is likely related to the patient's hiatal hernia. COPD is felt to be less likely. She denies any fever, chills, cough, hemoptysis, chest pain. Patient is currently lying in bed, on room air, in no acute distress. Chest x-ray from earlier this morning shows some mild pulmonary vascular congestion. There is an elevated left hemidiaphragm with a large hiatal hernia and bibasilar atelectasis. A surgical consultation with CT services has been ordered. Patient also has a positive urine culture for gram-negative bacilli. Currently receiving coverage with Rocephin. There is a component of acute on chronic kidney disease. Most recent BMP from yesterday shows sodium 140, potassium 3.6, chloride 106, serum bicarb 22, BUN 40, creatinine 4, glucose 82. Most recent CBC shows a WBC count of 8, hemoglobin 9.6, hematocrit 31.3, platelets 254. Patient does have anemia of chronic disease, however, her fecal occult was positive. Patient has had ongoing diarrhea, no obvious acute blood loss or melena reported. C. diff was negative. Stool lactoferrin was positive. Vital signs are stable. The patient is seen today 11/19/2022 in follow-up on the regular medical floor. She is currently resting comfortably in bed. Awake and alert in no acute distress. Maintaining good O2 saturations in the 90s on room air. Afebrile. Hemodynamically stable. She did have 2 bowel movements with some blood noted. Hemoglobin 9.3. White count 8.0. Platelets 211. Sodium 135. Potassium 3.6. Bicarb 19. BUN 41. Creatinine 4.2. Urine culture positive for gram-negative bacilli. Currently on ceftriaxone. She is continued on Protonix and Carafate. Surgical recommendations pending. The patient is seen today 11/20/2022 in follow-up on the regular medical floor. She is awake and alert in no acute distress. Resting fairly comfortably in bed. Maintaining good O2 saturations in the mid 90s on room air. She's been afebrile. CT scan of the chest revealed bilateral small effusions with associated atelectasis. Cardiomegaly with a small pericardial effusion. Large hiatal hernia containing stomach and portions of the colonic bowel, similar to previous. Cardiothoracic surgery is planning intervention on 11/25/2022. Urine culture was positive for Klebsiella pneumoniae, Citrobacter species. She is currently on ceftriaxone. Blood cultures revealed no growth. Stool culture revealed no growth. Her diet is being supplemented with ensure Magic cups 3 times a day she remains on a full liquid diet with a soft/chopped diet as tolerated. The patient is seen today 11/21/2022 in follow-up on the regular medical floor. She is sitting up in a chair at the bedside. Awake and alert in no acute distress. Maintaining good O2 saturations in the 90s on room air. She's been afebrile. Hemodynamically stable. Urine culture was positive for Klebsiella pneumoniae. Blood cultures reveal no growth. Stool culture revealed no growth. Stool for Calprotectin was elevated at 2604. Stool occult blood was positive. White count 5.9. Hemoglobin 9.1. Platelets 208. Sodium 136. Potassium 3.3. Bicarb 22. BUN 40. Creatinine 4.1. GFR 10. Glucose 89. She remains on ceftriaxone. And Flagyl. Continued on Protonix, Carafate. The patient is seen today 11/22/2022 in follow-up on the regular medical floor. She is currently resting comfortably in bed. Awake and alert in no acute distress. Maintaining good O2 saturations in the 90s on room air. Afebrile. Hemodynamically stable. She is attempting to increase her oral intake as tolerated. She is getting a tagged RBC study this morning. She remains on ceftriaxone and Flagyl. Continued on Protonix, Carafate Objective - Vital Signs Vital signs: Vital Signs Temp 97.3 F L 11/22/22 08:00 Pulse 98 11/22/22 08:00 Resp 16 11/22/22 08:00 BP 111/73 11/22/22 08:00 Pulse Ox 96 11/22/22 08:00 FiO2 Intake & Output 11/21/22 11/22/22 11/22/22 18:59 06:59 18:59 Intake Total 200 Balance 200 Weight 53.524 kg Intake: Oral 200 Other: Voiding Method Bedside Commode Bedside Commode Bedside Commode # Voids 2 1 # Bowel Movements 1 3 - Exam GENERAL EXAM: Alert, oriented 81-year-old female, resting in bed, on room air, comfortable in no apparent distress. HEAD: Normocephalic and atraumatic EYES: Normal reaction of pupils, equal size. NOSE: Clear with pink turbinates. THROAT: No erythema or exudates. NECK: No masses, no JVD. CHEST: No chest wall deformity. LUNGS: Equal air entry with no crackles, wheeze, rhonchi or dullness. CVS: S1 and S2 normal with no audible murmur, regular rhythm. No extra heart sounds ABDOMEN: No hepatosplenomegaly, active bowel sounds, no guarding or rigidity. SPINE: No scoliosis or deformity SKIN: No rashes CENTRAL NERVOUS SYSTEM: No focal deficits, tone is normal in all 4 extremities. EXTREMITIES: There is no peripheral edema, clubbing, or cyanosis. Peripheral pulses are intact. - Labs CBC & Chem 7: 11/21/22 05:51 11/21/22 05:51 Assessment and Plan Assessment: Chronic dyspnea, likely related to large hiatal hernia. Chest x-ray shows an elevated left hemidiaphragm with a large hiatal hernia and bibasilar atelectasis. There is also some mild pulmonary vascular congestion. History of large hiatal hernia Acute on chronic kidney disease Acute urinary tract infection secondary to Klebsiella pneumoniae, Citrobacter species, on ceftriaxone Anemia of chronic disease hemoglobin 9.1. Tagged RBC study pending GERD without esophagitis Gastritis Diverticulosis without diverticulitis Chronic diarrhea, under investigation, Calprotectin level elevated Benign essential hypertension Hyperlipidemia Positive fecal occult; no reports of overt acute blood loss Hypothyroidism Never smoker Plan: The patient was seen and evaluated Labs and medications reviewed Plan is for repair of hiatal hernia 11/25/2022 Continue Protonix and Carafate Continue ceftriaxone and Flagyl Continue dietary supplements as tolerated Increase her activity as tolerated We will continue to follow I have personally seen and examined the patient, performed the documentation and the assessment and plan as written. Number of minutes spent on the visit: 10.
--- NOTE | 2022-11-22 10:46 | P.PN ---
Subjective Progress Note Date: 11/22/22 CHIEF COMPLAINT: Large hiatal hernia HISTORY OF PRESENT ILLNESS: Patient admitted to the hospital on due to large hiatal hernia with shortness of breath early satiety. Patient scheduled with cardiothoracic service for hiatal hernia repair on Friday. Surgical service has been reconsult consulted due to patient having a GI bleed. Patient had 3 large bloody bowel movements. Per nursing staff with a reported bright red blood per rectum. Patient seen by GI service they've ordered a tagged RBC scan this morning and a repeat hemoglobin. Last hemoglobin was 9.1. Patient complains of some abdominal discomfort. WBC is 5. 98 HgB 9.1 platelets 208 . Tagged RBC scan is negative. hgb is up from 9.1-10.2 PHYSICAL EXAM: VITAL SIGNS: Reviewed GENERAL: Well-developed in no acute distress. HEENT: No sclera icterus. Extraocular movements grossly intact. Moist buccal mucosa. Head is atraumatic, normocephalic. Hears conversational speech. No nasal drainage. NECK: Supple without lymphadenopathy. CHEST: Non-labored respirations and equal bilateral excursions. CARDIOVASCULAR: Palpable 2+ radial pulses. ABDOMEN: Soft. Nondistended. MUSCULOSKELETAL: No clubbing or cyanosis. NEUROLOGIC: No focal or lateralizing signs. Cranial nerves II through XII grossly intact. PSYCH: Appropriate affect. Alert and oriented to person, place and time. SKIN: Well perfused. Good skin turgor. ASSESSMENT: 1. Large intra-thoracic hiatal hernia, grade IV 2. Dyspnea 3. Colitis contributing to patient's diarrhea managed by GI service 4. GI Bleed with bright red blood per rectum PLAN: -Continue to monitor CBC -Continue to monitor for any signs or symptoms of bleeding -Repair of large intrathoracic hiatal hernia per cardiac thoracic service -Continue supportive care Physician Luggage Attendant note has been reviewed by physician. Signing provider agrees with the documented findings, assessment, and plan of care. Objective - Vital Signs Vital signs: Vital Signs Temp 97.3 F L 11/22/22 08:00 Pulse 98 11/22/22 08:00 Resp 16 11/22/22 08:00 BP 111/73 11/22/22 08:00 Pulse Ox 96 11/22/22 08:00 FiO2 Intake & Output 11/21/22 11/22/22 11/22/22 18:59 06:59 18:59 Intake Total 200 Balance 200 Weight 53.524 kg Intake: Oral 200 Other: Voiding Method Bedside Commode Bedside Commode Bedside Commode # Voids 2 1 # Bowel Movements 1 3 - Labs CBC & Chem 7: 11/22/22 06:02 11/22/22 06:02
[2022-11-22 11:25] LABS: BUN/Creat Ratio 9.27 Ratio (12.00-20.00); Blood Urea Nitrogen 40.8 mg/dL (9.0-27.0); Calcium 7.9 mg/dL (8.7-10.3); Carbon Dioxide 22.6 mmol/L (21.6-31.8); Chloride 102 mmol/L (96-109); Glucose 88 mg/dL (70-110); Magnesium 1.7 mg/dL (1.5-2.4); Potassium 3.9 mmol/L (3.5-5.5); Sodium 137 mmol/L (135-145)
[2022-11-22 11:56] LABS: Acanthocytes 2+; Basophils # (A) 0.03 X 10*3/uL (0.00-0.10); Basophils % (A) 0.2 %; Eosinophils # (A) 0.06 X 10*3/uL (0.04-0.35); Eosinophils % (A) 0.5 %; HCT 33.4 % (37.2-46.3); HGB 10.2 d/dL (12.0-15.0); Lymphocytes # (A) 3.12 X 10*3/uL (0.90-5.00); Lymphocytes % (A) 23.9 %; MCH 31.4 pg (27.0-32.0); MCHC 30.5 d/dL (32.0-37.0); MCV 102.8 FL (80.0-97.0); Macrocytosis (M) 2+; Mean Platelet Volume 11.7 FL (9.5-12.2); Monocytes # (A) 1.36 X 10*3/uL (0.20-1.00); Monocytes % (A) 10.4 %; NRBC Per 100 WBC 0 X 10*3/uL (0.00-0.01); Neutrophils % (A) 64.3 %; Platelet Count 298 X 10*3/uL (140-440); RBC 3.25 X 10*6/uL (4.10-5.20); RDW 17.2 % (11.5-14.5); WBC 13.06 X 10*3/uL (4.50-10.00)
--- NOTE | 2022-11-22 12:47 | NM ---
EXAMINATION TYPE: NM GI bleeding DATE OF EXAM: 11/22/2022 CLINICAL INDICATION: Female, 81 years old with history of GI bleed, rectal bleeding; COMPARISON: NONE Following administration of 3 ml PYP 25.2 mCi Tc 99m Sodium Pertechnete. Immediate images post inject ion. FINDINGS: Normal tracer activity is seen in the blood pool of the abdominal aorta, common iliac arteries, femor al arteries, liver, and spleen on all of the interval images. Later images show accumulation of trace r in the urinary bladder, which is consistent with excreted tracer. No abnormal tracer uptake is pres ent outside the blood pool that would be consistent with an active GI bleed. IMPRESSION: Negative examination. No evidence of active gastrointestinal bleeding during the initial 1 hr observa tion period.
--- NOTE | 2022-11-22 13:46 | P.PN ---
Subjective This is an 81-year-old female patient of Dr. Roman was recently admitted with acute on chronic kidney injury along with abdominal pain and gastroenteritis symptoms including diarrhea. Patient was recently at [facility] and had abdominal imaging there and is being monitored with multiple medical consultations here including GI and cardiothoracic surgery. Patient did undergo EGD which showed hiatal hernia as well as gastritis. Biopsies were obtained. Patient being evaluated for large intrathoracic hiatal hernia repair with cardiothoracic surgery on Friday. Patient is currently afebrile tolerating current diet with no reports of worsening abdominal pain. She is not eating very much at all and needs encouragement with meals. Patient denies chest pain, continues with shortness of breath. 11/22/2022 Patient with known new complaint. She is mildly tachypneic most likely secondary to large hiatal hernia Hemoglobin is been monitored closely. Today's stable. He underwent RBC blood scan which came back negative and patient was started on liquid diet Planned for hiatal hernia repair on Friday 70/ of her hemoglobin improves and remained stable Objective - Vital Signs Vital signs: Vital Signs Temp 97.3 F L 11/22/22 08:00 Pulse 98 11/22/22 08:00 Resp 16 11/22/22 08:00 BP 111/73 11/22/22 08:00 Pulse Ox 96 11/22/22 08:00 FiO2 Intake & Output 11/21/22 11/22/22 11/22/22 18:59 06:59 18:59 Intake Total 200 Balance 200 Weight 53.524 kg Intake: Oral 200 Other: Voiding Method Bedside Commode Bedside Commode Bedside Commode # Voids 2 1 # Bowel Movements 1 3 - Exam GENERAL: The patient is alert and oriented x3, thin built, elderly appearing HEENT: Pupils are round and equally reacting to light. EOMI. no scleral icterus. No conjunctival pallor. Normocephalic, atraumatic. No pharyngeal erythema. No thyromegaly. CARDIOVASCULAR: S1 and S2 muffled PULMONARY: diminished breath sounds bilaterally with no wheezing or rhonchi noted. ABDOMEN: soft. tender on exam. non-distended, normoactive bowel sounds. No palpable organomegaly. MUSCULOSKELETAL: No joint swelling or deformity. EXTREMITIES: No cyanosis, clubbing, or pedal edema. NEUROLOGICAL: Gross neurological examination did not reveal any focal deficits. Diffuse weakness SKIN: No rashes. - Labs CBC & Chem 7: 11/22/22 06:02 11/22/22 06:02 Labs: Abnormal Lab Results - Last 24 Hours (Table) 11/22/22 11/22/22 Range/Units 06:02 06:02 WBC 13.06 H (4.50-10.00) X 10*3/uL RBC 3.25 L (4.10-5.20) X 10*6/uL Hgb 10.2 L (12.0-15.0) d/dL Hct 33.4 L (37.2-46.3) % MCV 102.8 H (80.0-97.0) FL MCHC 30.5 L (32.0-37.0) d/dL RDW 17.2 H (11.5-14.5) % Neutrophils # 8.40 H (1.80-7.70) X 10*3/uL Monocytes # 1.36 H (0.20-1.00) X 10*3/uL Macrocytosis (manual) 2+ A Acanthocytes (Spur) 2+ A Anion Gap 12.40 H (4.00-12.00) mmol/L BUN 40.8 H (9.0-27.0) mg/dL Creatinine 4.4 H (0.6-1.5) mg/dL Est GFR (CKD-EPI) 10 L (>=60) BUN/Creatinine Ratio 9.27 L (12.00-20.00) Ratio Calcium 7.9 L (8.7-10.3) mg/dL Assessment and Plan Assessment: Acute on chronic kidney failure with prerenal acute tubular necrosis Large intrathoracic hiatal hernia, for repair on Friday Increased diarrhea for the last 6 months acute on chronic diarrhea of undetermined etiology, C. diff ruled out Hyponatremia likely secondary to diarrhea and poor oral intake, improving Hypokalemia History of hypothyroidism Severe protein calorie malnutrition with BMI of 19.6 Acute gastritis as noted on EGD History of anxiety Possible urinary tract infection, present on admission, although suspicion is low Plan: Continue with ceftriaxone and Flagyl Monitor hemoglobin Plan for hiatal hernia repair surgically on this coming Saturday 11/25 by thoracic surgery team GI service signed off the case Several consultants on the case, pulmonary, Gen. surgery and cardiothoracic surgery and nephrology Labs and medication were reviewed.. Continue same treatment. Continue with symptomatic treatment. Resume home medication. Monitor labs and vitals. DVT and GI prophylaxis. Further recommendations as per clinical course of the patient DVT prophylaxis:no Subcutaneous heparin GI Prophylaxis: Pepcid, Protonix and Carafate Prognosis is guarded
--- NOTE | 2022-11-22 16:15 | P.PN ---
Subjective Progress Note Date: 11/22/22 Principal diagnosis: Large intra-thoracic hiatal hernia, acute on chronic kidney disease, abdominal discomfort, nausea, vomiting, diarrhea. Past medical history significant for ch ronic dyspnea, 10-14 pound weight loss since August, GERD without esophagitis, gastritis, diverticulosis without diverticulitis, hypertension, hyperlipidemia, anemia of chronic disease, hypothyroidism, never smoker. The patient was seen and examined in follow-up today 11/22/2022 at her bedside on the fifth floor medical oncology unit. Currently she is sitting up in bed, is awake, alert, oriented 3 and is in no acute apparent distress. According to the patient and her bedside nurse, the patient reports that she has had 3 large episodes of diarrhea which were maroon in color and with blood clots present. The patient has been made nothing by mouth and is scheduled for a tagged red blood cell study today. The patient is complaining of some abdominal discomfort especially with palpation of her right upper quadrant. Reinforced with the patient the importance of getting up and sitting in the bedside chair and ambulating in the hallway with assistance as tolerated. She remains on Rocephin and Flagyl for antibiotic coverage and also remains on Protonix, Carafate and Pepcid. Objective - Vital Signs Vital signs: Vital Signs Temp 97.3 F L 11/22/22 08:00 Pulse 98 11/22/22 08:00 Resp 16 11/22/22 08:00 BP 111/73 11/22/22 08:00 Pulse Ox 96 11/22/22 08:00 FiO2 Intake & Output 11/21/22 11/22/22 11/22/22 18:59 06:59 18:59 Intake Total 200 Balance 200 Weight 53.524 kg Intake: Oral 200 Other: Voiding Method Bedside Commode Bedside Commode Bedside Commode # Voids 2 1 # Bowel Movements 1 3 - Exam CONSTITUTIONAL: Appears comfortable, cooperative, no acute distress. RESPIRATORY: Lungs sounds clear bilaterally. Respirations are symmetrical, nonlabored. Currently on room air with oxygen saturation 96%. Able to achieve 1000 mL on incentive spirometry. CARDIOVASCULAR: S1, S2 present. Regular rate and rhythm. Palpable peripheral pulses bilaterally. Bilateral lower extremity edema present. No calf pain or tenderness noted. GASTROINTESTINAL: Abdomen soft, tender to palpation, especially to her right upper abdominal quadrant, nondistended. Active bowel sounds present 4 quadrants. Nothing by mouth at this time. 3 episodes of diarrhea with maroon colored stools and obvious blood clots. GENITOURINARY: Continues to void. INTEGUMENTARY: Skin is warm and dry. No clubbing or cyanosis is present. NEUROLOGIC: Cranial nerves II through XII intact. No focal deficits. MUSKULOSKELETAL: Able to move all extremities, strength equal bilaterally PSYCHIATRIC: Alert and oriented to person place and time, appropriate affect, intact judgment and insight - Allied health notes Allied health notes reviewed: nursing - Labs CBC & Chem 7: 11/22/22 06:02 11/22/22 06:02 Labs: Abnormal Lab Results - Last 24 Hours (Table) 11/22/22 11/22/22 Range/Units 06:02 06:02 WBC 13.06 H (4.50-10.00) X 10*3/uL RBC 3.25 L (4.10-5.20) X 10*6/uL Hgb 10.2 L (12.0-15.0) d/dL Hct 33.4 L (37.2-46.3) % MCV 102.8 H (80.0-97.0) FL MCHC 30.5 L (32.0-37.0) d/dL RDW 17.2 H (11.5-14.5) % Neutrophils # 8.40 H (1.80-7.70) X 10*3/uL Monocytes # 1.36 H (0.20-1.00) X 10*3/uL Macrocytosis (manual) 2+ A Acanthocytes (Spur) 2+ A Anion Gap 12.40 H (4.00-12.00) mmol/L BUN 40.8 H (9.0-27.0) mg/dL Creatinine 4.4 H (0.6-1.5) mg/dL Est GFR (CKD-EPI) 10 L (>=60) BUN/Creatinine Ratio 9.27 L (12.00-20.00) Ratio Calcium 7.9 L (8.7-10.3) mg/dL Assessment and Plan Assessment: Large intra-thoracic hiatal hernia, grade IV Chronic dyspnea, likely related to large hiatal hernia Acute on chronic kidney disease Abdominal discomfort Nausea, vomiting, diarrhea Severe protein calorie malnutrition 10-14 pound weight loss since August History of GERD without esophagitis Gastritis Diverticulosis without diverticulitis History of hypertension History of hyperlipidemia Anemia of chronic disease Hypothyroidism Never smoker Plan: Plan is for repair of intrathoracic hiatal hernia repair, with placement of J- tube Friday11/25/[address] Rivers Continue medical management per internal medicine, GI, pulmonology, nephrology. Increase activity as tolerated. Patient to be out of bed the majority of the day, absolutely needs to be out of bed for all meals, discussed with nursing as well as the patient. Encourage oral consumption as tolerated, patient should sit straight up for at least 1 hour after eating, currently nothing by mouth for tagged red blood cell study. RD ordered, patient was counseled regarding need for increased nutrition and protein intake in order to heal. Calorie count ordered, discussed with RN. More recommendations to follow based on patient's clinical course. Time with Patient: Greater than 30
[2022-11-22] MEDS: HYDROcodone/APAP 10-325MG 1 EACH TAB PO PRN (18:14)
[2022-11-22] MEDS: diphenhydrAMINE 25 MG CAP PO SCH (21:20)
[2022-11-22] MEDS: ATORVASTATIN 20 MG TAB PO SCH (21:20)
[2022-11-22] MEDS: FAMOTIDINE 20 MG TAB PO SCH (21:20)
[2022-11-23] MEDS: LEVOTHYROXINE 50 MCG TAB PO SCH (06:05)
[2022-11-23] MEDS: metroNIDAZOLE 500 MG TAB PO SCH ×3 (08:42→21:07)
[2022-11-23] MEDS: CHOLECALCIFEROL 25 MCG (1000 IU) TABLET PO SCH (08:43)
[2022-11-23] MEDS: SODIUM BICARBONATE TAB 650 MG TAB PO SCH ×3 (08:43→21:05)
[2022-11-23] MEDS: allopurinoL 100 MG TAB PO SCH (08:43)
[2022-11-23] MEDS: PANTOPRAZOLE 40 MG/10 ML VIAL IV SCH ×2 (08:43→21:06)
[2022-11-23] MEDS: SUCRALFATE 1 GM TAB PO SCH ×4 (08:43→21:07)
[2022-11-23] MEDS: FERROUS SULFATE 325 MG TAB PO SCH (08:43)
[2022-11-23] MEDS ORDERED: SODIUM CHLORIDE 0.9% 1,000 ML IV ONE (10:14)
[2022-11-23 10:15] LABS: Glucose,Whole Blood 101 mg/dL (70-110)
[2022-11-23] MEDS ORDERED: PANTOPRAZOLE 40 MG/10 ML VIAL IVP ONE (10:15)
[2022-11-23 10:37] LABS: Anisocytosis Slight; HCT 30.8 % (34.0-46.0); HGB 9.4 gm/dL (11.4-16.0); Hypochromasia Marked; MCH 31.7 pg (25.0-35.0); MCHC 30.4 g/dL (31.0-37.0); MCV 104.4 fL (80.0-100.0); Macrocytosis Moderate; Mean Platelet Volume 9.8; Platelet Count 264 k/uL (150-450); RBC 2.95 m/uL (3.80-5.40); RDW 17.1 % (11.5-15.5); WBC 8.8 k/uL (3.8-10.6)
[2022-11-23 11:03] LABS: ALT 21 U/L (4-34); AST 22 U/L (14-36); African American GFR (CKD) 10 (>60 ml/min/1.73 sqM); Albumin 1.8 g/dL (3.5-5.0); Albumin/Globulin Ratio 0.8; Alkaline Phosphatase 85 U/L (38-126); Anion Gap 8 mmol/L; Blood Urea Nitrogen 45 mg/dL (7-17); Calcium 7.3 mg/dL (8.4-10.2); Carbon Dioxide 25 mmol/L (22-30); Chloride 99 mmol/L (98-107); Globulin 2.3 g/dL; Glucose 143 mg/dL (74-99); Magnesium 1.7 mg/dL (1.6-2.3); Non-African American GFR(CKD) 9 (>60 ml/min/1.73 sqM); Potassium 3.4 mmol/L (3.5-5.1); Sodium 132 mmol/L (137-145); Total Bilirubin 0.3 mg/dL (0.2-1.3); Total Protein 4.1 g/dL (6.3-8.2)
[2022-11-23] MEDS ORDERED: POTASSIUM CHLORIDE ER 20 MEQ TAB.ER PO STA (11:44)
[2022-11-23 12:28] LABS: Band Neutrophils % 2 %; Eosinophils # (M) 0.09 k/uL (0-0.7); Lymphocytes # (M) 0.97 k/uL (1.0-4.8); Monocytes # (M) 0.62 k/uL (0-1.0); Neutrophils % (M) 79 %; Nucleated Red Blood Cells 0 /100 WBC (0-0); Total Cells Counted 100
--- NOTE | 2022-11-23 12:33 | P.PN ---
Subjective Progress Note Date: 11/23/22 Principal diagnosis: Large intra-thoracic hiatal hernia, acute on chronic kidney disease, abdominal discomfort, nausea, vomiting, diarrhea. Past medical history significant for ch ronic dyspnea, 10-14 pound weight loss since August, GERD without esophagitis, gastritis, diverticulosis without diverticulitis, hypertension, hyperlipidemia, anemia of chronic disease, hypothyroidism, never smoker. The patient was seen and examined in follow-up today 11/23/2022 at her bedside on the fifth floor medical oncology unit. Currently she is sitting up to the bedside chair, is awake, alert, oriented 3 and is in no acute apparent distress. The patient's bedside nurse reports that the patient has had 2 large loose bowel movements this morning maroon in color and with obvious blood clots. She reports that she is going to receive 1 unit of packed red blood cells and is scheduled to transfer to the third floor cardiac stepdown unit for higher level of observation. The patient denies any complaints of pain, shortness of breath, nausea or vomiting at this time. She continues to report some abdominal tenderness with palpitation especially to her right upper abdominal quadrant. She is currently receiving an IV bolus of 0.9% normal saline 500 mL. The patient reports that she has been sitting up in chair for her meals and has had minimal intake but is giving a good effort on her Ensure and protein supplements. The patient reports she has been up ambulating in the hallway with standby assistance from nursing and family. The patient's bedside nurse also reports she has been hypotensive this morning with a blood pressure of 79/55 with a map of 63, and her blood pressure is currently 107/66 with a map of 79 while receiving the normal saline bolus. Room air oxygen saturation are 97%. Laboratory results remain pending from this morning. Objective - Vital Signs Vital signs: Vital Signs Temp 98.1 F 11/23/22 10:13 Pulse 118 H 11/23/22 10:21 Resp 16 11/23/22 10:13 BP 94/65 11/23/22 10:21 Pulse Ox 97 11/23/22 10:13 FiO2 Intake & Output 11/22/22 11/23/22 11/23/22 18:59 06:59 18:59 Output Total 2 Balance -2 Weight 53.524 kg Output: Emesis 2 Other: Voiding Method Bedside Commode Bedside Commode Bedside Commode Diaper # Voids 2 1 1 # Bowel Movements 1 1 - Exam CONSTITUTIONAL: Appears comfortable, cooperative, no acute distress, sitting up to the bedside chair. RESPIRATORY: Lungs sounds clear throughout, few scattered crackles to her bilateral bases. Respirations are symmetrical, nonlabored. Currently on room air with oxygen saturation 97%. Able to achieve 1000 mL on incentive spirometry. CARDIOVASCULAR: S1, S2 present. Regular rate and rhythm. Palpable peripheral pulses bilaterally. +1 Bilateral lower extremity edema present. No calf pain or tenderness noted. GASTROINTESTINAL: Abdomen soft, tender to palpation, especially to her right upper abdominal quadrant, slightly distended. Active bowel sounds present 4 quadrants. Tolerating a clear liquid diet. 2 episodes of large loose stool maroon colored and obvious blood clots. GENITOURINARY: Continues to void. INTEGUMENTARY: Skin is warm and dry. No clubbing or cyanosis is present. NEUROLOGIC: Cranial nerves II through XII intact. No focal deficits. MUSKULOSKELETAL: Able to move all extremities, strength equal bilaterally PSYCHIATRIC: Alert and oriented to person place and time, appropriate affect, intact judgment and insight - Allied health notes Allied health notes reviewed: nursing - Labs CBC & Chem 7: 11/23/22 10:20 11/23/22 10:21 Labs: Abnormal Lab Results - Last 24 Hours (Table) 11/22/22 11/22/22 Range/Units 06:02 06:02 WBC 13.06 H (4.50-10.00) X 10*3/uL RBC 3.25 L (4.10-5.20) X 10*6/uL Hgb 10.2 L (12.0-15.0) d/dL Hct 33.4 L (37.2-46.3) % MCV 102.8 H (80.0-97.0) FL MCHC 30.5 L (32.0-37.0) d/dL RDW 17.2 H (11.5-14.5) % Neutrophils # 8.40 H (1.80-7.70) X 10*3/uL Monocytes # 1.36 H (0.20-1.00) X 10*3/uL Macrocytosis (manual) 2+ A Acanthocytes (Spur) 2+ A Anion Gap 12.40 H (4.00-12.00) mmol/L BUN 40.8 H (9.0-27.0) mg/dL Creatinine 4.4 H (0.6-1.5) mg/dL Est GFR (CKD-EPI) 10 L (>=60) BUN/Creatinine Ratio 9.27 L (12.00-20.00) Ratio Calcium 7.9 L (8.7-10.3) mg/dL - Imaging and Cardiology Chest x-ray: report reviewed, image reviewed Assessment and Plan Assessment: Large intra-thoracic hiatal hernia, grade IV Chronic dyspnea, likely related to large hiatal hernia Acute on chronic kidney disease Abdominal discomfort Nausea, vomiting, diarrhea Severe protein calorie malnutrition 10-14 pound weight loss since August History of GERD without esophagitis Gastritis Diverticulosis without diverticulitis History of hypertension History of hyperlipidemia Anemia of chronic disease Hypothyroidism Never smoker GI bleed, having maroon-colored stools with obvious blood clots Plan: Patient is scheduled for repair of intrathoracic hiatal hernia repair, with placement of J-tube Friday11/25/[address] Rivers, although if the patient continues to have obvious bleeding, may need further workup. Medical management and other comorbidities per internal medicine, GI, general surgery, pulmonology, nephrology. Increase activity as tolerated. Patient to be out of bed the majority of the day, absolutely needs to be out of bed for all meals, discussed with nursing as well as the patient. Encourage oral consumption as tolerated, patient should sit straight up for at least [address] ordered, patient was counseled regarding need for increased nutrition and protein intake in order to heal. Calorie count in progress. Patient is currently on a full liquid diet, minimal intake is documented. The patient is being transfused from 1 unit of packed red blood cells this morning and has received an IV bolus of 500 mL 0.9% normal saline. More recommendations to follow based on patient's clinical course. Time with Patient: Greater than 30
--- NOTE | 2022-11-23 13:46 | P.PN ---
Subjective Progress Note Date: 11/23/22 Principal diagnosis: GI bleed Patient was transferred to [facility] because of rectal bleeding this morning. She had a low blood pressure reading at one point. Apparently it quickly returned to normal. Hemoglobin is stable at 9.4 today. Small amount of blood with clots noted by nursing staff. No abdominal pain. Objective - Vital Signs Vital signs: Vital Signs Temp 97.5 F L 11/23/22 12:41 Pulse 94 11/23/22 12:41 Resp 17 11/23/22 12:41 BP 110/70 11/23/22 12:41 Pulse Ox 96 11/23/22 12:41 FiO2 Intake & Output 11/22/22 11/23/22 11/23/22 18:59 06:59 18:59 Output Total 2 Balance -2 Weight 53.524 kg 53.524 kg Output: Emesis 2 Other: Voiding Method Bedside Commode Bedside Commode Bedside Commode Diaper # Voids 2 1 1 # Bowel Movements 1 1 - Exam Abdomen: Soft, nontender, nondistended - Labs CBC & Chem 7: 11/23/22 10:20 11/23/22 10:21 Labs: Abnormal Lab Results - Last 24 Hours (Table) 11/23/22 11/23/22 11/23/22 Range/Units 10:20 10:20 10:21 RBC 2.95 L (3.80-5.40) m/uL Hgb 9.4 L (11.4-16.0) gm/dL Hct 30.8 L (34.0-46.0) % MCV 104.4 H (80.0-100.0) fL MCHC 30.4 L (31.0-37.0) g/dL RDW 17.1 H (11.5-15.5) % Lymphocytes # (Manual) 0.97 L (1.0-4.8) k/uL Sodium 132 L (137-145) mmol/L Potassium 3.4 L (3.5-5.1) mmol/L BUN 45 H (7-17) mg/dL Creatinine 4.42 H (0.52-1.04) mg/dL Glucose 143 H (74-99) mg/dL Calcium 7.3 L (8.4-10.2) mg/dL Total Protein 4.1 L (6.3-8.2) g/dL Albumin 1.8 L (3.5-5.0) g/dL Crossmatch See Detail Assessment and Plan (1) GI bleed Narrative/Plan: 7-year-old female with GI bleed. Etiology unclear but may be related to mild colitis seen on recent CAT scan or possibly related to the large hiatal hernia. Tag red blood cell scan yesterday was negative. Apparently DDAVP was administered earlier this morning. Continue to monitor for recurrent bleeding. Will follow. Current Visit: Yes Status: Acute Code(s): K92.2 - GASTROINTESTINAL HEMORRH AGE, UNSPECIFIED SNOMED Code(s): 47049005
--- NOTE | 2022-11-23 13:47 | P.PN ---
Subjective Patient is seen for follow-up for acute kidney injury and top of chronic kidney disease. Renal function is stable with serum creatinine staying at about 4.0 -4.2 mg/dL. Baseline creatinine around 3 Patient has had dark red colored stools and is therefore transferred to telemetry floor. Blood clot noted. Hemoglobin 9.4 g/dL today. No complaints of shortness of breath. Objective - Vital Signs Vital signs: Vital Signs Temp 97.5 F L 11/23/22 12:41 Pulse 94 11/23/22 12:41 Resp 17 11/23/22 12:41 BP 110/70 11/23/22 12:41 Pulse Ox 96 11/23/22 12:41 FiO2 Intake & Output 11/22/22 11/23/22 11/23/22 18:59 06:59 18:59 Output Total 2 Balance -2 Weight 53.524 kg 53.524 kg Output: Emesis 2 Other: Voiding Method Bedside Commode Bedside Commode Bedside Commode Diaper # Voids 2 1 1 # Bowel Movements 1 1 - Exam Awake, comfortable, no acute distress Examination of the heart S1 and S2 Examination of the lungs bilateral breath sounds are heard Abdomen is soft nontender Examination of lower extremities shows edema 1+, 2+ edema noted in the right upper extremity CORPORATE PARALEGAL exam grossly intact - Labs CBC & Chem 7: 11/23/22 10:20 11/23/22 10:21 Labs: Abnormal Lab Results - Last 24 Hours (Table) 11/23/22 11/23/22 11/23/22 Range/Units 10:20 10:20 10:21 RBC 2.95 L (3.80-5.40) m/uL Hgb 9.4 L (11.4-16.0) gm/dL Hct 30.8 L (34.0-46.0) % MCV 104.4 H (80.0-100.0) fL MCHC 30.4 L (31.0-37.0) g/dL RDW 17.1 H (11.5-15.5) % Lymphocytes # (Manual) 0.97 L (1.0-4.8) k/uL Sodium 132 L (137-145) mmol/L Potassium 3.4 L (3.5-5.1) mmol/L BUN 45 H (7-17) mg/dL Creatinine 4.42 H (0.52-1.04) mg/dL Glucose 143 H (74-99) mg/dL Calcium 7.3 L (8.4-10.2) mg/dL Total Protein 4.1 L (6.3-8.2) g/dL Albumin 1.8 L (3.5-5.0) g/dL Crossmatch See Detail Assessment and Plan Assessment: 1. Acute kidney injury mostly prerenal secondary to hypovolemia from vomiting and diarrhea. Creatinine 4.04 on admission and staying at 4.2-4.4 on 11/19/2022. No hydronephrosis noted on ultrasound on 10/24/2022 2. Chronic kidney disease stage V secondary to nephrosclerosis and chronic interstitial nephritis from NSAID use. Recent creatinine 3-3.7. 3. Hypomagnesemia from GI losses. Replaced. Improved. . 4. Hypokalemia from poor intake and diuretic. Potassium 3.6 today. 5. Anemia of chronic kidney disease. Iron replete. On Aranesp. 6. Intractable nausea vomiting and diarrhea. Patient had cryptosporidium infection in August 2022 and was treated by GI. Also had EGD and colonoscopy done 11/12/2022 which showed large hiatal hernia, mild antral gastritis, sigmoid diverticular stricture and diverticulosis. Abdominal ultrasound in October 2022 showed dilated bile duct at 1.5 cm. 7. Hypertension with chronic kidney disease. Stable. 8. Lower extremity edema with albumin of 2.0 concerning for third spacing. Status post IV albumin and Lasix this admission. 9. GI bleed Plan: DDAVP 1 No urgent need for renal replacement therapy at this time Repeat labs in a.m. Continue with oral sodium bicarb. Replace potassium Monitor CBC closely. Surgery on consult.
[2022-11-23] MEDS ORDERED: DESMOPRESSIN ACETATE 16 MCG in SODIUM CHLORIDE 0.9% 50 ML IVPB ONE (14:00)
[2022-11-23 18:01] LABS: Anisocytosis Slight; HCT 27.7 % (34.0-46.0); HGB 8.5 gm/dL (11.4-16.0); Hypochromasia Marked; MCH 32.2 pg (25.0-35.0); MCHC 30.7 g/dL (31.0-37.0); MCV 104.6 fL (80.0-100.0); Macrocytosis Moderate; Mean Platelet Volume 9.8; Platelet Count 207 k/uL (150-450); RBC 2.64 m/uL (3.80-5.40); RDW 17.2 % (11.5-15.5); WBC 7.1 k/uL (3.8-10.6)
--- NOTE | 2022-11-23 18:08 | P.PN ---
Subjective This is an 81-year-old female patient of Dr. Roman was recently admitted with acute on chronic kidney injury along with abdominal pain and gastroenteritis symptoms including diarrhea. Patient was recently at [facility] and had abdominal imaging there and is being monitored with multiple medical consultations here including GI and cardiothoracic surgery. Patient did undergo EGD which showed hiatal hernia as well as gastritis. Biopsies were obtained. Patient being evaluated for large intrathoracic hiatal hernia repair with cardiothoracic surgery on Friday. Patient is currently afebrile tolerating current diet with no reports of worsening abdominal pain. She is not eating very much at all and needs encouragement with meals. Patient denies chest pain, continues with shortness of breath. 11/22/2022 Patient with known new complaint. She is mildly tachypneic most likely secondary to large hiatal hernia Hemoglobin is been monitored closely. Today's stable. He underwent RBC blood scan which came back negative and patient was started on liquid diet Planned for hiatal hernia repair on Friday 70/24 of her hemoglobin improves and remained stable 11/23/2022 Patient had large bowel movement this morning was was a bloody with clots and patient become somewhat hypotensive. A bolus of normal saline 500 mL is a provided and 1 unit of blood type and screen is provided however he will been remained stable and was only slightly down 9.4, we checked it this afternoon it was 8.5. Blood pressure improved. Systolic blood pressure more than 100. Patient is asymptomatic regarding this. She is complaining from left lower quadrant pain and tenderness which is mild. Discussed the case with the pulmonary team to go to transfer the patient to select unit with close monitoring. Increase Protonix to 40 mg twice daily. Keep hemoglobin. Surgical team of the case with the plan for hiatal hernia repair on Friday We'll transfer the patient to selective unit for close monitoring Active Medications Generic Name Dose Route Start Last Admin Trade Name Freq PRN Reason Stop Dose Admin Acetaminophen 650 mg 11/14/22 22:21 Acetaminophen Tab 325 Mg Tab PO Q6H PRN Fever and/ or Pain Hydrocodone Bitart/Acetaminophen 1 each 11/14/22 22:21 11/22/22 18:14 Hydrocodone/Apap 10-325mg 1 Each Tab PO 1 each Q6HR PRN Administration Pain Allopurinol 100 mg 11/15/22 09:00 11/23/22 08:43 Allopurinol 100 Mg Tab PO 100 mg DAILY RAYSHAWN Administration Atorvastatin Calcium 20 mg 11/15/22 21:00 11/22/22 21:20 Atorvastatin 20 Mg Tab PO 20 mg HS RAYSHAWN Administration Cholecalciferol 50 mcg 11/15/22 09:00 11/23/22 08:43 Cholecalciferol 25 Mcg (1000 Iu) Tablet PO 50 mcg DAILY RAYSHAWN Administration Darbepoetin Efrem 60 mcg 11/19/22 12:45 11/19/22 13:56 Darbepoetin Efrem 60 Mcg/0.3 Ml Syringe SQ 60 mcg Q7D RAYSHAWN Administration Dicyclomine HCl 10 mg 11/21/22 08:53 11/22/22 15:36 Dicyclomine 10 Mg Cap PO 10 mg QID PRN Administration Dyspepsia Diphenhydramine HCl 25 mg 11/15/22 21:00 11/22/22 21:20 Diphenhydramine 25 Mg Cap PO 25 mg HS RAYSHAWN Administration Ferrous Sulfate 325 mg 11/24/22 07:30 Ferrous Sulfate 325 Mg Tab PO BID-W/MEALS [facility] Ceftriaxone Sodium 1 gm/ 50 mls @ 100 mls/hr 11/15/22 13:30 11/23/22 08:42 Sodium Chloride IVPB 100 mls/hr Q24HR [facility] Administration Protocol Levothyroxine Sodium 50 mcg 11/15/22 06:30 11/23/22 06:05 Levothyroxine 50 Mcg Tab PO 50 mcg DAILY@0630 [facility] Administration Metronidazole 500 mg 11/19/22 16:00 11/23/22 16:33 Metronidazole 500 Mg Tab PO 500 mg TID RAYSHAWN Administration Protocol Miscellaneous Information 1 each 11/15/22 09:32 Potassium Replacement Protocol 1 Each Misc MISCELLANE DAILY PRN Per Protocol Protocol Miscellaneous Information 1 each 11/15/22 09:32 Magnesium Replacement Protocol 1 Each Misc MISCELLANE DAILY PRN Per Protocol Protocol Naloxone HCl 0.2 mg 11/14/22 21:22 Naloxone 0.4 Mg/Ml 1 Ml Vial IV Q2M PRN Opioid Reversal Ondansetron HCl 4 mg 11/14/22 21:22 11/21/22 14:08 Ondansetron 4 Mg/2 Ml Vial IVP 4 mg Q4H PRN Administration Nausea And Vomiting Pantoprazole Sodium 40 mg 11/23/22 21:00 Pantoprazole 40 Mg/10 Ml Vial IV BID RAYSHAWN Sodium Bicarbonate 650 mg 11/16/22 11:00 11/23/22 16:33 Sodium Bicarbonate Tab 650 Mg Tab PO 650 mg TID RAYSHAWN Administration Sucralfate 1 gm 11/14/22 22:00 11/23/22 16:33 Sucralfate 1 Gm Tab PO 1 gm QID RAYSHAWN Administration Objective - Vital Signs Vital signs: Vital Signs Temp 97.2 F L 11/23/22 15:33 Pulse 81 11/23/22 15:33 Resp 18 11/23/22 15:33 BP 104/69 11/23/22 15:33 Pulse Ox 95 11/23/22 15:33 FiO2 Intake & Output 11/22/22 11/23/22 11/23/22 18:59 06:59 18:59 Output Total 2 Balance -2 Weight 53.524 kg 53.524 kg Output: Emesis 2 Other: Voiding Method Bedside Commode Bedside Commode Bedside Commode Diaper # Voids 2 1 1 # Bowel Movements 1 1 - Exam GENERAL: The patient is alert and oriented x3, thin built, elderly appearing HEENT: Pupils are round and equally reacting to light. EOMI. no scleral icterus. No conjunctival pallor. Normocephalic, atraumatic. No pharyngeal erythema. No thyromegaly. CARDIOVASCULAR: S1 and S2 muffled PULMONARY: diminished breath sounds bilaterally with no wheezing or rhonchi noted. ABDOMEN: soft. tender on exam. non-distended, normoactive bowel sounds. No palpable organomegaly. MUSCULOSKELETAL: No joint swelling or deformity. EXTREMITIES: No cyanosis, clubbing, or pedal edema. NEUROLOGICAL: Gross neurological examination did not reveal any focal deficits. Diffuse weakness SKIN: No rashes. - Labs CBC & Chem 7: 11/23/22 17:29 11/23/22 10:21 Labs: Abnormal Lab Results - Last 24 Hours (Table) 11/23/22 11/23/22 11/23/22 Range/Units 10:20 10:20 10:21 RBC 2.95 L (3.80-5.40) m/uL Hgb 9.4 L (11.4-16.0) gm/dL Hct 30.8 L (34.0-46.0) % MCV 104.4 H (80.0-100.0) fL MCHC 30.4 L (31.0-37.0) g/dL RDW 17.1 H (11.5-15.5) % Lymphocytes # (Manual) 0.97 L (1.0-4.8) k/uL Sodium 132 L (137-145) mmol/L Potassium 3.4 L (3.5-5.1) mmol/L BUN 45 H (7-17) mg/dL Creatinine 4.42 H (0.52-1.04) mg/dL Glucose 143 H (74-99) mg/dL Calcium 7.3 L (8.4-10.2) mg/dL Total Protein 4.1 L (6.3-8.2) g/dL Albumin 1.8 L (3.5-5.0) g/dL Crossmatch See Detail 11/23/22 Range/Units 17:29 RBC 2.64 L (3.80-5.40) m/uL Hgb 8.5 L (11.4-16.0) gm/dL Hct 27.7 L (34.0-46.0) % MCV 104.6 H (80.0-100.0) fL MCHC 30.7 L (31.0-37.0) g/dL RDW 17.2 H (11.5-15.5) % Lymphocytes # (Manual) (1.0-4.8) k/uL Sodium (137-145) mmol/L Potassium (3.5-5.1) mmol/L BUN (7-17) mg/dL Creatinine (0.52-1.04) mg/dL Glucose (74-99) mg/dL Calcium (8.4-10.2) mg/dL Total Protein (6.3-8.2) g/dL Albumin (3.5-5.0) g/dL Crossmatch Assessment and Plan Assessment: Acute on chronic kidney failure with prerenal acute tubular necrosis Large intrathoracic hiatal hernia, for repair on Friday Increased diarrhea for the last 6 months acute on chronic diarrhea of undetermined etiology, C. diff ruled out Hyponatremia likely secondary to diarrhea and poor oral intake, improving Hypokalemia History of hypothyroidism Severe protein calorie malnutrition with BMI of 19.6 Acute gastritis as noted on EGD History of anxiety Possible urinary tract infection, present on admission, although suspicion is low Plan: Continue with ceftriaxone and Flagyl Monitor hemoglobin Increase Protonix and iron pill Transfer the patient to selected units for close monitoring Plan for hiatal hernia repair surgically on this coming Saturday 11/25 by thoracic surgery team GI service signed off the case Several consultants on the case, pulmonary, Gen. surgery and cardiothoracic surgery and nephrology Labs and medication were reviewed.. Continue same treatment. Continue with symptomatic treatment. Resume home medication. Monitor labs and vitals. DVT and GI prophylaxis. Further recommendations as per clinical course of the patient DVT prophylaxis:no Subcutaneous heparin GI Prophylaxis: Pepcid, Protonix and Carafate Prognosis is guarded
[2022-11-23] MEDS: diphenhydrAMINE 25 MG CAP PO SCH (21:05)
[2022-11-23] MEDS: ATORVASTATIN 20 MG TAB PO SCH (21:06)
[2022-11-24] MEDS: LEVOTHYROXINE 50 MCG TAB PO SCH (06:19)
[2022-11-24] MEDS: FERROUS SULFATE 325 MG TAB PO SCH ×2 (06:19→17:49)
[2022-11-24] MEDS: SUCRALFATE 1 GM TAB PO SCH ×4 (08:23→21:14)
[2022-11-24] MEDS: SODIUM BICARBONATE TAB 650 MG TAB PO SCH ×3 (08:23→21:14)
[2022-11-24] MEDS: CHOLECALCIFEROL 25 MCG (1000 IU) TABLET PO SCH (08:23)
[2022-11-24] MEDS: allopurinoL 100 MG TAB PO SCH (08:23)
[2022-11-24] MEDS: PANTOPRAZOLE 40 MG/10 ML VIAL IV SCH ×2 (08:23→21:14)
[2022-11-24] MEDS: metroNIDAZOLE 500 MG TAB PO SCH ×3 (08:23→21:14)
[2022-11-24] MEDS ORDERED: PANTOPRAZOLE 40 MG/10 ML VIAL IV SCH (09:00)
[2022-11-24] MEDS ORDERED: POTASSIUM CHLORIDE 20 MEQ in WATER FOR INJECTION 1 100ML.BAG IVPB STA (09:08)
--- NOTE | 2022-11-24 09:32 | P.PN ---
Subjective Progress Note Date: 11/24/22 Principal diagnosis: Large intra-thoracic hiatal hernia, acute on chronic kidney disease, abdominal discomfort, nausea, vomiting, diarrhea. Past medical history significant for ch ronic dyspnea, 10-14 pound weight loss since August, GERD without esophagitis, gastritis, diverticulosis without diverticulitis, hypertension, hyperlipidemia, anemia of chronic disease, hypothyroidism, never smoker. The patient was seen and examined in follow-up today 11/24/2022 at her bedside on the cardiac stepdown unit. Currently she is sitting up to the bedside chair, is awake, alert, oriented 3 and is in no acute distress. Denies any complaints of shortness of breath, although is complaining of some abdominal discomfort and cramping mainly to her right upper quadrant abdomen and left lower quadrant abdomen. The patient's nurse reports that she had 2 bowel movements throughout the evening with no obvious blood or clots. She is being followed by general surgery for the GI bleed. Yesterday she was given a dose of DDAVP 1 and did not receive a blood transfusion. Repeat labs yesterday afternoon showed a WBC count of 7.1, hemoglobin 8.5, platelets 207, sodium 132, potassium 3.4, BUN 45 and creatinine 4.42. Oxygen saturations are 96% on room air and she is achieving 1000 mL on her incentive spirometry and encouragement. The patient reports she has been up ambulating in the cardiac stepdown unit hallway with standby assistance from nursing staff and family. The patient also reports that she has been trying her best to eat her nutrition shakes and protein puddings. She denies any nausea or vomiting in the last 24 hours. She is been afebrile the last 24 hours. Laboratory results this morning remain pending. Objective - Vital Signs Vital signs: Vital Signs Temp 97.8 F 11/24/22 04:00 Pulse 80 11/24/22 04:00 Resp 18 11/24/22 04:00 BP 119/70 11/24/22 04:00 Pulse Ox 96 11/24/22 04:00 FiO2 Intake & Output 11/23/22 11/24/22 11/24/22 18:59 06:59 18:59 Intake Total 250 Output Total 2 Balance -2 250 Weight 53.524 kg Intake: Oral 250 Output: Emesis 2 Other: Voiding Method Bedside Commode Bedside Commode Diaper Diaper # Voids 1 1 # Bowel Movements 1 1 - Exam CONSTITUTIONAL: Appears comfortable, cooperative, no acute distress, sitting up to the bedside chair. RESPIRATORY: Lungs sounds clear throughout, few scattered crackles to her bilateral bases. Respirations are symmetrical, nonlabored. Currently on room air with oxygen saturation 96%. Able to achieve 1000 mL on incentive spirometry. CARDIOVASCULAR: S1, S2 present. Regular rate and rhythm. Palpable peripheral pulses bilaterally. +1 Bilateral lower extremity edema present. No calf pain or tenderness noted. GASTROINTESTINAL: Abdomen soft, tender to palpation, to her right upper abdomi nal quadrant and left lower quadrant, slightly distended. Active bowel sounds present 4 quadrants. Tolerating a clear liquid diet. 2 bowel movements yesterday evening 11/23/2022. GENITOURINARY: Continues to void. INTEGUMENTARY: Skin is warm and dry. No clubbing or cyanosis is present. NEUROLOGIC: Cranial nerves II through XII intact. No focal deficits. MUSKULOSKELETAL: Able to move all extremities, strength equal bilaterally PSYCHIATRIC: Alert and oriented to person place and time, appropriate affect, intact judgment and insight - Allied health notes Allied health notes reviewed: nursing - Labs CBC & Chem 7: 11/23/22 17:29 11/23/22 10:21 Labs: Abnormal Lab Results - Last 24 Hours (Table) 11/23/22 11/23/22 11/23/22 Range/Units 10:20 10:20 10:21 RBC 2.95 L (3.80-5.40) m/uL Hgb 9.4 L (11.4-16.0) gm/dL Hct 30.8 L (34.0-46.0) % MCV 104.4 H (80.0-100.0) fL MCHC 30.4 L (31.0-37.0) g/dL RDW 17.1 H (11.5-15.5) % Lymphocytes # (Manual) 0.97 L (1.0-4.8) k/uL Sodium 132 L (137-145) mmol/L Potassium 3.4 L (3.5-5.1) mmol/L BUN 45 H (7-17) mg/dL Creatinine 4.42 H (0.52-1.04) mg/dL Glucose 143 H (74-99) mg/dL Calcium 7.3 L (8.4-10.2) mg/dL Total Protein 4.1 L (6.3-8.2) g/dL Albumin 1.8 L (3.5-5.0) g/dL Crossmatch See Detail 11/23/22 Range/Units 17:29 RBC 2.64 L (3.80-5.40) m/uL Hgb 8.5 L (11.4-16.0) gm/dL Hct 27.7 L (34.0-46.0) % MCV 104.6 H (80.0-100.0) fL MCHC 30.7 L (31.0-37.0) g/dL RDW 17.2 H (11.5-15.5) % Lymphocytes # (Manual) (1.0-4.8) k/uL Sodium (137-145) mmol/L Potassium (3.5-5.1) mmol/L BUN (7-17) mg/dL Creatinine (0.52-1.04) mg/dL Glucose (74-99) mg/dL Calcium (8.4-10.2) mg/dL Total Protein (6.3-8.2) g/dL Albumin (3.5-5.0) g/dL Crossmatch Assessment and Plan Assessment: Large intra-thoracic hiatal hernia, grade IV Chronic dyspnea, likely related to large hiatal hernia Acute on chronic kidney disease Abdominal discomfort Nausea, vomiting, diarrhea Severe protein calorie malnutrition 10-14 pound weight loss since August History of GERD without esophagitis Gastritis Diverticulosis without diverticulitis History of hypertension History of hyperlipidemia Anemia of chronic disease Hypothyroidism Never smoker GI bleed, having maroon-colored stools with obvious blood clots Plan: The patient is scheduled for repair of intrathoracic hiatal hernia repair, with placement of J-tube Friday11/25/[address] Rivers. Nothing by mouth After midnight. Medical management and other comorbidities per internal medicine, GI, general surgery, pulmonology, nephrology. Increase activity as tolerated. Patient to be out of bed the majority of the day, absolutely needs to be out of bed for all meals, discussed with nursing as well as the patient. Encourage oral consumption as tolerated, patient should sit straight up for at least [address] ordered, patient was counseled regarding need for increased nutrition and protein intake in order to heal. Calorie count in progress. Patient is currently on a full liquid diet, minimal intake is continues to be documented. The patient did not receive a blood transfusion yesterday, although received a dose of DDAVP and received an IV bolus of 500 mL 0.9% normal saline. Hemoglobin 8.5 yesterday afternoon, laboratory results this morning remain pending. More recommendations to follow based on patient's clinical course. Time with Patient: Less than 30
--- NOTE | 2022-11-24 10:18 | P.PN ---
Subjective Progress Note Date: 11/24/22 Principal diagnosis: GI bleed Patient is resting comfortably today. Denies pain. No further rectal bleeding. Denies nausea or vomiting. Morning hemoglobin 8.5. Objective - Vital Signs Vital signs: Vital Signs Temp 97.8 F 11/24/22 04:00 Pulse 80 11/24/22 04:00 Resp 18 11/24/22 04:00 BP 119/70 11/24/22 04:00 Pulse Ox 96 11/24/22 04:00 FiO2 Intake & Output 11/23/22 11/24/22 11/24/22 18:59 06:59 18:59 Intake Total 250 Output Total 2 Balance -2 250 Weight 53.524 kg Intake: Oral 250 Output: Emesis 2 Other: Voiding Method Bedside Commode Bedside Commode Diaper Diaper # Voids 1 1 # Bowel Movements 1 1 - Exam Abdomen: Soft, nontender, nondistended - Labs CBC & Chem 7: 11/23/22 17:29 11/23/22 10:21 Labs: Abnormal Lab Results - Last 24 Hours (Table) 11/23/22 11/23/22 11/23/22 Range/Units 10:20 10:20 10:21 RBC 2.95 L (3.80-5.40) m/uL Hgb 9.4 L (11.4-16.0) gm/dL Hct 30.8 L (34.0-46.0) % MCV 104.4 H (80.0-100.0) fL MCHC 30.4 L (31.0-37.0) g/dL RDW 17.1 H (11.5-15.5) % Lymphocytes # (Manual) 0.97 L (1.0-4.8) k/uL Sodium 132 L (137-145) mmol/L Potassium 3.4 L (3.5-5.1) mmol/L BUN 45 H (7-17) mg/dL Creatinine 4.42 H (0.52-1.04) mg/dL Glucose 143 H (74-99) mg/dL Calcium 7.3 L (8.4-10.2) mg/dL Total Protein 4.1 L (6.3-8.2) g/dL Albumin 1.8 L (3.5-5.0) g/dL Crossmatch See Detail 11/23/22 Range/Units 17:29 RBC 2.64 L (3.80-5.40) m/uL Hgb 8.5 L (11.4-16.0) gm/dL Hct 27.7 L (34.0-46.0) % MCV 104.6 H (80.0-100.0) fL MCHC 30.7 L (31.0-37.0) g/dL RDW 17.2 H (11.5-15.5) % Lymphocytes # (Manual) (1.0-4.8) k/uL Sodium (137-145) mmol/L Potassium (3.5-5.1) mmol/L BUN (7-17) mg/dL Creatinine (0.52-1.04) mg/dL Glucose (74-99) mg/dL Calcium (8.4-10.2) mg/dL Total Protein (6.3-8.2) g/dL Albumin (3.5-5.0) g/dL Crossmatch Assessment and Plan (1) GI bleed Narrative/Plan: Patient without further bleeding. Continue to monitor for recurrent bleeding. Continue with plans for repair hiatal hernia per thoracic surgery. Current Visit: Yes Status: Acute Code(s): K92.2 - GASTROINTESTINAL HEMORRHAGE, UNSPECIFIED SNOMED Code(s): 04519838
--- NOTE | 2022-11-24 11:05 | P.PN ---
Subjective Patient is seen for follow-up for acute kidney injury and top of chronic kidney disease. Renal function is stable with serum creatinine staying at about 4.0 -4.2 mg/dL. Baseline creatinine around 3 Patient has had GI bleed with blood clots noted yesterday. She was transferred to the telemetry floor. Hemoglobin dropped to 8.5 g/dL Patient did receive 1 unit packed RBCs Also received a dose of DDAVP yesterday. No active bleeding noted today. Renal function remains stable with creatinine at about 4.4 mg/dL. Objective - Vital Signs Vital signs: Vital Signs Temp 97.8 F 11/24/22 04:00 Pulse 80 11/24/22 04:00 Resp 18 11/24/22 04:00 BP 119/70 11/24/22 04:00 Pulse Ox 96 11/24/22 04:00 FiO2 Intake & Output 11/23/22 11/24/22 11/24/22 18:59 06:59 18:59 Intake Total 250 Output Total 2 Balance -2 250 Weight 53.524 kg Intake: Oral 250 Output: Emesis 2 Other: Voiding Method Bedside Commode Bedside Commode Diaper Diaper # Voids 1 1 # Bowel Movements 1 1 - Exam Awake, comfortable, no acute distress Examination of the heart S1 and S2 Examination of the lungs bilateral breath sounds are heard Abdomen is soft nontender Examination of lower extremities shows edema 1+, 2+ edema noted in the right upper extremity SOFT TILE SETTER exam grossly intact - Labs CBC & Chem 7: 11/23/22 17:29 11/23/22 10:21 Labs: Abnormal Lab Results - Last 24 Hours (Table) 11/23/22 11/23/22 11/23/22 Range/Units 10:20 10:20 10:21 RBC 2.95 L (3.80-5.40) m/uL Hgb 9.4 L (11.4-16.0) gm/dL Hct 30.8 L (34.0-46.0) % MCV 104.4 H (80.0-100.0) fL MCHC 30.4 L (31.0-37.0) g/dL RDW 17.1 H (11.5-15.5) % Lymphocytes # (Manual) 0.97 L (1.0-4.8) k/uL Sodium 132 L (137-145) mmol/L Potassium 3.4 L (3.5-5.1) mmol/L BUN 45 H (7-17) mg/dL Creatinine 4.42 H (0.52-1.04) mg/dL Glucose 143 H (74-99) mg/dL Calcium 7.3 L (8.4-10.2) mg/dL Total Protein 4.1 L (6.3-8.2) g/dL Albumin 1.8 L (3.5-5.0) g/dL Crossmatch See Detail 11/23/22 Range/Units 17:29 RBC 2.64 L (3.80-5.40) m/uL Hgb 8.5 L (11.4-16.0) gm/dL Hct 27.7 L (34.0-46.0) % MCV 104.6 H (80.0-100.0) fL MCHC 30.7 L (31.0-37.0) g/dL RDW 17.2 H (11.5-15.5) % Lymphocytes # (Manual) (1.0-4.8) k/uL Sodium (137-145) mmol/L Potassium (3.5-5.1) mmol/L BUN (7-17) mg/dL Creatinine (0.52-1.04) mg/dL Glucose (74-99) mg/dL Calcium (8.4-10.2) mg/dL Total Protein (6.3-8.2) g/dL Albumin (3.5-5.0) g/dL Crossmatch Assessment and Plan Assessment: 1. Acute kidney injury mostly prerenal secondary to hypovolemia from vomiting and diarrhea. Creatinine 4.04 on admission and staying at 4.2-4.4 on 11/19/2022. No hydronephrosis noted on ultrasound on 10/24/2022 2. Chronic kidney disease stage V secondary to nephrosclerosis and chronic interstitial nephritis from NSAID use. Recent creatinine 3-3.7. 3. Hypomagnesemia from GI losses. Replaced. Improved. . 4. Hypokalemia from poor intake and diuretic. Potassium 3.6 today. 5. Anemia of chronic kidney disease. Iron replete. On Aranesp. 6. Intractable nausea vomiting and diarrhea. Patient had cryptosporidium infection in August 2022 and was treated by GI. Also had EGD and colonoscopy done 11/12/2022 which showed large hiatal hernia, mild antral gastritis, sigmoid diverticular stricture and diverticulosis. Abdominal ultrasound in October 2022 showed dilated bile duct at 1.5 cm. 7. Hypertension with chronic kidney disease. Stable. 8. Lower extremity edema with albumin of 2.0 concerning for third spacing. Status post IV albumin and Lasix this admission. 9. GI bleed status post DDAVP and 1 unit packed RBCs transfusion yesterday. Labs are pending from today. 10. Large hiatal hernia scheduled for surgery in a.m. Plan: No urgent need for renal replacement therapy at this time Repeat labs in a.m. Continue with oral sodium bicarb. Replace potassium Monitor CBC closely. Surgery on consult.
[2022-11-24 13:34] LABS: Anisocytosis Slight; Basophils % (A) 0 %; Eosinophils # (A) 0.1 k/uL (0-0.7); Eosinophils % (A) 1 %; HCT 25.1 % (34.0-46.0); HGB 7.8 gm/dL (11.4-16.0); Hypochromasia Marked; Lymphocytes # (A) 0.6 k/uL (1.0-4.8); Lymphocytes % (A) 10 %; MCH 32.8 pg (25.0-35.0); MCHC 31.3 g/dL (31.0-37.0); MCV 105.1 fL (80.0-100.0); Macrocytosis Moderate; Mean Platelet Volume 10.2; Monocytes # (A) 0.5 k/uL (0-1.0); Monocytes % (A) 8 %; Neutrophils # (A) 5.2 k/uL (1.3-7.7); Neutrophils % (A) 80 %; Platelet Count 173 k/uL (150-450); RBC 2.39 m/uL (3.80-5.40); RDW 17.8 % (11.5-15.5); WBC 6.5 k/uL (3.8-10.6)
[2022-11-24 13:38] LABS: African American GFR (CKD) 11 (>60 ml/min/1.73 sqM); Anion Gap 6 mmol/L; Blood Urea Nitrogen 45 mg/dL (7-17); Calcium 6.9 mg/dL (8.4-10.2); Carbon Dioxide 23 mmol/L (22-30); Chloride 102 mmol/L (98-107); Glucose 72 mg/dL (74-99); Non-African American GFR(CKD) 9 (>60 ml/min/1.73 sqM); Potassium 3.8 mmol/L (3.5-5.1); Sodium 131 mmol/L (137-145)
[2022-11-24 13:47] LABS: INR 1.7 (<1.2); Partial Thromboplastin Time 59.9 sec (22.0-30.0)
--- NOTE | 2022-11-24 14:08 | P.PN ---
Subjective This is an 81-year-old female patient of Dr. Roman was recently admitted with acute on chronic kidney injury along with abdominal pain and gastroenteritis symptoms including diarrhea. Patient was recently at [facility] and had abdominal imaging there and is being monitored with multiple medical consultations here including GI and cardiothoracic surgery. Patient did undergo EGD which showed hiatal hernia as well as gastritis. Biopsies were obtained. Patient being evaluated for large intrathoracic hiatal hernia repair with cardiothoracic surgery on Friday. Patient is currently afebrile tolerating current diet with no reports of worsening abdominal pain. She is not eating very much at all and needs encouragement with meals. Patient denies chest pain, continues with shortness of breath. 11/22/2022 Patient with known new complaint. She is mildly tachypneic most likely secondary to large hiatal hernia Hemoglobin is been monitored closely. Today's stable. He underwent RBC blood scan which came back negative and patient was started on liquid diet Planned for hiatal hernia repair on Friday 70/24 of her hemoglobin improves and remained stable 11/23/2022 Patient had large bowel movement this morning was was a bloody with clots and patient become somewhat hypotensive. A bolus of normal saline 500 mL is a provided and 1 unit of blood type and screen is provided however he will been remained stable and was only slightly down 9.4, we checked it this afternoon it was 8.5. Blood pressure improved. Systolic blood pressure more than 100. Patient is asymptomatic regarding this. She is complaining from left lower quadrant pain and tenderness which is mild. Discussed the case with the pulmonary team to go to transfer the patient to select unit with close monitoring. Increase Protonix to 40 mg twice daily. Keep hemoglobin. Surgical team of the case with the plan for hiatal hernia repair on Friday We'll transfer the patient to selective unit for close monitoring 11/24/2022 patient looks more stable today and more relaxed, she still lethargic but awake and alert. She denies any chest pain, no pain anywhere else, no dyspnea. Vitals stable, hemoglobin today is 7.8. WBC is 7.1. INR 1.7. Extremities on ceftriaxone and Flagyl Thoracic surgery team appointment for hiatal hernia repair tomorrow when day Objective - Vital Signs Vital signs: Vital Signs Temp 97.5 F L 11/24/22 11:43 Pulse 86 11/24/22 11:43 Resp 17 11/24/22 11:43 BP 116/74 11/24/22 11:43 Pulse Ox 97 11/24/22 11:43 FiO2 Intake & Output 11/23/22 11/24/22 11/24/22 18:59 06:59 18:59 Intake Total 250 Output Total 2 Balance -2 250 Weight 53.524 kg Intake: Oral 250 Output: Emesis 2 Other: Voiding Method Bedside Commode Bedside Commode Diaper Diaper # Voids 1 1 # Bowel Movements 1 1 - Labs CBC & Chem 7: 11/24/22 12:20 11/24/22 12:20 Labs: Abnormal Lab Results - Last 24 Hours (Table) 11/23/22 11/24/22 11/24/22 Range/Units 17:29 12:20 12:20 RBC 2.64 L 2.39 L (3.80-5.40) m/uL Hgb 8.5 L 7.8 L (11.4-16.0) gm/dL Hct 27.7 L 25.1 L (34.0-46.0) % MCV 104.6 H 105.1 H (80.0-100.0) fL MCHC 30.7 L (31.0-37.0) g/dL RDW 17.2 H 17.8 H (11.5-15.5) % Lymphocytes # 0.6 L (1.0-4.8) k/uL PT (9.0-12.0) sec INR (<1.2) APTT (22.0-30.0) sec Sodium 131 L (137-145) mmol/L BUN 45 H (7-17) mg/dL Creatinine 4.17 H (0.52-1.04) mg/dL Glucose 72 L (74-99) mg/dL Calcium 6.9 L (8.4-10.2) mg/dL 11/24/22 Range/Units 12:20 RBC (3.80-5.40) m/uL Hgb (11.4-16.0) gm/dL Hct (34.0-46.0) % MCV (80.0-100.0) fL MCHC (31.0-37.0) g/dL RDW (11.5-15.5) % Lymphocytes # (1.0-4.8) k/uL PT 17.0 H (9.0-12.0) sec INR 1.7 H (<1.2) APTT 59.9 H (22.0-30.0) sec Sodium (137-145) mmol/L BUN (7-17) mg/dL Creatinine (0.52-1.04) mg/dL Glucose (74-99) mg/dL Calcium (8.4-10.2) mg/dL Assessment and Plan Assessment: Acute on chronic kidney failure with prerenal acute tubular necrosis Large intrathoracic hiatal hernia, for repair on Friday Increased diarrhea for the last 6 months acute on chronic diarrhea of undetermined etiology, C. diff ruled out Hyponatremia likely secondary to diarrhea and poor oral intake, improving Hypokalemia History of hypothyroidism Severe protein calorie malnutrition with BMI of 19.6 Acute gastritis as noted on EGD History of anxiety Possible urinary tract infection, present on admission, although suspicion is low Plan: Continue with ceftriaxone and Flagyl Monitor hemoglobin Increase Protonix and iron pill Transfer the patient to selected units for close monitoring Plan for hiatal hernia repair surgically on this coming Saturday 11/25 by thoracic surgery team GI service signed off the case Several consultants on the case, pulmonary, Gen. surgery and cardiothoracic surgery and nephrology Labs and medication were reviewed.. Continue same treatment. Continue with symptomatic treatment. Resume home medication. Monitor labs and vitals. DVT and GI prophylaxis. Further recommendations as per clinical course of the patient DVT prophylaxis:no Subcutaneous heparin GI Prophylaxis: Pepcid, Protonix and Carafate Prognosis is guarded
[2022-11-24] MEDS: HYDROcodone/APAP 10-325MG 1 EACH TAB PO PRN (15:29)
[2022-11-24] MEDS: diphenhydrAMINE 25 MG CAP PO SCH (21:14)
[2022-11-24] MEDS: ATORVASTATIN 20 MG TAB PO SCH (21:14)
[2022-11-25 08:10] LABS: Anisocytosis Slight; Basophils % (A) 0 %; Eosinophils # (A) 0.1 k/uL (0-0.7); Eosinophils % (A) 2 %; HCT 30.8 % (34.0-46.0); Hypochromasia Marked; Lymphocytes # (A) 1.1 k/uL (1.0-4.8); Lymphocytes % (A) 16 %; MCH 33.2 pg (25.0-35.0); MCHC 31.7 g/dL (31.0-37.0); MCV 104.7 fL (80.0-100.0); Macrocytosis Moderate; Monocytes # (A) 0.4 k/uL (0-1.0); Monocytes % (A) 6 %; Neutrophils # (A) 5.1 k/uL (1.3-7.7); Neutrophils % (A) 75 %; Platelet Count 177 k/uL (150-450); Poikilocytosis Slight; RBC 2.94 m/uL (3.80-5.40); RDW 17.8 % (11.5-15.5); WBC 6.8 k/uL (3.8-10.6)
[2022-11-25] MEDS: CHOLECALCIFEROL 25 MCG (1000 IU) TABLET PO SCH (08:15)
[2022-11-25] MEDS: SUCRALFATE 1 GM TAB PO SCH ×2 (08:15→11:38)
[2022-11-25] MEDS: metroNIDAZOLE 500 MG TAB PO SCH (08:15)
[2022-11-25] MEDS: PANTOPRAZOLE 40 MG/10 ML VIAL IV SCH ×2 (08:15→20:22)
[2022-11-25] MEDS: allopurinoL 100 MG TAB PO SCH (08:15)
[2022-11-25] MEDS: SODIUM BICARBONATE TAB 650 MG TAB PO SCH (08:16)
[2022-11-25] MEDS: LEVOTHYROXINE 50 MCG TAB PO SCH (08:19)
[2022-11-25] MEDS: FERROUS SULFATE 325 MG TAB PO SCH (08:19)
[2022-11-25 08:24] LABS: ALT 17 U/L (4-34); AST 22 U/L (14-36); African American GFR (CKD) 11 (>60 ml/min/1.73 sqM); Albumin 1.6 g/dL (3.5-5.0); Alkaline Phosphatase 73 U/L (38-126); Anion Gap 6 mmol/L; Blood Urea Nitrogen 44 mg/dL (7-17); Calcium 7.3 mg/dL (8.4-10.2); Carbon Dioxide 18 mmol/L (22-30); Chloride 107 mmol/L (98-107); Glucose 58 mg/dL (74-99); Non-African American GFR(CKD) 10 (>60 ml/min/1.73 sqM); Potassium 3.9 mmol/L (3.5-5.1); Sodium 131 mmol/L (137-145); Total Bilirubin 0.5 mg/dL (0.2-1.3); Total Protein 3.8 g/dL (6.3-8.2)
[2022-11-25 08:34] LABS: HGB 9.8 gm/dL (11.4-16.0)
[2022-11-25 10:22] LABS: Glucose,Whole Blood 76 mg/dL (70-110)
[2022-11-25 11:32] LABS: INR 1.4 (<1.2); Prothrombin Time 14.5 sec (9.0-12.0)
--- NOTE | 2022-11-25 13:26 | P.PN ---
Subjective Patient is seen in follow-up for acute kidney injury on chronic kidney disease. Renal function fairly stable. Continues to have diarrhea. Has been voiding. Scheduled for hernia repair today. Vital signs are stable. General: No acute distress. HEENT: Head exam is unremarkable. LUNGS: No audible rhonchi or wheezes. HEART: Rate and Rhythm are regular. ABDOMEN: Nontender. EXTREMITITES: 1+ edema. Objective - Vital Signs Vital signs: Vital Signs Temp 97.4 F L 11/25/22 08:11 Pulse 86 11/25/22 11:31 Resp 16 11/25/22 11:31 BP 133/83 11/25/22 11:31 Pulse Ox 97 11/25/22 11:31 FiO2 Intake & Output 11/24/22 11/25/22 11/25/22 18:59 06:59 18:59 Intake Total 0 310 Output Total 400 Balance 0 310 -400 Intake: Blood Product 0 310 Rc As-1 Unit 0 310 [id number] Output: Urine 400 Other: Voiding Method Bedside Commode Bedside Commode Bedside Commode Diaper Diaper Diaper # Voids 3 1 # Bowel Movements 0 1 1 - Labs CBC & Chem 7: 11/25/22 07:11 11/25/22 07:11 Labs: Abnormal Lab Results - Last 24 Hours (Table) 11/23/22 11/24/22 11/24/22 Range/Units 10:20 12:20 12:20 RBC 2.39 L (3.80-5.40) m/uL Hgb 7.8 L (11.4-16.0) gm/dL Hct 25.1 L (34.0-46.0) % MCV 105.1 H (80.0-100.0) fL RDW 17.8 H (11.5-15.5) % Lymphocytes # 0.6 L (1.0-4.8) k/uL PT (9.0-12.0) sec INR (<1.2) APTT (22.0-30.0) sec Sodium 131 L (137-145) mmol/L Carbon Dioxide (22-30) mmol/L BUN 45 H (7-17) mg/dL Creatinine 4.17 H (0.52-1.04) mg/dL Glucose 72 L (74-99) mg/dL Calcium 6.9 L (8.4-10.2) mg/dL Total Protein (6.3-8.2) g/dL Albumin (3.5-5.0) g/dL Crossmatch See Detail 11/24/22 11/25/22 11/25/22 Range/Units 12:20 07:11 07:11 RBC 2.94 L (3.80-5.40) m/uL Hgb 9.8 L D (11.4-16.0) gm/dL Hct 30.8 L (34.0-46.0) % MCV 104.7 H (80.0-100.0) fL RDW 17.8 H (11.5-15.5) % Lymphocytes # (1.0-4.8) k/uL PT 17.0 H (9.0-12.0) sec INR 1.7 H (<1.2) APTT 59.9 H (22.0-30.0) sec Sodium 131 L (137-145) mmol/L Carbon Dioxide 18 L (22-30) mmol/L BUN 44 H (7-17) mg/dL Creatinine 4.05 H (0.52-1.04) mg/dL Glucose 58 L (74-99) mg/dL Calcium 7.3 L (8.4-10.2) mg/dL Total Protein 3.8 L (6.3-8.2) g/dL Albumin 1.6 L (3.5-5.0) g/dL Crossmatch 11/25/22 Range/Units 10:16 RBC (3.80-5.40) m/uL Hgb (11.4-16.0) gm/dL Hct (34.0-46.0) % MCV (80.0-100.0) fL RDW (11.5-15.5) % Lymphocytes # (1.0-4.8) k/uL PT 14.5 H (9.0-12.0) sec INR 1.4 H (<1.2) APTT (22.0-30.0) sec Sodium (137-145) mmol/L Carbon Dioxide (22-30) mmol/L BUN (7-17) mg/dL Creatinine (0.52-1.04) mg/dL Glucose (74-99) mg/dL Calcium (8.4-10.2) mg/dL Total Protein (6.3-8.2) g/dL Albumin (3.5-5.0) g/dL Crossmatch Assessment and Plan Plan: Assessment: 1. Acute kidney injury mostly prerenal secondary to hypovolemia from vomiting and diarrhea. Creatinine stable at 4.05 today. 2. Chronic kidney disease stage V secondary to nephrosclerosis and chronic interstitial nephritis from NSAID use. Recent creatinine 3-3.7. 3. Hypomagnesemia from GI losses. Replaced. Improved. Magnesium 1.7 today. 4. Hypokalemia from poor intake and diuretic. Replaced. Better. 5. Anemia of chronic kidney disease. Iron replete. On Aranesp. 6. Intractable nausea vomiting and diarrhea. Patient had cryptosporidium infection in August 2022 and was treated by GI. Also had EGD and colonoscopy do ne 11/12/2022 which showed large hiatal hernia, mild antral gastritis, sigmoid diverticular stricture and diverticulosis. Abdominal ultrasound in October 2022 showed dilated bile duct at 1.5 cm. scheduled for hiatal hernia repair today. 7. Hypertension with chronic kidney disease. Stable. 8. Lower extremity edema with albumin of 2.0 concerning for third spacing. Status post IV albumin and Lasix this admission. 9. Klebsiella and Citrobacter UTI on antibiotics. 10. Metabolic acidosis secondary to chronic kidney disease and GI losses. On oral bicarbonate. Plan: Avoid nephrotoxins. Continue to monitor renal function and urine output. No urgent need for renal replacement therapy at this time. Patient states she is not ready to start at this time. Continue to assess on a daily basis. Check phosphorus level.
--- NOTE | 2022-11-25 13:53 | P.PN ---
Subjective Progress Note Date: 11/25/22 Principal diagnosis: GI bleed Patient doing well today. No further bleeding. Repeat hemoglobin yesterday was in the 7 range and one unit of blood was given. Hemoglobin today 9.8. Patient has no pain today. Objective - Vital Signs Vital signs: Vital Signs Temp 97.4 F L 11/25/22 08:11 Pulse 86 11/25/22 11:31 Resp 16 11/25/22 11:31 BP 133/83 11/25/22 11:31 Pulse Ox 97 11/25/22 11:31 FiO2 Intake & Output 11/24/22 11/25/22 11/25/22 18:59 06:59 18:59 Intake Total 0 310 Output Total 400 Balance 0 310 -400 Intake: Blood Product 0 310 Rc As-1 Unit 0 310 [id number] Output: Urine 400 Other: Voiding Method Bedside Commode Bedside Commode Bedside Commode Diaper Diaper Diaper # Voids 3 1 # Bowel Movements 0 1 1 - Exam Abdomen: Soft, nontender, nondistended - Labs CBC & Chem 7: 11/25/22 07:11 11/25/22 07:11 Labs: Abnormal Lab Results - Last 24 Hours (Table) 11/23/22 11/25/22 11/25/22 Range/Units 10:20 07:11 07:11 RBC 2.94 L (3.80-5.40) m/uL Hgb 9.8 L D (11.4-16.0) gm/dL Hct 30.8 L (34.0-46.0) % MCV 104.7 H (80.0-100.0) fL RDW 17.8 H (11.5-15.5) % PT (9.0-12.0) sec INR (<1.2) Sodium 131 L (137-145) mmol/L Carbon Dioxide 18 L (22-30) mmol/L BUN 44 H (7-17) mg/dL Creatinine 4.05 H (0.52-1.04) mg/dL Glucose 58 L (74-99) mg/dL Calcium 7.3 L (8.4-10.2) mg/dL Total Protein 3.8 L (6.3-8.2) g/dL Albumin 1.6 L (3.5-5.0) g/dL Crossmatch See Detail 11/25/22 Range/Units 10:16 RBC (3.80-5.40) m/uL Hgb (11.4-16.0) gm/dL Hct (34.0-46.0) % MCV (80.0-100.0) fL RDW (11.5-15.5) % PT 14.5 H (9.0-12.0) sec INR 1.4 H (<1.2) Sodium (137-145) mmol/L Carbon Dioxide (22-30) mmol/L BUN (7-17) mg/dL Creatinine (0.52-1.04) mg/dL Glucose (74-99) mg/dL Calcium (8.4-10.2) mg/dL Total Protein (6.3-8.2) g/dL Albumin (3.5-5.0) g/dL Crossmatch Assessment and Plan (1) GI bleed Narrative/Plan: Patient with rectal bleeding. This seems to stop once again. Hemoglobin is stable and INR is now 1.4. Plans for transthoracic hiatal hernia repair today. We'll sign off. Please call if needed. Current Visit: Yes Status: Acute Code(s): K92.2 - GASTROINTESTINAL HEMORRHAGE, UNSPECIFIED SNOMED Code(s): 66326571
--- NOTE | 2022-11-25 13:57 | P.PN ---
Subjective Progress Note Date: 11/25/22 This is an 81-year-old female admitted with multiple medical issues including GI bleed, acute on chronic kidney failure, large intrathoracic hiatal hernia accompanied by dyspnea, diarrhea- chronic-tested negative for C. difficile colitis, hyponatremia, hypokalemia, severe protein calorie malnutrition, sche duled for repair of intrathoracic hiatal hernia repair, with placement of J-tube today. NPO. Hemoglobin 9.8, platelets 177 , sodium 131, potassium 3.9, BUN 44, creatinine 4.05, total protein 3.8, albumin 1.6 .no further bleeding reported .This morning telemetry reporting a 5 beat run, stat magnesium ordered. Blood cultures remain no growth after 5 days. Stool culture reported no salmonella, shigella or Campylobacter, no E. coli. Urine culture reported Klebsiella pneumoniae, Citrobacter species. Afebrile, normal WBC, maintained on ceftriaxone, Flagyl. Denies chest pain, palpitations or shortness of breath. Maintaining O2 sats in the high 90s on room air. Objective - Vital Signs Vital signs: Vital Signs Temp 97.4 F L 11/25/22 08:11 Pulse 86 11/25/22 11:31 Resp 16 11/25/22 11:31 BP 133/83 11/25/22 11:31 Pulse Ox 97 11/25/22 11:31 FiO2 Intake & Output 11/24/22 11/25/22 11/25/22 18:59 06:59 18:59 Intake Total 0 310 Output Total 400 Balance 0 310 -400 Intake: Blood Product 0 310 Rc As-1 Unit 0 310 [id number] Output: Urine 400 Other: Voiding Method Bedside Commode Bedside Commode Bedside Commode Diaper Diaper Diaper # Voids 3 1 # Bowel Movements 0 1 1 - Exam PHYSICAL EXAM: VITAL SIGNS: [As above] GENERAL: Sitting up in chair, no acute distress, conversing without dyspnea HEENT: Conjunctivae normal. eyes normal. Oral mucosa NECK: No JVD. No thyroid enlargement. No LNs CARDIOVASCULAR: S1, S2 regular. No audible murmur, no extra heart sounds RESPIRATION: Equal air entry,Breath sounds diminished in the bases. No rhonchi or crackles. ABDOMEN: Soft, nontender . No guarding. no masses palpable. +Bowel sounds. LEGS: Bilateral lower extremity edema, nonpitting PSYCHIATRY: Alert and oriented X3, mood and affect normal. NERVOUS SYSTEM: Cranial N 2-12 grossly normal.No focal deficits. Strength and sensation grossly intact. Skin: Warm and dry, no rash - Labs CBC & Chem 7: 11/25/22 07:11 11/25/22 07:11 Labs: Abnormal Lab Results - Last 24 Hours (Table) 11/23/22 11/24/22 11/24/22 Range/Units 10:20 12:20 12:20 RBC 2.39 L (3.80-5.40) m/uL Hgb 7.8 L (11.4-16.0) gm/dL Hct 25.1 L (34.0-46.0) % MCV 105.1 H (80.0-100.0) fL RDW 17.8 H (11.5-15.5) % Lymphocytes # 0.6 L (1.0-4.8) k/uL PT (9.0-12.0) sec INR (<1.2) APTT (22.0-30.0) sec Sodium 131 L (137-145) mmol/L Carbon Dioxide (22-30) mmol/L BUN 45 H (7-17) mg/dL Creatinine 4.17 H (0.52-1.04) mg/dL Glucose 72 L (74-99) mg/dL Calcium 6.9 L (8.4-10.2) mg/dL Total Protein (6.3-8.2) g/dL Albumin (3.5-5.0) g/dL Crossmatch See Detail 11/24/22 11/25/22 11/25/22 Range/Units 12:20 07:11 07:11 RBC 2.94 L (3.80-5.40) m/uL Hgb 9.8 L D (11.4-16.0) gm/dL Hct 30.8 L (34.0-46.0) % MCV 104.7 H (80.0-100.0) fL RDW 17.8 H (11.5-15.5) % Lymphocytes # (1.0-4.8) k/uL PT 17.0 H (9.0-12.0) sec INR 1.7 H (<1.2) APTT 59.9 H (22.0-30.0) sec Sodium 131 L (137-145) mmol/L Carbon Dioxide 18 L (22-30) mmol/L BUN 44 H (7-17) mg/dL Creatinine 4.05 H (0.52-1.04) mg/dL Glucose 58 L (74-99) mg/dL Calcium 7.3 L (8.4-10.2) mg/dL Total Protein 3.8 L (6.3-8.2) g/dL Albumin 1.6 L (3.5-5.0) g/dL Crossmatch 11/25/22 Range/Units 10:16 RBC (3.80-5.40) m/uL Hgb (11.4-16.0) gm/dL Hct (34.0-46.0) % MCV (80.0-100.0) fL RDW (11.5-15.5) % Lymphocytes # (1.0-4.8) k/uL PT 14.5 H (9.0-12.0) sec INR 1.4 H (<1.2) APTT (22.0-30.0) sec Sodium (137-145) mmol/L Carbon Dioxide (22-30) mmol/L BUN (7-17) mg/dL Creatinine (0.52-1.04) mg/dL Glucose (74-99) mg/dL Calcium (8.4-10.2) mg/dL Total Protein (6.3-8.2) g/dL Albumin (3.5-5.0) g/dL Crossmatch Assessment and Plan Assessment: Chronic dyspnea secondary to Large hiatal hernia, surgery pending Bibasilar atelectasis Acute GI bleed status post DDAVP, one unit of packed RBCs, possibly related to colitis. Tagged RBC reported negative. Intractable nausea vomiting and diarrhea. EGD and colonoscopy done 11/12/2022 w [facility] showed large hiatal hernia, mild antral gastritis, sigmoid diverticular stricture and diverticulosis. Colonoscopy biopsy reported nonspecific active colitis in the descending colon and focal mild nonspecific active in the sigmoid colon, likely infectious, Flagyl initiated. Abdominal ultrasound in October 2022 showed dilated bile duct at 1.5 cm. Acute on Chronic kidney disease, stage V, hypovolemic-prerenal. No hydronephrosis reported per ultrasound 10/24/2022 Anemia of chronic disease. Acute UTI secondary to Klebsiella pneumonia, Citrobacter species Gastroesophageal reflux disease Hypertension Hyperlipidemia Hypothyroidism Diverticulosis without diverticulitis History of UTI with Giardi History of Covid 19 in 2019 History of torturous colon diagnosed with attempted colonoscopy with Dr. Shetty. Severe protein calorie malnutrition, BMI 20 Plan: Continue on current medication regime ,monitoring and symptomatic treatment. NPO, scheduled for surgery. Magnesium level ordered stat secondary to reported nonsustained 5 beat run earlier this morning. Prognosis guarded given multiple complex medical issues. The impression and plan of care has been dictated as directed. : I performed a history and examination of this patient, discussed the same with the dictator. I agree with the dictator's note ,documented as a scribe. Any additional findings or plans will be noted.
[2022-11-25] MEDS ORDERED: LACTATED RINGERS 1,000 ML IV ONE ×2 (14:09→16:01)
[2022-11-25] MEDS ORDERED: DEXAMETHASONE SOD PHOSPHATE 4 MG/ML 1 ML VIAL IVP ONE (14:45)
[2022-11-25] MEDS ORDERED: ONDANSETRON 4 MG/2 ML VIAL IVP ONE (14:45)
[2022-11-25] MEDS ORDERED: MIDAZOLAM 2 MG/2 ML VIAL IVP ONE (14:50)
[2022-11-25] MEDS ORDERED: ROCURONIUM 10 MG/ML (5 ML VIAL) IV ONE (14:50)
[2022-11-25] MEDS ORDERED: PHENYLEPHRINE-0.9% NACL SYG 1,000 MCG/10 ML SYRINGE ONE (14:50)
[2022-11-25] MEDS ORDERED: LIDOCAINE 4% LTA KIT (4 ML) TOPICAL ONE (14:50)
[2022-11-25] MEDS ORDERED: HYDROmorphone (PF) 1 MG/ML ONE (14:50)
[2022-11-25] MEDS ORDERED: PROPOFOL 10 MG/ML 20 ML VIAL IV ONE (14:50)
[2022-11-25] MEDS ORDERED: DEXAMETHASONE SOD PHOSPHATE 4 MG/ML 1 ML VIAL ONE (14:50)
[2022-11-25] MEDS ORDERED: SUGAMMADEX SODIUM 200 MG/2 ML SDV IV ONE (14:50)
[2022-11-25] MEDS ORDERED: SUCCINYLCHOLINE CHLORIDE 200 MG/10 ML VIAL IV ONE (14:50)
[2022-11-25] MEDS ORDERED: ONDANSETRON 4 MG/2 ML VIAL ONE (14:50)
[2022-11-25] MEDS ORDERED: fentaNYL (PF) 50 MCG/ML 2 ML AMP ONE (14:50)
[2022-11-25] MEDS ORDERED: LIDOCAINE 2% INJ 20 MG/ML (2 ML VIAL) ONE (14:50)
[2022-11-25] MEDS ORDERED: MIDAZOLAM 2 MG/2 ML VIAL ONE (14:50)
[2022-11-25] MEDS ORDERED: ALBUMIN HUMAN 5% (12.5gm) 250 ML BOTTLE IVPB ONE (14:50)
[2022-11-25] MEDS ORDERED: SODIUM CHLORIDE 0.9% 50 ML with ceFAZolin 1,000 MG IV ONE ×2 (14:55)
--- NOTE | 2022-11-25 16:38 | P.ANPRN ---
Procedure Note - Anesthesia - Invasive Line Left Arterial Line Time Out Performed: Yes Date of Procedure: 11/25/22 Location of Patient: PreOp Preparation: Sterile Prep, Sterile Dressing Arterial Line Location: Radial Ultrasound Used: No Purpose - Visualization and Identification of Vasculature: No Narrative: Central line placement per sterile protocol utilized. Informed consent obtained from the patient. Procedure was performed under complete aseptic precautions. The left wrist is slightly extended and placed on a roll of cloth. Radial artery palpated and appeared to have a intact collateral circulation. Front of the wrist was cleaned with ChloraPrep. It was draped and 2 mL of 1% lidocaine was infiltrated and ability into the front of the wrist. A 20-gauge two and half inch Arrow arterial catheter was inserted and a bright red blood/back was noticed. It was connected to the pressure monitoring line and the flashback was confirmed. The line was sutured into the skin. Tegaderm dressing was applied. Patient tolerated the procedure very well with no apparent complications. Right Central Line Time Out Performed: Yes Date of Procedure: 11/25/22 Location of Patient: PreOp Preparation: Sterile Prep, Sterile Dressing Central Line Location: Internal Jugular Ultrasound Used: Yes Purpose - Visualization and Identification of Vasculature: Yes Image Stored and Saved: Yes Narrative: Central line placement per sterile protocol utilized. Informed consent obtained.Right Internal jugular vein cannulated under aseptic precautions. 3cc 1% lidocaine infiltrated initially after cleaning with iodine based prep and draping. Ultrasound used to locate the vein and Seldinger technique used. 7-Kazakh triple lumen central line in inserted after the finding the needle with drone pilot needle/catheter. The catheter was sutured in place. The i nsertion site was dressed with biopatch and tegaderm. Patient tolerated the procedure well.
[2022-11-25 17:27] LABS: Anisocytosis Slight; HCT 21.6 % (34.0-46.0); Hypochromasia Moderate; MCH 32.6 pg (25.0-35.0); MCHC 31.9 g/dL (31.0-37.0); Macrocytosis Moderate; Mean Platelet Volume 10.2; Platelet Count 157 k/uL (150-450); Poikilocytosis Slight; RBC 2.11 m/uL (3.80-5.40); RDW 18.2 % (11.5-15.5); WBC 9.2 k/uL (3.8-10.6)
[2022-11-25] MEDS ORDERED: HYDROmorphone 0.5 MG/0.5 ML SYRINGE IVP ONE ×2 (17:49→18:06)
[2022-11-25 17:53] LABS: HGB 6.9 gm/dL (11.4-16.0)
--- NOTE | 2022-11-25 17:59 | P.OP ---
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 Postoperative Diagnosis: Same Procedure(s) Performed: Laparotomy with repair of paraesophageal hernia, Witzel jejunostomy feeding tube, Jairo fundoplication Implants: 16 red rubber catheter as feeding tube Anesthesia: MARY Surgeon: Abel Rivers External Grinder #1: Yan Jiménez Estimated Blood Loss (ml): 500 IV fluids (ml): 2,500 Urine output (ml): 800 Pathology: none sent Condition: stable Disposition: PACU Indications for Procedure: 81-year-old female with known history of paraesophageal hernia for many years. Over the last year she has had progressive difficulty eating to the point where at this time she could only tolerate a small amount of liquids. T scan shows large paraesophageal hernia with the entire stomach and transverse colon in the left chest. Patient's albumin was 1.8 and prealbumin was less than 0.6. She was having intermittent GI bleeding as well as diarrhea the etiology of which was indeterminate. She underwent upper and lower scopes which were nondiagnostic. She also underwent a tagged red blood cell scan which was negative. Destin conversation was held with the patient and the family. It was explained that she was very high risk for surgical repair but would certainly without it. Was agreed we would proceed with surgical repair of her paraesophageal hernia. Operative Findings: The majority of the stomach and transverse colon were herniated through the esophageal hiatus and reduced fairly easily. The esophagus itself was very friable. Were multiple adhesions in the region of the GE junction. An excellent repair was obtained. This was reinforced with a Jairo fundoplication. Witzel jejunostomy performed seated without difficulty. Was no evidence of bowel or stomach. Description of Procedure: Patient was brought to the operating room placed supine on the table. The lower chest and abdomen were sterilely prepped and draped. Midline upper laparotomy was performed from the level of the xiphoid process to just below the umbilicus. Perineal space was entered without difficulty. Left lateral lobe of the liver was mobilized and folded into the right. This exposed the hernia. Stomach and colon were brought down from the chest into the abdomen. We opened the lesser sac on the greater curvature the stomach and used the LigaSure to mobilize the greater curvature of the stomach taking down the short gastric vessels. The left calista of the diaphragm was identified and cleared. We now opened the lesser sac on the lesser curvature of the stomach and again using the LigaSure dissected down to the esophageal hiatus identifying the right crura of the diaphragm. The esophagus was now encircled. Adherent tissues in the region of the GE junction and esophageal hiatus were taken down using the LigaSure. A Christopher drain was passed around the distal esophagus. In placing the first suture on the right diaphragmatic crura we noticed a microperforation of the distal esophagus likely occurred just from tension on the esophagus in order to generate adequate exposure. This was immediately irrigated and repaired with 3- 0 Vicryl suture and did not leak any further during the remainder of the procedure. 0 Ethibond repair sutures were used to close the posterior esophageal hiatus. Once we had the hiatus closed to the point that the esophagus easily passed through with room for a finger to slide along it but no more we were happy with the repair. Should be noted that the diaphragmatic crura were good strong tissues. Given the friability of the esophagus we do not want to tack the esophagus to anything so we decided to do a Jairo fundoplication multiple 3-0 silk sutures were used to tack the gastric fundus to the diaphragm. Nasogastric tube was passed down the esophagus and into the stomach and secured at the nose with tape. We now identified the ligament of Treitz and tract to feed down the small bowel. We made a small opening here with a 3-0 silk pur sestring around it and inserted a 16-Maltese red rubber tube and threaded it down the lumen of the jejunum without difficulty. We then closed the small bowel over the opening with a Witzel closure with interrupted 3-0 silk for a distance of about 3 cm. Stab wound was created in the left mid abdominal wall and the red rubber catheter was brought out onto the skin through the abdominal wall. The bowel was tacked to the abdominal wall with 3-0 silk suture ligatures. We had easy flow down the red rubber catheter into the jejunum and it was plugged. It was secured at the skin with 2 suture ligatures of 0 Ethibond. We now copiously irrigated the abdomen. Hemostasis was good. Mid abdominal closure was performed with double stranded PDS. Skin was closed with skin clips. NG tube was sutured to the nasal septum with an 0 silk suture. Dry sterile dressings were applied. Patient was transferred to recovery in stable condition.
[2022-11-25] MEDS ORDERED: NALOXONE 0.4 MG/ML 1 ML VIAL IV PRN (18:19)
[2022-11-25] MEDS ORDERED: HYDROmorphone PCA 10 MG/50 ML BAG IV PRN (18:19)
[2022-11-25 18:23] LABS: Glucose,Whole Blood 95 mg/dL (70-110)
[2022-11-25] MEDS: SODIUM CHLORIDE 0.9% 1,000 ML IV SCH (18:48)
[2022-11-25] MEDS ORDERED: SODIUM CHLORIDE 0.9% 500 ML 500 ML IV ONE (23:35)
[2022-11-26 00:09] LABS: African American GFR (CKD) 13 (>60 ml/min/1.73 sqM); Anion Gap 9 mmol/L; Blood Urea Nitrogen 37 mg/dL (7-17); Calcium 7.3 mg/dL (8.4-10.2); Carbon Dioxide 19 mmol/L (22-30); Chloride 105 mmol/L (98-107); Glucose 135 mg/dL (74-99); Non-African American GFR(CKD) 11 (>60 ml/min/1.73 sqM); Potassium 3.7 mmol/L (3.5-5.1); Sodium 133 mmol/L (137-145)
[2022-11-26] MEDS: metroNIDAZOLE-NS PMX 500 MG in SALINE 1 100ML.BAG IVPB SCH ×3 (01:01→16:55)
[2022-11-26] MEDS: ACETAMINOPHEN IV (For NPO) 1,000 MG in EMPTY BAG 1 BAG IVPB SCH ×4 (01:02→16:55)
[2022-11-26 01:57] LABS: Anisocytosis Slight; HCT 30.7 % (34.0-46.0); Hypochromasia Marked; MCHC 32.6 g/dL (31.0-37.0); MCV 101.4 fL (80.0-100.0); Macrocytosis Moderate; Mean Platelet Volume 10.1; Platelet Count 205 k/uL (150-450); Poikilocytosis Slight; RBC 3.03 m/uL (3.80-5.40); RDW 17.8 % (11.5-15.5); WBC 19.4 k/uL (3.8-10.6)
[2022-11-26] MEDS: FERROUS SULFATE 325 MG TAB PO SCH (02:39)
[2022-11-26] MEDS: metroNIDAZOLE 500 MG TAB PO SCH (02:39)
[2022-11-26] MEDS: SUCRALFATE 1 GM TAB PO SCH (02:39)
[2022-11-26] MEDS: SODIUM BICARBONATE TAB 650 MG TAB PO SCH (02:39)
--- NOTE | 2022-11-26 04:04 | P.PN ---
Subjective Progress Note Date: 11/26/22 Principal diagnosis: Large paraesophageal hernia status post laparotomy with repair I am seeing this patient in new consultation today 11/18/2022 for chronic dyspnea, likely related to the patient's large hiatal hernia. Patient is an 81-year-old white female with past medical history significant for a large hiatal hernia, GERD, hyperlipidemia, hypertension, chronic kidney disease, anemia, hypothyroidism, and is a never smoker. Patient denies any history of lung disease including COPD or asthma. Her primary care provider is Dr. Balbir Roman. Patient recently had an EGD and colonoscopy with Dr. Carty to investigate her chronic abdominal pain, nausea and vomiting, and diarrhea that started back in August of this year. She was found to have a moderate to large size hiatal hernia with mild antral gastritis. There was also diffuse diverticulosis within the sigmoid colon without diverticulitis. Patient did present to the emergency room for similar complaints of persistent nausea, vomiting, and diarrhea on November 14. Patient's symptoms have reportedly worsened. There is associated nausea and diarrhea about one hour after eating. We were consulted for chronic ongoing dyspnea that started over one year ago. Patient states that her shortness of breath is mostly on exertion and specific positions. This is likely related to the patient's hiatal hernia. COPD is felt to be less likely. She denies any fever, chills, cough, hemoptysis, chest pain. Patient is currently lying in bed, on room air, in no acute distress. Chest x- ray from earlier this morning shows some mild pulmonary vascular congestion. There is an elevated left hemidiaphragm with a large hiatal hernia and bibasilar atelectasis. A surgical consultation with CT services has been ordered. Joel wooten also has a positive urine culture for gram-negative bacilli. Currently receiving coverage with Rocephin. There is a component of acute on chronic kidney disease. Most recent BMP from yesterday shows sodium 140, potassium 3.6, chloride 106, serum bicarb 22, BUN 40, creatinine 4, glucose 82. Most recent CBC shows a WBC count of 8, hemoglobin 9.6, hematocrit 31.3, platelets 254. Patient does have anemia of chronic disease, however, her fecal occult was positive. Patient has had ongoing diarrhea, no obvious acute blood loss or melena reported. C. diff was negative. Stool lactoferrin was positive. Vital signs are stable. The patient is seen today 11/19/2022 in follow-up on the regular medical floor. She is currently resting comfortably in bed. Awake and alert in no acute distr ess. Maintaining good O2 saturations in the 90s on room air. Afebrile. Hemodynamically stable. She did have 2 bowel movements with some blood noted. Hemoglobin 9.3. White count 8.0. Platelets 211. Sodium 135. Potassium 3.6. Bicarb 19. BUN 41. Creatinine 4.2. Urine culture positive for gram-negative bacilli. Currently on ceftriaxone. She is continued on Protonix and Carafate. Surgical recommendations pending. The patient is seen today 11/20/2022 in follow-up on the regular medical floor. She is awake and alert in no acute distress. Resting fairly comfortably in bed. Maintaining good O2 saturations in the mid 90s on room air. She's been afebrile. CT scan of the chest revealed bilateral small effusions with associated atelectasis. Cardiomegaly with a small pericardial effusion. Large hiatal hernia containing stomach and portions of the colonic bowel, similar to previous. Cardiothoracic surgery is planning intervention on 11/25/2022. Urine culture was positive for Klebsiella pneumoniae, Citrobacter species. She is currently on ceftriaxone. Blood cultures revealed no growth. Stool culture revealed no growth. Her diet is being supplemented with ensure Magic cups 3 times a day she remains on a full liquid diet with a soft/chopped diet as tolerated. The patient is seen today 11/21/2022 in follow-up on the regular medical floor. She is sitting up in a chair at the bedside. Awake and alert in no acute distress. Maintaining good O2 saturations in the 90s on room air. She's been afebrile. Hemodynamically stable. Urine culture was positive for Klebsiella pneumoniae. Blood cultures reveal no growth. Stool culture revealed no growth. Stool for Calprotectin was elevated at 2604. Stool occult blood was positive. White count 5.9. Hemoglobin 9.1. Platelets 208. Sodium 136. Potassium 3.3. Bicarb 22. BUN 40. Creatinine 4.1. GFR 10. Glucose 89. She remains on ceftriaxone. And Flagyl. Continued on Protonix, Carafate. The patient is seen today 11/22/2022 in follow-up on the regular medical floor. She is currently resting comfortably in bed. Awake and alert in no acute distress. Maintaining good O2 saturations in the 90s on room air. Afebrile. Hemodynamically stable. She is attempting to increase her oral intake as tolerated. She is getting a tagged RBC study this morning. She remains on ceftriaxone and Flagyl. Continued on Protonix, Carafate I am seeing this patient again today 11/26/2022 in follow-up for ICU management following an open laparotomy with paraesophageal hernia repair. Patient was originally admitted back on November 14 for chronic dyspnea thought to be related to a large paraesophageal hiatal hernia. Patient was last evaluated on November, and we had originally signed off the case due to a lack of pulmonary involvement. Patient is currently postoperative day #1 following an open laparotomy with paraesophageal hernia repair, Jairo fundoplication, and placement of a jejunostomy. No immediate perioperative complications were reported. There is recorded 500 ML EBL. Hemoglobin did drop from 9.8 to 6.9 following the procedure, and the patient was transfused 1 unit of packed red blood cells and 2 units of fresh frozen plasma. Follow-up CBC shows a WBC count of 19.4, hemoglobin 10, hematocrit 30.7, platelets 205. BMP following the procedure shows a sodium 133, potassium 3.7, chloride 105, serum bicarb 19, BUN 37, creatinine 3.56, glucose 135. Normal saline is currently infusing at 100 ML's per hour. Urine output was oliguric and the patient's CVP was 3. I did give a 500 ML normal saline bolus. No vasopressors have been required. Patient also has a urinary tract infection with isolated organisms of Klebsiella pneumoniae and Citrobacter species, this is currently being covered with Rocephin and is also on Flagyl. Patient is afebrile, and her leukocytosis is likely reactive. Patient is currently lying in bed, on 2 L/m nasal cannula, in no acute distress. She is slightly drowsy following the procedure. She does have a Dilaudid pain pump with out a basal rate, when necessary bolus 0.1 mg as needed. She has a midline abdominal incision which appears well approximated. Incisional dressing is clean and dry. She also has a jejunostomy tube that currently has Jevity tube feeding infusing at 20 ML's per hour. She is hemodynamically stable at this time, and will be monitored in the intensive care unit at least overnight. Objective - Vital Signs Vital signs: Vital Signs Temp 96.2 F L 11/25/22 21:00 Pulse 92 11/26/22 02:00 Resp 19 11/26/22 02:00 BP 184/83 11/25/22 20:45 Pulse Ox 98 11/26/22 02:00 FiO2 Intake & Output 11/25/22 11/25/22 11/26/22 06:59 18:59 06:59 Intake Total 310 2146 1854 Output Total 1180 185 Balance 465 923 5831 Weight 53.524 kg Intake: IV 1600 1524 A line 24 ACETAMINOPHEN IV (For NPO 100 ) 1,000 mg In Empty Bag 1 bag @ 400 mls/hr IVPB Q6HR [facility] Rx#:[id number] Sodium Chloride 0.9% 1, 800 000 ml @ 100 mls/hr IV . Q10H [facility] Rx#:[id number] Sodium Chloride 0.9% 500 500 ml 500 ml @ 999 mls/hr IV .Q31M [facility] Rx#:[id number] metroNIDAZOLE-NS PMX 500 100 mg In Saline 1 100ml.bag @ 100 mls/hr IVPB Q8HR [facility] Rx#:[id number] Tube Feeding 20 Blood Product 310 546 310 Ffp 24 Cpd Unit 320 [id number] Ffp 24 Pher Acda Cnt2 226 Unit [id number] Rc As-1 Unit 310 [id number] Rc As-1 Unit 0 310 [id number] Output: Urine 680 185 Estimated Blood Loss 500 Other: Voiding Method Bedside Commode Bedside Commode Indwelling Catheter Diaper Diaper # Voids 1 # Bowel Movements 1 2 ABP, PAP, CO, CI - Last Documented Arterial Blood Pressure 121/55 - Exam GENERAL EXAM: Drowsy, 81-year-old white female, fairly comfortable in no apparent distress. HEAD: Normocephalic and atraumatic EYES: Normal reaction of pupils, equal size. NOSE: Clear with pink turbinates. THROAT: No erythema or exudates. NECK: No masses, no JVD. There is a right IJ central line catheter CHEST: No chest wall deformity. LUNGS: Equal air entry with no crackles, wheeze, rhonchi or dullness. On 2 L/m nasal cannula. No conversational dyspnea or accessory muscle use.. CVS: S1 and S2 normal with no audible murmur, regular rhythm. No extra heart sounds ABDOMEN: Midline abdominal incision with incisional dressing clean and dry. There is also a jejunostomy tube. No hepatosplenomegaly, active bowel sounds, no guarding or rigidity. SPINE: No scoliosis or deformity SKIN: No rashes CENTRAL NERVOUS SYSTEM: No focal deficits, tone is normal in all 4 extremities. She is drowsy and responds to verbal stimuli. She is oriented to person and place. EXTREMITIES: There is bilateral lower extremity mild nonpitting edema. No clubbing, or cyanosis. Peripheral pulses are intact. - Labs CBC & Chem 7: 11/25/22 23:45 11/25/22 23:45 Labs: Abnormal Lab Results - Last 24 Hours (Table) 11/23/22 11/25/22 11/25/22 Range/Units 10:20 07:11 07:11 WBC (3.8-10.6) k/uL RBC 2.94 L (3.80-5.40) m/uL Hgb 9.8 L D (11.4-16.0) gm/dL Hct 30.8 L (34.0-46.0) % MCV 104.7 H (80.0-100.0) fL RDW 17.8 H (11.5-15.5) % PT (9.0-12.0) sec INR (<1.2) Sodium 131 L (137-145) mmol/L Carbon Dioxide 18 L (22-30) mmol/L BUN 44 H (7-17) mg/dL Creatinine 4.05 H (0.52-1.04) mg/dL Glucose 58 L (74-99) mg/dL Calcium 7.3 L (8.4-10.2) mg/dL Total Protein 3.8 L (6.3-8.2) g/dL Albumin 1.6 L (3.5-5.0) g/dL Crossmatch See Detail 11/25/22 11/25/22 11/25/22 Range/Units 10:16 17:14 23:45 WBC (3.8-10.6) k/uL RBC 2.11 L (3.80-5.40) m/uL Hgb 6.9 L* D (11.4-16.0) gm/dL Hct 21.6 L (34.0-46.0) % MCV 102.0 H (80.0-100.0) fL RDW 18.2 H (11.5-15.5) % PT 14.5 H (9.0-12.0) sec INR 1.4 H (<1.2) Sodium 133 L (137-145) mmol/L Carbon Dioxide 19 L (22-30) mmol/L BUN 37 H (7-17) mg/dL Creatinine 3.56 H (0.52-1.04) mg/dL Glucose 135 H (74-99) mg/dL Calcium 7.3 L (8.4-10.2) mg/dL Total Protein (6.3-8.2) g/dL Albumin (3.5-5.0) g/dL Crossmatch 11/25/22 Range/Units 23:45 WBC 19.4 H (3.8-10.6) k/uL RBC 3.03 L (3.80-5.40) m/uL Hgb 10.0 L D (11.4-16.0) gm/dL Hct 30.7 L (34.0-46.0) % MCV 101.4 H (80.0-100.0) fL RDW 17.8 H (11.5-15.5) % PT (9.0-12.0) sec INR (<1.2) Sodium (137-145) mmol/L Carbon Dioxide (22-30) mmol/L BUN (7-17) mg/dL Creatinine (0.52-1.04) mg/dL Glucose (74-99) mg/dL Calcium (8.4-10.2) mg/dL Total Protein (6.3-8.2) g/dL Albumin (3.5-5.0) g/dL Crossmatch Assessment and Plan Assessment: postoperative day #1 following an open laparotomy with paraesophageal hernia repair, Jairo fundoplication, and placement of a jejunostomy. Acute blood loss anemia, expected outcome of surgery, status post infusion of 1 unit PRBC and 2 FFP. Total of 2 PRBC transfusions this admission. Urinary tract infection with isolated organisms of Klebsiella and Citrobacter Acute on chronic kidney disease Leukocytosis, likely reactive to surgery Chronic dyspnea, likely related to large hiatal hernia. Chest x-ray from admission shows an elevated left hemidiaphragm with a large hiatal hernia and bibasilar atelectasis. There is also some mild pulmonary vascular congestion. History of large hiatal hernia GERD without esophagitis Gastritis Positive fecal occult Diverticulosis without diverticulitis Chronic diarrhea, under investigation Benign essential hypertension Hyperlipidemia Anemia of chronic disease Hypothyroidism Never smoker Plan: Patient's medications and labs reviewed On 2 L/m nasal cannula Encourage incentive spirometer Chest x-ray is ordered for the morning Patient is status post transfusion of 1 unit PRBC and 2 FFP, most recent hemoglobin up to 10 g/dL Trend hemoglobins and monitor for bleeding Patient is currently oliguric, and was given 500 ML normal saline bolus once. Nephrology is still following for acute on chronic kidney injury Normal saline is infusing at 100 ML's per hour Continue Rocephin for UTI Trickle tube feedings have been started through jejunostomy tube Protonix for GI prophylaxis DVT prophylaxis is on hold, due to concerns of possible GI bleed. SCDs are in place Hemodynamically, the patient appears stable at this time, and we will continue to monitor the patient while in the intensive care unit I have personally seen and examined the patient, performed the documentation and the assessment and plan as written. Number of minutes spent on the visit:20 Time with Patient: Greater than 30
[2022-11-26] MEDS: SODIUM CHLORIDE 0.9% 1,000 ML IV SCH ×2 (05:09→11:30)
[2022-11-26 05:18] LABS: Anisocytosis Slight; HCT 28.7 % (34.0-46.0); HGB 9.4 gm/dL (11.4-16.0); Hypochromasia Moderate; MCH 32.6 pg (25.0-35.0); MCHC 32.8 g/dL (31.0-37.0); MCV 99.5 fL (80.0-100.0); Macrocytosis Slight; Platelet Count 188 k/uL (150-450); Poikilocytosis Moderate; RBC 2.88 m/uL (3.80-5.40); RDW 18.7 % (11.5-15.5); WBC 16.9 k/uL (3.8-10.6)
[2022-11-26 05:25] LABS: African American GFR (CKD) 13 (>60 ml/min/1.73 sqM); Anion Gap 6 mmol/L; Blood Urea Nitrogen 38 mg/dL (7-17); Calcium 7.2 mg/dL (8.4-10.2); Carbon Dioxide 19 mmol/L (22-30); Chloride 107 mmol/L (98-107); Glucose 152 mg/dL (74-99); Magnesium 1.5 mg/dL (1.6-2.3); Non-African American GFR(CKD) 12 (>60 ml/min/1.73 sqM); Phosphorus 3.3 mg/dL (2.5-4.5); Potassium 3.8 mmol/L (3.5-5.1); Sodium 132 mmol/L (137-145)
[2022-11-26] MEDS: POTASSIUM CHLORIDE 10 MEQ in WATER FOR INJECTION 1 100ML.BAG IVPB SCH ×2 (05:55→07:09)
--- NOTE | 2022-11-26 06:48 | XR ---
EXAMINATION TYPE: XR chest 1V portable DATE OF EXAM: 11/26/2022 HISTORY: Shortness of breath. COMPARISON: 11/19/2022 TECHNIQUE: Single view of the chest is submitted. FINDINGS: NG tube is seen coursing into the stomach. Right IJ central venous line with distal tip overlying the right atrium. Perihilar and basilar airspace infiltrates noted. Correlate for underlying pulmonary e betsey or aspiration. The heart is stable. Hilar and mediastinal structures are within normal limits. Degenerative changes are seen of the dorsal spine. IMPRESSION: 1. Perihilar and basilar airspace infiltrates noted. Correlate for underlying pulmonary edema or asp iration.
[2022-11-26 08:33] LABS: INR 1.5 (<1.2); Prothrombin Time 15.3 sec (9.0-12.0)
[2022-11-26] MEDS ORDERED: FUROSEMIDE 10 MG/ML 2 ML VIAL IV SCH (09:00)
--- NOTE | 2022-11-26 09:53 | P.PN ---
Subjective Progress Note Date: 11/26/22 Principal diagnosis: Paraesophageal hernia with intrathoracic stomach and transverse colon, very poor oral intake and highly compromised nutritional status, chronic renal insuffici ency, abdominal discomfort, nausea, vomiting, diarrhea. Past medical history significant for chronic dyspnea, 10-14 pound weight loss since August, GERD without esophagitis, gastritis, diverticulosis without diverticulitis, hypertension, hyperlipidemia, anemia of chronic disease, hypothyroidism, never smoker. POD #1 Laparotomy with repair of paraesophageal hernia, Witzel jejunostomy feeding tube, Jairo fundoplication Postoperative acute blood loss anemia, expected due to hemodilution and preoper ative anemia and history of GI bleed. The patient was seen and examined in follow-up today 11/26/2022 at her bedside in the intensive care unit. Currently she is sitting up in bed, is awake, alert, oriented 3 and is in no acute distress. The patient denies any complaints of shortness of breath at this time and reports her pain is well controlled with her current pain medication regimen. Oxygen saturations are 98% on 2 L nasal cannula. Chest x-ray was reviewed. NG tube remains in place to low intermittent wall suction with 300 mL output since surgery. J-tube remains in place with tube feedings Jevity 1.2 Mau infusing at 20 mL per hour. 0.9% normal saline infusing at 100 mL per hour. Laboratory results this morning show a WBC count 16.9, hemoglobin 9.4, hematocrit 28.7, platelets 188, PT 15.3, INR 1.5, PTT 37.6, sodium 132, potassium 3.8, chloride 107, CO2 19, BUN 38, creatinine 3.51, glucose 152, calcium 7.2, phosphorus 3.3 and magnesium 1.5. She has been afebrile the last 24 hours. She remains on Rocephin and Flagyl for positive urine culture showing Klebsiella pneumoniae Citrobacter species. Nguyen catheter remained in place for accurate I's and O's, 30 mL of urine output in the last 8 hours and 880 mL output in the last 24 hours. The patient was transfused with 1 unit of packed red blood cells and 2 units of FFP yesterday. Objective - Vital Signs Vital signs: Vital Signs Temp 96.2 F L 11/25/22 21:00 Pulse 96 11/26/22 07:00 Resp 15 11/26/22 07:00 BP 184/83 11/25/22 20:45 Pulse Ox 98 11/26/22 07:00 FiO2 Intake & Output 11/25/22 11/26/22 11/26/22 18:59 06:59 18:59 Intake Total 2146 2749 Output Total 1180 205 300 Balance 966 2544 -300 Weight 53.524 kg 63 kg 63 kg Intake: IV 1600 2239 A line 39 ACETAMINOPHEN IV (For NPO 200 ) 1,000 mg In Empty Bag 1 bag @ 400 mls/hr IVPB Q6HR [facility] Rx#:[id number] Potassium Chloride 10 meq 100 In Water For Injection 1 100ml.bag @ 100 mls/hr IVPB Q1H [facility] Rx#: [id number] Sodium Chloride 0.9% 1, 1300 000 ml @ 100 mls/hr IV . Q10H [facility] Rx#:[id number] Sodium Chloride 0.9% 500 500 ml 500 ml @ 999 mls/hr IV .Q31M [facility] Rx#:[id number] metroNIDAZOLE-NS PMX 500 100 mg In Saline 1 100ml.bag @ 100 mls/hr IVPB Q8HR [facility] Rx#:[id number] Tube Feeding 200 Blood Product 546 310 Ffp 24 Cpd Unit 320 [id number] Ffp 24 Pher Acda Cnt2 226 Unit [id number] Rc As-1 Unit 0 310 [id number] Output: Gastric Drainage 300 Urine 680 205 Estimated Blood Loss 500 Other: Voiding Method Bedside Commode Indwelling Catheter Diaper # Bowel Movements 2 ABP, PAP, CO, CI - Last Documented Arterial Blood Pressure 153/76 - Exam CONSTITUTIONAL: Appears comfortable, cooperative, no acute distress, sitting up in bed in the intensive care unit. RESPIRATORY: Lungs sounds clear throughout, few scattered crackles scattered to her bilateral bases. Respirations are symmetrical, nonlabored. Currently on 2 L nasal cannula with oxygen saturation 98%. Able to achieve 1000 mL on incentive spirometry. CARDIOVASCULAR: S1, S2 present. Regular rate and rhythm. Palpable peripheral pulses bilaterally. Generalized +1 edema. No calf pain or tenderness noted. GASTROINTESTINAL: Abdomen soft, tender to palpation around her incision, nondistended. Hypoactive bowel sounds present 4 quadrants. NG tube in place to low intermittent wall suction with 300 mL of bilious drainage since surgery. Nothing by mouth. J-tube in place with 2 feeding Jevity 1.2 Mau infusing at 20 mL per hour. GENITOURINARY: Nguyen catheter for accurate I's and O's, 30 mL output in the last 8 hours. INTEGUMENTARY: Skin is warm and dry. No clubbing or cyanosis is present. Midline abdominal incision is clean, and intact with dusty. Ecchymosis to her left lower quadrant abdomen. Scant serous drainage from her incision. NEUROLOGIC: Cranial nerves II through XII intact. No focal deficits. MUSKULOSKELETAL: Able to move all extremities, strength equal bilaterally. PSYCHIATRIC: Alert and oriented to person place and time, appropriate affect, intact judgment and insight. INVASIVE LINES AND TUBES: Right IJ triple-lumen central catheter in place. - Allied health notes Allied health notes reviewed: nursing - Labs CBC & Chem 7: 11/26/22 05:00 11/26/22 05:00 Labs: Abnormal Lab Results - Last 24 Hours (Table) 11/23/22 11/25/22 11/25/22 Range/Units 10:20 10:16 17:14 WBC (3.8-10.6) k/uL RBC 2.11 L (3.80-5.40) m/uL Hgb 6.9 L* D (11.4-16.0) gm/dL Hct 21.6 L (34.0-46.0) % MCV 102.0 H (80.0-100.0) fL RDW 18.2 H (11.5-15.5) % PT 14.5 H (9.0-12.0) sec INR 1.4 H (<1.2) APTT (22.0-30.0) sec Sodium (137-145) mmol/L Carbon Dioxide (22-30) mmol/L BUN (7-17) mg/dL Creatinine (0.52-1.04) mg/dL Glucose (74-99) mg/dL Calcium (8.4-10.2) mg/dL Magnesium (1.6-2.3) mg/dL Crossmatch See Detail 11/25/22 11/25/22 11/26/22 Range/Units 23:45 23:45 05:00 WBC 19.4 H (3.8-10.6) k/uL RBC 3.03 L (3.80-5.40) m/uL Hgb 10.0 L D (11.4-16.0) gm/dL Hct 30.7 L (34.0-46.0) % MCV 101.4 H (80.0-100.0) fL RDW 17.8 H (11.5-15.5) % PT (9.0-12.0) sec INR (<1.2) APTT (22.0-30.0) sec Sodium 133 L 132 L (137-145) mmol/L Carbon Dioxide 19 L 19 L (22-30) mmol/L BUN 37 H 38 H (7-17) mg/dL Creatinine 3.56 H 3.51 H (0.52-1.04) mg/dL Glucose 135 H 152 H (74-99) mg/dL Calcium 7.3 L 7.2 L (8.4-10.2) mg/dL Magnesium 1.5 L (1.6-2.3) mg/dL Crossmatch 11/26/22 11/26/22 11/26/22 Range/Units 05:00 07:16 07:16 WBC 16.9 H (3.8-10.6) k/uL RBC 2.88 L (3.80-5.40) m/uL Hgb 9.4 L (11.4-16.0) gm/dL Hct 28.7 L (34.0-46.0) % MCV (80.0-100.0) fL RDW 18.7 H (11.5-15.5) % PT 15.3 H (9.0-12.0) sec INR 1.5 H (<1.2) APTT 37.6 H (22.0-30.0) sec Sodium (137-145) mmol/L Carbon Dioxide (22-30) mmol/L BUN (7-17) mg/dL Creatinine (0.52-1.04) mg/dL Glucose (74-99) mg/dL Calcium (8.4-10.2) mg/dL Magnesium (1.6-2.3) mg/dL Crossmatch - Imaging and Cardiology Chest x-ray: report reviewed, image reviewed Assessment and Plan Assessment: Paraesophageal hernia with intrathoracic stomach and transverse colon, very poor oral intake and highly compromised nutritional status, status post laparotomy with repair of paraesophageal hernia, Lydia jejunostomy feeding tube, Jairo fundoplication Chronic dyspnea, likely related to large hiatal hernia Acute on chronic kidney disease Abdominal discomfort Nausea, vomiting, diarrhea Severe protein calorie malnutrition 10-14 pound weight loss since August History of GERD without esophagitis Gastritis Diverticulosis without diverticulitis History of hypertension History of hyperlipidemia Anemia of chronic disease Hypothyroidism Never smoker GI bleed, having maroon-colored stools with obvious blood clots Plan: Keep strict nothing by mouth, will be nothing by mouth for at least 7 days. Keep NG tube to low intermittent wall suction, no medication or feedings through the NG tube Keep the J-tube in place, increase Jevity 1.2 Mau tube feedings to 40 mL per hour Decrease 0.9% normal saline to 60 mL per hour Continue to monitor daily labs and chest x-rays. Replace electrolytes per protocol. Keep abdominal binder in place at all times. Out of bed 3 times a day and ambulate as tolerated. Encourage use of incentive spirometry 10 times every hour while awake. Keep Nguyen catheter in place for another 24 hours. Lasix IV 20 mg every 12 hours. Sodium bicarbonate management per nephrology recommendations. GI/DVT prophylaxis. Medical management and other comorbidities per primary care and critical care service. More recommendations to follow based on patient's clinical course. Time with Patient: Greater than 30
[2022-11-26] MEDS: PANTOPRAZOLE 40 MG/10 ML VIAL IV SCH ×2 (10:23→20:15)
[2022-11-26] MEDS: MAGNESIUM SULFATE-D5W PMX 1 GM in DEXTROSE/WATER 1 100ML.BAG IVPB SCH ×2 (10:24→11:35)
[2022-11-26] MEDS: LEVOTHYROXINE IVP 100 MCG/5 ML VIAL IV SCH (10:25)
[2022-11-26] MEDS ORDERED: FUROSEMIDE 10 MG/ML 10 ML VIAL IV STA ×2 (10:35→16:25)
[2022-11-26] MEDS ORDERED: SODIUM BICARB 8.4% 50 ML SYR (1 MEQ/ML) IV STA (10:39)
--- NOTE | 2022-11-26 10:40 | P.PN ---
Subjective Patient is seen in follow-up for acute kidney injury on chronic kidney disease. Creatinine stable. Oliguric. Underwent paraesophageal hernia repair 11/25/2022. Receiving tube feeds. Also on IV fluids. Vital signs are stable. General: No acute distress. HEENT: Head exam is unremarkable. On nasal cannula. LUNGS: No audible rhonchi or wheezes. HEART: Rate and Rhythm are regular. ABDOMEN: Abdominal dressing noted. No drainage. EXTREMITITES: 1+ edema. Objective - Vital Signs Vital signs: Vital Signs Temp 96.2 F L 11/25/22 21:00 Pulse 96 11/26/22 07:00 Resp 15 11/26/22 07:00 BP 184/83 11/25/22 20:45 Pulse Ox 98 11/26/22 07:00 FiO2 Intake & Output 11/25/22 11/26/22 11/26/22 18:59 06:59 18:59 Intake Total 2146 2749 Output Total 1180 205 300 Balance 966 2544 -300 Weight 53.524 kg 63 kg 63 kg Intake: IV 1600 2239 A line 39 ACETAMINOPHEN IV (For NPO 200 ) 1,000 mg In Empty Bag 1 bag @ 400 mls/hr IVPB Q6HR [facility] Rx#:[id number] Potassium Chloride 10 meq 100 In Water For Injection 1 100ml.bag @ 100 mls/hr IVPB Q1H [facility] Rx#: [id number] Sodium Chloride 0.9% 1, 1300 000 ml @ 100 mls/hr IV . Q10H [facility] Rx#:[id number] Sodium Chloride 0.9% 500 500 ml 500 ml @ 999 mls/hr IV .Q31M [facility] Rx#:[id number] metroNIDAZOLE-NS PMX 500 100 mg In Saline 1 100ml.bag @ 100 mls/hr IVPB Q8HR [facility] Rx#:[id number] Tube Feeding 200 Blood Product 546 310 Ffp 24 Cpd Unit 320 [id number] Ffp 24 Pher Acda Cnt2 226 Unit [id number] Rc As-1 Unit 0 310 [id number] Output: Gastric Drainage 300 Urine 680 205 Estimated Blood Loss 500 Other: Voiding Method Bedside Commode Indwelling Catheter Diaper # Bowel Movements 2 ABP, PAP, CO, CI - Last Documented Arterial Blood Pressure 153/76 - Labs CBC & Chem 7: 11/26/22 05:00 11/26/22 05:00 Labs: Abnormal Lab Results - Last 24 Hours (Table) 11/23/22 11/25/22 11/25/22 Range/Units 10:20 10:16 17:14 WBC (3.8-10.6) k/uL RBC 2.11 L (3.80-5.40) m/uL Hgb 6.9 L* D (11.4-16.0) gm/dL Hct 21.6 L (34.0-46.0) % MCV 102.0 H (80.0-100.0) fL RDW 18.2 H (11.5-15.5) % PT 14.5 H (9.0-12.0) sec INR 1.4 H (<1.2) APTT (22.0-30.0) sec Sodium (137-145) mmol/L Carbon Dioxide (22-30) mmol/L BUN (7-17) mg/dL Creatinine (0.52-1.04) mg/dL Glucose (74-99) mg/dL Calcium (8.4-10.2) mg/dL Magnesium (1.6-2.3) mg/dL Crossmatch See Detail 11/25/22 11/25/22 11/26/22 Range/Units 23:45 23:45 05:00 WBC 19.4 H (3.8-10.6) k/uL RBC 3.03 L (3.80-5.40) m/uL Hgb 10.0 L D (11.4-16.0) gm/dL Hct 30.7 L (34.0-46.0) % MCV 101.4 H (80.0-100.0) fL RDW 17.8 H (11.5-15.5) % PT (9.0-12.0) sec INR (<1.2) APTT (22.0-30.0) sec Sodium 133 L 132 L (137-145) mmol/L Carbon Dioxide 19 L 19 L (22-30) mmol/L BUN 37 H 38 H (7-17) mg/dL Creatinine 3.56 H 3.51 H (0.52-1.04) mg/dL Glucose 135 H 152 H (74-99) mg/dL Calcium 7.3 L 7.2 L (8.4-10.2) mg/dL Magnesium 1.5 L (1.6-2.3) mg/dL Crossmatch 11/26/22 11/26/22 11/26/22 Range/Units 05:00 07:16 07:16 WBC 16.9 H (3.8-10.6) k/uL RBC 2.88 L (3.80-5.40) m/uL Hgb 9.4 L (11.4-16.0) gm/dL Hct 28.7 L (34.0-46.0) % MCV (80.0-100.0) fL RDW 18.7 H (11.5-15.5) % PT 15.3 H (9.0-12.0) sec INR 1.5 H (<1.2) APTT 37.6 H (22.0-30.0) sec Sodium (137-145) mmol/L Carbon Dioxide (22-30) mmol/L BUN (7-17) mg/dL Creatinine (0.52-1.04) mg/dL Glucose (74-99) mg/dL Calcium (8.4-10.2) mg/dL Magnesium (1.6-2.3) mg/dL Crossmatch Assessment and Plan Plan: Assessment: 1. Acute kidney injury mostly prerenal secondary to hypovolemia from vomiting and diarrhea. Creatinine stable at 3.51 today. Oliguric. 2. Chronic kidney disease stage V secondary to nephrosclerosis and chronic interstitial nephritis from NSAID use. Recent creatinine 3-3.7. 3. Hypomagnesemia from GI losses and poor intake. Replaced. 4. Hypokalemia from poor intake and diuretic. Replaced. 5. Anemia of chronic kidney disease. Iron replete. On Aranesp. Status post blood transfusion 11/25/2022. 6. Intractable nausea vomiting and diarrhea. Patient had cryptosporidium infection in August 2022 and was treated by GI. Also had EGD and colonoscopy done 11/12/2022 which showed large hiatal hernia, mild antral gastritis, sigmoid diverticular stricture and diverticulosis. Abdominal ultrasound in October 2022 showed dilated bile duct at 1.5 cm. Status post paraesophageal hernia repair 11/25/2022. CTS following. 7. Hypertension with chronic kidney disease. Stable. 8. Lower extremity edema with albumin of 2.0 concerning for third spacing. Status post IV albumin and Lasix this admission. 9. Klebsiella and Citrobacter UTI on antibiotics. 10. Metabolic acidosis secondary to chronic kidney disease, IV fluids and GI losses. Plan: Hep-Lock IV fluids. Lasix 60 mg IV once now. Maintain tube feeds. Potassium and magnesium being replaced. 2 A of sodium bicarb IV push today. Avoid nephrotoxins. Continue to monitor renal function and urine output. Continue to assess daily for need for renal replacement therapy. Phosphorus level 3.3 dated 11/26/2022.
--- NOTE | 2022-11-26 11:14 | P.PN ---
Subjective Progress Note Date: 11/26/22 This is an 81-year-old female admitted with multiple medical issues including GI bleed, acute on chronic kidney failure, large intrathoracic hiatal hernia accompanied by dyspnea, diarrhea- chronic-tested negative for C. difficile colitis, hyponatremia, hypokalemia, severe protein calorie malnutrition, sche duled for repair of intrathoracic hiatal hernia repair, with placement of J-tube today. NPO. Hemoglobin 9.8, platelets 177 , sodium 131, potassium 3.9, BUN 44, creatinine 4.05, total protein 3.8, albumin 1.6 .no further bleeding reported .This morning telemetry reporting a 5 beat run, stat magnesium ordered. Blood cultures remain no growth after 5 days. Stool culture reported no salmonella, shigella or Campylobacter, no E. coli. Urine culture reported Klebsiella pneumoniae, Citrobacter species. Afebrile, normal WBC, maintained on ceftriaxone, Flagyl. Denies chest pain, palpitations or shortness of breath. Maintaining O2 sats in the high 90s on room air. 11/26/2022 patient currently in ICU status post Laparotomy with repair of paraesophageal hernia, Witzel jejunostomy feeding tube, Jairo fundoplication. Tolerated procedure well. Pain controlled with epidural. Maintained on gentle IV fluid hydration, J tube with tube feedings at of [facility]. NG tube to LIS. Potassium 3.8, magnesium 1.5. Bicarb 19, BUN 38, creatinine 3.51. Sitter at bedside, patient unknowingly pulling at IVs, tubings,etc. Objective - Vital Signs Vital signs: Vital Signs Temp 96.2 F L 11/25/22 21:00 Pulse 96 11/26/22 07:00 Resp 15 11/26/22 07:00 BP 184/83 11/25/22 20:45 Pulse Ox 98 11/26/22 07:00 FiO2 Intake & Output 11/25/22 11/26/22 11/26/22 18:59 06:59 18:59 Intake Total 2146 2749 Output Total 1180 205 300 Balance 966 2544 -300 Weight 53.524 kg 63 kg 63 kg Intake: IV 1600 2239 A line 39 ACETAMINOPHEN IV (For NPO 200 ) 1,000 mg In Empty Bag 1 bag @ 400 mls/hr IVPB Q6HR [facility] Rx#:[id number] Potassium Chloride 10 meq 100 In Water For Injection 1 100ml.bag @ 100 mls/hr IVPB Q1H [facility] Rx#: [id number] Sodium Chloride 0.9% 1, 1300 000 ml @ 100 mls/hr IV . Q10H [facility] Rx#:[id number] Sodium Chloride 0.9% 500 500 ml 500 ml @ 999 mls/hr IV .Q31M [facility] Rx#:[id number] metroNIDAZOLE-NS PMX 500 100 mg In Saline 1 100ml.bag @ 100 mls/hr IVPB Q8HR [facility] Rx#:[id number] Tube Feeding 200 Blood Product 546 310 Ffp 24 Cpd Unit 320 [id number] Ffp 24 Pher Acda Cnt2 226 Unit [id number] Rc As-1 Unit 0 310 [id number] Output: Gastric Drainage 300 Urine 680 205 Estimated Blood Loss 500 Other: Voiding Method Bedside Commode Indwelling Catheter Diaper # Bowel Movements 2 ABP, PAP, CO, CI - Last Documented Arterial Blood Pressure 153/76 - Exam PHYSICAL EXAM: VITAL SIGNS: [As above] GENERAL: Alert and oriented 3, Sitting up in bed, no acute distress, conversing without dyspnea HEENT: Normocephalic Conjunctivae normal. eyes normal. NG tube with bilious drainage. NECK: Supple, No JVD. Right IJ triple-lumen cath. CARDIOVASCULAR: S1, S2 regular. No audible murmur, no extra heart sounds RESPIRATION: Equal air entry,Breath sounds diminished in the bases with fine basilar crackles. ABDOMEN: Soft, status post surgery. Abdominal dressing with serosanguineous drainage. Abdominal binder. J-tube present with tube feeds. LEGS: Bilateral lower extremity edema, nonpitting. NERVOUS SYSTEM: Cranial N 2-12 grossly normal.No focal deficits. Strength and sensation grossly intact. Skin: Warm and dry, no rash - Labs CBC & Chem 7: 11/26/22 05:00 11/26/22 05:00 Labs: Abnormal Lab Results - Last 24 Hours (Table) 11/23/22 11/25/22 11/25/22 Range/Units 10:20 10:16 17:14 WBC (3.8-10.6) k/uL RBC 2.11 L (3.80-5.40) m/uL Hgb 6.9 L* D (11.4-16.0) gm/dL Hct 21.6 L (34.0-46.0) % MCV 102.0 H (80.0-100.0) fL RDW 18.2 H (11.5-15.5) % PT 14.5 H (9.0-12.0) sec INR 1.4 H (<1.2) APTT (22.0-30.0) sec Sodium (137-145) mmol/L Carbon Dioxide (22-30) mmol/L BUN (7-17) mg/dL Creatinine (0.52-1.04) mg/dL Glucose (74-99) mg/dL Calcium (8.4-10.2) mg/dL Magnesium (1.6-2.3) mg/dL Crossmatch See Detail 11/25/22 11/25/22 11/26/22 Range/Units 23:45 23:45 05:00 WBC 19.4 H (3.8-10.6) k/uL RBC 3.03 L (3.80-5.40) m/uL Hgb 10.0 L D (11.4-16.0) gm/dL Hct 30.7 L (34.0-46.0) % MCV 101.4 H (80.0-100.0) fL RDW 17.8 H (11.5-15.5) % PT (9.0-12.0) sec INR (<1.2) APTT (22.0-30.0) sec Sodium 133 L 132 L (137-145) mmol/L Carbon Dioxide 19 L 19 L (22-30) mmol/L BUN 37 H 38 H (7-17) mg/dL Creatinine 3.56 H 3.51 H (0.52-1.04) mg/dL Glucose 135 H 152 H (74-99) mg/dL Calcium 7.3 L 7.2 L (8.4-10.2) mg/dL Magnesium 1.5 L (1.6-2.3) mg/dL Crossmatch 11/26/22 11/26/22 11/26/22 Range/Units 05:00 07:16 07:16 WBC 16.9 H (3.8-10.6) k/uL RBC 2.88 L (3.80-5.40) m/uL Hgb 9.4 L (11.4-16.0) gm/dL Hct 28.7 L (34.0-46.0) % MCV (80.0-100.0) fL RDW 18.7 H (11.5-15.5) % PT 15.3 H (9.0-12.0) sec INR 1.5 H (<1.2) APTT 37.6 H (22.0-30.0) sec Sodium (137-145) mmol/L Carbon Dioxide (22-30) mmol/L BUN (7-17) mg/dL Creatinine (0.52-1.04) mg/dL Glucose (74-99) mg/dL Calcium (8.4-10.2) mg/dL Magnesium (1.6-2.3) mg/dL Crossmatch Assessment and Plan Assessment: Paraesophageal hernia with intrathoracic stomach and transverse colon,status post laparotomy with repair of paraesophageal hernia, Witzel jejunostomy feeding tube, Jairo fundoplication, status post 1 unit of packed RBCs and 2 FFP. Acute hypoxic respiratory failure secondary to the above Chronic dyspnea secondary to Large paraesophageal hiatal hernia Bibasilar atelectasis Acute GI bleed status post DDAVP, multiple RBC transfusions, possibly related to colitis. Tagged RBC reported negative. Intractable nausea vomiting and diarrhea. EGD and colonoscopy done 11/12/2022 which showed large hiatal hernia, mild antral gastritis, sigmoid diverticular stricture and diverticulosis. Colonoscopy biopsy reported nonspecific active colitis in the descending colon and focal mild nonspecific active in the sigmoid colon, likely infectious, Flagyl initiated. Abdominal ultrasound in October 2022 showed dilated bile duct at 1.5 cm. Acute on Chronic kidney disease, stage V, hypovolemic-prerenal. No hydronep hrosis reported per ultrasound 10/24/2022 Anemia of chronic disease. Hypomagnesemia Metabolic acidosis Acute UTI secondary to Klebsiella pneumonia, Citrobacter species Gastroesophageal reflux disease Hypertension Hyperlipidemia Hypothyroidism Diverticulosis without diverticulitis History of UTI with Giardi History of Covid 19 in 2019 History of torturous colon diagnosed with attempted colonoscopy with Dr. Shetty. Severe protein calorie malnutrition, BMI 20 Plan: Continue on current medication regime ,monitoring and symptomatic treatment. Potassium and Magnesium replacement. Sodium bicarb IVP. Pain management. Maintain IV antibiotics. Aggressive pulmonary toileting. yarn preparation supervisor at bedside. ICU management as per dock supervisor. Prognosis guarded given multiple complex medical issues. The impression and plan of care has been dictated as directed. : I performed a history and examination of this patient, discussed the same with the dictator. I agree with the dictator's note ,documented as a scribe. Any additional findings or plans will be noted.
[2022-11-26] MEDS ORDERED: SODIUM BICARB 8.4% 50 ML SYR (1 MEQ/ML) ONE (11:40)
[2022-11-26 14:39] LABS: Glucose,Whole Blood 161 mg/dL (70-110)
[2022-11-26] MEDS: DARBEPOETIN ALFA 60 MCG/0.3 ML SYRINGE SQ SCH (15:21)
[2022-11-26 18:25] LABS: Glucose,Whole Blood 154 mg/dL (70-110)
[2022-11-27] MEDS: metroNIDAZOLE-NS PMX 500 MG in SALINE 1 100ML.BAG IVPB SCH ×3 (00:04→16:37)
[2022-11-27] MEDS: ACETAMINOPHEN IV (For NPO) 1,000 MG in EMPTY BAG 1 BAG IVPB SCH ×4 (00:05→17:12)
[2022-11-27 05:03] LABS: Anisocytosis Slight; Basophils % (A) 0 %; Eosinophils % (A) 0 %; HCT 25.9 % (34.0-46.0); Hypochromasia Moderate; Lymphocytes % (A) 6 %; MCH 30.5 pg (25.0-35.0); MCHC 30.6 g/dL (31.0-37.0); MCV 99.6 fL (80.0-100.0); Macrocytosis Slight; Mean Platelet Volume 10.2; Monocytes # (A) 0.6 k/uL (0-1.0); Monocytes % (A) 3 %; Neutrophils # (A) 14.9 k/uL (1.3-7.7); Neutrophils % (A) 89 %; Platelet Count 186 k/uL (150-450); Poikilocytosis Slight; RDW 19.5 % (11.5-15.5); WBC 16.6 k/uL (3.8-10.6)
[2022-11-27 05:14] LABS: HGB 7.9 gm/dL (11.4-16.0)
[2022-11-27 05:17] LABS: ALT 18 U/L (4-34); AST 24 U/L (14-36); African American GFR (CKD) 14 (>60 ml/min/1.73 sqM); Albumin 1.8 g/dL (3.5-5.0); Alkaline Phosphatase 77 U/L (38-126); Anion Gap 6 mmol/L; Blood Urea Nitrogen 41 mg/dL (7-17); Calcium 7.3 mg/dL (8.4-10.2); Carbon Dioxide 22 mmol/L (22-30); Chloride 107 mmol/L (98-107); Glucose 113 mg/dL (74-99); Magnesium 2.1 mg/dL (1.6-2.3); Non-African American GFR(CKD) 12 (>60 ml/min/1.73 sqM); Potassium 3.7 mmol/L (3.5-5.1); Sodium 135 mmol/L (137-145); Total Bilirubin 0.4 mg/dL (0.2-1.3); Total Protein 3.9 g/dL (6.3-8.2)
[2022-11-27] MEDS: SODIUM CHLORIDE 0.9% 1,000 ML IV SCH (06:53)
--- NOTE | 2022-11-27 08:23 | XR ---
EXAMINATION TYPE: XR chest 1V portable DATE OF EXAM: 11/27/2022 6:22 AM COMPARISON: Chest radiographs from TECHNIQUE: XR chest 1V portable Frontal view of the chest. CLINICAL INDICATION:Female, 81 years old with history of S/P paraesophageal hernia repair; FINDINGS: Lungs/Pleura: The right lung is clear. Elevated left diaphragm and a larger pleural effusion compared to immediate prior. There is no evidence of pleural effusion, focal consolidation, or pneumothorax. Pulmonary vascularity: Unremarkable. Heart/mediastinum: Cardiomediastinal silhouette is unremarkable. Atherosclerotic calcifications are seen in the aorta. Musculoskeletal: No acute osseous pathology. Other findings: None Lines/Tubes: Nasogastric tube with its distal tip and side-port projecting under the diaphragm. Stimulator leads project over the spine. IMPRESSION: Left basilar atelectasis and suspected small pleural effusion.
[2022-11-27] MEDS: LEVOTHYROXINE IVP 100 MCG/5 ML VIAL IV SCH (10:00)
[2022-11-27] MEDS: PANTOPRAZOLE 40 MG/10 ML VIAL IV SCH ×2 (10:04→21:00)
--- NOTE | 2022-11-27 10:10 | CDI ---
Documentation Clarification Form Date: 11/27/2022 09:34:37 AM From: Anitra Chisholm RN, CCDS Admit Date: 11/15/2022 11:30:00 AM Patient Name: Lolita Blood Visit Number: [id number] Discharge Date: ATTENTION: The Clinical Documentation Specialists (CDI) and [facility] Coding Staff appreciate your assistance in clarifying documentation. Please respond to the clarification below the line at the bottom and electronically sign. The CDI & [facility] Coding staff will review the response and follow-up if needed. Please note: Queries are made part of the Legal Health Record. If you have any questions, please contact the author of this message via ITS. Dr. Katerina Soriano The patient has elevated white count, tachycardia, ruled in for acute UTI and acute colitis likely infectious. Based on this information and the findings below, is there an additional diagnosis that is clinically appropriate for this patient? History/Risk Factors: Hyperlipidemia, Hypertension, Renal Disease, Thyroid Disorder, large hiatal hernia Clinical Indicators: [id number] present with nausea, vomiting, and diarrhea. She was ruled in for acute colitis likely infectious, acute urinary tract infection with urine culture positive for Klebsiella pneumoniae. 11/14 WBC 14.2 HGB 11.2, Na 134, BUN 48, CR 4.04, UA: Large Leukocyte Esterase Blood cultures: 11/15 No growth after 5 days 11/14 VS: 121/78 105 18 99 98% RA Treatment: .9NS1,000 ML Bolus 11/14 Rocephin 1 GM IVPB Q 24 HRS 11/15-11/26 Flagyl 500 MG PO TID 11/19-11/26, then IVPB Q 8 Is there an additional diagnosis that is clinically appropriate for this patient? [ x ] Sepsis, present on admission [ ] Sepsis, developed during stay, not present on admission, due to (specify infection source) [ ] Sepsis ruled out. [ ] Other, please specify [ ] Unable to determine SIRS Criteria: 2 or more of the following may indicate SIRS Temperature < 96.8F (36C) or > 101.0F (38.3C) Heart Rate > 90 bpm Respiratory Rate > 20 breaths/min or PaCO2 < 32 mmHg White Blood Cell Count > 12,000 or < 4,000 cells/mm3 or > 10% bands (Template Last Reviewed: May 2022) MTDD
--- NOTE | 2022-11-27 10:26 | P.PN ---
Subjective Progress Note Date: 11/27/22 Principal diagnosis: Paraesophageal hernia with intrathoracic stomach and transverse colon, severe protein calorie malnutrition with poor oral intake, acute on chronic kidney disease, abdominal discomfort, nausea, vomiting, diarrhea. History of chronic dyspnea, 10-14 pound weight loss since August, GERD without esophagitis, gastritis, diverticulosis without diverticulitis, hypertension, hyperlipidemia, anemia of chronic disease, hypothyroidism, never smoker POD #2 Laparotomy with repair of paraesophageal hernia, Witzel jejunostomy feeding tube, Jairo fundoplication Postoperative acute blood loss anemia, expected due to hemodilution and preoperative anemia and history of GI bleed. The patient was seen and examined laying in bed in the ICU in stable condition. Remains in sinus rhythm, hemodynamically stable. States pain is controlled but patient is very drowsy, nursing has been hitting her BRANDING MACHINE OPERATOR pump. NGT remains to LIS with minimal drainage, J tube present with tube feedings currently at 40 mL/hr. Abdominal binder present. All meds remain IV as patient continues to be nothing by mouth. No new concerns. Objective - Vital Signs Vital signs: Vital Signs Temp 97.3 F L 11/27/22 04:00 Pulse 86 11/27/22 07:00 Resp 14 11/27/22 07:00 BP 140/84 11/27/22 07:00 Pulse Ox 94 L 11/27/22 04:00 FiO2 Intake & Output 11/26/22 11/27/22 11/27/22 18:59 06:59 18:59 Intake Total 1143 1050 100 Output Total 625 480 45 Balance 518 570 55 Weight 63 kg Intake: IV 793 790 60 A line 33 30 Sodium Chloride 0.9% 1, 660 660 60 000 ml @ 60 mls/hr IV . [id number] [facility] Rx#:[id number] metroNIDAZOLE-NS PMX 500 100 100 mg In Saline 1 100ml.bag @ 100 mls/hr IVPB Q8HR [facility] Rx#:[id number] Intake, IV Titration 150 Amount Magnesium Sulfate-D5w Pmx 100 1 gm In Dextrose/Water 1 100ml.bag @ 100 mls/hr IVPB Q1H [facility] Rx#: [id number] cefTRIAXone 1 gm In 50 Sodium Chloride 0.9% 50 ml @ 100 mls/hr IVPB Q24HR [facility] Rx#:[id number] Tube Feeding 200 260 40 Output: Gastric Drainage 300 Urine 325 480 45 Other: Voiding Method Indwelling Catheter Indwelling Catheter ABP, PAP, CO, CI - Last Documented Arterial Blood Pressure 161/78 - Exam CONSTITUTIONAL: Appears comfortable, cooperative, no acute distress RESPIRATORY: Lungs sounds clear bilaterally. Respirations even, nonlabored. C urrently on room air with oxygen saturation 94% CARDIOVASCULAR: S1, S2 present. Regular rate and rhythm, sinus rhythm on telemetry. Palpable peripheral pulses bilaterally. Generalized edema present. No calf pain or tenderness noted GASTROINTESTINAL: Abdomen soft, nontender, nondistended. Hypoactive bowel sounds present 4 quadrants. NGT to LIS with minimal drainage, J tube present with tube feeding currently infusing at 40 mL/hr GENITOURINARY: Nguyen present draining clear yellow urine, 35-50 mL/hr overnight, 805 ml in the last 24 hours INTEGUMENTARY: Skin is warm and dry NEUROLOGIC: Cranial nerves II through XII intact MUSKULOSKELETAL: Able to move all extremities, strength equal bilaterally PSYCHIATRIC: Alert and oriented to person place and time, appropriate affect, intact judgment and insight INVASIVE LINES: Right internal jugular triple lumen central line in place - Allied health notes Allied health notes reviewed: nursing - Labs CBC & Chem 7: 11/27/22 04:49 11/27/22 04:49 Labs: Abnormal Lab Results - Last 24 Hours (Table) 11/26/22 11/26/22 11/27/22 Range/Units 14:38 18:24 04:49 WBC (3.8-10.6) k/uL RBC (3.80-5.40) m/uL Hgb (11.4-16.0) gm/dL Hct (34.0-46.0) % MCHC (31.0-37.0) g/dL RDW (11.5-15.5) % Neutrophils # (1.3-7.7) k/uL Sodium 135 L (137-145) mmol/L BUN 41 H (7-17) mg/dL Creatinine 3.35 H (0.52-1.04) mg/dL Glucose 113 H (74-99) mg/dL POC Glucose (mg/dL) 161 H 154 H (70-110) mg/dL Calcium 7.3 L (8.4-10.2) mg/dL Total Protein 3.9 L (6.3-8.2) g/dL Albumin 1.8 L (3.5-5.0) g/dL 11/27/22 Range/Units 04:49 WBC 16.6 H (3.8-10.6) k/uL RBC 2.60 L (3.80-5.40) m/uL Hgb 7.9 L D (11.4-16.0) gm/dL Hct 25.9 L (34.0-46.0) % MCHC 30.6 L (31.0-37.0) g/dL RDW 19.5 H (11.5-15.5) % Neutrophils # 14.9 H (1.3-7.7) k/uL Sodium (137-145) mmol/L BUN (7-17) mg/dL Creatinine (0.52-1.04) mg/dL Glucose (74-99) mg/dL POC Glucose (mg/dL) (70-110) mg/dL Calcium (8.4-10.2) mg/dL Total Protein (6.3-8.2) g/dL Albumin (3.5-5.0) g/dL - Imaging and Cardiology Chest x-ray: report reviewed, image reviewed Assessment and Plan Assessment: Paraesophageal hernia with intrathoracic stomach and transverse colon, status post laparotomy with repair of paraesophageal hernia, Witzel jejunostomy feeding tube, Jairo fundoplication Chronic dyspnea, likely related to large hiatal hernia Acute on chronic kidney disease Abdominal discomfort Nausea, vomiting, diarrhea Severe protein calorie malnutrition 10-14 pound weight loss since August History of GERD without esophagitis Gastritis Diverticulosis without diverticulitis History of hypertension History of hyperlipidemia Anemia of chronic disease Hypothyroidism Never smoker GI bleed, having maroon-colored stools with obvious blood clots Plan: Keep strict nothing by mouth, will be nothing by mouth for at least 7 days. Keep NG tube to low intermittent wall suction, no medication or feedings through the NG tube Keep the J-tube in place, increase Vital tube feedings to 40 mL per hour, will increase to 50 ml/hr this evening Decrease 0.9% normal saline to KVO Continue to monitor daily labs and chest x-rays. Replace electrolytes per protocol. Keep abdominal binder in place at all times. Out of bed all day and ambulate as tolerated, bed for sleeping at night only. Encourage use of incentive spirometry 10 times every hour while awake. Keep Nguyen catheter in place for another 24 hours. All meds given IV GI/DVT prophylaxis. Calorie count in place Medical management and other comorbidities per primary care and critical care service. More recommendations to follow based on patient's clinical course.
[2022-11-27 11:11] LABS: INR 1.6 (<1.2); Partial Thromboplastin Time 39.9 sec (22.0-30.0); Prothrombin Time 15.6 sec (9.0-12.0)
--- NOTE | 2022-11-27 11:23 | P.PN ---
Subjective Progress Note Date: 11/27/22 Principal diagnosis: Repair of a paraesophageal hernia. I am seeing this patient again today 11/26/2022 in follow-up for ICU management following an open laparotomy with paraesophageal hernia repair. Patient was originally admitted back on November 14 for chronic dyspnea thought to be related to a large paraesophageal hiatal hernia. Patient was last evaluated on November, and we had originally signed off the case due to a lack of pulmonary involvement. Patient is currently postoperative day #1 following an open laparotomy with paraesophageal hernia repair, Jairo fundoplication, and placement of a jejunostomy. No immediate perioperative complications were reported. There is recorded 500 ML EBL. Hemoglobin did drop from 9.8 to 6.9 following the procedure, and the patient was transfused 1 unit of packed red blood cells and 2 units of fresh frozen plasma. Follow-up CBC shows a WBC count of 19.4, hemoglobin 10, hematocrit 30.7, platelets 205. BMP following the procedure shows a sodium 133, potassium 3.7, chloride 105, serum bicarb 19, BUN 37, creatinine 3.56, glucose 135. Normal saline is currently infusing at 100 ML's per hour. Urine output was oliguric and the patient's CVP was 3. I did give a 500 ML normal saline bolus. No vasopressors have been required. Patient also has a urinary tract infection with isolated organisms of Klebsiella pneumoniae and Citrobacter species, this is currently being covered with Rocephin and is also on Flagyl. Patient is afebrile, and her leukocytosis is likely reactive. Patient is currently lying in bed, on 2 L/m nasal cannula, in no acute distress. She is slightly drowsy following the procedure. She does have a Dilaudid pain pump with out a basal rate, when necessary bolus 0.1 mg as needed. She has a midline abdominal incision which appears well approximated. Incisional dressing is clean and dry. She also has a jejunostomy tube that currently has Jevity tube feeding infusing at 20 ML's per hour. She is hemodynamically stable at this time, and will be monitored in the intensive care unit at least overnight. Progress note dated 11/27/2022. 81-year-old female postop day #2, status post open repair of a paraesophageal hernia, and jejunostomy feeding tube placement. Currently, the patient's getting saline at 60 mL an hour. She's on no supplemental oxygen. NG tube remains in place. In addition, the patient's getting vital tube feedings, at 40 mL an hour, which is goal. White count 16.6, hemoglobin 7.9, hematocrit 25.9, and normal platelet count. PT 15.6, INR 1.6, PTT is 39.9. Sodium 135, p otassium 3.7, chlorides 107, CO2 22, BUN 41, and creatinine 3.35. Albumin is 1.8. Chest x-ray is improved, and shows a left basilar effusion, and left basilar atelectasis. Objective - Vital Signs Vital signs: Vital Signs Temp 97.5 F L 11/27/22 08:00 Pulse 95 11/27/22 11:00 Resp 19 11/27/22 11:00 BP 123/73 11/27/22 11:00 Pulse Ox 95 11/27/22 11:00 FiO2 Intake & Output 11/26/22 11/27/22 11/27/22 18:59 06:59 18:59 Intake Total 1143 1050 320 Output Total 625 480 230 Balance 518 570 90 Weight 63 kg Intake: IV 793 790 280 A line 33 30 Invasive Line 8 60 Sodium Chloride 0.9% 1, 660 660 120 000 ml @ 60 mls/hr IV . [id number] RAYSHAWN Rx#:[id number] metroNIDAZOLE-NS PMX 500 100 100 100 mg In Saline 1 100ml.bag @ 100 mls/hr IVPB Q8HR RAYSHAWN Rx#:[id number] Intake, IV Titration 150 Amount Magnesium Sulfate-D5w Pmx 100 1 gm In Dextrose/Water 1 100ml.bag @ 100 mls/hr IVPB Q1H RAYSHAWN Rx#: [id number] cefTRIAXone 1 gm In 50 Sodium Chloride 0.9% 50 ml @ 100 mls/hr IVPB Q24HR RAYSHAWN Rx#:[id number] Tube Feeding 200 260 40 Output: Gastric Drainage 300 Urine 325 480 230 Other: Voiding Method Indwelling Catheter Indwelling Catheter Indwelling Catheter ABP, PAP, CO, CI - Last Documented Arterial Blood Pressure 161/78 - Exam No acute distress, oriented 3. No supplemental oxygen. NG tube in place. HEENT examination is grossly unremarkable. Neck supple. Full range of motion. No adenopathy thyromegaly or neck vein distention. Cardiovascular examination reveals regular rhythm rate. S1-S2 normal. No S3 or S4. No discernible murmur noted. Heart rate 90 bpm. Lungs reveal mostly clear breath sounds. Minimal scattered rhonchi. No wheezes or crackles. Breath sounds equal bilaterally. Room air saturation 98%. Abdomen soft, with bowel sounds. Jejunostomy tube noted. Extremities are intact. No cyanosis clubbing or edema. Skin is without rash or lesion. Neurologic examination is brief but nonfocal. - Labs CBC & Chem 7: 11/27/22 04:49 11/27/22 04:49 Labs: Abnormal Lab Results - Last 24 Hours (Table) 11/26/22 11/26/22 11/27/22 Range/Units 14:38 18:24 04:49 WBC (3.8-10.6) k/uL RBC (3.80-5.40) m/uL Hgb (11.4-16.0) gm/dL Hct (34.0-46.0) % MCHC (31.0-37.0) g/dL RDW (11.5-15.5) % Neutrophils # (1.3-7.7) k/uL PT (9.0-12.0) sec INR (<1.2) APTT (22.0-30.0) sec Sodium 135 L (137-145) mmol/L BUN 41 H (7-17) mg/dL Creatinine 3.35 H (0.52-1.04) mg/dL Glucose 113 H (74-99) mg/dL POC Glucose (mg/dL) 161 H 154 H (70-110) mg/dL Calcium 7.3 L (8.4-10.2) mg/dL Total Protein 3.9 L (6.3-8.2) g/dL Albumin 1.8 L (3.5-5.0) g/dL 11/27/22 11/27/22 Range/Units 04:49 10:30 WBC 16.6 H (3.8-10.6) k/uL RBC 2.60 L (3.80-5.40) m/uL Hgb 7.9 L D (11.4-16.0) gm/dL Hct 25.9 L (34.0-46.0) % MCHC 30.6 L (31.0-37.0) g/dL RDW 19.5 H (11.5-15.5) % Neutrophils # 14.9 H (1.3-7.7) k/uL PT 15.6 H (9.0-12.0) sec INR 1.6 H (<1.2) APTT 39.9 H (22.0-30.0) sec Sodium (137-145) mmol/L BUN (7-17) mg/dL Creatinine (0.52-1.04) mg/dL Glucose (74-99) mg/dL POC Glucose (mg/dL) (70-110) mg/dL Calcium (8.4-10.2) mg/dL Total Protein (6.3-8.2) g/dL Albumin (3.5-5.0) g/dL Assessment and Plan Assessment: Postoperative day #2 following an open laparotomy with paraesophageal hernia repair, Jairo fundoplication, and placement of a jejunostomy. Acute blood loss anemia, expected outcome of surgery, status post infusion of 1 unit PRBC and 2 FFP. Total of 2 PRBC transfusions this admission. Urinary tract infection with isolated organisms of Klebsiella and Citrobacter. Acute on chronic kidney disease. Leukocytosis, likely reactive to surgery. Chronic dyspnea, likely related to large hiatal hernia. Chest x-ray from admission shows an elevated left hemidiaphragm with a large hiatal hernia and bibasilar atelectasis. There is also some mild pulmonary vascular congestion. History of large hiatal hernia. GERD without esophagitis. Gastritis. Diverticulosis without diverticulitis. Chronic diarrhea, under investigation. Benign essential hypertension. Hyperlipidemia. Anemia of chronic disease. Hypothyroidism. Never smoker. Plan: Plan dated 11/27/2022. The patient continues to recover from her recent surgery. She is postop day #2. She has an NG tube in place, and is getting tube feedings, with vital AF, 1.2, at 40 mL an hour, which is goal. She's also getting saline at 60 mL an hour. Labs, x-rays, and medications are reviewed. Her chest x-ray revealed some left basilar atelectasis. Recommend deep breathing, coughing, and clearing secretions, as well as hourly use of the incentive spirometer. We will continue to follow the patient and make recommendations along the way. Prognosis is guarded. Time with Patient: Greater than 30
[2022-11-27 11:27] LABS: Glucose,Whole Blood 114 mg/dL (70-110)
[2022-11-27] MEDS ORDERED: POTASSIUM CHLORIDE ER 20 MEQ TAB.ER PO STA (11:44)
[2022-11-27] MEDS ORDERED: FUROSEMIDE 10 MG/ML 10 ML VIAL IV SCH (11:45)
--- NOTE | 2022-11-27 11:45 | P.PN ---
Subjective Patient is seen in follow-up for acute kidney injury on chronic kidney disease. Renal function stable. Nonoliguric. Underwent paraesophageal hernia repair 11/25/2022. Receiving tube feeds. Vital signs are stable. General: No acute distress. HEENT: Head exam is unremarkable. NG tube noted. LUNGS: No audible rhonchi or wheezes. HEART: Rate and Rhythm are regular. ABDOMEN: Abdominal dressing noted. No drainage. EXTREMITITES: 1+ edema. Objective - Vital Signs Vital signs: Vital Signs Temp 97.5 F L 11/27/22 08:00 Pulse 95 11/27/22 11:00 Resp 19 11/27/22 11:00 BP 123/73 11/27/22 11:00 Pulse Ox 95 11/27/22 11:00 FiO2 Intake & Output 11/26/22 11/27/22 11/27/22 18:59 06:59 18:59 Intake Total 1143 1050 320 Output Total 625 480 230 Balance 518 570 90 Weight 63 kg 63.8 kg Intake: IV 793 790 280 A line 33 30 Invasive Line 8 60 Sodium Chloride 0.9% 1, 660 660 120 000 ml @ 60 mls/hr IV . [id number] RAYSHAWN Rx#:[id number] metroNIDAZOLE-NS PMX 500 100 100 100 mg In Saline 1 100ml.bag @ 100 mls/hr IVPB Q8HR RAYSHAWN Rx#:[id number] Intake, IV Titration 150 Amount Magnesium Sulfate-D5w Pmx 100 1 gm In Dextrose/Water 1 100ml.bag @ 100 mls/hr IVPB Q1H RAYSHAWN Rx#: [id number] cefTRIAXone 1 gm In 50 Sodium Chloride 0.9% 50 ml @ 100 mls/hr IVPB Q24HR RAYSHAWN Rx#:[id number] Tube Feeding 200 260 40 Output: Gastric Drainage 300 Urine 325 480 230 Other: Voiding Method Indwelling Catheter Indwelling Catheter Indwelling Catheter ABP, PAP, CO, CI - Last Documented Arterial Blood Pressure 161/78 - Labs CBC & Chem 7: 11/27/22 04:49 11/27/22 04:49 Labs: Abnormal Lab Results - Last 24 Hours (Table) 11/26/22 11/26/22 11/27/22 Range/Units 14:38 18:24 04:49 WBC (3.8-10.6) k/uL RBC (3.80-5.40) m/uL Hgb (11.4-16.0) gm/dL Hct (34.0-46.0) % MCHC (31.0-37.0) g/dL RDW (11.5-15.5) % Neutrophils # (1.3-7.7) k/uL PT (9.0-12.0) sec INR (<1.2) APTT (22.0-30.0) sec Sodium 135 L (137-145) mmol/L BUN 41 H (7-17) mg/dL Creatinine 3.35 H (0.52-1.04) mg/dL Glucose 113 H (74-99) mg/dL POC Glucose (mg/dL) 161 H 154 H (70-110) mg/dL Calcium 7.3 L (8.4-10.2) mg/dL Total Protein 3.9 L (6.3-8.2) g/dL Albumin 1.8 L (3.5-5.0) g/dL 11/27/22 11/27/22 11/27/22 Range/Units 04:49 10:30 11:25 WBC 16.6 H (3.8-10.6) k/uL RBC 2.60 L (3.80-5.40) m/uL Hgb 7.9 L D (11.4-16.0) gm/dL Hct 25.9 L (34.0-46.0) % MCHC 30.6 L (31.0-37.0) g/dL RDW 19.5 H (11.5-15.5) % Neutrophils # 14.9 H (1.3-7.7) k/uL PT 15.6 H (9.0-12.0) sec INR 1.6 H (<1.2) APTT 39.9 H (22.0-30.0) sec Sodium (137-145) mmol/L BUN (7-17) mg/dL Creatinine (0.52-1.04) mg/dL Glucose (74-99) mg/dL POC Glucose (mg/dL) 114 H (70-110) mg/dL Calcium (8.4-10.2) mg/dL Total Protein (6.3-8.2) g/dL Albumin (3.5-5.0) g/dL Assessment and Plan Plan: Assessment: 1. Acute kidney injury mostly prerenal secondary to hypovolemia from vomiting and diarrhea. Creatinine stable at 3.35 today. Nonoliguric. 2. Chronic kidney disease stage V secondary to nephrosclerosis and chronic interstitial nephritis from NSAID use. Recent creatinine 3-3.7. 3. Hypomagnesemia from GI losses and poor intake. Replaced. Better. 4. Hypokalemia from poor intake and diuretic. 5. Anemia of chronic kidney disease. Iron replete. On Aranesp. Status post blood transfusion 11/25/2022. 6. Intractable nausea vomiting and diarrhea. Patient had cryptosporidium infection in August 2022 and was treated by GI. Also had EGD and colonoscopy done 11/12/2022 which showed large hiatal hernia, mild antral gastritis, sigmoid diverticular stricture and diverticulosis. Abdominal ultrasound in October 2022 showed dilated bile duct at 1.5 cm. Status post paraesophageal hernia repair . CTS following. 7. Hypertension with chronic kidney disease. Stable. 8. Lower extremity edema with albumin of 1.8 concerning for third spacing. Status post IV albumin and Lasix this admission. 9. Klebsiella and Citrobacter UTI on antibiotics. 10. Metabolic acidosis secondary to chronic kidney disease, IV fluids and GI losses. Better. Plan: 25 g IV albumin 2 doses today. IV Lasix 60 mg one hour after IV albumin given. Maintain tube feeds. Avoid nephrotoxins. Continue to monitor renal function and urine output. Continue to assess daily for need for renal replacement therapy. Phosphorus level 3.3 dated 11/26/2022.
--- NOTE | 2022-11-27 11:51 | P.PN ---
Subjective Progress Note Date: 11/27/22 This is an 81-year-old female admitted with multiple medical issues including GI bleed, acute on chronic kidney failure, large intrathoracic hiatal hernia accompanied by dyspnea, diarrhea- chronic-tested negative for C. difficile colitis, hyponatremia, hypokalemia, severe protein calorie malnutrition, sche duled for repair of intrathoracic hiatal hernia repair, with placement of J-tube today. NPO. Hemoglobin 9.8, platelets 177 , sodium 131, potassium 3.9, BUN 44, creatinine 4.05, total protein 3.8, albumin 1.6 .no further bleeding reported .This morning telemetry reporting a 5 beat run, stat magnesium ordered. Blood cultures remain no growth after 5 days. Stool culture reported no salmonella, shigella or Campylobacter, no E. coli. Urine culture reported Klebsiella pneumoniae, Citrobacter species. Afebrile, normal WBC, maintained on ceftriaxone, Flagyl. Denies chest pain, palpitations or shortness of breath. Maintaining O2 sats in the high 90s on room air. 11/26/2022 patient currently in ICU status post Laparotomy with repair of paraesophageal hernia, Witzel jejunostomy feeding tube, Jairo fundoplication. Tolerated procedure well. Pain controlled with epidural. Maintained on gentle IV fluid hydration, J tube with tube feedings at of Jevitiy. NG tube to LIS. Potassium 3.8, magnesium 1.5. Bicarb 19, BUN 38, creatinine 3.51. Sitter at bedside, patient unknowingly pulling at IVs, tubings,etc. 11/27/2022 postop day #2: Telemetry sinus rhythm, continues on gentle IV fluid hydration, tube feeds at goal. Blood sugars controlled. Chest x-ray reporting improvement, left basilar atelectasis and suspected small pleural effusion. Maintaining O2 sats in the 90s on room air. NPO, NGT to LIS, minimal drainage. Afebrile, WBC 16.6. Hemoglobin 7.9, platelets 186, INR 1.6. Magnesium 2.1, Sodium 135, potassium 3.7, bicarb 22, BUN 41, creatinine 3.35. Albumin 1.8. Objective - Vital Signs Vital signs: Vital Signs Temp 97.3 F L 11/27/22 04:00 Pulse 86 11/27/22 07:00 Resp 14 11/27/22 07:00 BP 140/84 11/27/22 07:00 Pulse Ox 94 L 11/27/22 04:00 FiO2 Intake & Output 11/26/22 11/27/22 11/27/22 18:59 06:59 18:59 Intake Total 1143 1050 100 Output Total 625 480 45 Balance 518 570 55 Weight 63 kg Intake: IV 793 790 60 A line 33 30 Sodium Chloride 0.9% 1, 660 660 60 000 ml @ 60 mls/hr IV . [id number] RAYSHAWN Rx#:[id number] metroNIDAZOLE-NS PMX 500 100 100 mg In Saline 1 100ml.bag @ 100 mls/hr IVPB Q8HR RAYSHAWN Rx#:[id number] Intake, IV Titration 150 Amount Magnesium Sulfate-D5w Pmx 100 1 gm In Dextrose/Water 1 100ml.bag @ 100 mls/hr IVPB Q1H RAYSHAWN Rx#: [id number] cefTRIAXone 1 gm In 50 Sodium Chloride 0.9% 50 ml @ 100 mls/hr IVPB Q24HR RAYSHAWN Rx#:[id number] Tube Feeding 200 260 40 Output: Gastric Drainage 300 Urine 325 480 45 Other: Voiding Method Indwelling Catheter Indwelling Catheter ABP, PAP, CO, CI - Last Documented Arterial Blood Pressure 161/78 - Exam PHYSICAL EXAM: VITAL SIGNS: [As above] GENERAL: Alert and oriented 3, Sitting up in chair, no acute distress HEENT: Normocephalic Conjunctivae normal. eyes normal. NG tube with decreased bilious drainage. NECK: Supple, No JVD. Right IJ triple-lumen cath. CARDIOVASCULAR: S1, S2 regular. No audible murmur, no extra heart sounds RESPIRATION: Unlabored ,Equal air entry,Breath sounds diminished in the bases with occasional scattered rhonchi. ABDOMEN: Soft, status post surgery. Abdominal dressing with Abdominal binder. J-tube present with tube feeds. LEGS: Bilateral lower extremity edema, nonpitting. No calf pain or tenderness. Positive DP pulses. NERVOUS SYSTEM: Cranial N 2-12 grossly normal.No focal deficits. Strength and sensation grossly intact. Skin: Warm and dry, no rash - Labs CBC & Chem 7: 11/27/22 04:49 11/27/22 04:49 Labs: Abnormal Lab Results - Last 24 Hours (Table) 11/26/22 11/26/22 11/27/22 Range/Units 14:38 18:24 04:49 WBC (3.8-10.6) k/uL RBC (3.80-5.40) m/uL Hgb (11.4-16.0) gm/dL Hct (34.0-46.0) % MCHC (31.0-37.0) g/dL RDW (11.5-15.5) % Neutrophils # (1.3-7.7) k/uL Sodium 135 L (137-145) mmol/L BUN 41 H (7-17) mg/dL Creatinine 3.35 H (0.52-1.04) mg/dL Glucose 113 H (74-99) mg/dL POC Glucose (mg/dL) 161 H 154 H (70-110) mg/dL Calcium 7.3 L (8.4-10.2) mg/dL Total Protein 3.9 L (6.3-8.2) g/dL Albumin 1.8 L (3.5-5.0) g/dL 11/27/22 Range/Units 04:49 WBC 16.6 H (3.8-10.6) k/uL RBC 2.60 L (3.80-5.40) m/uL Hgb 7.9 L D (11.4-16.0) gm/dL Hct 25.9 L (34.0-46.0) % MCHC 30.6 L (31.0-37.0) g/dL RDW 19.5 H (11.5-15.5) % Neutrophils # 14.9 H (1.3-7.7) k/uL Sodium (137-145) mmol/L BUN (7-17) mg/dL Creatinine (0.52-1.04) mg/dL Glucose (74-99) mg/dL POC Glucose (mg/dL) (70-110) mg/dL Calcium (8.4-10.2) mg/dL Total Protein (6.3-8.2) g/dL Albumin (3.5-5.0) g/dL Assessment and Plan Assessment: Paraesophageal hernia with intrathoracic stomach and transverse colon,status pos t laparotomy with repair of paraesophageal hernia, Witzel jejunostomy feeding tube, Jairo fundoplication. Acute hypoxic respiratory failure secondary to the above, resolved currently on room air Chronic dyspnea secondary to Large paraesophageal hiatal hernia. Bibasilar atelectasis secondary to the above Acute GI bleed status post DDAVP, multiple RBC transfusions, possibly related to colitis. Tagged RBC reported negative. Intractable nausea vomiting and diarrhea. EGD and colonoscopy done 11/12/2022 which showed large hiatal hernia, mild antral gastritis, sigmoid diverticular stricture and diverticulosis. Colonoscopy biopsy reported nonspecific active colitis in the descending colon and focal mild nonspecific active in the sigmoid colon, likely infectious, Flagyl initiated. Abdominal ultrasound in October 2022 showed dilated bile duct at 1.5 cm. Acute on Chronic kidney disease, stage V, hypovolemic-prerenal. No hydronephrosis reported per ultrasound 10/24/2022 Anemia of chronic disease. 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 Severe protein calorie malnutrition, BMI 20 Plan: Continue on current medication regime ,monitoring and symptomatic treatment. Strict NPO as per CTS; all meds to be given IV. Tube feeds, close monitoring of blood sugars.Pain management. Maintain IV antibiotics. Aggressive pulmonary toileting with incentive spirometer reinforced.Prognosis guarded given multiple complex medical issues. Close monitoring of renal function with repeat labs ordered for a.m. The impression and plan of care has been dictated as directed. : I performed a history and examination of this patient, discussed the same with the dictator. I agree with the dictator's note ,documented as a scribe. Any additional findings or plans will be noted.
[2022-11-27] MEDS: ALBUMIN HUMAN 25% 50 ML in EMPTY BAG 1 BAG IVPB SCH ×4 (14:48→22:47)
[2022-11-27] MEDS ORDERED: POTASSIUM CHLORIDE 20 MEQ in WATER FOR INJECTION 1 100ML.BAG IVPB ONE ×2 (16:00→18:30)
[2022-11-27] MEDS: FUROSEMIDE 10 MG/ML 10 ML VIAL IV SCH (17:11)
[2022-11-27 20:30] LABS: Glucose,Whole Blood 112 mg/dL (70-110)
[2022-11-27 23:53] LABS: Glucose,Whole Blood 108 mg/dL (70-110)
[2022-11-28] MEDS: ACETAMINOPHEN IV (For NPO) 1,000 MG in EMPTY BAG 1 BAG IVPB SCH ×5 (00:13→23:36)
[2022-11-28] MEDS: metroNIDAZOLE-NS PMX 500 MG in SALINE 1 100ML.BAG IVPB SCH ×2 (00:28→08:38)
[2022-11-28] MEDS: FUROSEMIDE 10 MG/ML 10 ML VIAL IV SCH (01:23)
[2022-11-28] MEDS: SODIUM CHLORIDE 0.9% 1,000 ML IV SCH ×2 (05:08→13:30)
[2022-11-28 06:14] LABS: Glucose,Whole Blood 111 mg/dL (70-110)
[2022-11-28 06:51] LABS: Anisocytosis Moderate; HCT 20.2 % (34.0-46.0); Hypochromasia Marked; MCH 33.4 pg (25.0-35.0); MCHC 32.3 g/dL (31.0-37.0); MCV 103.6 fL (80.0-100.0); Macrocytosis Moderate; Mean Platelet Volume 10.2; Platelet Count 153 k/uL (150-450); Poikilocytosis Slight; RBC 1.95 m/uL (3.80-5.40); RDW 21.5 % (11.5-15.5); WBC 15.2 k/uL (3.8-10.6)
[2022-11-28 07:00] LABS: ALT 14 U/L (4-34); AST 18 U/L (14-36); African American GFR (CKD) 13 (>60 ml/min/1.73 sqM); Albumin 2.3 g/dL (3.5-5.0); Alkaline Phosphatase 86 U/L (38-126); Anion Gap 9 mmol/L; Blood Urea Nitrogen 42 mg/dL (7-17); Calcium 7.5 mg/dL (8.4-10.2); Carbon Dioxide 21 mmol/L (22-30); Chloride 106 mmol/L (98-107); Glucose 98 mg/dL (74-99); Non-African American GFR(CKD) 11 (>60 ml/min/1.73 sqM); Potassium 4.4 mmol/L (3.5-5.1); Sodium 136 mmol/L (137-145); Total Bilirubin 0.4 mg/dL (0.2-1.3)
[2022-11-28 07:02] LABS: INR 1.8 (<1.2); Prothrombin Time 17.8 sec (9.0-12.0)
[2022-11-28 07:17] LABS: HGB 6.5 gm/dL (11.4-16.0)
[2022-11-28] MEDS: PANTOPRAZOLE 40 MG/10 ML VIAL IV SCH ×2 (08:38→21:05)
[2022-11-28] MEDS: LEVOTHYROXINE IVP 100 MCG/5 ML VIAL IV SCH (08:38)
--- NOTE | 2022-11-28 08:46 | XR ---
EXAMINATION TYPE: XR chest 1V portable DATE OF EXAM: 11/28/2022 Comparison: 11/27/2022 Clinical History: 81-year-old female post intra thoracic hiatal hernia repair Findings: NG tube courses below the diaphragm. Spinal stimulator array centered along the lower thoracic spinal canal. Right IJ CVC tip at the lower right atrium. Heart borderline enlarged shows slight improvemen t. Ectatic/tortuous thoracic aorta redemonstrated. Hazy bilateral lower lung densities suggesting sma ll layering pleural effusions. More dense opacity at the left base and retrocardiac region shows slig ht improvement. Impression: Small layering pleural effusions. Prominent atelectasis/consolidation at the retrocardiac region and left base persists but is improving from prior.
--- NOTE | 2022-11-28 08:57 | P.PN ---
Subjective Progress Note Date: 11/28/22 Principal diagnosis: Paraesophageal hernia with intrathoracic stomach and transverse colon, very poor oral intake and highly compromised nutritional status, chronic renal insuffici ency, abdominal discomfort, nausea, vomiting, diarrhea. Past medical history significant for chronic dyspnea, 10-14 pound weight loss since August, GERD without esophagitis, gastritis, diverticulosis without diverticulitis, hypertension, hyperlipidemia, anemia of chronic disease, hypothyroidism, never smoker. POD #3 Laparotomy with repair of paraesophageal hernia, Witzel jejunostomy feeding tube, Jairo fundoplication Postoperative acute blood loss anemia, expected due to hemodilution and preoper ative anemia and history of GI bleed. The patient was seen and examined in follow-up today 11/28/2022 in the intensive care unit. The patient's night nurse Rolando reports that he had helped the patient up to the bedside commode, and upon getting up the patient became hypotensive and tachycardic with a heart rate in the 140s, he assisted the patient back to bed and the patient's blood pressure and heart rate recovered quickly. At this time she remains hemodynamically stable. Oxygen saturations are 97% on room air and she is achieving around 250 mL on her incentive spirometry with much encoura gement. Bedside telemetry showing normal sinus rhythm heart rate 98 BPM. NG tube remains in place to low intermittent wall suction with 300 mL of bilious drainage in the last 8 hours. J-tube remains in place with continuous tube feeding infusing at 40 mL per hour, vital 1.2 Mau. The patient reports she had 3 bowel movements yesterday and had a small bowel movement this morning. She has been afebrile in the last 24 hours. Nguyen catheter remains in place for accurate I's and O's with 1.1 L output in the last 8 hours. Chest x-ray and laboratory results reviewed. Objective - Vital Signs Vital signs: Vital Signs Temp 96.6 F L 11/28/22 08:00 Pulse 101 H 11/28/22 08:00 Resp 16 11/28/22 08:00 BP 105/71 11/28/22 08:00 Pulse Ox 98 11/28/22 08:00 FiO2 Intake & Output 11/27/22 11/28/22 11/28/22 18:59 06:59 18:59 Intake Total 1560 340 130 Output Total 590 1495 510 Balance 970 -1155 -380 Weight 63.8 kg 64.5 kg Intake: IV 910 260 130 ACETAMINOPHEN IV (For NPO 200 ) 1,000 mg In Empty Bag 1 bag @ 400 mls/hr IVPB Q6HR [facility] Rx#:[id number] Albumin Human 25% 50 ml 100 100 In Empty Bag 1 bag @ 50 mls/hr IVPB Q1H [facility] Rx#: [id number] Invasive Line 8 90 60 30 Potassium Chloride 20 meq 200 In Water For Injection 1 100ml.bag @ 50 mls/hr IVPB ONCE ONE Rx#: [id number] Sodium Chloride 0.9% 1, 120 000 ml @ 60 mls/hr IV . [id number] [facility] Rx#:[id number] metroNIDAZOLE-NS PMX 500 200 100 100 mg In Saline 1 100ml.bag @ 100 mls/hr IVPB Q8HR [facility] Rx#:[id number] Tube Feeding 560 80 Other 90 Output: Gastric Drainage 70 30 350 Urine 520 1465 160 Other: Voiding Method Indwelling Catheter Indwelling Catheter # Voids 1 # Bowel Movements 1 ABP, PAP, CO, CI - Last Documented Arterial Blood Pressure 161/78 - Exam CONSTITUTIONAL: Appears comfortable, cooperative, no acute distress, sitting up in bed in the intensive care unit. RESPIRATORY: Lungs sounds clear throughout, few scattered crackles scattered to her bilateral bases. Respirations are symmetrical, nonlabored. Currently on room air with oxygen saturation 97%. Able to achieve 250 mL on incentive spirometry. CARDIOVASCULAR: S1, S2 present. Regular rate and rhythm. Palpable peripheral pulses bilaterally. Anasarca. No calf pain or tenderness noted. SCDs present to her bilateral lower extremities. GASTROINTESTINAL: Abdomen soft, tender to palpation around her incision, nondistended. Hypoactive bowel sounds present 4 quadrants. NG tube in place to low intermittent wall suction with 300 mL of bilious drainage in the last 8 hours. Nothing by mouth. J-tube in place with tube feeding vital 1.2 Mau infusing at 40 mL per hour. Bowel movement 3 yesterday 11/27/2022. GENITOURINARY: Nguyen catheter for accurate I's and O's, 1.1 L urine output in the last 8 hours. INTEGUMENTARY: Skin is warm and dry. No clubbing or cyanosis is present. Midline abdominal incision is clean, and intact with dusty. Ecchymosis to her left lower quadrant abdomen. Scant serous drainage from around her J-tube. NEUROLOGIC: Cranial nerves II through XII intact. No focal deficits. MUSKULOSKELETAL: Able to move all extremities, strength equal bilaterally. PSYCHIATRIC: Alert and oriented to person place and time, appropriate affect, intact judgment and insight. Periods of forgetfulness. INVASIVE LINES AND TUBES: Right IJ triple-lumen central catheter in place. - Allied health notes Allied health notes reviewed: nursing - Labs CBC & Chem 7: 11/28/22 06:10 11/28/22 06:10 Labs: Abnormal Lab Results - Last 24 Hours (Table) 11/27/22 11/27/22 11/27/22 Range/Units 10:30 11:25 20:28 WBC (3.8-10.6) k/uL RBC (3.80-5.40) m/uL Hgb (11.4-16.0) gm/dL Hct (34.0-46.0) % MCV (80.0-100.0) fL RDW (11.5-15.5) % PT 15.6 H (9.0-12.0) sec INR 1.6 H (<1.2) APTT 39.9 H (22.0-30.0) sec Sodium (137-145) mmol/L Carbon Dioxide (22-30) mmol/L BUN (7-17) mg/dL Creatinine (0.52-1.04) mg/dL POC Glucose (mg/dL) 114 H 112 H (70-110) mg/dL Calcium (8.4-10.2) mg/dL Total Protein (6.3-8.2) g/dL Albumin (3.5-5.0) g/dL 11/28/22 11/28/22 11/28/22 Range/Units 06:10 06:10 06:10 WBC 15.2 H (3.8-10.6) k/uL RBC 1.95 L (3.80-5.40) m/uL Hgb 6.5 L* (11.4-16.0) gm/dL Hct 20.2 L (34.0-46.0) % MCV 103.6 H (80.0-100.0) fL RDW 21.5 H (11.5-15.5) % PT 17.8 H (9.0-12.0) sec INR 1.8 H (<1.2) APTT 48.0 H (22.0-30.0) sec Sodium 136 L (137-145) mmol/L Carbon Dioxide 21 L (22-30) mmol/L BUN 42 H (7-17) mg/dL Creatinine 3.69 H (0.52-1.04) mg/dL POC Glucose (mg/dL) (70-110) mg/dL Calcium 7.5 L (8.4-10.2) mg/dL Total Protein 4.0 L (6.3-8.2) g/dL Albumin 2.3 L (3.5-5.0) g/dL 11/28/22 Range/Units 06:12 WBC (3.8-10.6) k/uL RBC (3.80-5.40) m/uL Hgb (11.4-16.0) gm/dL Hct (34.0-46.0) % MCV (80.0-100.0) fL RDW (11.5-15.5) % PT (9.0-12.0) sec INR (<1.2) APTT (22.0-30.0) sec Sodium (137-145) mmol/L Carbon Dioxide (22-30) mmol/L BUN (7-17) mg/dL Creatinine (0.52-1.04) mg/dL POC Glucose (mg/dL) 111 H (70-110) mg/dL Calcium (8.4-10.2) mg/dL Total Protein (6.3-8.2) g/dL Albumin (3.5-5.0) g/dL - Imaging and Cardiology Chest x-ray: report reviewed, image reviewed Assessment and Plan Assessment: Paraesophageal hernia with intrathoracic stomach and transverse colon, very poor oral intake and highly compromised nutritional status, status post laparotomy with repair of paraesophageal hernia, Witzel jejunostomy feeding tube, Jairo fundoplication Chronic dyspnea, likely related to large hiatal hernia Acute on chronic kidney disease Abdominal discomfort Nausea, vomiting, diarrhea Severe protein calorie malnutrition 10-14 pound weight loss since August History of GERD without esophagitis Gastritis Diverticulosis without diverticulitis History of hypertension History of hyperlipidemia Anemia of chronic disease Hypothyroidism Never smoker GI bleed, having maroon-colored stools with obvious blood clots Plan: Keep strict nothing by mouth, will be nothing by mouth for at least 7 days. Keep NG tube to low intermittent wall suction, no medication or feedings through the NG tube Keep the J-tube in place, increase vital 1.2 Mau tube feedings to 40 mL per hour. Continue to monitor daily labs and chest x-rays. Replace electrolytes per protocol. Check prealbumin level on 11/30/2022. Keep abdominal binder in place at all times. Out of bed 3 times a day and ambulate as tolerated. Encourage use of incentive spirometry 10 times every hour while awake. Remove Nguyen catheter. Continue to record strict necrotizing O's. Lasix recommendations per nephrology. Avoid nephrotoxic agents. GI/DVT prophylaxis. Medical management and other comorbidities per primary care and critical care service. Keep in the intensive care unit. Transfuse 1 unit of packed red blood cells today for hemoglobin of 6.5. More recommendations to follow based on patient's clinical course. Time with Patient: Greater than 30
--- NOTE | 2022-11-28 10:37 | P.PN ---
Subjective Progress Note Date: 11/28/22 Principal diagnosis: Repair of a paraesophageal hernia. I am seeing this patient again today 11/26/2022 in follow-up for ICU management following an open laparotomy with paraesophageal hernia repair. Patient was originally admitted back on November 14 for chronic dyspnea thought to be related to a large paraesophageal hiatal hernia. Patient was last evaluated on November, and we had originally signed off the case due to a lack of pulmonary involvement. Patient is currently postoperative day #1 following an open laparotomy with paraesophageal hernia repair, Jairo fundoplication, and placement of a jejunostomy. No immediate perioperative complications were reported. There is recorded 500 ML EBL. Hemoglobin did drop from 9.8 to 6.9 following the procedure, and the patient was transfused 1 unit of packed red blood cells and 2 units of fresh frozen plasma. Follow-up CBC shows a WBC count of 19.4, hemoglobin 10, hematocrit 30.7, platelets 205. BMP following the procedure shows a sodium 133, potassium 3.7, chloride 105, serum bicarb 19, BUN 37, creatinine 3.56, glucose 135. Normal saline is currently infusing at 100 ML's per hour. Urine output was oliguric and the patient's CVP was 3. I did give a 500 ML normal saline bolus. No vasopressors have been required. Patient also has a urinary tract infection with isolated organisms of Klebsiella pneumoniae and Citrobacter species, this is currently being covered with Rocephin and is also on Flagyl. Patient is afebrile, and her leukocytosis is likely reactive. Patient is currently lying in bed, on 2 L/m nasal cannula, in no acute distress. She is slightly drowsy following the procedure. She does have a Dilaudid pain pump with out a basal rate, when necessary bolus 0.1 mg as needed. She has a midline abdominal incision which appears well approximated. Incisional dressing is clean and dry. She also has a jejunostomy tube that currently has Jevity tube feeding infusing at 20 ML's per hour. She is hemodynamically stable at this time, and will be monitored in the intensive care unit at least overnight. Progress note dated 11/27/2022. 81-year-old female postop day #2, status post open repair of a paraesophageal hernia, and jejunostomy feeding tube placement. Currently, the patient's getting saline at 60 mL an hour. She's on no supplemental oxygen. NG tube remains in place. In addition, the patient's getting vital tube feedings, at 40 mL an hour, which is goal. White count 16.6, hemoglobin 7.9, hematocrit 25.9, and normal platelet count. PT 15.6, INR 1.6, PTT is 39.9. Sodium 135, p otassium 3.7, chlorides 107, CO2 22, BUN 41, and creatinine 3.35. Albumin is 1.8. Chest x-ray is improved, and shows a left basilar effusion, and left basilar atelectasis. Progress note dated 11/28/2022. 81-year-old female, postop day #3, status post open repair of the paraesophageal hernia, and insertion of a feeding jejunostomy tube. The patient's currently getting vital AF, at 40 mL an hour, which is goal. The patient has an NG tube in place, she's not receiving any supplemental oxygen. Unfortunately, her hemoglobin this morning was 6.5. The patient has received a total of 3 units of packed red blood cells, and 2 units of fresh frozen plasma. White count 15.2, hemoglobin 6.5, hematocrit 20.2, and a platelet count of 153,000. PT is 17.8, INR 1.8, PTT is 48. Sodium 136, potassium 4.4, chlorides 106, CO2 21, BUN 42, and creatinine 3.69. Urine sampling from November 15 was positive for Klebsiella and Citrobacter. Chest x-ray shows small bilateral pleural effusions, and some left basilar atelectasis. Objective - Vital Signs Vital signs: Vital Signs Temp 97.4 F L 11/28/22 10:09 Pulse 101 H 11/28/22 10:09 Resp 21 11/28/22 10:09 BP 97/66 11/28/22 10:09 Pulse Ox 98 11/28/22 10:09 FiO2 Intake & Output 11/27/22 11/28/22 11/28/22 18:59 06:59 18:59 Intake Total 1560 340 270 Output Total 321 7555 595 Balance 950 -8236 -537 Weight 63.8 kg 64.5 kg Intake: IV 910 260 230 ACETAMINOPHEN IV (For NPO 200 ) 1,000 mg In Empty Bag 1 bag @ 400 mls/hr IVPB Q6HR [facility] Rx#:[id number] Albumin Human 25% 50 ml 100 100 In Empty Bag 1 bag @ 50 mls/hr IVPB Q1H [facility] Rx#: [id number] Invasive Line 8 90 60 30 Potassium Chloride 20 meq 200 In Water For Injection 1 100ml.bag @ 50 mls/hr IVPB ONCE ONE Rx#: [id number] Sodium Chloride 0.9% 1, 120 000 ml @ 60 mls/hr IV . [id number] [facility] Rx#:[id number] metroNIDAZOLE-NS PMX 500 200 100 200 mg In Saline 1 100ml.bag @ 100 mls/hr IVPB Q8HR [facility] Rx#:[id number] Tube Feeding 560 80 40 Blood Product 0 Unit 0 Other 90 Output: Gastric Drainage 70 30 350 Urine 520 1465 245 Other: Voiding Method Indwelling Catheter Indwelling Catheter Indwelling Catheter # Voids 1 # Bowel Movements 1 ABP, PAP, CO, CI - Last Documented Arterial Blood Pressure 161/78 - Exam No acute distress, oriented 3. No supplemental oxygen. NG tube in place. HEENT examination is grossly unremarkable. Neck supple. Full range of motion. No adenopathy thyromegaly or neck vein distention. Cardiovascular examination reveals regular rhythm rate. S1-S2 normal. No S3 or S4. No discernible murmur noted. Heart rate 100 bpm. Lungs reveal mostly clear breath sounds. Minimal scattered rhonchi. No wheezes or crackles. Breath sounds equal bilaterally. Room air saturation 98%. Abdomen soft, with bowel sounds. Jejunostomy tube noted. Extremities are intact. No cyanosis clubbing or edema. Skin is without rash or lesion. Neurologic examination is brief but nonfocal. - Labs CBC & Chem 7: 11/28/22 06:10 11/28/22 06:10 Labs: Abnormal Lab Results - Last 24 Hours (Table) 11/27/22 11/27/22 11/27/22 Range/Units 10:30 11:25 20:28 WBC (3.8-10.6) k/uL RBC (3.80-5.40) m/uL Hgb (11.4-16.0) gm/dL Hct (34.0-46.0) % MCV (80.0-100.0) fL RDW (11.5-15.5) % PT 15.6 H (9.0-12.0) sec INR 1.6 H (<1.2) APTT 39.9 H (22.0-30.0) sec Sodium (137-145) mmol/L Carbon Dioxide (22-30) mmol/L BUN (7-17) mg/dL Creatinine (0.52-1.04) mg/dL POC Glucose (mg/dL) 114 H 112 H (70-110) mg/dL Calcium (8.4-10.2) mg/dL Total Protein (6.3-8.2) g/dL Albumin (3.5-5.0) g/dL Crossmatch 11/28/22 11/28/22 11/28/22 Range/Units 06:10 06:10 06:10 WBC 15.2 H (3.8-10.6) k/uL RBC 1.95 L (3.80-5.40) m/uL Hgb 6.5 L* (11.4-16.0) gm/dL Hct 20.2 L (34.0-46.0) % MCV 103.6 H (80.0-100.0) fL RDW 21.5 H (11.5-15.5) % PT 17.8 H (9.0-12.0) sec INR 1.8 H (<1.2) APTT 48.0 H (22.0-30.0) sec Sodium 136 L (137-145) mmol/L Carbon Dioxide 21 L (22-30) mmol/L BUN 42 H (7-17) mg/dL Creatinine 3.69 H (0.52-1.04) mg/dL POC Glucose (mg/dL) (70-110) mg/dL Calcium 7.5 L (8.4-10.2) mg/dL Total Protein 4.0 L (6.3-8.2) g/dL Albumin 2.3 L (3.5-5.0) g/dL Crossmatch 11/28/22 11/28/22 Range/Units 06:12 08:00 WBC (3.8-10.6) k/uL RBC (3.80-5.40) m/uL Hgb (11.4-16.0) gm/dL Hct (34.0-46.0) % MCV (80.0-100.0) fL RDW (11.5-15.5) % PT (9.0-12.0) sec INR (<1.2) APTT (22.0-30.0) sec Sodium (137-145) mmol/L Carbon Dioxide (22-30) mmol/L BUN (7-17) mg/dL Creatinine (0.52-1.04) mg/dL POC Glucose (mg/dL) 111 H (70-110) mg/dL Calcium (8.4-10.2) mg/dL Total Protein (6.3-8.2) g/dL Albumin (3.5-5.0) g/dL Crossmatch See Detail Assessment and Plan Assessment: Postoperative day #3 following an open laparotomy with paraesophageal hernia repair, Jairo fundoplication, and placement of a jejunostomy. Acute blood loss anemia, expected outcome of surgery, status post infusion of 3 unit PRBC and 2 FFP. Urinary tract infection with isolated organisms of Klebsiella and Citrobacter. Acute on chronic kidney disease. Leukocytosis, likely reactive to surgery. Chronic dyspnea, likely related to large hiatal hernia. Chest x-ray from admission shows an elevated left hemidiaphragm with a large hiatal hernia and bibasilar atelectasis. There is also some mild pulmonary vascular congestion. History of large hiatal hernia. GERD without esophagitis. Gastritis. Diverticulosis without diverticulitis. Chronic diarrhea, under investigation. Benign essential hypertension. Hyperlipidemia. Anemia of chronic disease. Hypothyroidism. Never smoker. Plan: Plan dated 11/27/2022. The patient continues to recover from her recent surgery. She is postop day #2. She has an NG tube in place, and is getting tube feedings, with vital AF, 1.2, at 40 mL an hour, which is goal. She's also getting saline at 60 mL an hour. Labs, x-rays, and medications are reviewed. Her chest x-ray revealed some left basilar atelectasis. Recommend deep breathing, coughing, and clearing secretions, as well as hourly use of the incentive spirometer. We will continue to follow the patient and make recommendations along the way. Prognosis is guarded. Plan dated 11/28/2022. The patient is postop day #3, and was doing relatively well, although, she developed significant anemia, requiring additional blood transfusions, and apparently had a vasovagal episode with low blood pressure. For those reasons, the patient remains in the intensive care unit. Labs, x-rays, and medications are all reviewed. Overall prognosis remains guarded. We will continue to follow the patient and make recommendations along the way. We do recommend that she use an incentive spirometer, every hour. Time with Patient: Greater than 30
[2022-11-28] MEDS ORDERED: SODIUM BICARB 8.4% 50 ML SYR (1 MEQ/ML) IV STA (11:05)
--- NOTE | 2022-11-28 11:54 | P.PN ---
Subjective Patient is seen in follow-up for acute kidney injury on chronic kidney disease. Renal function fairly stable. Nonoliguric. Underwent paraesophageal hernia repair 11/25/2022. Receiving tube feeds. Also receiving a unit of blood today. Vital signs are stable. General: No acute distress. HEENT: Head exam is unremarkable. NG tube noted. LUNGS: No audible rhonchi or wheezes. HEART: Rate and Rhythm are regular. ABDOMEN: Abdominal dressing noted. No drainage. EXTREMITITES: 1+ edema. Objective - Vital Signs Vital signs: Vital Signs Temp 96.3 F L 11/28/22 10:39 Pulse 101 H 11/28/22 10:39 Resp 18 11/28/22 10:39 BP 97/68 11/28/22 10:39 Pulse Ox 98 11/28/22 10:19 FiO2 Intake & Output 11/27/22 11/28/22 11/28/22 18:59 06:59 18:59 Intake Total 1560 340 270 Output Total 590 1495 595 Balance 970 -5761 -325 Weight 63.8 kg 64.5 kg 64.5 kg Intake: IV 910 260 230 ACETAMINOPHEN IV (For NPO 200 ) 1,000 mg In Empty Bag 1 bag @ 400 mls/hr IVPB Q6HR [facility] Rx#:[id number] Albumin Human 25% 50 ml 100 100 In Empty Bag 1 bag @ 50 mls/hr IVPB Q1H [facility] Rx#: [id number] Invasive Line 8 90 60 30 Potassium Chloride 20 meq 200 In Water For Injection 1 100ml.bag @ 50 mls/hr IVPB ONCE ONE Rx#: [id number] Sodium Chloride 0.9% 1, 120 000 ml @ 60 mls/hr IV . [id number] [facility] Rx#:[id number] metroNIDAZOLE-NS PMX 500 200 100 200 mg In Saline 1 100ml.bag @ 100 mls/hr IVPB Q8HR [facility] Rx#:[id number] Tube Feeding 560 80 40 Blood Product 0 Unit 0 Other 90 Output: Gastric Drainage 70 30 350 Urine 520 1465 245 Other: Voiding Method Indwelling Catheter Indwelling Catheter Indwelling Catheter # Voids 1 # Bowel Movements 1 ABP, PAP, CO, CI - Last Documented Arterial Blood Pressure 161/78 - Labs CBC & Chem 7: 11/28/22 06:10 11/28/22 06:10 Labs: Abnormal Lab Results - Last 24 Hours (Table) 11/27/22 11/28/22 11/28/22 Range/Units 20:28 06:10 06:10 WBC 15.2 H (3.8-10.6) k/uL RBC 1.95 L (3.80-5.40) m/uL Hgb 6.5 L* (11.4-16.0) gm/dL Hct 20.2 L (34.0-46.0) % MCV 103.6 H (80.0-100.0) fL RDW 21.5 H (11.5-15.5) % PT 17.8 H (9.0-12.0) sec INR 1.8 H (<1.2) APTT 48.0 H (22.0-30.0) sec Sodium (137-145) mmol/L Carbon Dioxide (22-30) mmol/L BUN (7-17) mg/dL Creatinine (0.52-1.04) mg/dL POC Glucose (mg/dL) 112 H (70-110) mg/dL Calcium (8.4-10.2) mg/dL Total Protein (6.3-8.2) g/dL Albumin (3.5-5.0) g/dL Crossmatch 11/28/22 11/28/22 11/28/22 Range/Units 06:10 06:12 08:00 WBC (3.8-10.6) k/uL RBC (3.80-5.40) m/uL Hgb (11.4-16.0) gm/dL Hct (34.0-46.0) % MCV (80.0-100.0) fL RDW (11.5-15.5) % PT (9.0-12.0) sec INR (<1.2) APTT (22.0-30.0) sec Sodium 136 L (137-145) mmol/L Carbon Dioxide 21 L (22-30) mmol/L BUN 42 H (7-17) mg/dL Creatinine 3.69 H (0.52-1.04) mg/dL POC Glucose (mg/dL) 111 H (70-110) mg/dL Calcium 7.5 L (8.4-10.2) mg/dL Total Protein 4.0 L (6.3-8.2) g/dL Albumin 2.3 L (3.5-5.0) g/dL Crossmatch See Detail Assessment and Plan Plan: Assessment: 1. Acute kidney injury mostly prerenal secondary to hypovolemia from vomiting and diarrhea. Creatinine fairly stable at 9 today. Nonoliguric. 2. Chronic kidney disease stage V secondary to nephrosclerosis and chronic interstitial nephritis from NSAID use. Recent creatinine 3-3.7. 3. Hypomagnesemia from GI losses and poor intake. Replaced. Better. 4. Hypokalemia from poor intake and diuretic. Replaced. Better. 5. Anemia of chronic kidney disease. Iron replete. On Aranesp. Status post blood transfusion 11/25/2022. Receiving another unit of blood today. 6. Intractable nausea vomiting and diarrhea. Patient had cryptosporidium infection in August 2022 and was treated by GI. Also had EGD and colonoscopy done 11/12/2022 which showed large hiatal hernia, mild antral gastritis, sigmoid diverticular stricture and diverticulosis. Abdominal ultrasound in October 2022 showed dilated bile duct at 1.5 cm. Status post paraesophageal hernia repair 11/25/2022. CTS following. 7. Hypertension with chronic kidney disease. Blood pressure in the lower side today. 8. Lower extremity edema with albumin of 1.8 concerning for third spacing. Status post IV albumin and Lasix this admission. 9. Klebsiella and Citrobacter UTI on antibiotics. 10. Metabolic acidosis secondary to chronic kidney disease, IV fluids and GI losses. Plan: Add IV Lasix 60 mg twice daily. IV DDAVP 1 dose today. Maintain tube feeds. Avoid nephrotoxins. Continue to monitor renal function and urine output. Continue to assess daily for need for renal replacement therapy. Phosphorus level 3.3 dated 11/26/2022.
[2022-11-28] MEDS ORDERED: DESMOPRESSIN ACETATE 18 MCG in SODIUM CHLORIDE 0.9% 50 ML IVPB ONE (12:15)
[2022-11-28] MEDS ORDERED: FUROSEMIDE 10 MG/ML 10 ML VIAL IV SCH (13:00)
[2022-11-28] MEDS ORDERED: SODIUM CHLORIDE 0.9% 1,000 ML IV ONE (13:00)
--- NOTE | 2022-11-28 13:10 | P.PN ---
Subjective Progress Note Date: 11/28/22 This is an 81-year-old female admitted with multiple medical issues including GI bleed, acute on chronic kidney failure, large intrathoracic hiatal hernia accompanied by dyspnea, diarrhea- chronic-tested negative for C. difficile colitis, hyponatremia, hypokalemia, severe protein calorie malnutrition, sche duled for repair of intrathoracic hiatal hernia repair, with placement of J-tube today. NPO. Hemoglobin 9.8, platelets 177 , sodium 131, potassium 3.9, BUN 44, creatinine 4.05, total protein 3.8, albumin 1.6 .no further bleeding reported .This morning telemetry reporting a 5 beat run, stat magnesium ordered. Blood cultures remain no growth after 5 days. Stool culture reported no salmonella, shigella or Campylobacter, no E. coli. Urine culture reported Klebsiella pneumoniae, Citrobacter species. Afebrile, normal WBC, maintained on ceftriaxone, Flagyl. Denies chest pain, palpitations or shortness of breath. Maintaining O2 sats in the high 90s on room air. 11/26/2022 patient currently in ICU status post Laparotomy with repair of paraesophageal hernia, Witzel jejunostomy feeding tube, Jairo fundoplication. Tolerated procedure well. Pain controlled with epidural. Maintained on gentle IV fluid hydration, J tube with tube feedings at of Jevitiy. NG tube to LIS. Potassium 3.8, magnesium 1.5. Bicarb 19, BUN 38, creatinine 3.51. Sitter at bedside, patient unknowingly pulling at IVs, tubings,etc. 11/27/2022 postop day #2: Telemetry sinus rhythm, continues on gentle IV fluid hydration, tube feeds at goal. Blood sugars controlled. Chest x-ray reporting improvement, left basilar atelectasis and suspected small pleural effusion. Maintaining O2 sats in the 90s on room air. NPO, NGT to LIS, minimal drainage. Afebrile, WBC 16.6. Hemoglobin 7.9, platelets 186, INR 1.6. Magnesium 2.1, Sodium 135, potassium 3.7, bicarb 22, BUN 41, creatinine 3.35. Albumin 1.8. 11/28/2022 earlier this morning had a vasovagal event. Hemoglobin 6.5, scheduled for 1 unit of packed RBCs. Maintaining O2 sats in the 90s on room air. Chest x-ray reporting small layering pleural effusions, prominent atelectasis/consolidation at the right trocar cardiac region and left base improving. NGT to LIS. Receiving tube feeds at goal. Positive bowel movement. Blood sugars stable. BUN 42, creatinine 3.6. Afebrile, WBC 15.2. Objective - Vital Signs Vital signs: Vital Signs Temp 96.7 F L 11/28/22 09:00 Pulse 103 H 11/28/22 09:00 Resp 17 11/28/22 09:00 BP 93/62 11/28/22 09:00 Pulse Ox 99 11/28/22 09:00 FiO2 Intake & Output 11/27/22 11/28/22 11/28/22 18:59 06:59 18:59 Intake Total 1560 340 270 Output Total 590 1495 555 Balance 413 -0923 -145 Weight 63.8 kg 64.5 kg Intake: IV 910 260 230 ACETAMINOPHEN IV (For NPO 200 ) 1,000 mg In Empty Bag 1 bag @ 400 mls/hr IVPB Q6HR [facility] Rx#:[id number] Albumin Human 25% 50 ml 100 100 In Empty Bag 1 bag @ 50 mls/hr IVPB Q1H [facility] Rx#: [id number] Invasive Line 8 90 60 30 Potassium Chloride 20 meq 200 In Water For Injection 1 100ml.bag @ 50 mls/hr IVPB ONCE ONE Rx#: [id number] Sodium Chloride 0.9% 1, 120 000 ml @ 60 mls/hr IV . [id number] [facility] Rx#:[id number] metroNIDAZOLE-NS PMX 500 200 100 200 mg In Saline 1 100ml.bag @ 100 mls/hr IVPB Q8HR [facility] Rx#:[id number] Tube Feeding 560 80 40 Other 90 Output: Gastric Drainage 70 30 350 Urine 520 1465 205 Other: Voiding Method Indwelling Catheter Indwelling Catheter Indwelling Catheter # Voids 1 # Bowel Movements 1 ABP, PAP, CO, CI - Last Documented Arterial Blood Pressure 161/78 - Exam PHYSICAL EXAM: VITAL SIGNS: [As above] GENERAL: Alert and oriented 3, Sitting up in chair, no acute distress HEENT: Normocephalic Conjunctivae normal. eyes normal. NG tube present. NECK: Supple, No JVD. Right IJ triple-lumen cath. CARDIOVASCULAR: S1, S2 regular. No audible murmur, no extra heart sounds RESPIRATION: Unlabored ,Equal air entry,Breath sounds diminished in the bases with occasional scattered rhonchi. ABDOMEN: Soft, status post surgery. Abdominal dressing /Abdominal binder. J- tube present with tube feeds. LEGS: Bilateral lower extremity edema, nonpitting. No calf pain or tenderness. Positive DP pulses. NERVOUS SYSTEM: Cranial N 2-12 grossly normal.No focal deficits. Strength and sensation grossly intact. Skin: Warm and dry, no rash - Labs CBC & Chem 7: 11/28/22 06:10 11/28/22 06:10 Labs: Abnormal Lab Results - Last 24 Hours (Table) 11/27/22 11/27/22 11/27/22 Range/Units 10:30 11:25 20:28 WBC (3.8-10.6) k/uL RBC (3.80-5.40) m/uL Hgb (11.4-16.0) gm/dL Hct (34.0-46.0) % MCV (80.0-100.0) fL RDW (11.5-15.5) % PT 15.6 H (9.0-12.0) sec INR 1.6 H (<1.2) APTT 39.9 H (22.0-30.0) sec Sodium (137-145) mmol/L Carbon Dioxide (22-30) mmol/L BUN (7-17) mg/dL Creatinine (0.52-1.04) mg/dL POC Glucose (mg/dL) 114 H 112 H (70-110) mg/dL Calcium (8.4-10.2) mg/dL Total Protein (6.3-8.2) g/dL Albumin (3.5-5.0) g/dL Crossmatch 11/28/22 11/28/22 11/28/22 Range/Units 06:10 06:10 06:10 WBC 15.2 H (3.8-10.6) k/uL RBC 1.95 L (3.80-5.40) m/uL Hgb 6.5 L* (11.4-16.0) gm/dL Hct 20.2 L (34.0-46.0) % MCV 103.6 H (80.0-100.0) fL RDW 21.5 H (11.5-15.5) % PT 17.8 H (9.0-12.0) sec INR 1.8 H (<1.2) APTT 48.0 H (22.0-30.0) sec Sodium 136 L (137-145) mmol/L Carbon Dioxide 21 L (22-30) mmol/L BUN 42 H (7-17) mg/dL Creatinine 3.69 H (0.52-1.04) mg/dL POC Glucose (mg/dL) (70-110) mg/dL Calcium 7.5 L (8.4-10.2) mg/dL Total Protein 4.0 L (6.3-8.2) g/dL Albumin 2.3 L (3.5-5.0) g/dL Crossmatch 11/28/22 11/28/22 Range/Units 06:12 08:00 WBC (3.8-10.6) k/uL RBC (3.80-5.40) m/uL Hgb (11.4-16.0) gm/dL Hct (34.0-46.0) % MCV (80.0-100.0) fL RDW (11.5-15.5) % PT (9.0-12.0) sec INR (<1.2) APTT (22.0-30.0) sec Sodium (137-145) mmol/L Carbon Dioxide (22-30) mmol/L BUN (7-17) mg/dL Creatinine (0.52-1.04) mg/dL POC Glucose (mg/dL) 111 H (70-110) mg/dL Calcium (8.4-10.2) mg/dL Total Protein (6.3-8.2) g/dL Albumin (3.5-5.0) g/dL Crossmatch See Detail Assessment and Plan Assessment: Paraesophageal hernia with intrathoracic stomach and transverse colon,status post laparotomy with repair of paraesophageal hernia, Witzel jejunostomy feeding tube, Jairo fundoplication. Acute blood loss anemia, expected outcome of surgery, status post transfusions of packed RBCs and FFP Acute hypoxic respiratory failure secondary to the above, resolved currently on room air Chronic dyspnea secondary to Large paraesophageal hiatal hernia. Bibasilar atelectasis secondary to the above Acute GI bleed status post DDAVP, multiple RBC transfusions, possibly related to colitis. Tagged RBC reported negative. Intractable nausea vomiting and diarrhea. EGD and colonoscopy done 11/12/2022 which showed large hiatal hernia, mild antral gastritis, sigmoid diverticular stricture and diverticulosis. Colonoscopy biopsy reported nonspecific active colitis in the descending colon and focal mild nonspecific active in the sigmoid colon, likely infectious, Flagyl initiated. Abdominal ultrasound in October 2022 showed dilated bile duct at 1.5 cm. Acute on Chronic kidney disease, stage V, hypovolemic-prerenal. No hydronephrosis reported per ultrasound 10/24/2022 Anemia of chronic disease. 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 Severe protein calorie malnutrition, BMI 20 Plan: Continue on current medication regime ,monitoring and symptomatic treatment. Strict NPO as per CTS; all meds to be given IV. Diuretics as per nephrology Tube feeds.Pain management. IV antibiotics. Maintain aggressive pulmonary toileting with incentive spirometer reinforced.Prognosis guarded given multiple complex medical issues. Close monitoring of renal function with repeat labs ordered for a.m. The impression and plan of care has been dictated as directed. : I performed a history and examination of this patient, discussed the same with the dictator. I agree with the dictator's note ,documented as a scribe. Any additional findings or plans will be noted.
[2022-11-28 14:13] LABS: ALT 15 U/L (4-34); AST 19 U/L (14-36); African American GFR (CKD) 13 (>60 ml/min/1.73 sqM); Alkaline Phosphatase 79 U/L (38-126); Anion Gap 9 mmol/L; Blood Urea Nitrogen 42 mg/dL (7-17); Calcium 7.1 mg/dL (8.4-10.2); Carbon Dioxide 23 mmol/L (22-30); Chloride 105 mmol/L (98-107); Glucose 93 mg/dL (74-99); Magnesium 1.9 mg/dL (1.6-2.3); Non-African American GFR(CKD) 11 (>60 ml/min/1.73 sqM); Phosphorus 3.1 mg/dL (2.5-4.5); Potassium 4.2 mmol/L (3.5-5.1); Sodium 137 mmol/L (137-145); Total Bilirubin 0.9 mg/dL (0.2-1.3); Total Protein 3.7 g/dL (6.3-8.2)
[2022-11-28 14:45] LABS: Anisocytosis Moderate; Basophils % (A) 0 %; Eosinophils # (A) 0.1 k/uL (0-0.7); Eosinophils % (A) 1 %; HCT 23.8 % (34.0-46.0); Hypochromasia Moderate; Lymphocytes % (A) 6 %; MCH 33.3 pg (25.0-35.0); MCHC 33.9 g/dL (31.0-37.0); Macrocytosis Slight; Mean Platelet Volume 10.8; Monocytes # (A) 0.4 k/uL (0-1.0); Monocytes % (A) 3 %; Neutrophils # (A) 14.3 k/uL (1.3-7.7); Neutrophils % (A) 90 %; Platelet Count 141 k/uL (150-450); Poikilocytosis Slight; RBC 2.42 m/uL (3.80-5.40); RDW 20.1 % (11.5-15.5)
[2022-11-28 14:47] LABS: HGB 8.1 gm/dL (11.4-16.0)
[2022-11-28 14:48] LABS: MCV 98.3 fL (80.0-100.0)
[2022-11-28] MEDS ORDERED: ALBUMIN HUMAN 5% 250 ML in EMPTY BAG 1 BAG IVPB ONE (16:48)
[2022-11-28 20:31] LABS: Glucose,Whole Blood 108 mg/dL (70-110)
[2022-11-28 20:50] LABS: Anisocytosis Moderate; Basophils % (A) 0 %; Eosinophils # (A) 0.2 k/uL (0-0.7); Eosinophils % (A) 1 %; Hypochromasia Moderate; Lymphocytes # (A) 1.3 k/uL (1.0-4.8); Lymphocytes % (A) 7 %; MCH 31.6 pg (25.0-35.0); MCHC 32.5 g/dL (31.0-37.0); MCV 97.3 fL (80.0-100.0); Macrocytosis Slight; Mean Platelet Volume 11.1; Monocytes # (A) 0.4 k/uL (0-1.0); Monocytes % (A) 2 %; Neutrophils # (A) 16.1 k/uL (1.3-7.7); Neutrophils % (A) 89 %; Platelet Count 150 k/uL (150-450); Poikilocytosis Slight; RBC 1.95 m/uL (3.80-5.40); RDW 21.4 % (11.5-15.5)
[2022-11-28] MEDS ORDERED: LACTATED RINGERS 1,000 ML IV SCH (21:00)
[2022-11-28 21:15] LABS: HGB 6.2 gm/dL (11.4-16.0)
[2022-11-29 00:40] LABS: Glucose,Whole Blood 92 mg/dL (70-110)
[2022-11-29 04:57] LABS: ALT 15 U/L (4-34); AST 23 U/L (14-36); African American GFR (CKD) 13 (>60 ml/min/1.73 sqM); Albumin 1.9 g/dL (3.5-5.0); Alkaline Phosphatase 83 U/L (38-126); Anion Gap 13 mmol/L; Blood Urea Nitrogen 41 mg/dL (7-17); Calcium 7.3 mg/dL (8.4-10.2); Carbon Dioxide 16 mmol/L (22-30); Chloride 108 mmol/L (98-107); Glucose 101 mg/dL (74-99); Non-African American GFR(CKD) 12 (>60 ml/min/1.73 sqM); Phosphorus 4.2 mg/dL (2.5-4.5); Potassium 4.8 mmol/L (3.5-5.1); Sodium 137 mmol/L (137-145); Total Bilirubin 1.8 mg/dL (0.2-1.3); Total Protein 3.5 g/dL (6.3-8.2)
[2022-11-29 05:35] LABS: Glucose,Whole Blood 109 mg/dL (70-110)
[2022-11-29] MEDS: ACETAMINOPHEN IV (For NPO) 1,000 MG in EMPTY BAG 1 BAG IVPB SCH ×3 (05:43→17:59)
[2022-11-29 06:23] LABS: Anisocytosis Moderate; Basophils # (A) 0.1 k/uL (0-0.2); Basophils % (A) 0 %; Eosinophils # (A) 0.1 k/uL (0-0.7); Eosinophils % (A) 1 %; HCT 23.8 % (34.0-46.0); HGB 8.6 gm/dL (11.4-16.0); Hypochromasia Slight; Lymphocytes # (A) 1.5 k/uL (1.0-4.8); Lymphocytes % (A) 6 %; MCV 94.3 fL (80.0-100.0); Macrocytosis Slight; Mean Platelet Volume 12.9; Monocytes # (A) 0.5 k/uL (0-1.0); Monocytes % (A) 2 %; Neutrophils % (A) 90 %; Platelet Count 131 k/uL (150-450); Poikilocytosis Moderate; RBC 2.52 m/uL (3.80-5.40); RDW 20.3 % (11.5-15.5); WBC 24.3 k/uL (3.8-10.6)
[2022-11-29 06:27] LABS: Anisocytosis (M) Present; Lymphocytes # (M) 0.49 k/uL (1.0-4.8); Monocytes # (M) 1.22 k/uL (0-1.0); Neutrophils % (M) 93 %; Nucleated Red Blood Cells 0 /100 WBC (0-0); Total Cells Counted 100
[2022-11-29] MEDS: SODIUM CHLORIDE 0.9% 1,000 ML IV SCH ×2 (06:56→22:31)
--- NOTE | 2022-11-29 07:01 | XR ---
EXAMINATION TYPE: XR chest 1V portable DATE OF EXAM: 11/29/2022 HISTORY: Shortness of breath. COMPARISON: 11/28/2022 TECHNIQUE: Single view of the chest is submitted. FINDINGS: NG tube is seen coursing into the stomach. Right IJ central venous line with its distal tip within th e right atrium. Left lower lobe infiltrate is unchanged. Small right-sided pleural effusion. Pulmonar y venous congestion noted. The heart is stable. Hilar and mediastinal structures are within normal limits. Degenerative changes are seen of the dorsal spine. IMPRESSION: 1. Stable chest
[2022-11-29] MEDS ORDERED: LORazepam 2 MG/ML INJ IV PRN ×2 (07:46→12:53)
[2022-11-29] MEDS: LEVOTHYROXINE IVP 100 MCG/5 ML VIAL IV SCH (07:59)
[2022-11-29 08:00] LABS: INR 2.7 (<1.2); Partial Thromboplastin Time 46.7 sec (22.0-30.0); Prothrombin Time 26.5 sec (9.0-12.0)
[2022-11-29] MEDS: PANTOPRAZOLE 40 MG/10 ML VIAL IV SCH ×2 (08:02→20:47)
--- NOTE | 2022-11-29 08:33 | P.PN ---
Subjective Progress Note Date: 11/29/22 Principal diagnosis: Paraesophageal hernia with intrathoracic stomach and transverse colon, severe protein calorie malnutrition with poor oral intake, acute on chronic kidney disease, abdominal discomfort, nausea, vomiting, diarrhea. History of chronic dyspnea, 10-14 pound weight loss since August, GERD without esophagitis, gastritis, diverticulosis without diverticulitis, hypertension, hyperlipidemia, anemia of chronic disease, hypothyroidism, never smoker POD #4 Laparotomy with repair of paraesophageal hernia, Witzel jejunostomy feeding tube, Jairo fundoplication Postoperative acute blood loss anemia, expected due to hemodilution and preoperative anemia and history of GI bleed The patient was seen and examined laying in bed in the ICU this morning. Remains in sinus rhythm to sinus tach, blood pressure soft although not on any pressors, patient does become hypotensive every time they get her up and out of bed, IV Lasix was stopped yesterday and patient was given fluid bolus last night. She was up in the chair yesterday for quite a while. Patient was confused this morning, knows she is in the hospital but doesn't know the year or month or why she is here, was very restless this morning but calm after being given IV Ativan per Dr. Roman. NGT remains to LIS with 1200 mL bile appearing fluid in the last 24 hours, J tube present with tube feedings currently at 20 mL/hr. Patient did have documented bowel movement 3 yesterday. Abdominal binder present. Patient does have ecchymosis to her lower abdomen. All meds remain IV as patient continues to be nothing by mouth. Chest x-ray, lab work reviewed. Patient appears becoming more coagulopathic, unsure cause. She did receive 1 unit packed red blood cells yesterday for hemoglobin 6.2, hemoglobin this morning 8.6. WBC trending up, was 18 yesterday and 24.3 this morning. She is to get platelets and fresh frozen plasma this morning. She is hypothermic this morning with temperature 94 degrees axillary. Objective - Vital Signs Vital signs: Vital Signs Temp 97.5 F L 11/29/22 04:00 Pulse 108 H 11/29/22 06:00 Resp 26 H 11/29/22 06:00 BP 91/59 11/29/22 06:00 Pulse Ox 96 11/29/22 06:00 FiO2 Intake & Output 11/28/22 11/29/22 11/29/22 18:59 06:59 18:59 Intake Total 2480 2360 80 Output Total 1465 780 200 Balance 1015 1580 -120 Weight 64.5 kg 68.2 kg Intake: IV 1880 1810 60 ACETAMINOPHEN IV (For NPO 200 ) 1,000 mg In Empty Bag 1 bag @ 400 mls/hr IVPB Q6HR [facility] Rx#:[id number] Invasive Line 8 60 90 Sodium Chloride 0.9% 1, 420 720 60 000 ml @ 60 mls/hr IV . [id number] [facility] Rx#:[id number] Sodium Chloride 0.9% 1, 1000 1000 000 ml @ 999 mls/hr IV . Q1H1M [facility] Rx#:[id number] metroNIDAZOLE-NS PMX 500 200 mg In Saline 1 100ml.bag @ 100 mls/hr IVPB Q8HR [facility] Rx#:[id number] Tube Feeding 230 240 20 Blood Product 310 310 Rc As-1 Unit 310 [id number] Rc As-1 Unit 310 [id number] Other 60 Output: Gastric Drainage 600 600 200 Urine 865 180 0 Other: Voiding Method Indwelling Catheter Indwelling Catheter # Bowel Movements 1 ABP, PAP, CO, CI - Last Documented Arterial Blood Pressure 161/78 - Exam CONSTITUTIONAL: Appears comfortable, currently calm, no acute distress RESPIRATORY: Lungs sounds clear bilaterally. Respirations even, nonlabored. Currently on room air with oxygen saturation 96% CARDIOVASCULAR: S1, S2 present. Regular rate and rhythm, sinus rhythm to sinus tach on telemetry. Palpable peripheral pulses bilaterally. Generalized edema present. No calf pain or tenderness noted GASTROINTESTINAL: Abdomen soft, tender to palpation, nondistended. Hypoactive bowel sounds present 4 quadrants. NGT to LIS with 1200 mL bilious drainage in the last 24 hours, J tube present with tube feeding currently infusing at 20 mL/hr GENITOURINARY: Nguyen present draining clear yellow urine, 10 mL/hr overnight, 1045 ml in the last 24 hours INTEGUMENTARY: Skin is warm and dry, mid lower abdomen with intact dusty, abdominal binder present NEUROLOGIC: Cranial nerves II through XII intact MUSKULOSKELETAL: Able to move all extremities, strength equal bilaterally PSYCHIATRIC: Oriented to person, place only, was restless this morning, currently calm after IV Ativan given INVASIVE LINES: Right internal jugular triple lumen central line in place - Allied health notes Allied health notes reviewed: nursing - Labs CBC & Chem 7: 11/29/22 04:26 11/29/22 04:26 Labs: Abnormal Lab Results - Last 24 Hours (Table) 11/28/22 11/28/22 11/28/22 Range/Units 08:00 13:32 13:32 WBC 16.0 H (3.8-10.6) k/uL RBC 2.42 L (3.80-5.40) m/uL Hgb 8.1 L D (11.4-16.0) gm/dL Hct 23.8 L (34.0-46.0) % RDW 20.1 H (11.5-15.5) % Plt Count 141 L (150-450) k/uL Neutrophils # 14.3 H (1.3-7.7) k/uL Neutrophils # (Manual) (1.3-7.7) k/uL Lymphocytes # (Manual) (1.0-4.8) k/uL Monocytes # (Manual) (0-1.0) k/uL PT (9.0-12.0) sec INR (<1.2) APTT (22.0-30.0) sec Chloride (98-107) mmol/L Carbon Dioxide (22-30) mmol/L BUN 42 H (7-17) mg/dL Creatinine 3.54 H (0.52-1.04) mg/dL Glucose (74-99) mg/dL Calcium 7.1 L (8.4-10.2) mg/dL Total Bilirubin (0.2-1.3) mg/dL Total Protein 3.7 L (6.3-8.2) g/dL Albumin 2.0 L (3.5-5.0) g/dL Crossmatch See Detail 11/28/22 11/29/22 11/29/22 Range/Units 20:36 04:26 04:26 WBC 18.0 H 24.3 H (3.8-10.6) k/uL RBC 1.95 L 2.52 L (3.80-5.40) m/uL Hgb 6.2 L* D 8.6 L D (11.4-16.0) gm/dL Hct 19.0 L* 23.8 L (34.0-46.0) % RDW 21.4 H 20.3 H (11.5-15.5) % Plt Count 131 L (150-450) k/uL Neutrophils # 16.1 H 22.0 H (1.3-7.7) k/uL Neutrophils # (Manual) 22.60 H (1.3-7.7) k/uL Lymphocytes # (Manual) 0.49 L (1.0-4.8) k/uL Monocytes # (Manual) 1.22 H (0-1.0) k/uL PT (9.0-12.0) sec INR (<1.2) APTT (22.0-30.0) sec Chloride 108 H (98-107) mmol/L Carbon Dioxide 16 L (22-30) mmol/L BUN 41 H (7-17) mg/dL Creatinine 3.48 H (0.52-1.04) mg/dL Glucose 101 H (74-99) mg/dL Calcium 7.3 L (8.4-10.2) mg/dL Total Bilirubin 1.8 H (0.2-1.3) mg/dL Total Protein 3.5 L (6.3-8.2) g/dL Albumin 1.9 L (3.5-5.0) g/dL Crossmatch 11/29/22 Range/Units 07:38 WBC (3.8-10.6) k/uL RBC (3.80-5.40) m/uL Hgb (11.4-16.0) gm/dL Hct (34.0-46.0) % RDW (11.5-15.5) % Plt Count (150-450) k/uL Neutrophils # (1.3-7.7) k/uL Neutrophils # (Manual) (1.3-7.7) k/uL Lymphocytes # (Manual) (1.0-4.8) k/uL Monocytes # (Manual) (0-1.0) k/uL PT 26.5 H (9.0-12.0) sec INR 2.7 H (<1.2) APTT 46.7 H (22.0-30.0) sec Chloride (98-107) mmol/L Carbon Dioxide (22-30) mmol/L BUN (7-17) mg/dL Creatinine (0.52-1.04) mg/dL Glucose (74-99) mg/dL Calcium (8.4-10.2) mg/dL Total Bilirubin (0.2-1.3) mg/dL Total Protein (6.3-8.2) g/dL Albumin (3.5-5.0) g/dL Crossmatch - Imaging and Cardiology Chest x-ray: report reviewed, image reviewed Assessment and Plan Assessment: Paraesophageal hernia with intrathoracic stomach and transverse colon, status post laparotomy with repair of paraesophageal hernia, Witzel jejunostomy feeding tube, Jairo fundoplication Chronic dyspnea, likely related to large hiatal hernia Acute on chronic kidney disease Abdominal discomfort Nausea, vomiting, diarrhea Severe protein calorie malnutrition 10-14 pound weight loss since August History of GERD without esophagitis Gastritis Diverticulosis without diverticulitis History of hypertension History of hyperlipidemia Anemia of chronic disease Hypothyroidism Never smoker GI bleed, having maroon-colored stools with obvious blood clots Leukocytosis, coagulopathy Plan: Keep strict nothing by mouth, will be nothing by mouth for at least 7 days. Keep NG tube to low intermittent wall suction, no medication or feedings through the NG tube Keep the J-tube in place, Vital 1.2 omi tube feedings to 20 mL per hour, increa se her RD recommendations Keep 0.9% normal saline at 60 ml/hr Continue to monitor daily labs and chest x-rays. Replace electrolytes per nephrology recommendations Keep abdominal binder in place at all times. Out of bed as tolerated Encourage use of incentive spirometry 10 times every hour while awake. Keep Nguyen catheter in place for another 24 hours. All meds given IV GI/DVT prophylaxis. Keep in the intensive care unit We'll transfuse platelets and FFP today Sharron bertrand on patient to normalize temperature Will obtain block cultures, start broad spectrum antibiotics Will discuss code status with patient's family as she has a poor prognosis More recommendations to follow based on patient's clinical course.
--- NOTE | 2022-11-29 10:19 | P.PN ---
Subjective Progress Note Date: 11/29/22 Principal diagnosis: Repair of a paraesophageal hernia. I am seeing this patient again today 11/26/2022 in follow-up for ICU management following an open laparotomy with paraesophageal hernia repair. Patient was originally admitted back on November 14 for chronic dyspnea thought to be related to a large paraesophageal hiatal hernia. Patient was last evaluated on November, and we had originally signed off the case due to a lack of pulmonary involvement. Patient is currently postoperative day #1 following an open laparotomy with paraesophageal hernia repair, Jairo fundoplication, and placement of a jejunostomy. No immediate perioperative complications were reported. There is recorded 500 ML EBL. Hemoglobin did drop from 9.8 to 6.9 following the procedure, and the patient was transfused 1 unit of packed red blood cells and 2 units of fresh frozen plasma. Follow-up CBC shows a WBC count of 19.4, hemoglobin 10, hematocrit 30.7, platelets 205. BMP following the procedure shows a sodium 133, potassium 3.7, chloride 105, serum bicarb 19, BUN 37, creatinine 3.56, glucose 135. Normal saline is currently infusing at 100 ML's per hour. Urine output was oliguric and the patient's CVP was 3. I did give a 500 ML normal saline bolus. No vasopressors have been required. Patient also has a urinary tract infection with isolated organisms of Klebsiella pneumoniae and Citrobacter species, this is currently being covered with Rocephin and is also on Flagyl. Patient is afebrile, and her leukocytosis is likely reactive. Patient is currently lying in bed, on 2 L/m nasal cannula, in no acute distress. She is slightly drowsy following the procedure. She does have a Dilaudid pain pump with out a basal rate, when necessary bolus 0.1 mg as needed. She has a midline abdominal incision which appears well approximated. Incisional dressing is clean and dry. She also has a jejunostomy tube that currently has Jevity tube feeding infusing at 20 ML's per hour. She is hemodynamically stable at this time, and will be monitored in the intensive care unit at least overnight. Progress note dated 11/27/2022. 81-year-old female postop day #2, status post open repair of a paraesophageal hernia, and jejunostomy feeding tube placement. Currently, the patient's getting saline at 60 mL an hour. She's on no supplemental oxygen. NG tube remains in place. In addition, the patient's getting vital tube feedings, at 40 mL an hour, which is goal. White count 16.6, hemoglobin 7.9, hematocrit 25.9, and normal platelet count. PT 15.6, INR 1.6, PTT is 39.9. Sodium 135, p otassium 3.7, chlorides 107, CO2 22, BUN 41, and creatinine 3.35. Albumin is 1.8. Chest x-ray is improved, and shows a left basilar effusion, and left basilar atelectasis. Progress note dated 11/28/2022. 81-year-old female, postop day #3, status post open repair of the paraesophageal hernia, and insertion of a feeding jejunostomy tube. The patient's currently getting vital AF, at 40 mL an hour, which is goal. The patient has an NG tube in place, she's not receiving any supplemental oxygen. Unfortunately, her hemoglobin this morning was 6.5. The patient has received a total of 3 units of packed red blood cells, and 2 units of fresh frozen plasma. White count 15.2, hemoglobin 6.5, hematocrit 20.2, and a platelet count of 153,000. PT is 17.8, INR 1.8, PTT is 48. Sodium 136, potassium 4.4, chlorides 106, CO2 21, BUN 42, and creatinine 3.69. Urine sampling from November 15 was positive for Klebsiella and Citrobacter. Chest x-ray shows small bilateral pleural effusions, and some left basilar atelectasis. Progress note dated 11/29/2022. 81-year-old female, postop day #4, status post open repair of a large paraesophageal hernia, and insertion of a feeding jejunostomy tube. The patient is seen in the intensive care unit, room 261. The patient's currently on 5 L of oxygen. NG tube remains in place. She's getting saline at 60 mL an hour. She's also getting vital AF, at 20 mL an hour, with a feeding jejunostomy tube. White count is 24.3, hemoglobin 8.6, hematocrit 23.8, with a platelet count of 131,000. PTT is 26.5, INR 2.7, and PTT is 46.7. Sodium 137, potassium 4.8, chlorides 108, CO2 16, BUN 41, and creatinine 3.48. Albumin is 1.9. Chest x- ray is essentially unchanged, compared to the previous x-ray, the day before. Objective - Vital Signs Vital signs: Vital Signs Temp 94.3 F L 11/29/22 09:30 Pulse 89 11/29/22 10:00 Resp 36 H 11/29/22 10:00 BP 96/83 11/29/22 10:00 Pulse Ox 98 11/29/22 10:00 FiO2 Intake & Output 11/28/22 11/29/22 11/29/22 18:59 06:59 18:59 Intake Total 2480 2360 692 Output Total 1465 780 215 Balance 1015 1580 477 Weight 64.5 kg 68.2 kg Intake: IV 1880 1810 240 ACETAMINOPHEN IV (For NPO 200 ) 1,000 mg In Empty Bag 1 bag @ 400 mls/hr IVPB Q6HR [facility] Rx#:[id number] Invasive Line 8 60 90 Sodium Chloride 0.9% 1, 420 720 240 000 ml @ 60 mls/hr IV . [id number] [facility] Rx#:[id number] Sodium Chloride 0.9% 1, 1000 1000 000 ml @ 999 mls/hr IV . Q1H1M [facility] Rx#:[id number] metroNIDAZOLE-NS PMX 500 200 mg In Saline 1 100ml.bag @ 100 mls/hr IVPB Q8HR [facility] Rx#:[id number] Tube Feeding 230 240 80 Blood Product 310 310 292 Ffp 24 Cpd Unit 292 [id number] Ffp 24 Cpd Unit 0 [id number] Rc As-1 Unit 310 [id number] Rc As-1 Unit 310 [id number] Other 60 80 Ffp 24 Cpd Unit 50 [id number] Output: Gastric Drainage 600 600 200 Urine 865 180 15 Other: Voiding Method Indwelling Catheter Indwelling Catheter # Bowel Movements 1 ABP, PAP, CO, CI - Last Documented Arterial Blood Pressure 161/78 - Exam No acute distress, oriented 3. Currently on 3 L by nasal cannula. NG tube in place. HEENT examination is grossly unremarkable. Neck supple. Full range of motion. No adenopathy thyromegaly or neck vein distention. Cardiovascular examination reveals regular rhythm rate. S1-S2 normal. No S3 or S4. No discernible murmur noted. Heart rate 89 bpm. Lungs reveal mostly clear breath sounds. Minimal scattered rhonchi. No wheezes or crackles. Breath sounds equal bilaterally. Room air saturation 98%. Abdomen soft, with bowel sounds. Jejunostomy tube noted. Extremities are intact. No cyanosis clubbing or edema. Skin is without rash or lesion. Neurologic examination is brief but nonfocal. - Labs CBC & Chem 7: 11/29/22 04:26 11/29/22 04:26 Labs: Abnormal Lab Results - Last 24 Hours (Table) 11/28/22 11/28/22 11/28/22 Range/Units 08:00 13:32 13:32 WBC 16.0 H (3.8-10.6) k/uL RBC 2.42 L (3.80-5.40) m/uL Hgb 8.1 L D (11.4-16.0) gm/dL Hct 23.8 L (34.0-46.0) % RDW 20.1 H (11.5-15.5) % Plt Count 141 L (150-450) k/uL Neutrophils # 14.3 H (1.3-7.7) k/uL Neutrophils # (Manual) (1.3-7.7) k/uL Lymphocytes # (Manual) (1.0-4.8) k/uL Monocytes # (Manual) (0-1.0) k/uL PT (9.0-12.0) sec INR (<1.2) APTT (22.0-30.0) sec Chloride (98-107) mmol/L Carbon Dioxide (22-30) mmol/L BUN 42 H (7-17) mg/dL Creatinine 3.54 H (0.52-1.04) mg/dL Glucose (74-99) mg/dL Calcium 7.1 L (8.4-10.2) mg/dL Total Bilirubin (0.2-1.3) mg/dL Total Protein 3.7 L (6.3-8.2) g/dL Albumin 2.0 L (3.5-5.0) g/dL Crossmatch See Detail 11/28/22 11/29/22 11/29/22 Range/Units 20:36 04:26 04:26 WBC 18.0 H 24.3 H (3.8-10.6) k/uL RBC 1.95 L 2.52 L (3.80-5.40) m/uL Hgb 6.2 L* D 8.6 L D (11.4-16.0) gm/dL Hct 19.0 L* 23.8 L (34.0-46.0) % RDW 21.4 H 20.3 H (11.5-15.5) % Plt Count 131 L (150-450) k/uL Neutrophils # 16.1 H 22.0 H (1.3-7.7) k/uL Neutrophils # (Manual) 22.60 H (1.3-7.7) k/uL Lymphocytes # (Manual) 0.49 L (1.0-4.8) k/uL Monocytes # (Manual) 1.22 H (0-1.0) k/uL PT (9.0-12.0) sec INR (<1.2) APTT (22.0-30.0) sec Chloride 108 H (98-107) mmol/L Carbon Dioxide 16 L (22-30) mmol/L BUN 41 H (7-17) mg/dL Creatinine 3.48 H (0.52-1.04) mg/dL Glucose 101 H (74-99) mg/dL Calcium 7.3 L (8.4-10.2) mg/dL Total Bilirubin 1.8 H (0.2-1.3) mg/dL Total Protein 3.5 L (6.3-8.2) g/dL Albumin 1.9 L (3.5-5.0) g/dL Crossmatch 11/29/22 Range/Units 07:38 WBC (3.8-10.6) k/uL RBC (3.80-5.40) m/uL Hgb (11.4-16.0) gm/dL Hct (34.0-46.0) % RDW (11.5-15.5) % Plt Count (150-450) k/uL Neutrophils # (1.3-7.7) k/uL Neutrophils # (Manual) (1.3-7.7) k/uL Lymphocytes # (Manual) (1.0-4.8) k/uL Monocytes # (Manual) (0-1.0) k/uL PT 26.5 H (9.0-12.0) sec INR 2.7 H (<1.2) APTT 46.7 H (22.0-30.0) sec Chloride (98-107) mmol/L Carbon Dioxide (22-30) mmol/L BUN (7-17) mg/dL Creatinine (0.52-1.04) mg/dL Glucose (74-99) mg/dL Calcium (8.4-10.2) mg/dL Total Bilirubin (0.2-1.3) mg/dL Total Protein (6.3-8.2) g/dL Albumin (3.5-5.0) g/dL Crossmatch Assessment and Plan Assessment: Postoperative day #4 following an open laparotomy with paraesophageal hernia repair, Jairo fundoplication, and placement of a jejunostomy. Acute blood loss anemia, expected outcome of surgery, status post infusion of 3 unit PRBC and 2 FFP. Urinary tract infection with isolated organisms of Klebsiella and Citrobacter. Acute on chronic kidney disease. Leukocytosis, likely reactive to surgery. Chronic dyspnea, likely related to large hiatal hernia. Chest x-ray from admission shows an elevated left hemidiaphragm with a large hiatal hernia and bibasilar atelectasis. There is also some mild pulmonary vascular congestion. History of large hiatal hernia. GERD without esophagitis. Gastritis. Diverticulosis without diverticulitis. Chronic diarrhea, under investigation. Benign essential hypertension. Hyperlipidemia. Anemia of chronic disease. Hypothyroidism. Never smoker. Plan: Plan dated 11/27/2022. The patient continues to recover from her recent surgery. She is postop day #2. She has an NG tube in place, and is getting tube feedings, with vital AF, 1.2, at 40 mL an hour, which is goal. She's also getting saline at 60 mL an hour. Labs, x-rays, and medications are reviewed. Her chest x-ray revealed some left basilar atelectasis. Recommend deep breathing, coughing, and clearing secretions, as well as hourly use of the incentive spirometer. We will continue to follow the patient and make recommendations along the way. Prognosis is guarded. Plan dated 11/28/2022. The patient is postop day #3, and was doing relatively well, although, she developed significant anemia, requiring additional blood transfusions, and apparently had a vasovagal episode with low blood pressure. For those reasons, the patient remains in the intensive care unit. Labs, x-rays, and medications are all reviewed. Overall prognosis remains guarded. We will continue to follow the patient and make recommendations along the way. We do recommend that she use an incentive spirometer, every hour. Plan dated 11/29/2022. The patient is currently postop day #4. The patient appears to be doing worse, and she is very lethargic. She was somewhat agitated and did receive a small do se of Ativan. Labs, x-rays, and medications are all reviewed. She's currently on 3 L of oxygen. We had Zosyn empirically. She is getting tube feedings, with vital AF. She's also getting saline at 60 mL an hour. We will continue to follow and make recommendations along the way. Prognosis is certainly guarded. She was much more awake and alert yesterday. Time with Patient: Greater than 30
[2022-11-29] MEDS ORDERED: SODIUM BICARB 8.4% 50 ML SYR (1 MEQ/ML) IV STA ×3 (10:58→22:26)
--- NOTE | 2022-11-29 10:58 | P.PN ---
Subjective Patient is seen in follow-up for acute kidney injury on chronic kidney disease. Creatinine stable but patient nonoliguric. Lasix stopped and is now receiving IV fluids. Also receiving tube feeds. Hemoglobin improved post blood transfusion. Scheduled to receive FFP and platelets today. Underwent paraesophageal hernia repair 11/25/2022. Vital signs are stable. General: Resting in bed. Somewhat agitated. HEENT: Head exam is unremarkable. NG tube noted. LUNGS: No audible rhonchi or wheezes. HEART: Rate and Rhythm are regular. ABDOMEN: Abdominal dressing noted. No drainage. EXTREMITITES: 1+ edema. Objective - Vital Signs Vital signs: Vital Signs Temp 94.4 F L 11/29/22 10:30 Pulse 98 11/29/22 10:30 Resp 33 H 11/29/22 10:30 BP 126/61 11/29/22 10:30 Pulse Ox 96 11/29/22 10:30 FiO2 Intake & Output 11/28/22 11/29/22 11/29/22 18:59 06:59 18:59 Intake Total 2480 2360 692 Output Total 1465 780 215 Balance 1015 1580 477 Weight 64.5 kg 68.2 kg Intake: IV 1880 1810 240 ACETAMINOPHEN IV (For NPO 200 ) 1,000 mg In Empty Bag 1 bag @ 400 mls/hr IVPB Q6HR [facility] Rx#:[id number] Invasive Line 8 60 90 Sodium Chloride 0.9% 1, 420 720 240 000 ml @ 60 mls/hr IV . [id number] [facility] Rx#:[id number] Sodium Chloride 0.9% 1, 1000 1000 000 ml @ 999 mls/hr IV . Q1H1M [facility] Rx#:[id number] metroNIDAZOLE-NS PMX 500 200 mg In Saline 1 100ml.bag @ 100 mls/hr IVPB Q8HR [facility] Rx#:[id number] Tube Feeding 230 240 80 Blood Product 310 310 292 Ffp 24 Cpd Unit 292 [id number] Ffp 24 Cpd Unit 0 [id number] Rc As-1 Unit 310 [id number] Rc As-1 Unit 310 [id number] Other 60 80 Ffp 24 Cpd Unit 50 [id number] Output: Gastric Drainage 600 600 200 Urine 865 180 15 Other: Voiding Method Indwelling Catheter Indwelling Catheter # Bowel Movements 1 ABP, PAP, CO, CI - Last Documented Arterial Blood Pressure 161/78 - Labs CBC & Chem 7: 11/29/22 04:26 11/29/22 04:26 Labs: Abnormal Lab Results - Last 24 Hours (Table) 11/28/22 11/28/22 11/28/22 Range/Units 08:00 13:32 13:32 WBC 16.0 H (3.8-10.6) k/uL RBC 2.42 L (3.80-5.40) m/uL Hgb 8.1 L D (11.4-16.0) gm/dL Hct 23.8 L (34.0-46.0) % RDW 20.1 H (11.5-15.5) % Plt Count 141 L (150-450) k/uL Neutrophils # 14.3 H (1.3-7.7) k/uL Neutrophils # (Manual) (1.3-7.7) k/uL Lymphocytes # (Manual) (1.0-4.8) k/uL Monocytes # (Manual) (0-1.0) k/uL PT (9.0-12.0) sec INR (<1.2) APTT (22.0-30.0) sec Chloride (98-107) mmol/L Carbon Dioxide (22-30) mmol/L BUN 42 H (7-17) mg/dL Creatinine 3.54 H (0.52-1.04) mg/dL Glucose (74-99) mg/dL Calcium 7.1 L (8.4-10.2) mg/dL Total Bilirubin (0.2-1.3) mg/dL Total Protein 3.7 L (6.3-8.2) g/dL Albumin 2.0 L (3.5-5.0) g/dL Crossmatch See Detail 11/28/22 11/29/22 11/29/22 Range/Units 20:36 04:26 04:26 WBC 18.0 H 24.3 H (3.8-10.6) k/uL RBC 1.95 L 2.52 L (3.80-5.40) m/uL Hgb 6.2 L* D 8.6 L D (11.4-16.0) gm/dL Hct 19.0 L* 23.8 L (34.0-46.0) % RDW 21.4 H 20.3 H (11.5-15.5) % Plt Count 131 L (150-450) k/uL Neutrophils # 16.1 H 22.0 H (1.3-7.7) k/uL Neutrophils # (Manual) 22.60 H (1.3-7.7) k/uL Lymphocytes # (Manual) 0.49 L (1.0-4.8) k/uL Monocytes # (Manual) 1.22 H (0-1.0) k/uL PT (9.0-12.0) sec INR (<1.2) APTT (22.0-30.0) sec Chloride 108 H (98-107) mmol/L Carbon Dioxide 16 L (22-30) mmol/L BUN 41 H (7-17) mg/dL Creatinine 3.48 H (0.52-1.04) mg/dL Glucose 101 H (74-99) mg/dL Calcium 7.3 L (8.4-10.2) mg/dL Total Bilirubin 1.8 H (0.2-1.3) mg/dL Total Protein 3.5 L (6.3-8.2) g/dL Albumin 1.9 L (3.5-5.0) g/dL Crossmatch 11/29/22 Range/Units 07:38 WBC (3.8-10.6) k/uL RBC (3.80-5.40) m/uL Hgb (11.4-16.0) gm/dL Hct (34.0-46.0) % RDW (11.5-15.5) % Plt Count (150-450) k/uL Neutrophils # (1.3-7.7) k/uL Neutrophils # (Manual) (1.3-7.7) k/uL Lymphocytes # (Manual) (1.0-4.8) k/uL Monocytes # (Manual) (0-1.0) k/uL PT 26.5 H (9.0-12.0) sec INR 2.7 H (<1.2) APTT 46.7 H (22.0-30.0) sec Chloride (98-107) mmol/L Carbon Dioxide (22-30) mmol/L BUN (7-17) mg/dL Creatinine (0.52-1.04) mg/dL Glucose (74-99) mg/dL Calcium (8.4-10.2) mg/dL Total Bilirubin (0.2-1.3) mg/dL Total Protein (6.3-8.2) g/dL Albumin (3.5-5.0) g/dL Crossmatch Assessment and Plan Plan: Assessment: 1. Acute kidney injury mostly prerenal secondary to hypovolemia from vomiting and diarrhea. Creatinine stable at 3.48. Nonoliguric. 2. Chronic kidney disease stage V secondary to nephrosclerosis and chronic interstitial nephritis from NSAID use. Recent creatinine 3-3.7. 3. Hypomagnesemia from GI losses and poor intake. Replaced. Better. 4. Hypokalemia from poor intake and diuretic. Replaced. Better. 5. Anemia of chronic kidney disease. Iron replete. On Aranesp. Status post blood transfusions this admission. Also received IV DDAVP. Hemoglobin 8.6 today. 6. Intractable nausea vomiting and diarrhea. Patient had cryptosporidium infection in August 2022 and was treated by GI. Also had EGD and colonoscopy done 11/12/2022 which showed large hiatal hernia, mild antral gastritis, sigmoid diverticular stricture and diverticulosis. Abdominal ultrasound in October 2022 sh owed dilated bile duct at 1.5 cm. Status post paraesophageal hernia repair 11/25/2022. CTS following. 7. Hypertension with chronic kidney disease. Blood pressure stable. 8. Lower extremity edema with albumin of 1.8 concerning for third spacing. Status post IV albumin and Lasix this admission. 9. Klebsiella and Citrobacter UTI on antibiotics. 10. Metabolic acidosis secondary to chronic kidney disease, IV fluids and GI losses. Plan: Maintain gentle IV hydration. Maintain tube feeds. Avoid nephrotoxins. Continue to monitor renal function and urine output. If no improvement in urine output in the next 4-6 hours, will give Lasix 80 mg IV once. Will initiate renal replacement therapy in the next 24 hours if no improvement in urine output. 2 A of sodium bicarb IV push today. Phosphorus level 3.3 dated 11/26/2022.
[2022-11-29] MEDS: PIPERACILLIN-TAZOBACTAM 3.375 GM in SODIUM CHLORIDE 0.9% 100 ML IVPB SCH ×2 (12:58→20:47)
[2022-11-29 13:07] LABS: Glucose,Whole Blood 119 mg/dL (70-110)
[2022-11-29 13:10] VITALS: BMI 25.0
[2022-11-29] MEDS ORDERED: MD COMMUNICATION TO PHARMACY 1 EACH MISC PO PRN (14:16)
--- NOTE | 2022-11-29 15:18 | P.PN ---
Subjective Progress Note Date: 11/29/22 This is an 81-year-old female admitted with multiple medical issues including GI bleed, acute on chronic kidney failure, large intrathoracic hiatal hernia accompanied by dyspnea, diarrhea- chronic-tested negative for C. difficile colitis, hyponatremia, hypokalemia, severe protein calorie malnutrition, sche duled for repair of intrathoracic hiatal hernia repair, with placement of J-tube today. NPO. Hemoglobin 9.8, platelets 177 , sodium 131, potassium 3.9, BUN 44, creatinine 4.05, total protein 3.8, albumin 1.6 .no further bleeding reported .This morning telemetry reporting a 5 beat run, stat magnesium ordered. Blood cultures remain no growth after 5 days. Stool culture reported no salmonella, shigella or Campylobacter, no E. coli. Urine culture reported Klebsiella pneumoniae, Citrobacter species. Afebrile, normal WBC, maintained on ceftriaxone, Flagyl. Denies chest pain, palpitations or shortness of breath. Maintaining O2 sats in the high 90s on room air. 11/26/2022 patient currently in ICU status post Laparotomy with repair of paraesophageal hernia, Witzel jejunostomy feeding tube, Jairo fundoplication. Tolerated procedure well. Pain controlled with epidural. Maintained on gentle IV fluid hydration, J tube with tube feedings at of Jevitiy. NG tube to LIS. Potassium 3.8, magnesium 1.5. Bicarb 19, BUN 38, creatinine 3.51. Sitter at bedside, patient unknowingly pulling at IVs, tubings,etc. 11/27/2022 postop day #2: Telemetry sinus rhythm, continues on gentle IV fluid hydration, tube feeds at goal. Blood sugars controlled. Chest x-ray reporting improvement, left basilar atelectasis and suspected small pleural effusion. Maintaining O2 sats in the 90s on room air. NPO, NGT to LIS, minimal drainage. Afebrile, WBC 16.6. Hemoglobin 7.9, platelets 186, INR 1.6. Magnesium 2.1, Sodium 135, potassium 3.7, bicarb 22, BUN 41, creatinine 3.35. Albumin 1.8. 11/28/2022 earlier this morning had a vasovagal event. Hemoglobin 6.5, scheduled for 1 unit of packed RBCs. Maintaining O2 sats in the 90s on room air. Chest x-ray reporting small layering pleural effusions, prominent atelectasis/consolidation at the right trocar cardiac region and left base improving. NGT to LIS. Receiving tube feeds at goal. Positive bowel movement. Blood sugars stable. BUN 42, creatinine 3.6. Afebrile, WBC 15.2. 11/29/2022 24 hour I&O reporting NG tube drainage of 1200 MLS.Soft BPs, receiving IV fluids. Hypothermic, 94 axillary, bear hugger present. WBC 24.3. Telemetry sinus rhythm to sinus tach. Received one unit of packed RBCs yesterday, Hemoglobin 8.6, platelets 131, INR 2.7. Platelets and FFP ordered this morning. Continues on tube feeds via jejunostomy tube. Blood sugars controlled. Bicarb 16, BUN 41, creatinine 3.48. Total bili 1.8, albumin 1.9. Maintaining O2 sats in the 90s on 3 L, chest x-ray reporting stable. Objective - Vital Signs Vital signs: Vital Signs Temp 94.4 F L 11/29/22 10:30 Pulse 98 11/29/22 10:30 Resp 33 H 11/29/22 10:30 BP 126/61 11/29/22 10:30 Pulse Ox 96 11/29/22 10:30 FiO2 Intake & Output 11/28/22 11/29/22 11/29/22 18:59 06:59 18:59 Intake Total 2480 2360 692 Output Total 1465 780 215 Balance 1015 1580 477 Weight 64.5 kg 68.2 kg Intake: IV 1880 1810 240 ACETAMINOPHEN IV (For NPO 200 ) 1,000 mg In Empty Bag 1 bag @ 400 mls/hr IVPB Q6HR [facility] Rx#:[id number] Invasive Line 8 60 90 Sodium Chloride 0.9% 1, 420 720 240 000 ml @ 60 mls/hr IV . [id number] [facility] Rx#:[id number] Sodium Chloride 0.9% 1, 1000 1000 000 ml @ 999 mls/hr IV . Q1H1M [facility] Rx#:[id number] metroNIDAZOLE-NS PMX 500 200 mg In Saline 1 100ml.bag @ 100 mls/hr IVPB Q8HR [facility] Rx#:[id number] Tube Feeding 230 240 80 Blood Product 310 310 292 Ffp 24 Cpd Unit 292 [id number] Ffp 24 Cpd Unit 0 [id number] Rc As-1 Unit 310 [id number] Rc As-1 Unit 310 [id number] Other 60 80 Ffp 24 Cpd Unit 50 [id number] Output: Gastric Drainage 600 600 200 Urine 865 180 15 Other: Voiding Method Indwelling Catheter Indwelling Catheter # Bowel Movements 1 ABP, PAP, CO, CI - Last Documented Arterial Blood Pressure 161/78 - Exam PHYSICAL EXAM: VITAL SIGNS: [As above] GENERAL: Lethargic, sitting up in bed, recently received Ativan HEENT: Normocephalic Conjunctivae normal. eyes normal. NG tube present. NECK: Supple, No JVD. Right IJ triple-lumen cath. CARDIOVASCULAR: S1, S2 regular. No audible murmur, no extra heart sounds RESPIRATION: Equal air entry, Breath sounds diminished in the bases with occasional scattered rhonchi. ABDOMEN: Soft, status post surgery. Abdominal dressing /Abdominal binder. J- tube present with tube feeds. LEGS: Bilateral lower extremity edema, nonpitting. No calf pain or tenderness. Positive DP pulses. NERVOUS SYSTEM: Limited, currently sedated Skin: Wearing bearhugger-Warm and dry, no rash - Labs CBC & Chem 7: 11/29/22 04:26 11/29/22 04:26 Labs: Abnormal Lab Results - Last 24 Hours (Table) 11/28/22 11/28/22 11/28/22 Range/Units 08:00 13:32 13:32 WBC 16.0 H (3.8-10.6) k/uL RBC 2.42 L (3.80-5.40) m/uL Hgb 8.1 L D (11.4-16.0) gm/dL Hct 23.8 L (34.0-46.0) % RDW 20.1 H (11.5-15.5) % Plt Count 141 L (150-450) k/uL Neutrophils # 14.3 H (1.3-7.7) k/uL Neutrophils # (Manual) (1.3-7.7) k/uL Lymphocytes # (Manual) (1.0-4.8) k/uL Monocytes # (Manual) (0-1.0) k/uL PT (9.0-12.0) sec INR (<1.2) APTT (22.0-30.0) sec Chloride (98-107) mmol/L Carbon Dioxide (22-30) mmol/L BUN 42 H (7-17) mg/dL Creatinine 3.54 H (0.52-1.04) mg/dL Glucose (74-99) mg/dL Calcium 7.1 L (8.4-10.2) mg/dL Total Bilirubin (0.2-1.3) mg/dL Total Protein 3.7 L (6.3-8.2) g/dL Albumin 2.0 L (3.5-5.0) g/dL Crossmatch See Detail 11/28/22 11/29/22 11/29/22 Range/Units 20:36 04:26 04:26 WBC 18.0 H 24.3 H (3.8-10.6) k/uL RBC 1.95 L 2.52 L (3.80-5.40) m/uL Hgb 6.2 L* D 8.6 L D (11.4-16.0) gm/dL Hct 19.0 L* 23.8 L (34.0-46.0) % RDW 21.4 H 20.3 H (11.5-15.5) % Plt Count 131 L (150-450) k/uL Neutrophils # 16.1 H 22.0 H (1.3-7.7) k/uL Neutrophils # (Manual) 22.60 H (1.3-7.7) k/uL Lymphocytes # (Manual) 0.49 L (1.0-4.8) k/uL Monocytes # (Manual) 1.22 H (0-1.0) k/uL PT (9.0-12.0) sec INR (<1.2) APTT (22.0-30.0) sec Chloride 108 H (98-107) mmol/L Carbon Dioxide 16 L (22-30) mmol/L BUN 41 H (7-17) mg/dL Creatinine 3.48 H (0.52-1.04) mg/dL Glucose 101 H (74-99) mg/dL Calcium 7.3 L (8.4-10.2) mg/dL Total Bilirubin 1.8 H (0.2-1.3) mg/dL Total Protein 3.5 L (6.3-8.2) g/dL Albumin 1.9 L (3.5-5.0) g/dL Crossmatch 11/29/22 Range/Units 07:38 WBC (3.8-10.6) k/uL RBC (3.80-5.40) m/uL Hgb (11.4-16.0) gm/dL Hct (34.0-46.0) % RDW (11.5-15.5) % Plt Count (150-450) k/uL Neutrophils # (1.3-7.7) k/uL Neutrophils # (Manual) (1.3-7.7) k/uL Lymphocytes # (Manual) (1.0-4.8) k/uL Monocytes # (Manual) (0-1.0) k/uL PT 26.5 H (9.0-12.0) sec INR 2.7 H (<1.2) APTT 46.7 H (22.0-30.0) sec Chloride (98-107) mmol/L Carbon Dioxide (22-30) mmol/L BUN (7-17) mg/dL Creatinine (0.52-1.04) mg/dL Glucose (74-99) mg/dL Calcium (8.4-10.2) mg/dL Total Bilirubin (0.2-1.3) mg/dL Total Protein (6.3-8.2) g/dL Albumin (3.5-5.0) g/dL Crossmatch Assessment and Plan Assessment: Paraesophageal hernia with intrathoracic stomach and transverse colon,status post laparotomy with repair of paraesophageal hernia, Witzel jejunostomy feeding tube, Jairo fundoplication. Acute blood loss anemia, expected outcome of surgery, status post transfusions of packed RBCs and FFP Acute hypoxic respiratory failure secondary to the above, resolved currently on room air Chronic dyspnea secondary to Large paraesophageal hiatal hernia. Bibasilar atelectasis secondary to the above Acute GI bleed status post DDAVP, multiple RBC transfusions, possibly related to colitis. Tagged RBC reported negative. Intractable nausea vomiting and diarrhea. EGD and colonoscopy done 11/12/2022 which showed large hiatal hernia, mild antral gastritis, sigmoid diverticular stricture and diverticulosis. Colonoscopy biopsy reported nonspecific active colitis in the descending colon and focal mild nonspecific active in the sigmoid colon, likely infectious, Flagyl initiated. Abdominal ultrasound in October 2022 showed dilated bile duct at 1.5 cm. Acute on Chronic kidney disease, stage V, hypovolemic-prerenal. No hydronephrosis reported per ultrasound 10/24/2022 Anemia of chronic disease. 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 Severe protein calorie malnutrition, BMI 20 Plan: Continue on current medication regime ,monitoring and symptomatic treatmen t. Recently medicated with Ativan, lethargic, BPs soft with increased NG output over the last 24hrs. diuretics have been discontinued. Strict NPO as per CTS; all meds to be given IV. Tube feeds.Pain management. IV antibiotics. Prognosis guarded given multiple complex medical issues. Close monitoring of renal function with repeat labs ordered for a.m. The impression and plan of care has been dictated as directed. : I performed a history and examination of this patient, discussed the same with the dictator. I agree with the dictator's note ,documented as a scribe. Any additional findings or plans will be noted.
[2022-11-29] MEDS ORDERED: PIPERACILLIN-TAZOBACTAM 2.25 GM in SODIUM CHLORIDE 0.9% 100 ML IVPB SCH (16:00)
[2022-11-29 20:10] VITALS: TEMP 97.5
[2022-11-29] MEDS ORDERED: SODIUM CHLORIDE 0.9% 1,000 ML IV ONE (21:49)
[2022-11-29 22:00] LABS: Glucose,Whole Blood 108 mg/dL (70-110)
[2022-11-29 22:00] LABS: ABG Base Excess -13.3 mmol/L; ABG HCO3 15 mmol/L (21-25); ABG Oxygen Saturation 98.5 % (94-97); ABG PCO2 37 mmHg (35-45); ABG PH 7.21 (7.35-7.45); ABG PO2 385 mmHg (83-108); ABG TCO2 16 mmol/L (19-24); Allen Test Performed? Yes
[2022-11-29] MEDS ORDERED: NOREPINEPHRINE 4 MG in SODIUM CHLORIDE 0.9% 250 ML IV SCH (22:00)
[2022-11-29 22:41] LABS: African American GFR (CKD) 12 (>60 ml/min/1.73 sqM); Anion Gap 16 mmol/L; Blood Urea Nitrogen 39 mg/dL (7-17); Calcium 7.2 mg/dL (8.4-10.2); Carbon Dioxide 15 mmol/L (22-30); Chloride 108 mmol/L (98-107); Glucose 81 mg/dL (74-99); Non-African American GFR(CKD) 11 (>60 ml/min/1.73 sqM); Potassium 4.9 mmol/L (3.5-5.1); Sodium 139 mmol/L (137-145)
[2022-11-29 23:07] LABS: Anisocytosis Moderate; Hypochromasia Marked; MCH 31.1 pg (25.0-35.0); MCHC 31.1 g/dL (31.0-37.0); MCV 99.9 fL (80.0-100.0); Macrocytosis Moderate; Mean Platelet Volume 11.5; Platelet Count 190 k/uL (150-450); Poikilocytosis Moderate; RBC 1.55 m/uL (3.80-5.40); RDW 22.3 % (11.5-15.5)
[2022-11-29 23:09] LABS: HCT 15.4 % (34.0-46.0); HGB 4.8 gm/dL (11.4-16.0)
[2022-11-30] MEDS ORDERED: ACETAMINOPHEN IV (For NPO) 1,000 MG in EMPTY BAG 1 BAG IVPB SCH
[2022-11-30] MEDS ORDERED: EPINEPHrine 10 ML SYRINGE (0.1 MG/ML) ONE (00:15)
[2022-11-30] MEDS ORDERED: SODIUM BICARB 8.4% 50 ML SYR (1 MEQ/ML) ONE (00:15)
[2022-11-30 00:55] LABS: Band Neutrophils % 1 %; Hypochromasia (M) Present; Lymphocytes # (M) 1.88 k/uL (1.0-4.8); Metamyelocytes # (M) 0.31 k/uL (0); Metamyelocytes % 1 %; Monocytes # (M) 1.57 k/uL (0-1.0); Neutrophils % (M) 87 %; Nucleated Red Blood Cells 4 /100 WBC (0-0); Polychromasia Present; Target Cells Present; Total Cells Counted 100; WBC 31.3 k/uL (3.8-10.6)
[2022-11-30 00:56] LABS: Anisocytosis (M) Present; Toxic Granulation Present; Toxic Vacuolation Present
[2022-11-30 03:59] VITALS: BP 134/88; PULSE 144; RESP 16
--- NOTE | 2022-11-30 18:01 | P.DS ---
Providers Date of admission: 11/15/22 11:30 Attending physician: Balbir Roman Consults: 11/14/22 21:22 Consult Physician Routine Consulting Provider: Uche Goldstein Consult Reason/Comments: kidney disease Do you want consulting provider notified?: Yes 11/17/22 16:40 Consult Physician Routine Consulting Provider: Abel Rivers Consult Reason/Comments: Intra-thoracic hiatal hernia Do you want consulting provider notified?: Yes, Notify in am 11/17/22 16:41 Consult Physician Routine Consulting Provider: Caitlin Carty Consult Reason/Comments: Diarrhea, recent colonoscopy 11/12 Do you want consulting provider notified?: Yes, Notify in am 11/17/22 16:42 Consult Physician Routine Consulting Provider: Saman Adler Consult Reason/Comments: COPD, dyspnea Do you want consulting provider notified?: Yes, Notify in am Primary care physician: Balbir Roman [facility] Course: Final Diagnosis Paraesophageal hernia with intrathoracic stomach and transverse colon,status post .laparotomy with repair of paraesophageal hernia, Witzel jejunostomy feeding tube, Jairo fundoplication Acute blood loss anemia, expected outcome of surgery, status post transfusions of packed RBCs and FFP Acute hypoxic respiratory failure secondary to the above, resolved currently on room air Chronic dyspnea secondary to Large paraesophageal hiatal hernia. Bibasilar atelectasis secondary to the above Acute GI bleed status post DDAVP, multiple RBC transfusions, possibly related to colitis. Tagged RBC reported negative. Intractable nausea vomiting and diarrhea. EGD and colonoscopy done 11/12/2022 which showed large hiatal hernia, mild antral gastritis, sigmoid diverticular stricture and diverticulosis. Colonoscopy biopsy reported nonspecific active colitis in the descending colon and focal mild nonspecific active in the sigmoid colon, likely infectious, Flagyl initiated. Abdominal ultrasound in October 2022 showed dilated bile duct at 1.5 cm. Acute on Chronic kidney disease, stage V, hypovolemic-prerenal. No h ydronephrosis reported per ultrasound 10/24/2022 Anemia of chronic disease. 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 Severe protein calorie malnutrition, BMI 20 Patient on 11/30/22 at 0039 preliminary cause of Hypotensive shock and respiratory failure Hospital Course Patient is an 81 year old female patient of Dr Roman. Patient has had extensive hospital stay admitted with multiple medical issues including GI bleed, acute on chronic kidney failure, large intrathoracic hiatal hernia accompanied by dyspnea, diarrhea- chronic-tested negative for C. difficile colitis, hyponatremia, hypokalemia, severe protein calorie malnutrition. Underwent laparotomy with repair of paraesophageal hernia, Witzel jejunostomy feeding tube, Jairo fundoplication for Paraesophageal hernia with intrathoracic stomach and transverse colon. Patient has been monitored in the ICU. On tube feeds via J ejunostomy tube, on IV fluids, received platelets and FFP on 11/29/22. Urine culture showing klebsiella and citrobacter. Receiving darbepoetin, on levophed, on IV zosyn. Patients most recent labs showing white count 31.3, hgb 4.8, BUN 39, creatinine 3.76. Being following by nephrology, alemite operator, cardiothoracic, and primary service Dr Roman who had evaluated patient on 11/29/22. Patient was not seen by [facility] weekend covering physician for Dr Roman prior to expiration as patient had just after midnight on 11/30/22 in the ICU. Patient noted to have decreased blood pressure at 2130 on 11/29/22, what given 1L bolus and started on lveop, ABGS were done, and patient was given 2 amps of bicarb orders given from alemite operator per medical record. Patient transitioned to high flow cannula. BP unable to be taken. Patient just after midnight on 11/30/22 with family at bedside. The impression and plan of care has been dictated by Suzi Kelly, Nurse Practitioner as directed. Dr. Bo MD I have performed a history and physical examination and medical decision making of this patient, discussed the same with the dictator, and agree with the dictators assessment and plan as written, documented as a scribe. Based on total visit time, I have performed more than 50% of this visit. Patient Condition at Discharge: Fair Plan - Discharge Summary New Discharge Prescriptions: No Action Levothyroxine Sodium [Synthroid] 50 mcg PO DAILY allopurinoL [Zyloprim] 100 mg PO DAILY Sodium Bicarbonate Tab 650 mg PO TID Ferrous Sulfate [Iron (65 MG Elemental)] 325 mg PO DAILY HYDROcodone/APAP 10-325MG [Floyd 10-325] 1 tab PO Q6HR PRN PRN Reason: Pain Diphenox-Atrop 2.5-0.025 mg [Lomotil] 2 tab PO TID PRN PRN Reason: Diarrhea Lansoprazole [Prevacid] 30 mg PO DAILY Acetaminophen [Tylenol Arthritis] 650 mg PO Q6H PRN PRN Reason: Fever And/ Or Pain Cholecalciferol [Vitamin D3 (25 Mcg = 1000 Iu)] 50 mcg PO DAILY diphenhydrAMINE HCL [Benadryl] 25 mg PO HS Ondansetron Odt [Zofran Odt] 4 mg PO Q8HR PRN PRN Reason: Nausea And Vomiting Rosuvastatin [Crestor] 10 mg PO HS Discharge Medication List Levothyroxine Sodium [Synthroid] 50 mcg PO DAILY 01/19/16 [History] allopurinoL [Zyloprim] 100 mg PO DAILY 06/05/16 [History] Sodium Bicarbonate Tab 650 mg PO TID 10/27/20 [History] Ferrous Sulfate [Iron (65 MG Elemental)] 325 mg PO DAILY 06/28/21 [History] Diphenox-Atrop 2.5-0.025 mg [Lomotil] 2 tab PO TID PRN 10/29/22 [History] HYDROcodone/APAP 10-325MG [Floyd 10-325] 1 tab PO Q6HR PRN 10/29/22 [History] Lansoprazole [Prevacid] 30 mg PO DAILY 10/29/22 [History] Acetaminophen [Tylenol Arthritis] 650 mg PO Q6H PRN 11/14/22 [History] Cholecalciferol [Vitamin D3 (25 Mcg = 1000 Iu)] 50 mcg PO DAILY 11/14/22 [History] Ondansetron Odt [Zofran Odt] 4 mg PO Q8HR PRN 11/14/22 [History] Rosuvastatin [Crestor] 10 mg PO HS 11/14/22 [History] diphenhydrAMINE HCL [Benadryl] 25 mg PO HS 11/14/22 [History] Follow up Appointment(s)/Referral(s): Balbir Roman DO [Primary Care Provider] - 1-2 days [facility], [NON-STAFF] - 1 Week ([facility] will call you to arrange a visit) Chantal Weaver, [facility] [REFERRING] - 1 Week (Gastroenterology Dr. Carty's office) Discharge Disposition: - Preliminary Cause of Preliminary Cause of : hypotensive shock and respiratory failure
--- NOTE | 2022-12-04 08:07 | CDI ---
Documentation Clarification Form Date: 12/04/2022 06:56:05 AM From: Anitra Chisholm RN, CCDS Admit Date: 11/15/2022 11:30:00 AM Patient Name: Lolita Blood Visit Number: [id number] Discharge Date: 11/30/2022 04:01:00 AM ATTENTION: The Clinical Documentation Specialists (CDI) and [facility] Coding Staff appreciate your assistance in clarifying documentation. Please respond to the clarification below the line at the bottom and electronically sign. The CDI & [facility] Coding staff will review the response and follow-up if needed. Please note: Queries are made part of the Legal Health Record. If you have any questions, please contact the author of this message via ITS. Dr. 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 Additional clarification is requested regarding the relationship, if any, that exists between the diagnosis and the procedure. Preoperative Diagnosis: Paraesophageal hernia with intrathoracic stomach and transverse colon, very poor oral intake and highly compromised nutritional status Post-Operative Same Procedure performed: Laparotomy with repair of paraesophageal hernia, Witzel jejunostomy feeding tube, Jairo fundoplication History/Risk Factors: Paraesophageal hernia, GERD, Hypertension, Thyroid disorder Clinical Indicators: 81-year-old female with progressive difficulty eating to the point where at this time she could only tolerate a small amount of liquids. CT scan shows large paraesophageal hernia with the entire stomach and transverse colon in the left chest. She was very high risk for surgical repair. The esophagus itself was very friable. Treatment: Repair with 3-0 Vicryl suture What relationship, if any, exists between the diagnosis of Microperforation of the distal esophagus and the procedure? [ ] Microperforation of the distal esophagus is a complication of surgical procedure. [ ] Microperforation of the distal esophagus is an expected outcome of the surgical procedure. [x ] Microperforation of the distal esophagus is related to patients co-morbid condition(s) the friability of the esophagus and not a complication of the procedure. [ ] Other please specify ____ [ ] Unable to determine (Template Last Revised: July 2020) MTDD
== END 2022-11-30 04:01 | disposition expired | DRG 853 ==
LOC: EC 17:04 → 6NMEDSUR 21:22 → OBSVTOIN 11-15 11:30 → 5NMEDONC 11-20 14:52 → 3SCARD 11-23 12:13 → 2SICU 11-25 17:04
PROVIDERS: ADMIT Family Medicine; ATTEND Family Medicine
PROC: 30233N1 Transfusion of Nonautologous Red Blood Cells into Peripheral Vein, Percutaneous Approach (ICD-10-PCS; 2022-11-24)
PROC: 30243K1 Transfusion of Nonautologous Frozen Plasma into Central Vein, Percutaneous Approach (ICD-10-PCS; 2022-11-25)
PROC: 3E0H76Z Introduction of Nutritional Substance into Lower GI, Via Natural or Artificial Opening (ICD-10-PCS; 2022-11-25)
PROC: 0DQ30ZZ Repair Lower Esophagus, Open Approach (ICD-10-PCS; principal; 2022-11-25 07:30)
PROC: 0DHA0UZ Insertion of Feeding Device into Jejunum, Open Approach (ICD-10-PCS; principal; 2022-11-25 07:30)
PROC: 0BQT0ZZ Repair Diaphragm, Open Approach (ICD-10-PCS; principal; 2022-11-25 07:30)
PROC: 0DV40ZZ Restriction of Esophagogastric Junction, Open Approach (ICD-10-PCS; principal; 2022-11-25 07:30)
PROC: 30243R1 Transfusion of Nonautologous Platelets into Central Vein, Percutaneous Approach (ICD-10-PCS; 2022-11-26)
PROC: 3E043XZ Introduction of Vasopressor into Central Vein, Percutaneous Approach (ICD-10-PCS; 2022-11-29)
DX: A41.9 Sepsis, unspecified organism (principal); E43 Unspecified severe protein-calorie malnutrition; J96.01 Acute respiratory failure with hypoxia; N17.0 Acute kidney failure with tubular necrosis; I31.39 Other pericardial effusion (noninflammatory); I13.11 Hypertensive heart and chronic kidney disease without heart failure, with stage 5 chronic kidney disease, or end stage renal disease; J90 Pleural effusion, not elsewhere classified; D62 Acute posthemorrhagic anemia; E87.1 Hypo-osmolality and hyponatremia; D68.9 Coagulation defect, unspecified; E87.20 Acidosis, unspecified; N11.9 Chronic tubulo-interstitial nephritis, unspecified; N18.5 Chronic kidney disease, stage 5; Z68.1 Body mass index [BMI] 19.9 or less, adult; J98.11 Atelectasis; N39.0 Urinary tract infection, site not specified; K92.1 Melena; K44.9 Diaphragmatic hernia without obstruction or gangrene; R57.8 Other shock; I95.89 Other hypotension; D63.1 Anemia in chronic kidney disease; E88.09 Other disorders of plasma-protein metabolism, not elsewhere classified; B96.1 Klebsiella pneumoniae [K. pneumoniae] as the cause of diseases classified elsewhere; B96.89 Other specified bacterial agents as the cause of diseases classified elsewhere; E86.0 Dehydration; E86.1 Hypovolemia; E83.42 Hypomagnesemia; K29.00 Acute gastritis without bleeding; E87.6 Hypokalemia; E03.9 Hypothyroidism, unspecified; E78.5 Hyperlipidemia, unspecified; K52.9 Noninfective gastroenteritis and colitis, unspecified; K21.9 Gastro-esophageal reflux disease without esophagitis; K57.30 Diverticulosis of large intestine without perforation or abscess without bleeding; G89.29 Other chronic pain; T39.395A Adverse effect of other nonsteroidal anti-inflammatory drugs [NSAID], initial encounter; F41.9 Anxiety disorder, unspecified; R63.30 Feeding difficulties, unspecified; R68.0 Hypothermia, not associated with low environmental temperature; Z79.890 Hormone replacement therapy; Z79.899 Other long term (current) drug therapy; Z96.653 Presence of artificial knee joint, bilateral; Z96.82 Presence of neurostimulator; Z86.16 Personal history of COVID-19; Z87.440 Personal history of urinary (tract) infections; Z85.828 Personal history of other malignant neoplasm of skin; Z71.3 Dietary counseling and surveillance; Z88.6 Allergy status to analgesic agent; Z88.5 Allergy status to narcotic agent; Z88.2 Allergy status to sulfonamides; Z88.8 Allergy status to other drugs, medicaments and biological substances
CPT/HCPCS: 36415; 36430; 36600; 71045; 71250; 78278; 80048; 80053; 80076; 81001; 82272; 82728; 82805; 83540; 83550; 83605; 83630; 83690; 83735; 83993; 84100; 84134; 85025; 85027; 85610; 85730; 86850; 86900; 86901; 86920; 87040; 87045; 87046; 87077; 87086; 87186; 87324; 87328; 92950; 96361; 96374; 96375; 99285